=== PATIENT | female | born 1995 | race Caucasian/White ===

== ENCOUNTER → 2020-04-02 09:01 | Outpatient (BNVA) | payer MEDICAID, SELFPAY | PROVIDERS: Family Provider Internal Medicine; PCP Internal Medicine; Visit Provider Nurse Practitioner | DX: F43.12 Post-traumatic stress disorder, chronic (principal); F31.4 Bipolar disorder, current episode depressed, severe, without psychotic features; F10.21 Alcohol dependence, in remission; F12.20 Cannabis dependence, uncomplicated | CPT/HCPCS: 99214 ==

== ENCOUNTER → 2020-04-20 17:35 | Outpatient (BNVA) | payer MEDICAID, SELFPAY | PROVIDERS: Family Provider Internal Medicine; PCP Internal Medicine; Visit Provider Nurse Practitioner Family | DX: L08.9 Local infection of the skin and subcutaneous tissue, unspecified (principal); B95.8 Unspecified staphylococcus as the cause of diseases classified elsewhere; F12.10 Cannabis abuse, uncomplicated; F19.10 Other psychoactive substance abuse, uncomplicated; Z20.2 Contact with and (suspected) exposure to infections with a predominantly sexual mode of transmission; N92.6 Irregular menstruation, unspecified | CPT/HCPCS: 80074; 81025; 87086; 87491; 87591; 87661; 87806 ==

== ENCOUNTER 2020-05-23 01:53 | Emergency (ER) | payer MEDICAID, SELFPAY ==
[2020-05-23 01:53] VITALS: BP 103/63; PULSE 86; RESP 18; TEMP 36.7; O2SAT 98; BMI 29.2
--- NOTE | 2020-05-23 01:58 | CTR_ITS ---
PROCEDURE INFORMATION: Exam: CT Cervical Spine Without Contrast Exam date and time: 05/23/2020 2:23 AM Age: 24 years old Clinical indication: Injury or trauma; Fall; Initial encounter; Concussion /head injury TECHNIQUE: Imaging protocol: Computed tomography images of the cervical spine without contrast. Radiation optimization: All CT scans at this facility use at least one of these dose optimization techniques: automated exposure control; mA and/or kV adjustment per patient size (includes targeted exams where dose is matched to clinical indication); or iterative reconstruction. COMPARISON: No relevant prior studies available. RADIATION DOSE METRICS: Total DLP (mGy-cm): 634.16 FINDINGS: Vertebrae: No acute fracture. Normal alignment. Discs/Spinal canal/Neural foramina: No significant disc protrusion. No severe spinal canal stenosis. No significant neural foraminal narrowing. Soft tissues: Unremarkable. Lungs: Lung apices are normal. CT/CT cervical spin wo con* [id number] IMPRESSION: No acute findings. Radiation Dose CTDIVOL = (mGy): DLP = 634.16 (mGy-cm)
--- NOTE | 2020-05-23 01:58 | XRR_ITS ---
PROCEDURE INFORMATION: Exam: XR Right Forearm Exam date and time: 05/23/2020 2:59 AM Age: 24 years old Clinical indication: Injury or trauma; Fall; Initial encounter; Blunt trauma (contusions or hematomas; Arm, upper; Right TECHNIQUE: Imaging protocol: XR Right forearm. Views: 2 views. COMPARISON: No relevant prior studies available. FINDINGS: Bones/joints: No fracture or dislocation. Soft tissues: Soft tissue swelling/contusion along the distal ulna. XR/XR forearm RT 2V [id number] IMPRESSION: 1. No fracture or dislocation. 2. Soft tissue contusion along the distal ulna.
--- NOTE | 2020-05-23 01:58 | CTR_ITS ---
PROCEDURE INFORMATION: Exam: CT Head Without Contrast Exam date and time: 05/23/2020 2:23 AM Age: 24 years old Clinical indication: Injury or trauma; Fall; Initial encounter; Concussion / head injury; Consciousness not specified TECHNIQUE: Imaging protocol: Computed tomography of the head without contrast. Radiation optimization: All CT scans at this facility use at least one of these dose optimization techniques: automated exposure control; mA and/or kV adjustment per patient size (includes targeted exams where dose is matched to clinical indication); or iterative reconstruction. COMPARISON: CT head wo con* [id number] 11/29/2015 6:27 PM RADIATION DOSE METRICS: Total DLP (mGy-cm): 861.28 FINDINGS: Brain: Normal. No hemorrhage. Unremarkable white matter. No mass effect. Ventricles: Normal. No ventriculomegaly. Bones/joints: Unremarkable. No acute fracture. Sinuses: Visualized sinuses are unremarkable. No fluid levels. Mastoid air cells: Visualized mastoid air cells are well aerated. Soft tissues: Unremarkable. CT/CT head wo con* [id number] IMPRESSION: No acute intracranial abnormality. Radiation Dose CTDIVOL = (mGy): DLP = 861.28 (mGy-cm)
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
[2020-05-23 02:03] VITALS: BP 100/65; PULSE 85; RESP 16; O2SAT 98
--- NOTE | 2020-05-23 02:31 | PC.NURSE ---
patient to CT
[2020-05-23 02:50] LABS: Alanine Aminotransferase 15 U/L (0-33); Albumin Level 3.9 g/dL (3.5-5.2); Alkaline Phosphatase 75 IU/L (35-105); Anion Gap 16.3 (5-19); Aspartate Amino Transferase 25 U/L (0-32); Blood Urea Nitrogen 15 mg/dL (6-20); Calcium 8.8 mg/dL (8.5-10.5); Carbon Dioxide 24 mmol/L (22-29); Chloride 102 mmol/L (98-107); Creatinine Clr Calc Pharmacy 101.1506; Glomerular Filtration Rate 88.1 mL/min (90-130); Glucose 86 mg/dL (65-115); Osmolality Calculated 284 mOsm/kg (285-295); Potassium 3.3 mmol/L (3.5-5.1); Sodium 139 mmol/L (136-145); Total Bilirubin 0.3 mg/dL (0.15-1.2); Total Protein 6.9 g/dL (6.6-8.7)
--- NOTE | 2020-05-23 02:50 | PC.NURSE ---
back from CT
[2020-05-23 03:00] LABS: Alcohol Level < 10 mg/dL (0-10)
[2020-05-23 03:07] LABS: Basophils # 0.1 10^3/uL (0.0-0.1); Basophils % 0.9 %; Eosinophils # 0.3 10^3/uL (0.0-0.8); Eosinophils % 3.2 %; Hematocrit 34.7 % (37.0-47.0); Hemoglobin 10.3 g/dL (11.5-15.3); Mean Corpuscular HGB Conc 29.7 g/dL (30.0-36.0); Mean Corpuscular Hemoglobin 24.6 pg (28.0-34.0); Mean Corpuscular Volume 82.8 fL (81-99); Mean Platelet Volume 9.4 fL (7.4-10.4); Monocytes # 0.8 10^3/uL (0.2-0.9); Monocytes % 10.6 %; Neutrophils # 3.56 10^3/uL (1.8-7.7); Neutrophils % 46.3 %; Nucleated Red Blood Cells % 0 %; Platelet Count 384 10^3/cmm (130-400); Red Blood Count 4.19 10^6/uL (4.1-5.3); Red Cell Distribution Width 18.2 % (12.1-15.1); White Blood Count 7.7 10^3/uL (4.0-10.0)
[2020-05-23] MEDS: ketorolac 30 mg/mL INJ 15 MG IVP (03:08)
[2020-05-23 03:10] VITALS: BP 105/72; PULSE 64; RESP 16; O2SAT 95
[2020-05-23 03:18] VITALS: BP 105/72; PULSE 66; RESP 15; O2SAT 100
[2020-05-23 03:36] LABS: HCG, Serum Qual Negative (Negative)
== END 2020-05-23 03:20 | disposition home or self-care (01) ==
PROVIDERS: Emergency Provider Nurse Practitioner Family; PCP Internal Medicine
DX: S00.03XA Contusion of scalp, initial encounter (principal); W17.89XA Other fall from one level to another, initial encounter; Z87.891 Personal history of nicotine dependence; J45.909 Unspecified asthma, uncomplicated
CPT/HCPCS: 12345; 70450; 72125; 73090; 80053; 80307; 84703; 85025; 96374; 96375; 99283; J1885

== ENCOUNTER 2020-06-08 15:29 | Inpatient (IN) | payer MEDICAID, SELFPAY ==
[2020-06-08 15:35] VITALS: RESP 16
[2020-06-08] MEDS: ziprasidone 20 mg/mL SDV IM (15:42)
[2020-06-08] MEDS: LORazepam 2 mg/mL INJ 1 mL IM (15:42)
--- NOTE | 2020-06-08 15:50 | PC.NURSE ---
Personal belongings are in filing cabinet drawer number 2
[2020-06-08 16:09] VITALS: BP 106/74; PULSE 72; RESP 20; O2SAT 96
[2020-06-08 16:27] LABS: Basophils # 0.1 10^3/uL (0.0-0.1); Basophils % 0.9 %; Eosinophils # 0.2 10^3/uL (0.0-0.8); Eosinophils % 3.1 %; Hemoglobin 10.8 g/dL (11.5-15.3); Lymphocytes # 2.6 10^3/uL (0.8-4.8); Lymphocytes % 35.4 %; Mean Corpuscular Hemoglobin 24.6 pg (28.0-34.0); Mean Platelet Volume 9.1 fL (7.4-10.4); Monocytes # 0.6 10^3/uL (0.2-0.9); Monocytes % 7.4 %; Neutrophils # 3.93 10^3/uL (1.8-7.7); Neutrophils % 52.9 %; Nucleated Red Blood Cells % 0 %; Platelet Count 409 10^3/cmm (130-400); Red Blood Count 4.39 10^6/uL (4.1-5.3); Red Cell Distribution Width 17.2 % (12.1-15.1); White Blood Count 7.4 10^3/uL (4.0-10.0)
[2020-06-08 16:50] VITALS: BP 116/80; PULSE 80; RESP 18; O2SAT 96
[2020-06-08 17:01] LABS: Alanine Aminotransferase 18 U/L (0-33); Albumin Level 3.9 g/dL (3.5-5.2); Alkaline Phosphatase 73 IU/L (35-105); Anion Gap 13.9 (5-19); Aspartate Amino Transferase 28 U/L (0-32); Blood Urea Nitrogen 15 mg/dL (6-20); Calcium 8.6 mg/dL (8.5-10.5); Carbon Dioxide 24 mmol/L (22-29); Chloride 105 mmol/L (98-107); Globulin 3.1 g/dL (1.3-4.6); Glomerular Filtration Rate 88.1 mL/min (90-130); Glucose 92 mg/dL (65-115); Osmolality Calculated 284 mOsm/kg (285-295); Potassium 3.9 mmol/L (3.5-5.1); Sodium 139 mmol/L (136-145); Total Bilirubin 0.2 mg/dL (0.15-1.2)
[2020-06-08 17:05] LABS: Acetaminophen < 5.0 ug/mL (10-30); Alcohol Level < 10 mg/dL (0-10); Salicylate < 0.3 mg/dL (3-10)
[2020-06-08 17:13] LABS: Add Urine Microscopic? YES; Bilirubin Urine Neg (NEGATIVE); Blood Urine Neg (Negative); Glucose Urine UA Norm (Normal); HCG Qualitative Urine. Negative (Negative); Ketones Urine Negative (Negative); Leukocyte Esterase Urine Negative (Negative); Nitrate Urine Negative (Negative); Protein Urine Neg (Negative); Urine Appearance Hazy (CLEAR); Urine Color Yellow (Yellow); Urobilinogen Urine Norm (Negative); pH Urine 6 (5-7)
[2020-06-08 17:19] LABS: Amphetamines Screen Urine Positive (Negative); Barbiturates Screen Urine Negative (Negative); Benzodiazepines Screen Urine Negative (Negative); Cocaine Screen Urine Negative (Negative); Opiate Screen Urine Negative (Negative); PCP Screen Urine Negative (Negative); THC Screen Urine Negative (Negative)
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
[2020-06-08 17:23] LABS: Add Urine Culture? No; Bacteria Urine 1+; Mucus Urine 1+; RBC Urine 0-4 /hpf (0-2)
[2020-06-08 18:30] VITALS: BP 99/68; PULSE 61; RESP 18; TEMP 36.4; O2SAT 100
[2020-06-08 18:40] VITALS: BP 99/68; PULSE 61; RESP 18; TEMP 36.4; O2SAT 100
--- NOTE | 2020-06-08 20:43 | PC.NURSE ---
SEDATED UPON ASSESSMENT.
--- NOTE | 2020-06-08 21:25 | PC.NURSE ---
pt contiues to sleep at this med round. no medications given.
[2020-06-08 22:00] VITALS: RESP 18
[2020-06-09] MEDS: acetaminophen 325 mg Tablet 650 MG PO ×2 (00:33→20:53)
[2020-06-09] MEDS: hyDROXYzine 25 mg Capsule 50 MG PO ×2 (00:34→20:55)
--- NOTE | 2020-06-09 02:53 | PC.NURSE ---
patient continues to be sedated
[2020-06-09 06:00] VITALS: RESP 16
[2020-06-09 14:00] VITALS: BP 95/63; PULSE 88; RESP 18; TEMP 37.1; O2SAT 100
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
--- NOTE | 2020-06-09 20:33 | PC.NURSE ---
outpatient services through [facility] [place].
[2020-06-09] MEDS: trazodone 50 mg Tablet PO (20:55)
[2020-06-09 21:03] VITALS: BP 101/71; PULSE 77; RESP 18; TEMP 37.1; O2SAT 99
[2020-06-10 06:00] VITALS: BP 112/74; PULSE 68; RESP 20; TEMP 36.7; O2SAT 98
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
--- NOTE | 2020-06-10 13:51 | PM.NPN ---
Subjective NPU Subjective: Interval history: Keke presented today reporting that she is struggling with her situation at home. She reports she needs to get home, as soon as possible, because she is being evicted and she has to get her stuff out. We discussed the concerns that have been raised by her guardian, Mr. Hazel, who has grave concerns about the situation with her child being taken away and a recent other , and feeling like this element of her psycho-social circumstance is causing significant challenges in her life. She was agreeable to that reality. We talked about the possibility of looking at a long acting injectable, from the standpoint of treatment, which she is going to consider. As we talked about both Abilify and Invega, she reported that the Abilify was something that she could not take, but she would consider the Invega. Additionally, we talked about the impact that these pregnancies have had on her life, in a negative way, and that having an approach to managing her reproductive life might be something that would allow her to focus on other things, and she was agreeable with that and agreeable to considering a long acting reproductive option. So we agreed to see if we could get a PARKING LOT ATTENDANT/OB consult and see is they could initiate that in the next few days. Of note, she said she is on her period. Mental Status Exam MSE Comments: This is an overweight, young, white female, with adequate dress and limited grooming and eye contact. She has multicolored hair. Cooperative with exam in mild distress. Speech was decreased rate and volume. Mood described as ?okay but anxious and a little down?; affect congruent. Thought process, organized. Thought content: patient denied any suicidal or homicidal ideation, there were no delusions reported or noted, patient denied any auditory or visual hallucinations. Attention, concentration, and memory appeared intact but none were formally tested. Alert and oriented times three. Insight and judgment are limited. Impulse control is limited. Vitals/I&O/Wt Last Vital Signs Temp 98.8 F 06/10/20 21:50 Pulse 70 06/10/20 21:50 Resp 20 H 06/10/20 21:50 BP 99/59 06/10/20 21:50 Pulse Ox 98 06/10/20 21:50 Data NPU : 06/08/20 16:23 06/08/20 16:23 A&P Assessment and plan (1) Suicidal ideation: Status: Acute (2) Bipolar disorder, current episode depressed, severe, without psychotic features: Status: Acute (3) Post-traumatic stress disorder, chronic: Status: Acute (4) Cannabis dependence, uncomplicated: Status: Acute Additional A&P Information This is a 24 year old, white female, with a history of mood dysregulation, poor impulse control and active addiction, who presents with continued decompensation and great concerns, on the part of her guardian, for her safety without intervention. Continue current medication. We will explore the initiation of possibly Invega after an oral trial. Encourage individual, group, and milieu therapy. Continue q-15 minute checks for safety. Recommend sober living treatment at the highest level of care to which the patient is willing to commit. Will reach out to Obstetrics and explore reasonable start to her reproductive management which, if necessary, may include an OB consult. Involuntary Hold Information 96 Hour Hold: 96 Hour Involuntary Admission: No Attestations NPU Medical Necessity Statement*: Inpatient hospitalization is medically necessary and the clinically appropriate intervention at this time. We will monitor medications and titrate to effect and make changes as indicated. Likely length of stay is three to five days. Coding Level of Care Code Acute Molding Machine Setter for Thalia Pendleton Diagnoses Suicidal ideation R45.851 Bipolar disorder, current episode depressed, severe, without psychotic features F31.4 Post-traumatic stress disorder, chronic F43.12 Cannabis dependence, uncomplicated F12.20
[2020-06-10 14:00] VITALS: BP 103/65; PULSE 72; RESP 19; TEMP 37; O2SAT 99
[2020-06-10] MEDS: ondansetron 4 MG Tablet PO (18:42)
--- NOTE | 2020-06-10 18:43 | PC.NURSE ---
PRN ZOFRAN 4 MG GIVEN PO PER PT C/O UPSET STOMACH. WILL CONT TO MONITOR.
[2020-06-10] MEDS: trazodone 50 mg Tablet PO (20:51)
[2020-06-10] MEDS: hyDROXYzine 25 mg Capsule 50 MG PO (20:51)
[2020-06-10 21:50] VITALS: BP 99/59; PULSE 70; RESP 20; TEMP 37.1; O2SAT 98
[2020-06-11 06:00] VITALS: BP 94/68; PULSE 57; RESP 16; TEMP 37; O2SAT 98
[2020-06-11 14:00] VITALS: BP 94/62; PULSE 99; RESP 18; TEMP 37.1; O2SAT 94
[2020-06-11] MEDS: OLANZapine 5 mg ODT PO (14:22)
--- NOTE | 2020-06-11 14:23 | PC.NURSE ---
PRN Zyprexa Zydis 5MG PO given for anxiety
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
[2020-06-11] MEDS: paliperidone ER 6 mg Tablet PO (15:17)
[2020-06-11 20:15] VITALS: BP 84/58; PULSE 60; RESP 16; TEMP 36.5; O2SAT 97
[2020-06-11] MEDS: trazodone 50 mg Tablet PO (20:47)
[2020-06-12 06:00] VITALS: BP 82/55; PULSE 57; RESP 14; TEMP 36.4; O2SAT 93
--- NOTE | 2020-06-12 08:15 | P.PN_ITS ---
Subjective NPU Subjective: Interval history: Keke presents today continuing the lobby to be discharged as soon as possible. She denied any issues with the new medication but continues to report that she needs to go home and help her boyfriend/fianc? pack for discharge. We discussed the fact that we were able to reach Dr. Ponce and he reported that we can call on Sunday and get her squeezed into an appointment on the day of discharge so that we can assure her getting her contraception taking care of. We discussed the IUD which she reports that she's had before she said it didn't jive with her so she does not want to do that but reported having knowledge of a Depo can be placing her arm that could be a three-year treatment and endorse an openness to that. We will plan to recheck out to the outpatient OB people are saying Sunday as the eye a discharge earlier in the week, if all the other logistical pieces fall in place. Mental Status Exam MSE Comments: This is an overweight, young, white female, with adequate dress and limited grooming and eye contact. She has multicolored hair. Cooperative with exam in no acute distress. Speech was normal rate and volume. Mood described as all right; affect congruent. Thought process, organized. Thought content: patient denied any suicidal or homicidal ideation, there were no delusions reported or noted, patient denied any auditory or visual hallucinations. Attention, concentration, and memory appeared intact but none were formally tested. She appears alert and oriented times three. Insight and judgment are improving. Impulse control is limited. Vitals/I&O/Wt Last Vital Signs Temp 97.6 F 06/12/20 06:00 Pulse 57 L 06/12/20 06:00 Resp 14 06/12/20 06:00 BP 82/55 06/12/20 06:00 Pulse Ox 93 06/12/20 06:00 06/11/20 06/12/20 06/12/20 22:59 06:59 14:59 Intake Total 480 / 480 Balance 480 / 480 Weight last 48 hrs Weight 64.229 kg Data NPU : 06/08/20 16:23 06/08/20 16:23 A&P Additional A&P Information (1) Suicidal ideation: (2) Bipolar disorder, current episode depressed, severe, without psychotic features: (3) Post-traumatic stress disorder, chronic: (4) Cannabis dependence, uncomplicated: This is a 24 year old, white female, with a history of mood dysregulation, poor impulse control and active addiction, who presents with continued decompensation and great concerns, on the part of her guardian, for her safety without intervention. Continue current medication. Consider Invega injectable. Consider long-acting contraception with OB on Sunday. Encourage individual, group, and milieu therapy. Continue q-15 minute checks for safety. Recommend sober living treatment at the highest level of care to which the patient is willing to commit. Involuntary Hold Information 96 Hour Hold: 96 Hour Involuntary Admission: No Attestations NPU Medical Necessity Statement*: Inpatient hospitalization is medically necessary and the clinically appropriate intervention at this time. We will monitor medications and titrate to effect and make changes as indicated. Likely length of stay is three to five days. Coding Level of Care Code Acute Cigar Making Machine Supervisor for Thalia Pendleton
[2020-06-12] MEDS: paliperidone ER 6 mg Tablet PO (08:58)
[2020-06-12 13:56] VITALS: BP 138/87; PULSE 96; RESP 19; TEMP 36.3
[2020-06-12] MEDS: ondansetron 4 MG Tablet PO (18:17)
[2020-06-12 20:15] VITALS: BP 107/73; PULSE 90; RESP 16; TEMP 36.7; O2SAT 99
[2020-06-12] MEDS: trazodone 50 mg Tablet PO (20:48)
--- NOTE | 2020-06-12 20:49 | PC.NURSE ---
PRN TRAZODONE PT REQUESTING SLEEP AID. ADMINISTERED TRAZODONE 50 MG PO. WILL MONITOR FOR MEDICATION EFFECTIVENESS.
[2020-06-13 06:00] VITALS: BP 97/65; PULSE 74; RESP 18; TEMP 36.6; O2SAT 96
[2020-06-13] MEDS: paliperidone ER 6 mg Tablet PO (08:11)
--- NOTE | 2020-06-13 13:40 | P.PN_ITS ---
Subjective NPU Subjective: Interval history: Keke presents today continuing to report that her tolerance of the medication is good. She endorses a decreased irritability and continues to be hopeful that she can be discharged as soon as possible. Reviewed with her the plan to call OB first thing in see when they could fit her in plus we'll plan to work with her guardian to figure out this physician. We discussed the possibility of the long-acting injectable as well and that going some distance and reassurance of adherence to medication protocol. She reports is eating okay and sleeping fine. Mental Status Exam MSE Comments: This is an overweight, young, white female, with adequate dress and limited grooming and eye contact. She has multicolored hair. Cooperative with exam in no acute distress. Speech was normal rate and volume. Mood described as okay; affect congruent. Thought process, organized. Thought content: patient denied any suicidal or homicidal ideation, there were no delus ions reported or noted, patient denied any auditory or visual hallucinations. Attention, concentration, and memory appeared intact but none were formally tested. She appears alert and oriented times three. Insight and judgment are improving. Impulse control is limited. Vitals/I&O/Wt Last Vital Signs Temp 97.6 F 06/13/20 14:00 Pulse 98 06/13/20 14:00 Resp 17 06/13/20 14:00 BP 132/79 06/13/20 14:00 Pulse Ox 96 06/13/20 06:00 Weight last 48 hrs Weight 67.358 kg Weight 64.229 kg Data NPU : 06/08/20 16:23 06/08/20 16:23 A&P Additional A&P Information (1) Suicidal ideation: (2) Bipolar disorder, current episode depressed, severe, without psychotic features: (3) Post-traumatic stress disorder, chronic: (4) Cannabis dependence, uncomplicated: This is a 24 year old, white female, with a history of mood dysregulation, poor impulse control and active addiction, who presents with continued decompensation and great concerns, on the part of her guardian, for her safety without intervention. Continue current medication. Consider Invega injectable. Consider long-acting contraception with OB on Sunday. Encourage individual, group, and milieu therapy. Continue q-15 minute checks for safety. Recommend sober living treatment at the highest level of care to which the patient is willing to commit. Involuntary Hold Information 96 Hour Hold: 96 Hour Involuntary Admission: No Attestations NPU Medical Necessity Statement*: Inpatient hospitalization is medically necessary and the clinically appropriate intervention at this time. We will monitor medications and titrate to effect and make changes as indicated. Likely length of stay is 2-4 days. Coding Level of Care Code Acute Machine Repairer Maintenance for Thalia Pendleton
[2020-06-13 14:00] VITALS: BP 132/79; PULSE 98; RESP 17; TEMP 36.4
[2020-06-13 20:40] VITALS: BP 99/66; PULSE 95; RESP 21; TEMP 36.9; O2SAT 98
[2020-06-13] MEDS: hyDROXYzine 25 mg Capsule 50 MG PO (20:45)
[2020-06-13] MEDS: trazodone 50 mg Tablet PO (20:45)
[2020-06-14 06:00] VITALS: BP 100/68; PULSE 69; RESP 17; TEMP 36.6; O2SAT 97
[2020-06-14] MEDS: paliperidone ER 6 mg Tablet PO (08:36)
[2020-06-14 13:14] VITALS: BP 94/62; PULSE 95; RESP 18; TEMP 36.7; O2SAT 95
[2020-06-14] MEDS: paliperidone palmitate 234 mg Syringe IM (16:18)
--- NOTE | 2020-06-14 16:20 | PC.NURSE ---
INVEGA SUSTENNA 234 MG GIVEN IM IN RIGHT DELTOID PER PHYSICIAN ORDER. PT EDUCATED ON MED GIVEN & PT VERBALIZED UNDERSTANDING. WILL CONT TO MONITOR INJECTION SITE FOR ANY REDNESS, SWELLING, OR IRRITATION. LOT [id number] EXP 09/2021
[2020-06-14 18:03] VITALS: BP 94/62; PULSE 95; RESP 18; TEMP 36.7; O2SAT 95
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
== END 2020-06-14 18:22 | disposition home or self-care (01) | DRG 885 ==
LOC: ER 17:23 → NP 17:52
PROVIDERS: Family Medicine; PCP Internal Medicine; Visit Provider Psychiatry & Neurology Psychiatry
DX: F31.4 Bipolar disorder, current episode depressed, severe, without psychotic features (principal); R45.851 Suicidal ideations; F43.12 Post-traumatic stress disorder, chronic; F12.20 Cannabis dependence, uncomplicated; E03.9 Hypothyroidism, unspecified; F10.21 Alcohol dependence, in remission; K21.9 Gastro-esophageal reflux disease without esophagitis; G43.711 Chronic migraine without aura, intractable, with status migrainosus; Z87.891 Personal history of nicotine dependence
CPT/HCPCS: 12345; 36415; 80053; 80306; 80307; 81001; 81025; 85025; 96372; 99285; J2060; J3486; Q0162

== ENCOUNTER → 2020-06-18 11:27 | Outpatient (BNVA) | payer MEDICAID, SELFPAY | PROVIDERS: PCP Internal Medicine; Visit Provider Obstetrics & Gynecology | DX: Z30.017 Encounter for initial prescription of implantable subdermal contraceptive (principal) | CPT/HCPCS: 81025 ==

== ENCOUNTER → 2020-06-21 14:05 | Outpatient (BNVA) | payer MEDICAID, SELFPAY | PROVIDERS: PCP Internal Medicine; Visit Provider Psychiatry & Neurology Psychiatry | DX: F43.12 Post-traumatic stress disorder, chronic (principal) | CPT/HCPCS: 99214 ==

== ENCOUNTER → 2021-01-27 12:25 | Outpatient (BNVA) | payer MEDICAID, SELFPAY | PROVIDERS: PCP Internal Medicine; Visit Provider Nurse Practitioner | DX: F43.12 Post-traumatic stress disorder, chronic (principal); F12.20 Cannabis dependence, uncomplicated; F15.10 Other stimulant abuse, uncomplicated; Z79.899 Other long term (current) drug therapy | CPT/HCPCS: 99214 ==

== ENCOUNTER 2021-05-02 08:48 | Inpatient (IN) | payer MEDICAID, SELFPAY ==
[2021-05-02] VITALS (8 sets, daily range): BP systolic 111–134; BP diastolic 58–71; PULSE 91–166; RESP 16–21; TEMP 36.6–37; O2SAT 96–100; BMI 20.1
--- NOTE | 2021-05-02 08:50 | ECG_ITS ---
[facility] Test Date: 2021-05-02 Pat Name: Keke Mcnamara Department: Room: 126 Gender: Female Certified Registered Dental Assistant: : [id number] Requested By: Mark Regan Order Number: [id number] Martín MD: SU MONTALVO Measurements Intervals [place] Rate: 102 P: 80 DC: 116 QRS: 73 QRSD: 85 T: -8 QT: 331 QTc: 432 Interpretive Statements SINUS TACHYCARDIA WITH SHORT DC INTERVAL NONSPECIFIC T-WAVE ABNORMALITY Compared to ECG 08/19/2018 16:25:41 Short DC interval now present T-wave abnormality now present Sinus rhythm no longer present Electronically Signed On 05-02-2021 18:48:57 CDT by SU MONTALVO [id number]
--- NOTE | 2021-05-02 08:54 | W.ED.PSYCH ---
HPI - Psych General: Chief Complaint: Psychiatric Symptoms Stated Complaint: PSYCH EVAL Time Seen by Provider: 05/02/21 08:49 Source: patient and police Mode of arrival: ambulatory Limitations: other (acute psychosis) History of Present Illness: HPI Narrative: see nursing assessment. pt brought in by police with acute psychosis, visual hallucinations. pt very anxious and combative, even in police cuffs. complaint: altered mental status and other (anxiety) Onset (ago): unknown Duration: constant Relieving factors: none Exacerbating factors: drug use Context: recent drug abuse Associated psychiatric symptoms: visual hallucinations and delusions Associated symptoms: Reports visual hallucinations, delusions and racing thoughts; Deny suicidal ideation Treatments prior to arrival: none Review of Systems General: Reports: ROS unobtainable due to medical condition and ROS unobtainable due to mental status Card: Denies: chest pain Resp: Denies: dyspnea GI: Denies: abdominal pain, nausea or vomiting Neuro: Denies: headache(s) Psych: Reports: anxiety, paranoia and visual hallucinations; Denies: suicidal ideation [facility] PFSH: Medical History Acquired hypothyroidism Patient with longstanding history, since age 15, of hypothyroidism. She had not been taking medication since February 2019. 08/29/2019: TSH 11.2. Restarted levothyroxine at 50 mcg daily. 10/01/2019: TSH 15.3. Levothyroxine increased to 75 mcg daily. TSH still low. Increase Levothyroxine to 75 mcg -Rx Levothyroxine 75 mcg daily #30, 2 refil. Alcohol dependence, in remission Amphetamine or stimulant drug abuse Anemia affecting in third trimester Asthma Since childhood and states that it is aggravated by exercise. Has maybe one or 2 episodes of shortness of breath a week. Since childhood and states that it is aggravated by exercise. Has maybe one or 2 episodes of shortness of breath a week. Bipolar disorder, current episode depressed, severe, without psychotic features Bipolar disorder, mixed Patient has a history of bipolar disorder and PTSD. She has been on multiple medications in the past. She has also been treated with at [facility]. - Present prior to the --was taken off all her medications by Tamika Geiger at [facility] early on in the --she has not been back to [facility] and has not restarted any medication. Today she feels managed without medicine so we will continue to follow but I strongly recommended she return back to [facility] for further evaluation and management. Cannabis dependence, uncomplicated Drug use affecting in second trimester Gastroesophageal reflux during in third trimester, antepartum Insulin controlled gestational diabetes mellitus (GDM) in third trimester 09/01/2019: GCT 148 10/06/2019: Attempted to obtain three-hour GTT on multiple occasions. Patient unable to perform test. Check sugars at home and brought those to office at this visit. Pre-meals found to be elevated and consistent with GDM. A1c 10/06/2019: 5.6 Ultrasounds 1. 04/07/2019 ---> 7-4/7 WG ---> EDC 11/20/2019. 2. 07/30/2019 ---> 25-0/7 WG ---> EDC 11/12/2019. 3. 10/03/2019 ---> 34-6/7 WG ---> EDC 11/08/2019. EFW 5 lbs. 2 oz. (2318 g) 74%. SANTHOSH 18.8 cm Patient brought Sugar logs with her which were reviewed. Patient has continued to improve sugars with diet. However still higher than desired. Patient was supposed to have started 20 units of Levemir at her last visit, but wrong dose was sent in to the pharmacy and she only started 2 units daily. Based upon a sugar readings today, I am switching her to 10 units daily. -Levemir 10 units daily. -BPP with NST was 10 out of 10. -Continue weekly testing until 36 weeks at which time it is to switch to twice weekly. Intractable chronic migraine without aura and with status migrainosus Has been treated with multiple medications for headaches. Most recently treated with Imitrex by Dr. Amaro. Last visit with her was on 02/25/2019. This is a hapless mildly impaired 23-year-old with borderline personality disorder and ongoing difficulties. She has a nonfocal exam and I don't see any reason to scan her head. A letter headaches are doing better on current medication and I'm not changing anything. I took time to listen to her story and empathize. Maternal alcohol use complicating in second trimester, antepartum Mental disorder affecting in third trimester Patient has a history of bipolar disorder and PTSD. She has been on multiple medications in the past. She has also been treated with at [facility]. Patient denying depression problems at this time. She is definitely at risk for flareup of her bipolar disorder after delivery. Highly recommend that she get reestablished with [facility]. Nausea/vomiting in 09/29/2019: Started Reglan. Already taking Pepcid. Patient reporting nausea and vomiting. Was previously taking famotidine for acid reflux issues. Was started on Reglan today. Nexplanon insertion On combination antipsychotic drug therapy Post-traumatic stress disorder, chronic Seizure disorder during in third trimester 09/29/2019: Patient with history of tonic-clonic seizures. Has been followed by Dr. Amaro in the past. Last evaluation was in 02/25/2019. Currently off of medications. Thyroid disease during in third trimester Surgical History History of myringotomy History of tonsillectomy at age 10 [place] teeth extracted Family History Grandfather Hyperlipidemia Maternal Stroke maternal Diabetes maternal Grandmother Thyroid condition maternal Breast cancer great Mother Thyroid condition Unknown Patient denies medical problems Denies family history of: cervical, uterine, colon cancer, DVT/PE Family/Other Ovarian cancer paternal aunt Social History Smoking and tobacco status: current some day smoker Quit status (tobacco): considering quitting Second hand smoke exposure: Yes Smoking risk assessment/counseling performed?: No Alcohol intake: former Year of sobriety/quit date alcohol: 2019 Former alcohol use details: Drank wine during Additional social history: Poorly balanced diet Physical Exam Const: COMMON NORMALS: no limitations and well nourished EXAM LIMITATIONS: altered mental status, behavioral limitations and other limitations (pt acutely psychotic) GENERAL APPEARANCE: anxious, combative and disheveled HENMT: COMMON NORMALS: normocephalic and atraumatic HEAD & SCALP: normocephalic and atraumatic FACE & SINUS: normal facial exam Eye: COMMON NORMALS: EOMs intact bilaterally Neck/C-Spine: COMMON NORMALS: full ROM, no lymphadenopathy, supple and no meningeal signs GENERAL: Yes normal visual inspection Lymph: LYMPHATIC: no lymphadenopathy noted Chest: COMMONS NORMALS: normal inspection of the chest and normal palpation of entire chest wall CHEST: No Ecchymosis present and No rash Resp: COMMON NORMALS: normal respiratory effort, No retractions and clear to auscultation bilaterally EFFORT & INSPECTION: No respiratory distress AUSCULTATION: clear to auscultation bilaterally Cardio: COMMON NORMALS: regular rate, regular rhythm and Peripheral pulses 2+ throughout JUGULAR VENOUS DISTENTION: no JVD RATE: regular rate RHYTHM: regular rhythm PERIPHERAL PULSES: Peripheral pulses 2+ throughout GI: COMMON NORMALS: Normal to inspection, nondistended, normoactive bowel sounds present and non-tender : COMMON NORMALS: Yes no CVA tenderness BLADDER/KIDNEY EXAM: Yes no CVA tenderness Back/Pelvis: COMMON NORMALS: no CVA tenderness Extremity: COMMON NORMALS: normal to inspection, full ROM and capillary refill normal Neuro: COMMON NORMALS: CN's II-XII intact bilaterally, no focal motor deficits and no sensory deficits noted MENINGEAL SIGNS: Yes no meningeal signs Psych: ATTITUDE: Yes paranoid and Yes uncooperative SPEECH: Yes excessive MOOD & AFFECT: Yes anxious THOUGHT PROCESS: Flight of ideas present THOUGHT CONTENT: Yes delusions and Yes Hallucination(s) present visual ATTENTION/CONCENTRATION: Yes attention grossly impaired and Yes concentration grossly impaired INSIGHT: Poor insight present (Psych) JUDGEMENT: Poor judgement present (Psych) Skin: COMMON NORMALS: no rashes or lesions noted and no wounds GENERAL SKIN EXAM: no rashes or lesions noted Course ED course: 1108: telem sinus tach hr 105 pt out of restraints and calm since 929 Reevaluation(s): Reevaluation #1: Patient appears to be doing well. She is calm. No distress. Time: 09:45 Vital Signs: Vital signs: Vital Signs Pulse Rate 101 H 05/02/21 11:29 Respiratory Rate 18 05/02/21 11:29 Blood Pressure 114/58 05/02/21 09:15 Pulse Oximetry 100 05/02/21 11:29 MDM - Psych MDM Narrative: Medical decision making narrative: pt will require 96 hour hold due to acute psychosis 1140: d/w dr. pal. Will accept patient to behavioral health unit. Lab Data: Attestation: I reviewed the patient's lab results. Labs: Lab Results 05/02/21 05/02/21 05/02/21 Range/Units 10:08 10:08 10:28 WBC (4.0-10.0) 10^3/ uL RBC (4.1-5.3) 10^6/u L Hgb (11.5-15.3) g/dL Hct (37.0-47.0) % MCV (81-99) fL MCH (28.0-34.0) pg MCHC (30.0-36.0) g/dL RDW (12.1-15.1) % Plt Count (130-400) 10^3/c mm MPV (7.4-10.4) fL Neut % (Auto) % Lymph % (Auto) % Lawrence % (Auto) % Eos % (Auto) % Baso % (Auto) % Neut # (Auto) (1.8-7.7) 10^3/u L Lymph # (Auto) (0.8-4.8) 10^3/u L Lawrence # (Auto) (0.2-0.9) 10^3/u L Eos # (Auto) (0.0-0.8) 10^3/u L Baso # (Auto) (0.0-0.1) 10^3/u L Nucleated RBC % (a uto) % Nucleated RBCs # /100WBC Sodium 138 (136-145) mmol/L Potassium 2.8 L* (3.5-5.1) mmol/L Chloride 102 (98-107) mmol/L Carbon Dioxide 23 (22-29) mmol/L Anion Gap 15.8 (5-19) BUN 12 (6-20) mg/dL Creatinine 1.0 H (0.5-0.9) mg/dL GFR Calculation 67.6 L (90-130) mL/min Glucose 73 (65-115) mg/dL Calculated Osmolal ity 284 L (285-295) mOsm/k g Calcium 9.5 (8.5-10.5) mg/dL Total Bilirubin 0.3 (0.15-1.2) mg/dL AST 30 (0-32) U/L ALT 22 (0-33) U/L Alkaline Phosphata se 89 (35-105) IU/L Total Protein 6.3 L (6.6-8.7) g/dL Albumin 4.0 (3.5-5.2) g/dL Globulin 2.3 (1.3-4.6) g/dL TSH 12.08 H (0.27-4.20) uIU/ mL HCG, Qual (Negative) Urine Color Dark yellow (Yellow) Urine Appearance Sl hazy (CLEAR) Urine pH 5 (5-7) Ur Specific Gravit y 1.030 (1.005-1.030) Urine Protein 1+ H (Negative) Urine Glucose (UA) Norm (Normal) Urine Ketones 1+ H (Negative) Urine Blood 3+ H (Negative) Urine Nitrate Negative (Negative) Urine Bilirubin 1+ H (Negative) Urine Urobilinogen 1 H (Negative) mg/dL Ur Leukocyte Prachi ase Negative (Negative) Urine RBC 25-40 H (0-2) /hpf Urine WBC 10-15 H (0-5) /hpf Ur Squamous Epith Cells 0-4 H (0-5) /hpf Amorphous Sediment Not Reportable Urine Bacteria 1+ H (NONE) /hpf Salicylates < 0.3 L (3-10) mg/dL Urine Opiates Scre en Negative (Negative) ng/mL Acetaminophen < 5.0 L (10-30) ug/mL Ur Barbiturates Sc reen Negative (Negative) ng/mL Ur Phencyclidine S crn Negative (Negative) ng/mL Ur Amphetamines Sc reen Positive H (Negative) ng/mL U Benzodiazepines Scrn Negative (Negative) ng/mL Urine Cocaine Scre en Negative (Negative) ng/mL U Marijuana (THC) Screen Negative (Negative) ng/mL Ethyl Alcohol < 10 (0-10) mg/dL 05/02/21 05/02/21 Range/Units 10:28 10:28 WBC 12.2 H (4.0-10.0) 10^3/ uL RBC 4.10 (4.1-5.3) 10^6/u L Hgb 11.4 L (11.5-15.3) g/dL Hct 33.6 L (37.0-47.0) % MCV 82.0 (81-99) fL MCH 27.8 L (28.0-34.0) pg MCHC 33.9 (30.0-36.0) g/dL RDW 14.3 (12.1-15.1) % Plt Count 356 (130-400) 10^3/c mm MPV 9.3 (7.4-10.4) fL Neut % (Auto) 84.9 % Lymph % (Auto) 5.9 % Lawrence % (Auto) 7.6 % Eos % (Auto) 0.5 % Baso % (Auto) 0.9 % Neut # (Auto) 10.32 H (1.8-7.7) 10^3/u L Lymph # (Auto) 0.7 L (0.8-4.8) 10^3/u L Lawrence # (Auto) 0.9 (0.2-0.9) 10^3/u L Eos # (Auto) 0.1 (0.0-0.8) 10^3/u L Baso # (Auto) 0.1 (0.0-0.1) 10^3/u L Nucleated RBC % (a uto) 0 % Nucleated RBCs # 0.0 /100WBC Sodium (136-145) mmol/L Potassium (3.5-5.1) mmol/L Chloride (98-107) mmol/L Carbon Dioxide (22-29) mmol/L Anion Gap (5-19) BUN (6-20) mg/dL Creatinine (0.5-0.9) mg/dL GFR Calculation (90-130) mL/min Glucose (65-115) mg/dL Calculated Osmolal ity (285-295) mOsm/k g Calcium (8.5-10.5) mg/dL Total Bilirubin (0.15-1.2) mg/dL AST (0-32) U/L ALT (0-33) U/L Alkaline Phosphata se (35-105) IU/L Total Protein (6.6-8.7) g/dL Albumin (3.5-5.2) g/dL Globulin (1.3-4.6) g/dL TSH (0.27-4.20) uIU/ mL HCG, Qual Negative (Negative) Urine Color (Yellow) Urine Appearance (CLEAR) Urine pH (5-7) Ur Specific Gravit y (1.005-1.030) Urine Protein (Negative) Urine Glucose (UA) (Normal) Urine Ketones (Negative) Urine Blood (Negative) Urine Nitrate (Negative) Urine Bilirubin (Negative) Urine Urobilinogen (Negative) mg/dL Ur Leukocyte Prachi ase (Negative) Urine RBC (0-2) /hpf Urine WBC (0-5) /hpf Ur Squamous Epith Cells (0-5) /hpf Amorphous Sediment Urine Bacteria (NONE) /hpf Salicylates (3-10) mg/dL Urine Opiates Scre en (Negative) ng/mL Acetaminophen (10-30) ug/mL Ur Barbiturates Sc reen (Negative) ng/mL Ur Phencyclidine S crn (Negative) ng/mL Ur Amphetamines Sc reen (Negative) ng/mL U Benzodiazepines Scrn (Negative) ng/mL Urine Cocaine Scre en (Negative) ng/mL U Marijuana (THC) Screen (Negative) ng/mL Ethyl Alcohol (0-10) mg/dL EKG Data^: EKG 1: Attestation: I personally reviewed and interpreted this EKG as follows: EKG interpretation date: 05/02/21 EKG interpretation time: 11:38 Prior EKG tracings: not available for review Interpretation: sinus tachycardia; hr 102 normal axis. Normal P waves, normal [place] interval, normal QRS, normal ST segment. Normal axis. EKG: Sinus tachycardia with heart rate 102. Discharge Plan Discharge Patient Disposition: Admitted As Inpatient Clinical Impression: Acute psychosis, Amphetamine or stimulant drug abuse, Acute hypokalemia UTI (urinary tract infection) Qualifiers: Urinary tract infection type: site unspecified Hematuria presence: without hematuria Qualified Code(s): N39.0 - Urinary tract infection, site not specified Hypothyroidism Qualifiers: Hypothyroidism type: unspecified Qualified Code(s): E03.9 - Hypothyroidism, unspecified Condition: Stable Coding Level of Care Code ED Environmental Research Scientist for g Fwd Exam Comprehensive
[2021-05-02] MEDS: LORazepam 2 mg/mL INJ 1 mL IM (08:58)
[2021-05-02] MEDS: haloperidol inj 5 mg/mL INJ 1 mL IM (08:58)
[2021-05-02 10:37] LABS: Basophils # 0.1 10^3/uL (0.0-0.1); Basophils % 0.9 %; Eosinophils # 0.1 10^3/uL (0.0-0.8); Eosinophils % 0.5 %; Hematocrit 33.6 % (37.0-47.0); Hemoglobin 11.4 g/dL (11.5-15.3); Lymphocytes # 0.7 10^3/uL (0.8-4.8); Lymphocytes % 5.9 %; Mean Corpuscular HGB Conc 33.9 g/dL (30.0-36.0); Mean Corpuscular Hemoglobin 27.8 pg (28.0-34.0); Mean Platelet Volume 9.3 fL (7.4-10.4); Monocytes # 0.9 10^3/uL (0.2-0.9); Monocytes % 7.6 %; Neutrophils # 10.32 10^3/uL (1.8-7.7); Neutrophils % 84.9 %; Nucleated Red Blood Cells % 0 %; Platelet Count 356 10^3/cmm (130-400); Red Cell Distribution Width 14.3 % (12.1-15.1); White Blood Count 12.2 10^3/uL (4.0-10.0)
[2021-05-02 10:41] LABS: Amphetamines Screen Urine Positive (Negative); Barbiturates Screen Urine Negative (Negative); Benzodiazepines Screen Urine Negative (Negative); Cocaine Screen Urine Negative (Negative); Opiate Screen Urine Negative (Negative); PCP Screen Urine Negative (Negative); THC Screen Urine Negative (Negative)
[2021-05-02 11:01] LABS: Blood Urine 3+ (Negative); Glucose Urine UA Norm (Normal); Ketones Urine 1+ (Negative); Nitrate Urine Negative (Negative); Protein Urine 1+ (Negative); Urine Appearance SL Hazy (CLEAR); Urine Color Dark Yellow (Yellow); pH Urine 5 (5-7)
[2021-05-02 11:02] LABS: Add Urine Culture? Yes; Add Urine Microscopic? YES; Bacteria Urine 1+ /hpf; Bilirubin Urine 1+ (Negative); Leukocyte Esterase Urine Negative (Negative); RBC Urine 25-40 /hpf (0-2); Squamous Epithelial Cell Urine 0-4 /hpf (0-5); Urobilinogen Urine 1 mg/dL (Negative)
[2021-05-02 11:02] LABS: HCG, Serum Qual Negative (Negative)
--- NOTE | 2021-05-02 11:09 | PC.PHAR ---
pt unable to verify medications-rx written on 04/25/21 on medications entered-ext med history shows entered meds last filled on 01/27/21 30d/s
[2021-05-02 11:10] LABS: Alanine Aminotransferase 22 U/L (0-33); Alkaline Phosphatase 89 IU/L (35-105); Anion Gap 15.8 (5-19); Aspartate Amino Transferase 30 U/L (0-32); Blood Urea Nitrogen 12 mg/dL (6-20); Calcium 9.5 mg/dL (8.5-10.5); Carbon Dioxide 23 mmol/L (22-29); Chloride 102 mmol/L (98-107); Globulin 2.3 g/dL (1.3-4.6); Glomerular Filtration Rate 67.6 mL/min (90-130); Glucose 73 mg/dL (65-115); Osmolality Calculated 284 mOsm/kg (285-295); Sodium 138 mmol/L (136-145); Thyroid Stimulating Hormone 12.08 uIU/mL (0.27-4.20); Total Bilirubin 0.3 mg/dL (0.15-1.2); Total Protein 6.3 g/dL (6.6-8.7)
[2021-05-02 11:17] LABS: Acetaminophen < 5.0 ug/mL (10-30); Alcohol Level < 10 mg/dL (0-10); Creatinine Clr Calc Pharmacy 67.9064; Potassium 2.8 mmol/L (3.5-5.1); Salicylate < 0.3 mg/dL (3-10)
[2021-05-02] MEDS: cephALEXin 500 mg Capsule PO (12:40)
--- NOTE | 2021-05-02 14:22 | PC.NURSE ---
Patient refused vitals.
[2021-05-02] MEDS: prazosin 1 mg Capsule 2 MG PO (20:47)
[2021-05-02] MEDS: OLANZapine 5 mg ODT PO (20:47)
[2021-05-03 04:15] LABS: Anion Gap 14.3 (5-19); Blood Urea Nitrogen 10 mg/dL (6-20); Calcium 8.7 mg/dL (8.5-10.5); Carbon Dioxide 25 mmol/L (22-29); Chloride 104 mmol/L (98-107); Glomerular Filtration Rate 87.4 mL/min (90-130); Glucose 103 mg/dL (65-115); Osmolality Calculated 289 mOsm/kg (285-295); Potassium 3.3 mmol/L (3.5-5.1); Sodium 140 mmol/L (136-145)
[2021-05-03 05:05] VITALS: BP 80/44; PULSE 101; RESP 18; TEMP 37; O2SAT 95
--- NOTE | 2021-05-03 05:05 | PC.NURSE ---
0500 oswald notified nurse of b/p /05/03/2021
[2021-05-03] MEDS: sertraline 50 mg Tablet PO (08:45)
[2021-05-03] MEDS: levothyroxine 50 mcg Tablet PO (08:46)
--- NOTE | 2021-05-03 09:33 | P.HP_ITS ---
Providers/Chief Complaint Admitting Physician: Toney Palacios DO Primary Care Provider: Cale Toth DO Chief Complaint: PSYCH EVAL HPI NPU History of Present Illness Keke Mcnamara is a 25 year old female with an unclear past psychiatric history presented to the emergency department by police combative, agitated with meth amphetamine intoxication. Patient also reported that she was feeling suicidal yesterday when she came to the emergency department but denies any recent sustained depressive symptoms. Patient states that she mostly sleeps ev yogn day and has been using methamphetamine on a near daily basis for several months. Patient last had contact with mental health in January and outpatient [facility] and previously was seen in May 2020 at [facility] but reports noncompliance with medication and medication management follow-up. Patient currently denying any suicidal ideation. Patient does not recall any recent or past hypomanic or manic episodes outside of substance use. Patient reports some anxiety related to ongoing life stress but denies any sustained anxiety, denies any panic symptoms. Patient reports paranoid thoughts thinking that people are out to get her and states that she has experienced auditory and visual destinations typically under the influence of methamphetamine. Patient reports past substance rehabilitation but states that it's been a while, and reports that she is interested in post discharge substance treatmen t. Patient states that she had not been taking her levothyroxine or any other medications. Patient's potassium was replaced while in the emergency department and she was restarted on levothyroxine after admission. She reports that she currently lives with her boyfriend who is out of town and she is expecting him to come back at some time, denies any current employment or means to support herself. Review of Systems General: Reports: 10 or more systems reviewed and unremarkable except in HPI and below Meds NPU Home Medications Medication Instructions Recorded Confirmed Last Taken Type venlafaxine 37.5 mg 37.5 mg PO DAILY #30 cap 04/25/21 05/02/21 Unknown Rx capsule,extended release 24 hr prazosin 2 mg PO BEDTIME 05/02/21 05/02/21 Unknown History quetiapine [Seroquel] 50 mg PO BEDTIME 05/02/21 05/02/21 Unknown History Allergies Allergy/AdvReac Type Severity Reaction Status Date / Time insect venom Allergy Hives Verified 05/02/21 09:27 latex Allergy Rash Verified 05/02/21 09:[address] [facility]: Medical History Acquired hypothyroidism Patient with longstanding history, since age 15, of hypothyroidism. She had not been taking medication since February 2019. 08/29/2019: TSH 11.2. Restarted levothyroxine at 50 mcg daily. 10/01/2019: TSH 15.3. Levothyroxine increased to 75 mcg daily. TSH still low. Increase Levothyroxine to 75 mcg -Rx Levothyroxine 75 mcg daily #30, 2 refil. Alcohol dependence, in remission Amphetamine or stimulant drug abuse Anemia affecting in third trimester Asthma Since childhood and states that it is aggravated by exercise. Has maybe one or 2 episodes of shortness of breath a week. Since childhood and states that it is aggravated by exercise. Has maybe one or 2 episodes of shortness of breath a week. Bipolar disorder, current episode depressed, severe, without psychotic features Bipolar disorder, mixed Patient has a history of bipolar disorder and PTSD. She has been on multiple medications in the past. She has also been treated with at [facility]. - Present prior to the --was taken off all her medications by Tamika Geiger at [facility] early on in the --she has not been back to [facility] and has not restarted any medication. Today she feels managed without medicine so we will continue to follow but I strongly recommended she return back to [facility] for further evaluation and management. Cannabis dependence, uncomplicated Drug use affecting in second trimester Gastroesophageal reflux during in third trimester, antepartum Insulin controlled gestational diabetes mellitus (GDM) in third trimester 09/01/2019: GCT 148 10/06/2019: Attempted to obtain three-hour GTT on multiple occasions. Patient unable to perform test. Check sugars at home and brought those to office at this visit. Pre-meals found to be elevated and consistent with GDM. A1c 10/06/2019: 5.6 Ultrasounds 1. 04/07/2019 ---> 7-4/7 WG ---> EDC 11/20/2019. 2. 07/30/2019 ---> 25-0/7 WG ---> EDC 11/12/2019. 3. 10/03/2019 ---> 34-6/7 WG ---> EDC 11/08/2019. EFW 5 lbs. 2 oz. (2318 g) 74%. SANTHOSH 18.8 cm Patient brought Sugar logs with her which were reviewed. Patient has continued to improve sugars with diet. However still higher than desired. Patient was supposed to have started 20 units of Levemir at her last visit, but wrong dose was sent in to the pharmacy and she only started 2 units daily. Based upon a sugar readings today, I am switching her to 10 units daily. -Levemir 10 units daily. -BPP with NST was 10 out of 10. -Continue weekly testing until 36 weeks at which time it is to switch to twice weekly. Intractable chronic migraine without aura and with status migrainosus Has been treated with multiple medications for headaches. Most recently treated with Imitrex by Dr. Amaro. Last visit with her was on 02/25/2019. This is a hapless mildly impaired 23-year-old with borderline personality disorder and ongoing difficulties. She has a nonfocal exam and I don't see any reason to scan her head. A letter headaches are doing better on current medication and I'm not changing anything. I took time to listen to her story and empathize. Maternal alcohol use complicating in second trimester, antepartum Mental disorder affecting in third trimester Patient has a history of bipolar disorder and PTSD. She has been on multiple medications in the past. She has also been treated with at [facility]. Patient denying depression problems at this time. She is definitely at risk for flareup of her bipolar disorder after delivery. Highly recommend that she get reestablished with [facility]. Nausea/vomiting in 09/29/2019: Started Reglan. Already taking Pepcid. Patient reporting nausea and vomiting. Was previously taking famotidine for acid reflux issues. Was started on Reglan today. Nexplanon insertion On combination antipsychotic drug therapy Post-traumatic stress disorder, chronic Seizure disorder during in third trimester 09/29/2019: Patient with history of tonic-clonic seizures. Has been followed by Dr. Amaro in the past. Last evaluation was in 02/25/2019. Currently off of medications. Thyroid disease during in third trimester Surgical History History of myringotomy History of tonsillectomy at age 10 [place] teeth extracted Family History Grandfather Hyperlipidemia Maternal Stroke maternal Diabetes maternal Grandmother Thyroid condition maternal Breast cancer great Mother Thyroid condition Unknown Patient denies medical problems Denies family history of: cervical, uterine, colon cancer, DVT/PE Family/Other Ovarian cancer paternal aunt Social History Smoking and tobacco status: current some day smoker Quit status (tobacco): considering quitting Second hand smoke exposure: Yes Smoking risk assessment/counseling performed?: No Alcohol intake: former Year of sobriety/quit date alcohol: 2019 Former alcohol use details: Drank wine during Additional social history: Poorly balanced diet Other Psychiatric History: Other Psychiatric History: Patient seen and C a couple times over the past year with last visit in January 2021, noncompliant with medication medication management follow-up Reports last psychiatric hospitalization in the last 5 years Denies any history of suicide attempts Mental Status Exam MSE Comments: Initially lying in bed but gets up and goes to the day room for interview, disheveled, unkempt, tired appearing, calm, cooperative, fair eye contact Psychomotor activity is decreased, no agitation Speech is low volume, somewhat slow rate, fair articulation, spontaneous, not pressured I feel tired, congruent affect, not labile Alert and oriented to person, place, time, situation Memory and concentration are fair per interview Intellectual functioning appears to be average at best based on vocabulary, interview Thought process, some delays, linear but brief, no flight of ideas, no looseness of associations Thought content, no delusions, does not appear to be attending to any internal stimuli, no suicidal homicidal ideation Insight and judgment appear to be fair Vitals/I&O/Wt Last Vital Signs Temp 98.6 F 05/03/21 05:05 Pulse 101 H 05/03/21 05:05 Resp 18 05/03/21 05:05 BP 80/44 05/03/21 05:05 Pulse Ox 95 05/03/21 05:05 Weight last 48 hrs Weight 49.895 kg Data NPU : 05/02/21 10:28 05/03/21 03:18 Micro: Microbiology 05/02/21 10:08 Urine Culture - Preliminary Urine,Clean Catch Microbiology 05/02/21 10:08 Urine,Clean Catch Urine Culture - Preliminary A&P Assessment and plan (1) Acute psychosis: Status: Acute (2) Amphetamine or stimulant drug abuse: Status: Acute (3) Post-traumatic stress disorder, chronic: Status: Acute Additional A&P Information Patient with history of ongoing methamphetamine abuse presented to the emergency department combative, agitated with self report of suicidal ideation at that t jayme although currently denying any suicidal ideation, history of PTSD although reporting no current PTSD symptoms, off of medication for several months with concerns about self-care and safety to self. INVOLUNTARY ADMIT to inpatient psychiatry START sertraline 50 mg daily targeting trauma related mood and anxiety START prazosin 2 mg at bedtime targeting nightmares START levothyroxine 50 mcg daily for hypothyroid START olanzapine 5 mg twice daily targeting psychotic symptoms, mood Encourage patient participate in unit activities to include group sessions, unit milieu Coordinate with social worker delinquency prevention for post discharge medication and medication management follow-up as well as substance counseling/treatment Involuntary Hold Information 96 Hour Hold: 96 Hour Involuntary Admission: No Attestations NPU Medical Necessity Statement*: Psychiatric hospitalization is indicated for medication stabilization, coordination for safe discharge Anticipate hospital stay to exceed 2 midnights Time Spent in Patient Care: Greater than 35 minutes (>than 50% of time spent in counselling and/or direct pt care on unit) . Coding Level of Care Code Acute Driving Instructor for Thalia Pendleton Diagnoses Acute psychosis F23 Amphetamine or stimulant drug abuse F15.10 Post-traumatic stress disorder, chronic F43.12
[2021-05-03] MEDS: OLANZapine 5 mg TABLET PO ×2 (10:08→18:03)
[2021-05-03 12:59] VITALS: BP 82/50; PULSE 98; RESP 16; TEMP 37.3; O2SAT 95
[2021-05-03] MEDS: prazosin 1 mg Capsule 2 MG PO (21:32)
[2021-05-03 22:00] VITALS: BP 74/44; PULSE 90; RESP 18; TEMP 36.8; O2SAT 94
--- NOTE | 2021-05-03 22:12 | PC.NURSE ---
PM assessment denies pain, nauseated, temp of 99, bp runs low, pt slept most of the night. Cooperative with staff with assessment, heart has a slight mitral valve issue and lungs are wnl
--- NOTE | 2021-05-03 23:00 | PC.NURSE ---
Addendum entered by Kaur Jade RN 05/04/21 06:14: PM assessment this morning .. denies pain, nauseated, temp of 99, bp runs low, pt slept most of the night. Cooperative with staff with assessment, heart has a slight mitral valve issue and lungs are wnl Initialized on 05/04/21 06:12 - END OF NOTE Original Note: PM assessment V/S BP is low 69/46, manually 74/44 all other V/S are WNL, Pt denies pain, endorses nausea, Denies SI/HI, Denies AH/VH. Pt is resting.
--- NOTE | 2021-05-04 00:58 | PC.NURSE ---
Patient vomitting, nurse is notifiedof patient condition. Patient was given wet rag.
--- NOTE | 2021-05-04 05:15 | PC.NURSE ---
Vomiting Pt has been nauseated most of the evening, sleeping most of the night, refused Zofran 3 times.
[2021-05-04 06:00] VITALS: BP 89/59; PULSE 82; RESP 15; TEMP 37.4; O2SAT 95
[2021-05-04] MEDS: sertraline 50 mg Tablet PO (08:52)
[2021-05-04] MEDS: levothyroxine 50 mcg Tablet PO (08:52)
[2021-05-04] MEDS: OLANZapine 5 mg TABLET PO ×2 (08:52→18:00)
--- NOTE | 2021-05-04 13:05 | P.PN_ITS ---
Subjective NPU Subjective: Interval history: Denies any interval psychotic symptoms, denies any auditory hallucinations, denies any paranoia Reports some improvement in her anxiety symptoms, denies any interval panic symptoms Reports intermittent depressive symptoms, denies any interval suicidal ideation States that she is compliant with medication and denies any medication side effects Per staff report, no interval behavioral disturbances Mental Status Exam MSE Comments: Lying in bed, tired appearing, disheveled, unkempt, calm, cooperative, fair eye contact Psychomotor activity is decreased, no agitation Speech is low volume, somewhat slow rate, fair articulation, spontaneous, not pressured I feel tired, congruent affect, not labile Alert and oriented to person, place, time, situation Memory and concentration are fair per interview Thought process, some delays, linear but brief, no flight of ideas, no looseness of associations Thought content, no delusions, does not appear to be attending to any internal stimuli, no suicidal homicidal ideation Insight and judgment appear to be fair Vitals/I&O/Wt Last Vital Signs Temp 99.3 F 05/04/21 06:00 Pulse 82 05/04/21 06:00 Resp 15 05/04/21 06:00 BP 89/59 05/04/21 06:00 Pulse Ox 95 05/04/21 06:00 Data NPU : 05/02/21 10:28 05/03/21 03:18 Micro: Microbiology 05/02/21 10:08 Urine Culture - Final Urine,Clean Catch Microbiology 05/02/21 10:08 Urine,Clean Catch Urine Culture - Final A&P Assessment and plan (1) Acute psychosis: Status: Acute (2) Amphetamine or stimulant drug abuse: Status: Acute (3) Post-traumatic stress disorder, chronic: Status: Acute Additional A&P Information Reports some improvement, ongoing anxiety and depressive symptoms INCREASE to sertraline 100 mg daily Continue other medication, continue to monitor Involuntary Hold Information 96 Hour Hold: 96 Hour Involuntary Admission: No Attestations NPU Medical Necessity Statement*: Continues to require psychiatric hospitalization for medication stabilization Coding Level of Care Code Acute Director Of Industrial Relations for Thalia Pendleton Diagnoses Acute psychosis F23 Amphetamine or stimulant drug abuse F15.10 Post-traumatic stress disorder, chronic F43.12
[2021-05-04 13:57] VITALS: BP 92/60; PULSE 95; RESP 16; TEMP 37.1; O2SAT 95
[2021-05-04] MEDS: ondansetron 4 MG Tablet PO (18:25)
--- NOTE | 2021-05-04 20:25 | PC.NURSE ---
Vistaril/Tylenol Tylenol 650mg PO given for generalized pain rated 7 on 1-10 pain scale. Pt states she is nauseated and anxious. Pt received Vistaril 50mg PO for anxiety and nausea.
[2021-05-04] MEDS: hyDROXYzine 25 mg Capsule 50 MG PO (20:27)
[2021-05-04] MEDS: prazosin 1 mg Capsule 2 MG PO (20:27)
[2021-05-04] MEDS: acetaminophen 325 mg Tablet 650 MG PO (20:28)
[2021-05-04 20:53] VITALS: BP 93/63; PULSE 78; RESP 16; TEMP 37.3; O2SAT 94
--- NOTE | 2021-05-05 00:09 | PC.NURSE ---
PM Assessment Pt is in bed, she is nauseated,mildly anxious,and reports mild abdominal pain, rebound tenderness not noted at this time. Pt is sleepy, she says she is weak and hungry. Provided soup, juice, crackers, a sprite. pt ate all of this. Pt ate all of the snack provided. She kept it down. Pt was given Visteril for the anxiety and responded well to it. Anxiety ceased. Pt is resting at this time.
[2021-05-05] MEDS: acetaminophen 325 mg Tablet 650 MG PO ×2 (02:55→21:54)
--- NOTE | 2021-05-05 02:55 | PC.NURSE ---
Left Ear Pain Applied heat pack to pt ear to relieve ear pain. Provided tylenol 650 mg PO for pain rated 7, on a 1-10 pain scale. Pt complains of feeling weak, dizzy, and hurting really badly on the left ear, neck, and side of her head. She has been nauseated for 2 days off and on. low grade temp noted. Hx of ear infections per pt report
[2021-05-05 06:00] VITALS: BP 95/62; PULSE 77; RESP 16; TEMP 36.9; O2SAT 95
[2021-05-05] MEDS: levothyroxine 50 mcg Tablet PO (06:51)
[2021-05-05] MEDS: OLANZapine 5 mg TABLET PO ×2 (09:31→17:34)
[2021-05-05] MEDS: sertraline 50 mg Tablet 100 MG PO (09:32)
[2021-05-05 13:06] VITALS: BP 97/65; PULSE 87; RESP 16; TEMP 37.2; O2SAT 97
--- NOTE | 2021-05-05 14:21 | P.PN_ITS ---
Subjective NPU Subjective: Interval history: Continues to deny any interval psychotic symptoms Denies any interval paranoia Reports intermittent depressive symptoms, denies any interval suicidal ideation Compliant with medication and denies any medication side effects Per staff report, no interval behavioral disturbances Mental Status Exam MSE Comments: Sitting up in her bed, unkempt, calm, cooperative, good eye contact Psychomotor activity is decreased, no agitation Speech is low volume, somewhat slow rate, fair articulation, spontaneous, not pressured I feel little better, congruent affect, not labile Alert and oriented to person, place, time, situation Memory and concentration are fair per interview Thought process, some delays, linear but brief, no flight of ideas, no looseness of associations Thought content, no delusions, no hallucinations, no suicidal or homicidal ideation Insight and judgment appear to be fair Vitals/I&O/Wt Last Vital Signs Temp 99.0 F 05/05/21 13:06 Pulse 87 05/05/21 13:06 Resp 16 05/05/21 13:06 BP 97/65 05/05/21 13:06 Pulse Ox 97 05/05/21 13:06 Data NPU : 05/02/21 10:28 05/03/21 03:18 A&P Assessment and plan (1) Acute psychosis: Status: Acute (2) Amphetamine or stimulant drug abuse: Status: Acute (3) Post-traumatic stress disorder, chronic: Status: Acute Additional A&P Information Ongoing mood symptoms, improved psychotic symptoms CONTINUE current medication, continue to monitor Involuntary Hold Information 96 Hour Hold: 96 Hour Involuntary Admission: No Attestations NPU Medical Necessity Statement*: Continues to require psychiatric hospitalization for medication stabilization, coordination for safe discharge Coding Level of Care Code Acute Ecommerce Project Manager for Thalia Pendleton Diagnoses Acute psychosis F23 Amphetamine or stimulant drug abuse F15.10 Post-traumatic stress disorder, chronic F43.12
[2021-05-05] MEDS: prazosin 1 mg Capsule 2 MG PO (20:09)
[2021-05-05] MEDS: hyDROXYzine 25 mg Capsule 50 MG PO (20:10)
[2021-05-05 22:00] VITALS: BP 92/60; PULSE 84; RESP 16; TEMP 37.4; O2SAT 94
--- NOTE | 2021-05-05 22:05 | PC.NURSE ---
PM Assessment Pt was asleep at beginning of shift, denied pain at that time, denied SI/HI/AH/VH. Pt stated, I'm weak but I am not nauseated right now. Pt asked for Med for anxiety, Med nurse notified. She received Vistaril. About 2200 pt came to the nurses station with bloody nose. Nurse attended to her needs, cleaned her up, BP 100/68 RR 16. Nose bled for 10 min, slowed, and stopped with minor pressure. Pt was mildly anxious at the time. Stated she had a headache, Med nurse notified, received Tylenol. pt given ice pack to apply to her neck and head. Pt is resting in her bed at this time with head elevated. Head Of Partner Development's are checking on pt, reporting changes, Nurses are increasing visits to pt room to assess as needed. 2238 Pt is asleep.
--- NOTE | 2021-05-05 22:15 | PC.NURSE ---
Bloody nose/Headache Pt came to nurses station, holding her nose while it was bleeding. Nurse cleaned the area with wet rag, Blood Pressure is 100/69. Pt reports headache, med nurse notified of headache. Sat with pt to assist her with her bloody nose. Pt had 2 moderately sized thick blood clots come from the nose
[2021-05-06 06:00] VITALS: BP 91/59; PULSE 91; RESP 16; TEMP 36.6; O2SAT 96
[2021-05-06] MEDS: levothyroxine 50 mcg Tablet PO (06:01)
[2021-05-06] MEDS: sertraline 50 mg Tablet 100 MG PO (08:01)
[2021-05-06] MEDS: OLANZapine 5 mg TABLET PO ×2 (08:01→17:22)
--- NOTE | 2021-05-06 10:50 | PM.NDC ---
Diagnoses at Discharge Discharge Diagnosis (1) Acute psychosis: Status: Acute (2) Amphetamine or stimulant drug abuse: Status: Acute (3) Post-traumatic stress disorder, chronic: Status: Acute Reason for Visit Reason for Visit: [facility] Hospital Course Hospital Course 25 year old female with an unclear past psychiatric history presented to the emergency department by police combative, agitated with meth amphetamine intoxication. Patient also reported that she was feeling suicidal yesterday when she came to the emergency department but denies any recent sustained depressive symptoms. Patient states that she mostly sleeps every day and has been using methamphetamine on a near daily basis for several months. Patient last had contact with mental health in January and outpatient [facility] and previously was seen in May 2020 at [facility] but reports noncompliance with medication and medication management follow-up. Patient reported some improvement of her symptoms with titration up of sertraline to sertraline 100 mg daily targeting depressive symptoms as well as olanzapine 5 mg twice daily for psychotic symptoms and mood with no reports of any medication side effects. Patient was not reporting any trauma related symptoms during her hospital stay. Patient demonstrated some increased interaction on the unit with no behavioral disturbances reported. Patient was not suicidal at the time of discharge and did not appear to pose an imminent threat of harm to self or others. Low to moderate risk of harm to self given no current suicidal ideation and no current endorsement of any psychiatric symptoms although her risk will continue to be elevated if she continues to abuse substances leading to unexpected, impulsive behavior. Risk mitigation included psychiatric hospitalization for observation of any persisting suicidal ideation or behaviors, medication stabilization, recommendation to abstain from the use of substances and alcohol as well as the need for post discharge substance counseling/treatment in addition to follow on mental health care for medication management and therapy targeting the development of more adaptive coping strategies. Patient was able to communicate her understanding of the need to abstain from use of substances and alcohol as well as the need for compliance with her medication, medication management and substance counseling/treatment in order to further mitigate her risk of harm to self and others. Involuntary Hold Information 96 Hour Hold: 96 Hour Involuntary Admission: No Mental Status Exam MSE Comments: Lying down in her bed, polite, interactive, cooperative, good eye contact Psychomotor activity is decreased, no agitation Speech is low volume, somewhat slow rate, fair articulation, spontaneous, not pressured I feel better, congruent affect, not labile Alert and oriented to person, place, time, situation Memory and concentration are fair per interview Thought process, linear, no flight of ideas, no looseness of associations Thought content, no delusions, no hallucinations, no suicidal or homicidal ideation Insight and judgment appear to be fair Discharge Data Vitals: Last Vital Signs Temp 97.9 F 05/06/21 06:00 Pulse 91 05/06/21 06:00 Resp 16 05/06/21 06:00 BP 91/59 05/06/21 06:00 Pulse Ox 96 05/06/21 06:00 Discharge Plan Discharge Patient Disposition: Home Condition: Stable Prescriptions: New levothyroxine 50 mcg Tablet 50 mcg PO QAM Qty: 30 RF: 0 olanzapine 5 mg Tablet 5 mg PO BID Qty: 60 RF: 0 sertraline 50 mg Tablet 100 mg PO DAILY Qty: 30 RF: 0 Changed prazosin 2 mg capsule 2 mg PO BEDTIME Qty: 30 RF: 0 Discontinued venlafaxine [Effexor XR] 37.5 mg capsule,extended release 24hr 37.5 mg PO DAILY Qty: 30 RF: 1 quetiapine [Seroquel] 50 mg tablet 50 mg PO BEDTIME RF: 0 Discharge Orders: Discharge Order (Routine); Ordered 05/06/21 Ordered By: Toney Palacios Referrals: Cale Toth DO [Primary Care Provider] - Discharge Diet: Regular Discharge Activity: Resume usual activity Patient Instructions: Opioid Safety Discharge Attestations NPU Time Spent in Discharge Care*: greater than 30 min Status at Discharge: Cognitive status at discharge: cognitively intact, Behavioral status at discharge: cooperative, Functional status at discharge: independent ambulation Overall status at discharge: patient is back to baseline Coding Level of Care Code Acute Chg FW DC note Diagnoses Acute psychosis F23 Amphetamine or stimulant drug abuse F15.10 Post-traumatic stress disorder, chronic F43.12
[2021-05-06 11:23] VITALS: BP 91/59; PULSE 91; RESP 16; TEMP 36.6; O2SAT 96
[2021-05-06 12:43] LABS: SARS Covid-2 Antigen Positive (Negative)
[2021-05-06 14:00] VITALS: RESP 17
[2021-05-06] MEDS: prazosin 1 mg Capsule 2 MG PO (20:12)
[2021-05-06 20:40] VITALS: BP 90/62; PULSE 77; RESP 18; TEMP 36.7; O2SAT 92
[2021-05-07 06:00] VITALS: BP 99/56; PULSE 72; RESP 16; TEMP 36.7; O2SAT 96
[2021-05-07] MEDS: levothyroxine 50 mcg Tablet PO (06:05)
[2021-05-07] MEDS: sertraline 50 mg Tablet 100 MG PO (09:31)
[2021-05-07] MEDS: OLANZapine 5 mg TABLET PO ×2 (09:31→17:09)
--- NOTE | 2021-05-07 10:03 | PM.NPN ---
Subjective NPU Subjective: Interval history: Patient was scheduled for discharge but was administered a rapid COVID test prior to discharge for placement and tested positive Patient stated that she felt okay but had noted some coughing but otherwise denying any other constitutional symptoms Denies any interval depressed symptoms, denies any suicidal ideation Denies any psychotic symptoms Reports being compliant with medication, denies any medication side effects Per staff, no interval behavioral disturbances Mental Status Exam MSE Comments: Lying in bed, occasionally coughing, calm, cooperative, good eye contact Psychomotor activity is decreased, no agitation Speech is normal volume, normal rate, clear articulation, spontaneous, not pressured I feel okay, congruent affect, not labile Alert and oriented to person, place, time, situation Memory and concentration are fair per interview Thought process, linear, no flight of ideas, no looseness of associations Thought content, no delusions, no hallucinations, no suicidal or homicidal ideation Insight and judgment appear to be fair Vitals/I&O/Wt Last Vital Signs Temp 98.1 F 05/07/21 06:00 Pulse 72 05/07/21 06:00 Resp 16 05/07/21 06:00 BP 99/56 05/07/21 06:00 Pulse Ox 96 05/07/21 06:00 Data NPU : 05/02/21 10:28 05/03/21 03:18 A&P Assessment and plan (1) Acute psychosis: Status: Acute (2) Amphetamine or stimulant drug abuse: Status: Acute (3) Post-traumatic stress disorder, chronic: Status: Acute Additional A&P Information Patient scheduled for discharge but was held secondary to having a positive COVID test, reports intermittent cough but otherwise denies any other signs and symptoms, no psychiatric symptoms CONTINUE current medication, continue to monitor Involuntary Hold Information 96 Hour Hold: 96 Hour Involuntary Admission: No Attestations NPU Medical Necessity Statement*: Pending placement Coding Level of Care Code Acute Generator Assembler for Thalia Pendleton Diagnoses Acute psychosis F23 Amphetamine or stimulant drug abuse F15.10 Post-traumatic stress disorder, chronic F43.12
[2021-05-07 11:34] LABS: Quest SARS-CoV-2 RNA DETECTED (NOT DETECTED)
[2021-05-07] MEDS: loratadine 10 mg Tablet PO (13:46)
[2021-05-07 14:00] VITALS: BP 97/67; PULSE 100; RESP 18; TEMP 35.3; O2SAT 95
[2021-05-07] MEDS: prazosin 1 mg Capsule 2 MG PO (20:12)
[2021-05-07 20:52] VITALS: BP 99/56; PULSE 70; RESP 16; TEMP 36.9; O2SAT 95
[2021-05-08 06:00] VITALS: BP 94/57; PULSE 70; RESP 18; TEMP 36.7; O2SAT 95; BMI 20.1
[2021-05-08] MEDS: levothyroxine 50 mcg Tablet PO (06:50)
[2021-05-08] MEDS: sertraline 50 mg Tablet 100 MG PO (09:02)
[2021-05-08] MEDS: OLANZapine 5 mg TABLET PO ×2 (09:02→20:20)
[2021-05-08] MEDS: loratadine 10 mg Tablet PO (09:02)
--- NOTE | 2021-05-08 11:49 | P.PN_ITS ---
Subjective NPU Subjective: Interval history: Patient reporting occasional cough, some ear fullness but otherwise no upper respiratory symptoms She continues to be in isolation Patient is much more alert today, denying any psychiatric symptoms other than stress related anxiety of wanting to leave the hospital Denies any interval depressed symptoms, denies any suicidal ideation Denies any interval psychotic symptoms Patient does not appear to have any recollection or understanding of the events leading to her hospitalization Mental Status Exam MSE Comments: Lying in bed, much more alert and interactive mostly concerned about when she can leave the hospital, good eye contact Psychomotor activity is decreased, no agitation Speech is normal volume, normal rate, clear articulation, spontaneous, not pressured I feel fine, congruent affect, not labile Alert and oriented to person, place, time, situation Memory and concentration are fair per interview Thought process, linear, no flight of ideas, no looseness of associations Thought content, no delusions, no hallucinations, no suicidal or homicidal ideation Insight and judgment appear to be fair Vitals/I&O/Wt Last Vital Signs Temp 98.0 F 05/08/21 06:00 Pulse 70 05/08/21 06:00 Resp 18 05/08/21 06:00 BP 94/57 05/08/21 06:00 Pulse Ox 95 05/08/21 06:00 Weight last 48 hrs Weight 49.895 kg Data NPU : 05/02/21 10:28 05/03/21 03:18 A&P Assessment and plan (1) Acute psychosis: Status: Acute (2) Amphetamine or stimulant drug abuse: Status: Acute (3) Post-traumatic stress disorder, chronic: Status: Acute Additional A&P Information Patient is much more alert today, denies any interval psychiatric symptoms, reports minimal upper respiratory symptoms CONTINUE current medication, continue to monitor Coordinate with criminal justice social worker for post discharge mental health care as well as substance counseling/treatment Involuntary Hold Information 96 Hour Hold: 96 Hour Involuntary Admission: No Attestations NPU Medical Necessity Statement*: Continues require psychiatric hospitalization for medication stabilization, coordination for safe discharge Coding Level of Care Code Acute Spanish Moss Picker for Thalia Pendleton Diagnoses Acute psychosis F23 Amphetamine or stimulant drug abuse F15.10 Post-traumatic stress disorder, chronic F43.12
[2021-05-08 14:00] VITALS: BP 101/64; PULSE 81; RESP 18; TEMP 36.7; O2SAT 97
[2021-05-08] MEDS: acetaminophen 325 mg Tablet 650 MG PO (15:54)
[2021-05-08 20:07] VITALS: BP 77/53; PULSE 65; RESP 14; TEMP 36.9; O2SAT 96
[2021-05-08] MEDS: prazosin 1 mg Capsule 2 MG PO (20:20)
[2021-05-08] MEDS: cetylpyridinium Lozenge 1 EACH MUCOUS MEM (20:39)
[2021-05-09 06:00] VITALS: BP 92/57; PULSE 69; RESP 15; TEMP 36.9; O2SAT 96
[2021-05-09] MEDS: levothyroxine 50 mcg Tablet PO (06:14)
[2021-05-09] MEDS: sertraline 50 mg Tablet 100 MG PO (08:48)
[2021-05-09] MEDS: loratadine 10 mg Tablet PO (08:48)
--- NOTE | 2021-05-09 09:39 | PC.NUTR ---
Nutrition assessment completed for LOS. Po intakes averaging < 50%, with nausea noted per chart review. Will add Boost Breeze with meals for additional kcal/protein. Recommend to encourage po intakes of meals/supplements as tolerated and provide preferences as appropriate. See RD assessment for further details.
--- NOTE | 2021-05-09 10:02 | P.DS_ITS ---
Diagnoses at Discharge Discharge Diagnosis (1) Acute psychosis: Status: Acute (2) Amphetamine or stimulant drug abuse: Status: Acute (3) Post-traumatic stress disorder, chronic: Status: Acute Reason for Visit Reason for Visit: [facility] Hospital Course Hospital Course 25 year old female with an unclear past psychiatric history presented to the emergency department by police combative, agitated with meth amphetamine intoxication. Patient also reported that she was feeling suicidal yesterday when she came to the emergency department but denies any recent sustained depressive symptoms. Patient states that she mostly sleeps every day and has been using methamphetamine on a near daily basis for several months. Patient last had contact with mental health in January and outpatient [facility] and previously was seen in May 2020 at [facility] but reports noncompliance with medication and medication management follow-up. Patient reported some improvement of her symptoms with titration up of sertraline to sertraline 100 mg daily targeting depressive symptoms as well as olanzapine 5 mg twice daily for psychotic symptoms and mood with no reports of any medication side effects. Patient was not reporting any trauma related symptoms during her hospital stay. Patient demonstrated some incr eased interaction on the unit with no behavioral disturbances reported. Patient was not suicidal at the time of discharge and did not appear to pose an imminent threat of harm to self or others. Patient was found to be COVID positive by rapid test at the time of previously planned discharge as part of preplacement. Patient was having some symptoms of a cough but was not having any difficulty with breathing or any noted distress or worsening of upper respiratory symptoms. Patient was placed on isolation with a sitter although patient with no demonstrated concerns for behavior and no suicidal ideation or behaviors. Patient continued to have sustained euthymia with no complaints of any other psychiatric symptoms at the time of discharge and continued to not pose an imminent threat of harm to self or others with least restrictive level of care being outpatient medication management and therapy. Hospitalist was consulted and provided recommendation that patient did not require any interventions given that she was not on oxygen and not having any respiratory distress or any other symptoms concerning and no concerns for any medical comorbidity placing her at high risk and stated that patient is medically cleared for discharge once she no longer had any concerns from a psychiatric treatment perspective. Low to moderate risk of harm to self given no current suicidal ideation and no current endorsement of any psychiatric symptoms although her risk will continue to be elevated if she continues to abuse substances leading to unexpected, impulsive behavior. Risk mitigation included psychiatric hospitalization for observation of any persisting suicidal ideation or behaviors, medication stabilization, recommendation to abstain from the use of substances and alcohol as well as the need for post discharge substance counseling/treatment in addition to follow on mental health care for medication management and therapy targeting the development of more adaptive coping strategies. Patient was able to communicate her understanding of the need to abstain from use of substances and alcohol as well as the need for compliance with her medication, medication management and substance counseling/treatment in order to further mitigate her risk of harm to self and others. Involuntary Hold Information 96 Hour Hold: 96 Hour Involuntary Admission: No Mental Status Exam MSE Comments: Sitting up in her bed, calm, cooperative, wearing a mask, interactive, good eye contact Psychomotor activity is decreased, no agitation Speech is normal volume, normal rate, clear articulation, spontaneous, not pressured I feel good, unable to fully appreciate affect, not labile Alert and oriented to person, place, time, situation Memory and concentration are fair to intact per interview Thought process, linear, no flight of ideas, no looseness of associations Thought content, no delusions, no hallucinations, no suicidal or homicidal ideation Insight and judgment appear to be fair Discharge Data Vitals: Last Vital Signs Temp 98.4 F 05/09/21 06:00 Pulse 69 05/09/21 06:00 Resp 15 05/09/21 06:00 BP 92/57 05/09/21 06:00 Pulse Ox 96 05/09/21 06:00 Discharge Plan Discharge Patient Disposition: Home Condition: Stable Prescriptions: New levothyroxine 50 mcg Tablet 50 mcg PO QAM Qty: 30 RF: 0 sertraline 50 mg Tablet 100 mg PO DAILY Qty: 30 RF: 0 prazosin 1 mg Capsule 2 mg PO BEDTIME Qty: 30 RF: 0 olanzapine 5 mg Tablet 5 mg PO BEDTIME Qty: 30 RF: 0 Discontinued venlafaxine [Effexor XR] 37.5 mg capsule,extended release 24hr 37.5 mg PO DAILY Qty: 30 RF: 1 prazosin 2 mg capsule 2 mg PO BEDTIME RF: 0 quetiapine [Seroquel] 50 mg tablet 50 mg PO BEDTIME RF: 0 Discharge Orders: Discharge Order (Routine); Ordered 05/09/21 Ordered By: Toney Palacios Referrals: Cale Toth DO [Primary Care Provider] - Discharge Diet: Regular Discharge Activity: Resume usual activity Patient Instructions: Generalized Anxiety Disorder (DC), Opioid Safety Discharge Attestations NPU Time Spent in Discharge Care*: greater than 30 min Status at Discharge: Cognitive status at discharge: cognitively intact , Behavioral status at discharge: cooperative , Functional status at discharge: independent ambulation Overall status at discharge: patient is back to baseline Coding Level of Care Code Acute Chg FW DC note Diagnoses Acute psychosis F23 Amphetamine or stimulant drug abuse F15.10 Post-traumatic stress disorder, chronic F43.12
[2021-05-09 10:06] VITALS: BP 92/57; PULSE 69; RESP 15; TEMP 36.9; O2SAT 96
[2021-05-09 14:00] VITALS: RESP 18
[2021-05-09] MEDS: cetylpyridinium Lozenge 1 EACH MUCOUS MEM (16:53)
[2021-05-09] MEDS: acetaminophen 325 mg Tablet 650 MG PO (16:53)
[2021-05-09] MEDS: OLANZapine 5 mg TABLET PO (20:16)
[2021-05-09] MEDS: prazosin 1 mg Capsule 2 MG PO (20:16)
[2021-05-09 22:00] VITALS: BP 92/63; PULSE 61; RESP 16; TEMP 37.3; O2SAT 94
[2021-05-10 06:00] VITALS: BP 103/70; PULSE 64; RESP 18; TEMP 36.8; O2SAT 97
[2021-05-10] MEDS: levothyroxine 50 mcg Tablet PO (06:01)
[2021-05-10] MEDS: loratadine 10 mg Tablet PO (08:38)
[2021-05-10] MEDS: sertraline 50 mg Tablet 100 MG PO (08:38)
--- NOTE | 2021-05-10 09:14 | PM.NPN ---
Subjective NPU Subjective: Interval history: Patient was supposed to be discharged yesterday. Mental Status Exam MSE Comments: Changes from previous mental status evaluation. Vitals/I&O/Wt Last Vital Signs Temp 98.2 F 05/10/21 06:00 Pulse 64 05/10/21 06:00 Resp 18 05/10/21 06:00 BP 103/70 05/10/21 06:00 Pulse Ox 97 05/10/21 06:00 Data NPU : 05/02/21 10:28 05/03/21 03:18 A&P Assessment and plan (1) Acute psychosis: Status: Acute (2) Amphetamine or stimulant drug abuse: Status: Acute (3) Post-traumatic stress disorder, chronic: Status: Acute Additional A&P Information There are currently no medical indications for hospitalization Per hospitalist consult and there are currently no psychiatric indications for hospitalization at this time. Discharge orders have already been placed Involuntary Hold Information 96 Hour Hold: 96 Hour Involuntary Admission: No Attestations NPU Medical Necessity Statement*: Outpatient medication management and substance counseling/treatment is the least restrictive and appropriate level of care at this time Coding Level of Care Code Acute Video Editing Internship for [facility] Fwd Diagnoses Acute psychosis F23 Amphetamine or stimulant drug abuse F15.10 Post-traumatic stress disorder, chronic F43.12
== END 2021-05-10 10:58 | disposition home or self-care (01) | DRG 885 ==
LOC: ER 12:01 → NP 12:23
PROVIDERS: Admitting Provider Psychiatry & Neurology Psychiatry; Emergency Provider Family Medicine; PCP Internal Medicine; Visit Provider Psychiatry & Neurology Psychiatry
DX: F23 Brief psychotic disorder (principal); U07.1 COVID-19; R45.851 Suicidal ideations; F43.12 Post-traumatic stress disorder, chronic; F15.129 Other stimulant abuse with intoxication, unspecified; F17.210 Nicotine dependence, cigarettes, uncomplicated; E03.9 Hypothyroidism, unspecified; E87.6 Hypokalemia
CPT/HCPCS: 36415; 80048; 80053; 80306; 80307; 81001; 84443; 84703; 85025; 87086; 87426; 87635; 93005; 96372; 99285; J1630; J2060; Q0162

== ENCOUNTER 2021-05-12 08:49 | Inpatient (IN) | payer MEDICAID, SELFPAY ==
[2021-05-12] VITALS (8 sets, daily range): BP systolic 94–114; BP diastolic 53–90; PULSE 83–110; RESP 16–20; TEMP 36.9–37.3; O2SAT 93–98; BMI 21.9
--- NOTE | 2021-05-12 09:09 | ED_ITS ---
HPI - Psych General: Chief Complaint: Psychiatric Symptoms Stated Complaint: MHE Time Seen by Provider: 05/12/21 08:58 History of Present Illness: HPI Narrative: 25-year-old female comes in after having used some drugs she is having paranoid delusions. She thinks there is a sniper in the emergency room states she has a brain tumor. She states the mattress is burning her skin she tells me she either has a bomb in her pelvis or she is . She vehemently denies any suicidal or homicidal ideation she was recently hospitalized earlier this month. She is brought in by law enforcement in hand and leg shackles. Patient is continually exposing herself to myself and the staff when she first arrives in the room. The nurse data security analyst and a deputy were in the room as this occurred. A blanket was placed over the lap to limit exposure. MD complaint: other (drug psychosis) Onset (ago): hour(s) Duration: constant History of same: Yes Relieving factors: none Exacerbating factors: none Associated psychiatric symptoms: none Associated symptoms: Reports auditory hallucinations, visual hallucinations, delusions and racing thoughts; Deny depression, homicidal ideation or suicidal ideation Treatments prior to arrival: physical restraints Review of Systems General: Reports: ROS unobtainable due to mental status Psych: Reports: visual hallucinations and auditory hallucinations; Denies: depression, suicidal ideation or homicidal ideation [facility] ED PFSH: Medical History (Updated 05/16/21 @ 16:48 by Jef Milian DO) Acquired hypothyroidism Patient with longstanding history, since age 15, of hypothyroidism. She had not been taking medication since February 2019. 08/29/2019: TSH 11.2. Restarted levothyroxine at 50 mcg daily. 10/01/2019: TSH 15.3. Levothyroxine increased to 75 mcg daily. TSH still low. Increase Levothyroxine to 75 mcg -Rx Levothyroxine 75 mcg daily #30, 2 refil. Acute hypokalemia Alcohol dependence, in remission Amphetamine or stimulant drug abuse Anemia affecting in third trimester Asthma Since childhood and states that it is aggravated by exercise. Has maybe one or 2 episodes of shortness of breath a week. Since childhood and states that it is aggravated by exercise. Has maybe one or 2 episodes of shortness of breath a week. Bipolar disorder, current episode depressed, severe, without psychotic features Bipolar disorder, mixed Patient has a history of bipolar disorder and PTSD. She has been on multiple medications in the past. She has also been treated with at [facility]. - Present prior to the --was taken off all her medications by Tamika Geiger at [facility] early on in the --she has not been back to [facility] and has not restarted any medication. Today she feels managed without medicine so we will continue to follow but I strongly recommended she return back to [facility] for further evaluation and management. Cannabis dependence, uncomplicated Drug use affecting in second trimester Gastroesophageal reflux during in third trimester, antepartum Hypothyroidism Insulin controlled gestational diabetes mellitus (GDM) in third trimester 09/01/2019: GCT 148 10/06/2019: Attempted to obtain three-hour GTT on multiple occasions. Patient unable to perform test. Check sugars at home and brought those to office at this visit. Pre-meals found to be elevated and consistent with GDM. A1c 10/06/2019: 5.6 Ultrasounds 1. 04/07/2019 ---> 7-4/7 WG ---> EDC 11/20/2019. 2. 07/30/2019 ---> 25-0/7 WG ---> EDC 11/12/2019. 3. 10/03/2019 ---> 34-6/7 WG ---> EDC 11/08/2019. EFW 5 lbs. 2 oz. (2318 g) 74%. SANTHOSH 18.8 cm Patient brought Sugar logs with her which were reviewed. Patient has continued to improve sugars with diet. However still higher than desired. Patient was supposed to have started 20 units of Levemir at her last visit, but wrong dose was sent in to the pharmacy and she only started 2 units daily. Based upon a sugar readings today, I am switching her to 10 units daily. -Levemir 10 units daily. -BPP with NST was 10 out of 10. -Continue weekly testing until 36 weeks at which time it is to switch to twice weekly. Intractable chronic migraine without aura and with status migrainosus Has been treated with multiple medications for headaches. Most recently treated with Imitrex by Dr. Amaro. Last visit with her was on 02/25/2019. This is a hapless mildly impaired 23-year-old with borderline personality disorder and ongoing difficulties. She has a nonfocal exam and I don't see any reason to scan her head. A letter headaches are doing better on current medication and I'm not changing anything. I took time to listen to her story and empathize. Maternal alcohol use complicating in second trimester, antepartum Mental disorder affecting in third trimester Patient has a history of bipolar disorder and PTSD. She has been on multiple medications in the past. She has also been treated with at [facility]. Patient denying depression problems at this time. She is definitely at risk for flareup of her bipolar disorder after delivery. Highly recommend that she get reestablished with [facility]. Nausea/vomiting in 09/29/2019: Started Reglan. Already taking Pepcid. Patient reporting nausea and vomiting. Was previously taking famotidine for acid reflux issues. Was started on Reglan today. Nexplanon insertion On combination antipsychotic drug therapy Post-traumatic stress disorder, chronic Psychiatric care Seizure disorder during in third trimester 09/29/2019: Patient with history of tonic-clonic seizures. Has been followed by Dr. Amaro in the past. Last evaluation was in 02/25/2019. Currently off of medications. Thyroid disease during in third trimester UTI (urinary tract infection) Surgical History History of myringotomy History of tonsillectomy at age 10 [place] teeth extracted Family History Grandfather Hyperlipidemia Maternal Stroke maternal Diabetes maternal Grandmother Thyroid condition maternal Breast cancer great Mother Thyroid condition Unknown Patient denies medical problems Denies family history of: cervical, uterine, colon cancer, DVT/PE Family/Other Ovarian cancer paternal aunt Social History Smoking and tobacco status: current some day smoker Quit status (tobacco): considering quitting Second hand smoke exposure: Yes Smoking risk assessment/counseling performed?: No Alcohol intake: former Year of sobriety/quit date alcohol: 2018 Former alcohol use details: Drank wine during Additional social history: Poorly balanced diet Female Reproductive History: Date of last menstrual period: 05/02/21 Physical Exam Const: COMMON NORMALS: no acute distress ORIENTATION/CONSCIOUSNESS: Yes oriented to person, Yes oriented to place and Yes oriented to time HENMT: COMMON NORMALS: normocephalic, atraumatic and hearing grossly normal bilaterally HEAD & SCALP: normocephalic and atraumatic Neck/C-Spine: COMMON NORMALS: no JVD Lymph: LYMPHATIC: no lymphadenopathy noted and no lymphedema noted Resp: COMMON NORMALS: normal respiratory effort, No retractions, No use of accessory muscles and clear to auscultation bilaterally AUSCULTATION: clear to auscultation bilaterally Cardio: COMMON NORMALS: no JVD, regular rate, regular rhythm and No murmurs present (Cardio) RATE: regular rate RHYTHM: regular rhythm GI: COMMON NORMALS: Soft to palpation and No hepatosplenomegaly present AUSCULTATION: Yes normoactive bowel sounds PALPATION: Yes Soft to palpation, No Tenderness to palpation present (GI), No Guarding due to palpation present (GI) and Yes No hepatosplenomegaly present Extremity: COMMON NORMALS: normal to inspection, capillary refill normal, no clubbing, cyanosis or edema, no calf tenderness and no pedal edema Neuro: SENSORIUM/ORIENTATION: Yes oriented to person, Yes oriented to place and Yes oriented to time Psych: THOUGHT CONTENT: Yes delusions Skin: COMMON NORMALS: no rashes or lesions noted GENERAL SKIN EXAM: no rashes or lesions noted Course Vital Signs: Vital signs: Vital Signs Temperature 98.4 F 05/16/21 14:00 Pulse Rate 99 05/16/21 14:00 Respiratory Rate 18 05/16/21 14:00 Blood Pressure 99/68 05/16/21 14:00 Pulse Oximetry 97 05/16/21 14:00 MDM - Psych MDM Narrative: Medical decision making narrative: Patient acutely psychotic re quiring hospital admission. Unfortunately she is also COVID-19 positive recently. Patient was placed on a mass she is already in negative pressure room and discussed with psychiatry we made arrangements to keep the patient here at the hospital with appropriate precautions. Orders written Discharge Plan Discharge Patient Disposition: Admitted As Inpatient Admit Provider: Dave Taylor Clinical Impression: Bipolar disorder, current episode depressed, severe, without psychotic features, Amphetamine or stimulant drug abuse, COVID-19 Condition: Stable Coding Level of Care Code ED Raw Juice Weigher for Chg Fwd Exam Comprehensive
[2021-05-12] MEDS: water for injection-sterile 10 ML 1.2 ML (09:31)
[2021-05-12] MEDS: ziprasidone 20 mg/mL SDV 10 MG IM (09:31)
[2021-05-12] MEDS: LORazepam 2 mg/mL INJ 1 mL IM ×2 (09:34→09:40)
--- NOTE | 2021-05-12 09:36 | PC.NURSE ---
Up in room , performing sexual motions, using FOUL language,and threatening staff/sitter. Received verbal order from Dr Milian for Geodon 10mg and Ativan 2 mg
[2021-05-12 09:44] LABS: Basophils # 0.1 10^3/uL (0.0-0.1); Basophils % 0.4 %; Hematocrit 37.3 % (37.0-47.0); Hemoglobin 12.2 g/dL (11.5-15.3); Lymphocytes # 3.4 10^3/uL (0.8-4.8); Lymphocytes % 22.1 %; Mean Corpuscular HGB Conc 32.7 g/dL (30.0-36.0); Mean Corpuscular Hemoglobin 27.4 pg (28.0-34.0); Mean Corpuscular Volume 83.6 fL (81-99); Mean Platelet Volume 8.7 fL (7.4-10.4); Monocytes # 1.1 10^3/uL (0.2-0.9); Monocytes % 7.3 %; Neutrophils # 10.74 10^3/uL (1.8-7.7); Neutrophils % 69.4 %; Nucleated Red Blood Cells % 0 %; Platelet Count 523 10^3/cmm (130-400); Red Blood Count 4.46 10^6/uL (4.1-5.3); Red Cell Distribution Width 14.5 % (12.1-15.1); White Blood Count 15.5 10^3/uL (4.0-10.0)
[2021-05-12 09:52] LABS: HCG, Serum Qual Negative (Negative)
[2021-05-12 09:57] LABS: Amphetamines Screen Urine Positive (Negative); Barbiturates Screen Urine Negative (Negative); Benzodiazepines Screen Urine Negative (Negative); Cocaine Screen Urine Negative (Negative); Opiate Screen Urine Negative (Negative); PCP Screen Urine Negative (Negative); THC Screen Urine Negative (Negative)
[2021-05-12 09:59] LABS: Alanine Aminotransferase 19 U/L (0-33); Alkaline Phosphatase 91 IU/L (35-105); Anion Gap 11.9 (5-19); Aspartate Amino Transferase 30 U/L (0-32); Blood Urea Nitrogen 11 mg/dL (6-20); Calcium 8.8 mg/dL (8.5-10.5); Carbon Dioxide 28 mmol/L (22-29); Chloride 101 mmol/L (98-107); Globulin 2.7 g/dL (1.3-4.6); Glomerular Filtration Rate 121.8 mL/min (90-130); Glucose 104 mg/dL (65-115); Osmolality Calculated 284 mOsm/kg (285-295); Potassium 3.9 mmol/L (3.5-5.1); Salicylate 3.4 mg/dL (3-10); Sodium 137 mmol/L (136-145); Total Bilirubin 0.2 mg/dL (0.15-1.2); Total Protein 6.7 g/dL (6.6-8.7)
[2021-05-12 10:00] LABS: Add Urine Microscopic? YES; Bilirubin Urine Neg (Negative); Blood Urine Neg (Negative); Glucose Urine UA Norm (Normal); Ketones Urine 1+ (Negative); Leukocyte Esterase Urine Negative (Negative); Mucus Urine 1+ /hpf; Nitrate Urine Negative (Negative); Protein Urine Neg (Negative); RBC Urine 0-4 /hpf (0-2); Specific Gravity, Urine 1.015 (1.005-1.030); Urine Appearance SL Hazy (CLEAR); Urine Color Yellow (Yellow); Urobilinogen Urine 1 mg/dL (Negative); pH Urine 7 (5-7)
[2021-05-12 10:05] LABS: Acetaminophen < 5.0 ug/mL (10-30)
--- NOTE | 2021-05-12 10:09 | PC.NURSE ---
Waiting for medication to work, offered sandwich and drink. Sitter at doorway.
--- NOTE | 2021-05-12 10:23 | PC.NURSE ---
Laying down in the bed on Left lateral side. Lights off. Sitter at doorway.
--- NOTE | 2021-05-12 11:39 | PC.PHAR ---
pt unable to verify medications-medications entered are meds that show have been filled recently on ext med history
--- NOTE | 2021-05-12 12:02 | PC.NURSE ---
Sitter at doorway Resting with lights out No outburst of anger
--- NOTE | 2021-05-12 13:17 | PC.NURSE ---
Lights off, resting and cooperative Sitter at doorway
--- NOTE | 2021-05-12 14:34 | PC.NURSE ---
Resting with lights off, Laying on Left lateral side. Sitter at doorway
--- NOTE | 2021-05-12 15:29 | PC.NURSE ---
Sitter at doorway
--- NOTE | 2021-05-12 15:44 | PC.NURSE ---
Sitter at door way
[2021-05-13 06:00] VITALS: BP 146/98; PULSE 108; RESP 15; TEMP 36.6; O2SAT 95
--- NOTE | 2021-05-13 07:22 | PM.NHP ---
Providers/Chief Complaint Admitting Physician: Dave Taylor MD Primary Care Provider: Cale Toth DO Chief Complaint: MHE HPI NPU History of Present Illness Keke Mcnamara is a 25 year old female who presented to the emergency department with the following report: Chief Complaint: Psychiatric Symptoms Stated Complaint: MHE Time Seen by Provider: 05/12/21 08:58 History of Present Illness: HPI Narrative: 25-year-old female comes in after having used some drugs she is having paranoid delusions. She thinks there is a sniper in the emergency room states she has a brain tumor. She states the mattress is burning her skin she tells me she either has a bomb in her pelvis or she is . She vehemently denies any suicidal or homicidal ideation she was recently hospitalized earlier this month. She is brought in by law enforcement in hand and leg shackles. Patient is continually exposing herself to myself and the staff when she first arrives in the room. The nurse senior information security architect and a deputy were in the room as this occurred. A blanket was placed over the lap to limit exposure. MD complaint: other (drug psychosis) Onset (ago): hour(s) Duration: constant History of same: Yes Relieving factors: none Exacerbating factors: none Associated psychiatric symptoms: none Associated symptoms: Reports auditory hallucinations, visual hallucinations, delusions and racing thoughts; Deny depression, homicidal ideation or suicidal ideation Treatments prior to arrival: physical restraints. She was admitted to the neuropsychiatric unit for definitive treatment of those issues after having significant emotional distress in the emergency department requiring interventions. He was identified as Covid positive still and needing to be in isolation which was not working well with her emotional condition. I met her in her room with full PPE donned. And she was a poor historian spending most of the conversation demanding to be discharged and escalating, crying and continuing to suggest that there was no reason for her to be here and definitely no reason for her to be on a 96-hour hold. She reports that she had been trying to get connected with her fianc? and needed a ride and loaded with his mother. He told a very convoluted story about going to some location and thinking that he heard some girl in distress. She reports that when she attempted to help the girls of the stress they tried to suggest that she had done something wrong and the police were called. She reports that she did not do anything to involve the police but they still brought her to [facility]. She put the blame for her behavior in the emergency department on the staff down there. Additionally she kept reporting that when she has been here in the past she is been tortured. She ended up leaving her room at 1 point and being disruptive. She continues to report that she has been tortured and was inappropriately pulling up her shirt exposing herself pointing at pick trujillo on her abdomen suggesting that [facility] did that to her. She continued to deny that there were no issues and denied any active addiction that might explain her behavior. This represents her third hospitalization since October 2019. Unable to see further back in her records due to IT problem. She did identify that she has treatment at [facility] and recent records from those visits are available but again none of the 2019 notes can be seen. Excerpt from her May 03, 2021 hospitalization is included below for context given that she had only been out of the hospital for a day or 2 and was not very willing historian. Per her 05/03/2021 [facility] inpatient psychiatric evaluation: History of Present Illness Keke Mcnamara is a 25 year old female with an unclear past psychiatric history presented to the emergency department by police combative, agitated with meth amphetamine intoxication. Patient also reported that she was feeling suicidal yesterday when she came to the emergency department but denies any recent sustained depressive symptoms. Patient states that she mostly sleeps every day and has been using methamphetamine on a near daily basis for several months. Patient last had contact with mental health in January and outpatient [facility] and previously was seen in May 2020 at [facility] but reports noncompliance with medication and medication management follow-up. Patient currently denying any suicidal ideation. Patient does not recall any recent or past hypomanic or manic episodes outside of substance use. Patient reports some anxiety related to ongoing life stress but denies any sustained anxiety, denies any panic symptoms. Patient reports paranoid thoughts thinking that people are out to get her and states that she has experienced auditory and visual destinations typically under the influence of methamphetamine. Patient reports past substance rehabilitation but states that it's been a while, and reports that she is interested in post discharge substance treatment. Patient states that she had not been taking her levothyroxine or any other medications. Patient's potassium was replaced while in the emergency department and she was restarted on levothyroxine after admission. She reports that she currently lives with her boyfriend who is out of town and she is expecting him to come back at some time, denies any current employment or means to support herself. Meds NPU Home Medications Medication Instructions Recorded Confirmed Last Taken Type sertraline 100 mg PO DAILY #30 tab 05/06/21 05/12/21 Unknown Rx olanzapine 5 mg PO BEDTIME #30 tab 05/09/21 05/12/21 Unknown Rx prazosin 2 mg PO BEDTIME #30 cap 05/09/21 05/12/21 Unknown Rx levothyroxine 50 mcg PO QAM 05/12/21 05/12/21 Unknown History Allergies Allergy/AdvReac Type Severity Reaction Status Date / Time insect venom Allergy Hives Verified 05/02/21 09:27 latex Allergy Rash Verified 05/02/21 09:27 [facility] NPU PFS: Medical History (Updated 05/11/21 @ 00:01 by ) Acquired hypothyroidism Patient with longstanding history, since age 15, of hypothyroidism. She had not been taking medication since February 2019. 08/29/2019: TSH 11.2. Restarted levothyroxine at 50 mcg daily. 10/01/2019: TSH 15.3. Levothyroxine increased to 75 mcg daily. TSH still low. Increase Levothyroxine to 75 mcg -Rx Levothyroxine 75 mcg daily #30, 2 refil. Acute hypokalemia Alcohol dependence, in remission Amphetamine or stimulant drug abuse Anemia affecting in third trimester Asthma Since childhood and states that it is aggravated by exercise. Has maybe one or 2 episodes of shortness of breath a week. Since childhood and states that it is aggravated by exercise. Has maybe one or 2 episodes of shortness of breath a week. Bipolar disorder, current episode depressed, severe, without psychotic features Bipolar disorder, mixed Patient has a history of bipolar disorder and PTSD. She has been on multiple medications in the past. She has also been treated with at [facility]. - Present prior to the --was taken off all her medications by Tamika Geiger at [facility] early on in the --she has not been back to [facility] and has not restarted any medication. Today she feels managed without medicine so we will continue to follow but I strongly recommended she return back to [facility] for further evaluation and management. Cannabis dependence, uncomplicated Drug use affecting in second trimester Gastroesophageal reflux during in third trimester, antepartum Hypothyroidism Insulin controlled gestational diabetes mellitus (GDM) in third trimester 09/01/2019: GCT 148 10/06/2019: Attempted to obtain three-hour GTT on multiple occasions. Patient unable to perform test. Check sugars at home and brought those to office at this visit. Pre-meals found to be elevated and consistent with GDM. A1c 10/06/2019: 5.6 Ultrasounds 1. 04/07/2019 ---> 7-4/7 WG ---> EDC 11/20/2019. 2. 07/30/2019 ---> 25-0/7 WG ---> EDC 11/12/2019. 3. 10/03/2019 ---> 34-6/7 WG ---> EDC 11/08/2019. EFW 5 lbs. 2 oz. (2318 g) 74%. SANTHOSH 18.8 cm Patient brought Sugar logs with her which were reviewed. Patient has continued to improve sugars with diet. However still higher than desired. Patient was supposed to have started 20 units of Levemir at her last visit, but wrong dose was sent in to the pharmacy and she only started 2 units daily. Based upon a sugar readings today, I am switching her to 10 units daily. -Levemir 10 units daily. -BPP with NST was 10 out of 10. -Continue weekly testing until 36 weeks at which time it is to switch to twice weekly. Intractable chronic migraine without aura and with status migrainosus Has been treated with multiple medications for headaches. Most recently treated with Imitrex by Dr. Amaro. Last visit with her was on 02/25/2019. This is a hapless mildly impaired 23-year-old with borderline personality disorder and ongoing difficulties. She has a nonfocal exam and I don't see any reason to scan her head. A letter headaches are doing better on current medication and I'm not changing anything. I took time to listen to her story and empathize. Maternal alcohol use complicating in second trimester, antepartum Mental disorder affecting in third trimester Patient has a history of bipolar disorder and PTSD. She has been on multiple medications in the past. She has also been treated with at [facility]. Patient denying depression problems at this time. She is definitely at risk for flareup of her bipolar disorder after delivery. Highly recommend that she get reestablished with [facility]. Nausea/vomiting in 09/29/2019: Started Reglan. Already taking Pepcid. Patient reporting nausea and vomiting. Was previously taking famotidine for acid reflux issues. Was started on Reglan today. Nexplanon insertion On combination antipsychotic drug therapy Post-traumatic stress disorder, chronic Psychiatric care Seizure disorder during in third trimester 09/29/2019: Patient with history of tonic-clonic seizures. Has been followed by Dr. Amaro in the past. Last evaluation was in 02/25/2019. Currently off of medications. Thyroid disease during in third trimester UTI (urinary tract infection) Surgical History History of myringotomy History of tonsillectomy at age 10 [place] teeth extracted Family History Grandfather Hyperlipidemia Maternal Stroke maternal Diabetes maternal Grandmother Thyroid condition maternal Breast cancer great Mother Thyroid condition Unknown Patient denies medical problems Denies family history of: cervical, uterine, colon cancer, DVT/PE Family/Other Ovarian cancer paternal aunt Social History Smoking and tobacco status: current some day smoker Quit status (tobacco): considering quitting Second hand smoke exposure: Yes Smoking risk assessment/counseling performed?: No Alcohol intake: former Year of sobriety/quit date alcohol: 2018 Former alcohol use details: Drank wine during Additional social history: Poorly balanced diet Mental Status Exam MSE Comments: This is a short slightly overweight white female in [facility] scrubs with limited grooming and eye contact. No abnormal movements except for psychomotor agitation. Mostly uncooperative with exam in moderate to severe distress. Speech was increased rate and volume mostly. Mood described as fine, affect labile. Thought process mostly organized, thought content: Patient denied suicidal or homicidal ideation, there were no delusions reported but some paranoia and persecutory delusions seem present, she denied auditory or visual hallucinations but may have been experiencing auditory hallucinations leading to her hospitalization. Attention and concentration were limited and memory was unreliable but none were formally tested. She is alert and oriented times person and place. Insight and judgment are impaired, impulse control is impaired. Vitals/I&O/Wt Last Vital Signs Temp 97.8 F 05/13/21 06:00 Pulse 108 H 05/13/21 06:00 Resp 15 05/13/21 06:00 BP 146/98 05/13/21 06:00 Pulse Ox 95 05/13/21 06:00 05/12/21 05/13/21 22:59 06:59 Intake Total Balance Weight last 48 hrs Weight 54.431 kg Data NPU : 05/12/21 09:30 05/12/21 09:30 A&P Assessment and plan (1) Amphetamine or stimulant drug abuse: Status: Acute (2) Post-traumatic stress disorder, chronic: Status: Acute (3) On combination antipsychotic drug therapy: Status: Acute (4) Nexplanon insertion: Status: Acute (5) Bipolar disorder: Status: Acute (6) Bipolar disorder, current episode depressed, severe, without psychotic features: Status: Acute (7) Cannabis dependence, uncomplicated: Status: Acute (8) Alcohol dependence, in remission: Status: Acute Additional A&P Information This is a 25-year-old white female with a long history of addiction, trauma, mental health challenges and recent legal issues including reportedly trying to maintain or retain custody of at least 1 child, who presents having been erratic in the emergency department with likely active drug use though she denies use since she was last hospitalized. 1. Continue current medication. We will continue dictations from last admission and consider changes after she appears less impacted by drug use. 2. Continue every 15 minute checks for safety. 3. Encourage individual, group and milieu therapies. 4. Encourage sober living treatment after discharge at the highest level of care to which he is willing to commit. Involuntary Hold Information 96 Hour Hold: 96 Hour Involuntary Admission: Yes 96 Hour Hold Ending Date: 05/18/21 96 Hour Hold Ending Time: 09:30 Attestations NPU Medical Necessity Statement*: Inpatient hospitalization is medically necessary and the clinically appropriate intervention at this time. We will monitor medications and make changes as indicated. Patient will be in the hospital for over two midnights. Likely length of stay 3 to 5 days. Coding Level of Care Code Acute Medical Biller/Coder for Thalia Pendleton Diagnoses Amphetamine or stimulant drug abuse F15.10 Post-traumatic stress disorder, chronic F43.12 On combination antipsychotic drug therapy Z79.899 Nexplanon insertion Z30.017 Bipolar disorder F31.9 Bipolar disorder, current episode depressed, severe, without psychotic features F31.4 Cannabis dependence, uncomplicated F12.20 Alcohol dependence, in remission F10.21
[2021-05-13 14:00] VITALS: BP 101/69; PULSE 76; RESP 18; TEMP 36.6; O2SAT 97
[2021-05-13] MEDS: blistex lip oint 7 gm Tube 1 APPLIC TOPICAL (14:10)
[2021-05-13] MEDS: diphenhydrAMINE 50 mg/mL SDV 1mL IM (15:49)
[2021-05-13] MEDS: LORazepam 2 mg/mL INJ 1 mL IM (15:49)
[2021-05-13] MEDS: haloperidol inj 5 mg/mL INJ 1 mL IM (15:49)
--- NOTE | 2021-05-13 16:15 | W.PM.BREST ---
Face to Face: Restrn/Seclusion Events leading up to initiation: Verbalizing threat to self or others, Demonstrating self-destructive behavior (cutting, hitting reilly etc.) and Combative/Striking out at staff or others Evaluation of patient's immediate situation: Alert and oriented, No signs of physical distress and Signs of psychological distress Patient reaction since intervention applied: Continued attempts/displays harmful behavior Recent labs reviewed: Yes Review of medications: Yes Patient's current medical/behavioral condition: New concerns (describe) (She was refusing redirection given her Covid status and when she was not told she would be discharging she started knocking things down punching things trying to break things.) Need for restraint or seclusion is: Continued Attending notified: Attending completed assessment
--- NOTE | 2021-05-13 16:31 | PC.NURSE ---
RESTRAINT RELEASE L LEG AND R ARM RESTRAINTS REMOVED AT 1631. PT IS CALM AND COOPERATIVE AND FOLLOWING VERBAL COMMANDS. PT REMAINS WITH 1:1 SITTER AT THIS TIME.
--- NOTE | 2021-05-13 16:38 | PC.NURSE ---
RESTRAINT RELEASE R LEG RELEASED AT 1629. WILL CONTINUE TO ASSESS FOR FURTHER RELEASE OF RESTRAINTS.
--- NOTE | 2021-05-13 16:40 | PC.NURSE ---
RESTRAINT RELEASE L ARM RELEASED AT 1630. WILL CONTINUE TO MONITOR FOR FURTHER RELEASE OF RESTRAINTS.
--- NOTE | 2021-05-13 16:49 | PC.NURSE ---
Patient behavior 05/13/21 @1549 Patient is COVID positive and wanting to go home. She came out of her isolation room and would not return to her room. Patient refuses to cooperate and follow verbal commands from staff. Staff continue to reinforce importance of patient remaining in isolation and educate her on the safety risks. She began ramming her body into the locked exit door. Punched a hole in the wall and was screaming she wanted to leave. A code 10 was called at approximately 1530. Several staff members, security and the physician were present. Patient was asked to return to 170, her isolation room and she refused and patient began coughing purposefully on numerous staff members yelling, COVID, COVID,COVID . Staff spent an extended period of time attempting verbal de-escalation which ultimately was not effective. Patient was given many choices and multiple opportunities to proceed to her room on her own accord, but failed to comply. Patient continued to escalate and staff ultimately had to maintain patient utilizing SAFE techniques and patient was escorted to the restraint bed. Restraints were applied at 1545. Patient was able to maneuver out of the wrist restraints and velcro restraints were obtained and applied with success. At 1549 patient was given 2 mg of Ativan, IM, 50 mg of Benadryl IM and 5 mg of Haldol IM in Right hip. Patient continued with verbal aggression and attempting to bite at staff. Dr Taylor present in room during restraint and stayed to speak with patient after application. Patient began to calm and verbalize understanding of need for cooperation. Right leg restraint released at 1629, left arm released at 1630, left leg and right arm released at 1631. Patient is calm and cooperative and proceeded to her assigned bed and verbally expressed wanting to rest. Will continue to monitor.
--- NOTE | 2021-05-13 16:50 | PC.NURSE ---
GUARDIAN NOTIFICATION PT'S GUARDIAN, LUKAS DIA, NOTIFIED OF RESTRAINT EVENT.
[2021-05-13 21:15] VITALS: RESP 17
[2021-05-14 06:00] VITALS: BP 93/56; PULSE 59; RESP 16; TEMP 36.6; O2SAT 94
[2021-05-14] MEDS: levothyroxine 50 mcg Tablet PO (06:29)
[2021-05-14] MEDS: sertraline 100 mg Tablet PO (08:47)
[2021-05-14 14:00] VITALS: BP 78/46; PULSE 70; RESP 16; TEMP 36.3; O2SAT 97
--- NOTE | 2021-05-14 15:43 | PM.NPN ---
Subjective NPU Subjective: Interval history: Keke presents today reporting that she does feel little better. She endorsed being able to be calmer and more under control. She continued to endorse a desire to be discharged and saying that she feels she should be here. She continues to downplay any possibility that she had used since her discharge couple days prior to readmission. She got very upset when her guardian's name was brought up and immediately said also I will go to some [place] [facility]. We discussed attempts to assist her in being well and stable and off of drugs and able to function at a higher level. Mental Status Exam MSE Comments: This is a short slightly overweight white female in [facility] scrubs with limited grooming and adequate eye contact. No abnormal movements except for mild psychomotor retardation. Mostly cooperative with exam in no acute distress. Speech was normal rate and volume. Mood described as better, affect congruent. Thought process mostly organized, thought content: Patient denied suicidal or homicidal ideation, there were no delusions reported or noted, she denied auditory or visual hallucinations. Attention and concentration were intact and memory was unreliable but none were formally tested. She is alert and oriented times 3. Insight and judgment are impaired, impulse control is improving. Vitals/I&O/Wt Last Vital Signs Temp 97.8 F 05/14/21 06:00 Pulse 59 L 05/14/21 06:00 Resp 16 05/14/21 06:00 BP 93/56 05/14/21 06:00 Pulse Ox 94 05/14/21 06:00 Data NPU : 05/12/21 09:30 05/12/21 09:30 A&P Additional A&P Information (1) Amphetamine or stimulant drug abuse: (2) Post-traumatic stress disorder, chronic: (3) On combination antipsychotic drug therapy: (4) Nexplanon insertion: (5) Bipolar disorder: (6) Bipolar disorder, current episode depressed, severe, without psychotic features: (7) Cannabis dependence, uncomplicated: (8) Alcohol dependence, in remission: Additional A&P Information This is a 25-year-old white female with a long history of addiction, trauma, mental health challenges and recent legal issues including reportedly trying to maintain or retain custody of at least 1 child, who presents having been erratic in the emergency department with likely active drug use though she denies use since she was last hospitalized. 1. Continue current medication. 2. Continue every 15 minute checks for safety. 3. Encourage individual, group and milieu therapies. 4. Encourage sober living treatment after discharge at the highest level of care to which he is willing to commit. 5. We will work with her guardian for discharge planning. Involuntary Hold Information 96 Hour Hold: 96 Hour Involuntary Admission: Yes 96 Hour Hold Ending Date: 05/18/21 96 Hour Hold Ending Time: 09:30 Attestations NPU Medical Necessity Statement*: Inpatient hospitalization is medically necessary and the clinically appropriate intervention at this time. We will monitor medications and make changes as indicated. Likely length of stay 3 to 5 days. Coding Level of Care Code Acute [place] Therapist for Thalia Pendleton
[2021-05-14] MEDS: OLANZapine 5 mg TABLET PO (21:50)
[2021-05-14 22:00] VITALS: BP 99/67; PULSE 103; RESP 18; TEMP 36.8; O2SAT 98
[2021-05-15 06:00] VITALS: BP 88/58; PULSE 74; RESP 16; TEMP 36.8; O2SAT 99
[2021-05-15] MEDS: levothyroxine 50 mcg Tablet PO (06:55)
[2021-05-15] MEDS: sertraline 100 mg Tablet PO (09:07)
--- NOTE | 2021-05-15 11:28 | PM.NPN ---
Subjective NPU Subjective: Interval history: Keke presented today continuing to express frustration about being here endorsing that ultimately she wants to go be with her fianc?. Once again reviewed her having a guardian and she identified that she feels she already knows where he is try to get her to [facility] which [facility]. We discussed the possible benefits from the resources regarding is trying to bring to bear but she essentially got upset and said that she wants to just be with her fianc?. She reported frustration and that her family has, called. She does acknowledge feeling better and we discussed the importance of sobriety. Mental Status Exam MSE Comments: This is a short slightly overweight white female in day [facility] scrubs with limited grooming and adequate eye contact. No abnormal movements except for mild psychomotor retardation. Mostly cooperative with exam in no acute distress. Speech was normal rate and volume. Mood described as better, affect congruent. Thought process mostly organized, thought content: Patient denied suicidal or homicidal ideation, there were no delusions reported or noted, she denied auditory or visual hallucinations. Attention and concentration were intact and memory was unreliable but none were formally tested. She is alert and oriented times 3. Insight and judgment are impaired, impulse control is limited. Vitals/I&O/Wt Last Vital Signs Temp 98.2 F 05/15/21 06:00 Pulse 74 05/15/21 06:00 Resp 16 05/15/21 06:00 BP 88/58 05/15/21 06:00 Pulse Ox 99 05/15/21 06:00 Weight last 48 hrs Weight 54.431 kg Data NPU : 05/12/21 09:30 05/12/21 09:30 A&P Additional A&P Information (1) Amphetamine or stimulant drug abuse: (2) Post-traumatic stress disorder, chronic: (3) On combination antipsychotic drug therapy: (4) Nexplanon insertion: (5) Bipolar disorder: (6) Bipolar disorder, current episode depressed, severe, without psychotic features: (7) Cannabis dependence, uncomplicated: (8) Alcohol dependence, in remission: Additional A&P Information This is a 25-year-old white female with a long history of addiction, trauma, mental health challenges and recent legal issues including reportedly trying to maintain or retain custody of at least 1 child, who presents having been erratic in the emergency department with likely active drug use though she denies use since she was last hospitalized. 1. Continue current medication. 2. Continue every 15 minute checks for safety. 3. Encourage individual, group and milieu therapies. 4. Encourage sober living treatment after discharge at the highest level of care to which he is willing to commit. 5. We will work with her guardian for discharge planning. Involuntary Hold Information 96 Hour Hold: 96 Hour Involuntary Admission: Yes 96 Hour Hold Ending Date: 05/18/21 96 Hour Hold Ending Time: 09:30 Attestations NPU Medical Necessity Statement*: Inpatient hospitalization is medically necessary and the clinically appropriate intervention at this time. We will monitor medications and make changes as indicated. Likely length of stay 3 to 5 days. Coding Level of Care Code Acute Radio Communication Coordinator for Thalia Pendleton
[2021-05-15] MEDS: acetaminophen 325 mg Tablet 650 MG PO (12:51)
--- NOTE | 2021-05-15 13:25 | W.PM.BREST ---
Face to Face: Restrn/Seclusion Events leading up to initiation: Verbalizing threat to self or others, Demonstrating self-destructive behavior (cutting, hitting reilly etc.) and Combative/Striking out at staff or others Evaluation of patient's immediate situation: Alert and oriented, No signs of physical distress and Signs of psychological distress Patient reaction since intervention applied: Behaviors/threats have lessened, but still present Recent labs reviewed: Yes Review of medications: Yes Patient's current medical/behavioral condition: New concerns (describe) Need for restraint or seclusion is: Continued Attending notified: Attending completed assessment
[2021-05-15 14:00] VITALS: BP 88/58; PULSE 74; RESP 16; TEMP 36.8; O2SAT 99
[2021-05-15 14:39] VITALS: BP 89/51; PULSE 73; RESP 18; TEMP 36.8; O2SAT 98
[2021-05-15] MEDS: hydrocortisone 2.5% cream 28 gm 1 APPLIC TOPICAL ×2 (17:50→20:41)
[2021-05-15] MEDS: diphenhydrAMINE 25 mg Capsule PO (17:50)
[2021-05-15 20:34] VITALS: BP 89/59; PULSE 92; RESP 16; TEMP 36.8; O2SAT 97
[2021-05-15] MEDS: prazosin 1 mg Capsule 2 MG PO (20:41)
[2021-05-15] MEDS: OLANZapine 5 mg TABLET PO (20:41)
[2021-05-16 06:00] VITALS: BP 81/49; PULSE 81; RESP 15; TEMP 37; O2SAT 97
[2021-05-16] MEDS: levothyroxine 50 mcg Tablet PO (06:38)
[2021-05-16] MEDS: sertraline 100 mg Tablet PO (09:09)
[2021-05-16 14:00] VITALS: BP 99/68; PULSE 99; RESP 18; TEMP 36.9; O2SAT 97
--- NOTE | 2021-05-16 17:23 | PM.NPN ---
Subjective NPU Subjective: Interval history: 70 presents today showing significant improvement in her impulse control. He was able to deconstruct the events from the past 24 hours plus and reports understanding that is probably in her best interest to [facility] for whatever arrangement her guardian has identified. We discussed her addiction and the importance of her recovery. She denied any significant concerns we discussed the fact that at midnight she would be off quarantine. Mental Status Exam MSE Comments: This is a short slightly overweight white female in [facility] scrubs with improving grooming and eye contact. No abnormal movements except for mild psychomotor retardation. Cooperative with exam in no acute distress. Speech was normal rate and volume. Mood described as better, affect congruent. Thought process organized, thought content: Patient denied suicidal or homicidal ideation, there were no delusions reported or noted, she denied auditory or visual hallucinations. Attention and concentration were intact and memory was more reliable but none were formally tested. She is alert and oriented times 3. Insight and judgment are improving, impulse control is improving. Vitals/I&O/Wt Last Vital Signs Temp 98.6 F 05/16/21 20:55 Pulse 82 05/16/21 20:55 Resp 17 05/16/21 20:55 BP 97/65 05/16/21 20:55 Pulse Ox 95 05/16/21 20:55 Weight last 48 hrs Weight 54.431 kg Data NPU : 05/12/21 09:30 05/12/21 09:30 A&P Additional A&P Information (1) Amphetamine or stimulant drug abuse: (2) Post-traumatic stress disorder, chronic: (3) On combination antipsychotic drug therapy: (4) Nexplanon insertion: (5) Bipolar disorder: (6) Bipolar disorder, current episode depressed, severe, without psychotic features: (7) Cannabis dependence, uncomplicated: (8) Alcohol dependence, in remission: Additional A&P Information This is a 25-year-old white female with a long history of addiction, trauma, mental health challenges and recent legal issues including reportedly trying to maintain or retain custody of at least 1 child, who presents having been erratic in the emergency department with likely active drug use though she denies use since she was last hospitalized. 1. Continue current medication. 2. Continue every 15 minute checks for safety. 3. Encourage individual, group and milieu therapies. 4. Encourage sober living treatment after discharge at the highest level of care to which he is willing to commit. 5. We will work with her guardian for discharge planning. Involuntary Hold Information 96 Hour Hold: 96 Hour Involuntary Admission: Yes 96 Hour Hold Ending Date: 05/18/21 96 Hour Hold Ending Time: 09:30 Attestations NPU Medical Necessity Statement*: Inpatient hospitalization is medically necessary and the clinically appropriate intervention at this time. We will monitor medications and make changes as indicated. Likely length of stay 2-4 days. Coding Level of Care Code Acute Senior Accountant Analyst for Thalia Pendleton
[2021-05-16] MEDS: acetaminophen 325 mg Tablet 650 MG PO (18:05)
[2021-05-16 20:55] VITALS: BP 97/65; PULSE 82; RESP 17; TEMP 37; O2SAT 95
[2021-05-16] MEDS: prazosin 1 mg Capsule 2 MG PO (20:59)
[2021-05-16] MEDS: OLANZapine 5 mg TABLET PO (20:59)
[2021-05-16] MEDS: hydrocortisone 2.5% cream 28 gm 1 APPLIC TOPICAL (21:00)
[2021-05-17 06:00] VITALS: BP 97/57; PULSE 73; RESP 16; TEMP 36.9; O2SAT 98
[2021-05-17] MEDS: levothyroxine 50 mcg Tablet PO (06:19)
[2021-05-17] MEDS: sertraline 100 mg Tablet PO (09:22)
[2021-05-17] MEDS: OLANZapine 5 mg ODT PO ×2 (11:41→17:36)
--- NOTE | 2021-05-17 11:50 | PC.NURSE ---
PRN ANXIETY Patient requested medication for anxiety. Given 5 mg Zyprexa Zydis po.
[2021-05-17 14:00] VITALS: BP 99/64; PULSE 86; RESP 18; TEMP 36.2; O2SAT 96
--- NOTE | 2021-05-17 17:02 | PM.NPN ---
Subjective NPU Subjective: Interval history: Keke presents today reporting that she is feeling better in regards to her mental health issues. She is feeling clear to further she gets away from her drug use. We discussed how her guardian and the social work team are looking at options for placement. She does report having some odd feeling in her left ear almost sounding like possible water behind the eardrum. Otherwise reports feeling better overall. Mental Status Exam MSE Comments: This is a short slightly overweight white female in [facility] with improving grooming and eye contact. No abnormal movements. Cooperative with exam in no acute distress. Speech was normal rate and volume. Mood described as better, affect congruent. Thought process organized, thought content: Patient denied suicidal or homicidal ideation, there were no delusions reported or noted, she denied auditory or visual hallucinations. Attention and concentration were intact and memory was more reliable but none were formally tested. She is alert and oriented times 3. Insight and judgment are improving, impulse control is improving. Vitals/I&O/Wt Last Vital Signs Temp 98.5 F 05/17/21 19:48 Pulse 101 H 05/17/21 19:48 Resp 19 H 05/17/21 19:48 BP 106/76 05/17/21 19:48 Pulse Ox 98 05/17/21 19:48 Data NPU : 05/18/21 02:05 05/18/21 02:05 A&P Additional A&P Information (1) Amphetamine or stimulant drug abuse: (2) Post-traumatic stress disorder, chronic: (3) On combination antipsychotic drug therapy: (4) Nexplanon insertion: (5) Bipolar disorder: (6) Bipolar disorder, current episode depressed, severe, without psychotic features: (7) Cannabis dependence, uncomplicated: (8) Alcohol dependence, in remission: Additional A&P Information This is a 25-year-old white female with a long history of addiction, trauma, mental health challenges and recent legal issues including reportedly trying to maintain or retain custody of at least 1 child, who presents having been erratic in the emergency department with likely active drug use though she denies use since she was last hospitalized. 1. Continue current medication. 2. Continue every 15 minute checks for safety. 3. Encourage individual, group and milieu therapies. 4. Encourage sober living treatment after discharge at the highest level of care to which he is willing to commit. 5. We will work with her guardian for discharge planning. Involuntary Hold Information 96 Hour Hold: 96 Hour Involuntary Admission: Yes 96 Hour Hold Ending Date: 05/18/21 96 Hour Hold Ending Time: 09:30 Attestations NPU Medical Necessity Statement*: Inpatient hospitalization is medically necessary and the clinically appropriate intervention at this time. We will monitor medications and make changes as indicated. Likely length of stay 1-3 days. Coding Level of Care Code Acute Middle School Principal for Thalia Pendleton
[2021-05-17 19:48] VITALS: BP 106/76; PULSE 101; RESP 19; TEMP 36.9; O2SAT 98
[2021-05-17] MEDS: OLANZapine 5 mg TABLET PO (20:24)
--- NOTE | 2021-05-17 20:26 | PC.NURSE ---
Patient prazosin held this evening due to soft bp and patient feeling dizzy.
[2021-05-18 01:00] VITALS: BP 106/73; PULSE 90; O2SAT 99
[2021-05-18 01:05] VITALS: BP 109/70; PULSE 87; O2SAT 96
[2021-05-18 01:10] VITALS: BP 105/74; PULSE 107; O2SAT 96
[2021-05-18] MEDS: acetaminophen 325 mg Tablet 650 MG PO ×2 (02:11→17:10)
[2021-05-18] MEDS: diphenhydrAMINE 25 mg Capsule PO ×2 (02:11→21:31)
[2021-05-18 02:14] LABS: Basophils # 0.1 10^3/uL (0.0-0.1); Basophils % 0.8 %; Eosinophils # 0.5 10^3/uL (0.0-0.8); Eosinophils % 3.2 %; Hematocrit 40.9 % (37.0-47.0); Hemoglobin 12.8 g/dL (11.5-15.3); Lymphocytes # 4.7 10^3/uL (0.8-4.8); Lymphocytes % 30.3 %; Mean Corpuscular HGB Conc 31.3 g/dL (30.0-36.0); Mean Corpuscular Hemoglobin 27.4 pg (28.0-34.0); Mean Corpuscular Volume 87.4 fL (81-99); Mean Platelet Volume 8.8 fL (7.4-10.4); Monocytes # 1.1 10^3/uL (0.2-0.9); Monocytes % 7.1 %; Neutrophils # 9.09 10^3/uL (1.8-7.7); Neutrophils % 58.2 %; Nucleated Red Blood Cells % 0 %; Platelet Count 643 10^3/cmm (130-400); Red Blood Count 4.68 10^6/uL (4.1-5.3); Red Cell Distribution Width 14.6 % (12.1-15.1); White Blood Count 15.6 10^3/uL (4.0-10.0)
--- NOTE | 2021-05-18 02:15 | PC.NURSE ---
Patient C/O headache and itching. Tylenol 325mg x 2 given along with 25mg Benadryl PO.
[2021-05-18 02:36] LABS: Anion Gap 11.8 (5-19); Blood Urea Nitrogen 11 mg/dL (6-20); Carbon Dioxide 29 mmol/L (22-29); Chloride 102 mmol/L (98-107); Glomerular Filtration Rate 150.3 mL/min (90-130); Glucose 107 mg/dL (65-115); Osmolality Calculated 286 mOsm/kg (285-295); Potassium 4.8 mmol/L (3.5-5.1); Sodium 138 mmol/L (136-145)
[2021-05-18 04:08] LABS: Add Urine Culture? No; Bacteria Urine TRACE /hpf; Bilirubin Urine Neg (Negative); Blood Urine Neg (Negative); Glucose Urine UA Norm (Normal); Ketones Urine Negative (Negative); Leukocyte Esterase Urine Negative (Negative); Nitrate Urine Negative (Negative); Protein Urine Neg (Negative); RBC Urine 0-4 /hpf (0-2); Specific Gravity, Urine 1.005 (1.005-1.030); Squamous Epithelial Cell Urine 0-4 /hpf (0-5); Urine Appearance Clear (CLEAR); Urine Color Yellow (Yellow); Urobilinogen Urine Norm (Negative); WBC Urine 0-4 /hpf (0-5); pH Urine 7 (5-7)
[2021-05-18 06:00] VITALS: BP 99/57; PULSE 70; RESP 16; TEMP 36.8; O2SAT 95
[2021-05-18] MEDS: levothyroxine 50 mcg Tablet PO (06:02)
[2021-05-18] MEDS: sertraline 100 mg Tablet PO (08:40)
[2021-05-18 14:00] VITALS: BP 97/64; PULSE 86; RESP 20; TEMP 37.2; O2SAT 97
--- NOTE | 2021-05-18 14:23 | P.PN_ITS ---
Subjective NPU Subjective: Interval history: Keke continues a trend of being fairly somatically preoccupied. However staff member on her last day identified that she was supposed to get an STD screening for gonorrhea that is not clear happened she is reporting discharge. Lab redraw demonstrated the elevated white count remains. Consult medicine versus OB versus both in the morning. Mental Status Exam MSE Comments: This is a short slightly overweight white female in [facility] scrubs with improving grooming and eye contact. No abnormal movements. Cooperative with exam in no acute distress. Speech was normal rate and volume. Mood described as better, affect congruent. Thought process organized, thought content: Patient denied suicidal or homicidal ideation, there were no delusions reported or noted, she denied auditory or visual hallucinations. Attention and concentration were intact and memory was more reliable but none were formally tested. She is alert and oriented times 3. Insight and judgment are improving, impulse control is improving. Vitals/I&O/Wt Last Vital Signs Temp 98.2 F 05/18/21 06:00 Pulse 70 05/18/21 06:00 Resp 16 05/18/21 06:00 BP 99/57 05/18/21 06:00 Pulse Ox 95 05/18/21 06:00 Data NPU : 05/18/21 02:05 05/18/21 02:05 A&P Additional A&P Information (1) Amphetamine or stimulant drug abuse: (2) Post-traumatic stress disorder, chronic: (3) On combination antipsychotic drug therapy: (4) Nexplanon insertion: (5) Bipolar disorder: (6) Bipolar disorder, current episode depressed, severe, without psychotic features: (7) Cannabis dependence, uncomplicated: (8) Alcohol dependence, in remission: Additional A&P Information This is a 25-year-old white female with a long history of addiction, trauma, mental health challenges and recent legal issues including reportedly trying to maintain or retain custody of at least 1 child, who presents having been erratic in the emergency department with likely active drug use though she denies use since she was last hospitalized. 1. Continue current medication. 2. Continue every 15 minute checks for safety. 3. Encourage individual, group and milieu therapies. 4. Encourage sober living treatment after discharge at the highest level of care to which he is willing to commit. 5. We will work with her guardian for discharge planning. 6. Consult medicine versus OB versus both in the morning. No elevated white count could also represent resolving issues from previous Covid positive status. Involuntary Hold Information 96 Hour Hold: 96 Hour Involuntary Admission: Yes 96 Hour Hold Ending Date: 05/18/21 96 Hour Hold Ending Time: 09:30 Attestations NPU Medical Necessity Statement*: Inpatient hospitalization is medically necessary and the clinically appropriate intervention at this time. We will monitor medications and make changes as indicated. Likely length of stay 1-3 days. Coding Level of Care Code Acute Right Of Way Manager for Thalia Pendleton
[2021-05-18] MEDS: loratadine 10 mg Tablet PO (14:47)
[2021-05-18] MEDS: hyDROXYzine 25 mg Capsule 50 MG PO (14:47)
--- NOTE | 2021-05-18 14:47 | PC.NURSE ---
Patient at nurses station requesting something for her anxiety. Patient has been very anxious, and worried about her health. PRN Vistaril administered.
[2021-05-18] MEDS: hydrocortisone 2.5% cream 28 gm 1 APPLIC TOPICAL (14:50)
--- NOTE | 2021-05-18 14:50 | PC.NURSE ---
Patient also requested topical cream for her bites on her abdomen.
[2021-05-18] MEDS: ondansetron 4 MG Tablet PO ×2 (17:10→21:31)
[2021-05-18 21:11] VITALS: BP 103/70; PULSE 75; RESP 19; TEMP 36.6; O2SAT 98
[2021-05-18] MEDS: OLANZapine 5 mg TABLET PO (21:31)
--- NOTE | 2021-05-18 21:35 | PC.NURSE ---
Patient C/O nausea and itching. 4mg Zofran PO and 25mg Benadryl PO given.
[2021-05-19 06:00] VITALS: BP 127/80; PULSE 67; RESP 15; TEMP 36.7; O2SAT 96
[2021-05-19] MEDS: hyDROXYzine 25 mg Capsule 50 MG PO ×2 (06:16→16:13)
[2021-05-19] MEDS: levothyroxine 50 mcg Tablet PO (06:16)
[2021-05-19] MEDS: sertraline 100 mg Tablet PO (07:57)
[2021-05-19] MEDS: loratadine 10 mg Tablet PO (07:57)
[2021-05-19 14:00] VITALS: BP 97/67; PULSE 94; RESP 17; TEMP 37.4; O2SAT 96
--- NOTE | 2021-05-19 15:10 | P.PN_ITS ---
Subjective NPU Subjective: Interval history: Keke presents today reporting that she is still having some discharge from her vagina. Sent a urine culture away to determine if we can see what was going on. She reported that she would be fine if we had someone come to do a vaginal exam if necessary. She is awaiting placement as social work and her guardian are looking for options. Mental Status Exam MSE Comments: This is a short slightly overweight white female in [facility] scrubs with improving grooming and eye contact. No abnormal movements. Cooperative with exam in no acute distress. Speech was normal rate and volume. Mood described pretty good, affect congruent. Thought process organized, thought content: Patient denied suicidal or homicidal ideation, there were no delusions reported or noted, she denied auditory or visual hallucinations. Attention and concentration were intact and memory was more reliable but none were formally tested. She is alert and oriented times 3. Insight and judgment are improving, impulse control is improving. Vitals/I&O/Wt Last Vital Signs Temp 99.3 F 05/19/21 20:53 Pulse 97 05/19/21 20:53 Resp 18 05/19/21 20:53 BP 90/59 05/19/21 20:53 Pulse Ox 96 05/19/21 20:53 Data NPU : 05/18/21 02:05 05/18/21 02:05 Micro: Microbiology 05/18/21 23:50 Chlamydia trachomatis (LINDA) - Final Urine Random Neisseria gonorrhoeae (LINDA) - Final Trichomonas vaginalis (LINDA - Final Microbiology 05/18/21 23:50 Urine Random Chlamydia trachomatis (LINDA) - Final 05/18/21 23:50 Urine Random Neisseria gonorrhoeae (LINDA) - Final 05/18/21 23:50 Urine Random Trichomonas vaginalis (LINDA - Final A&P Additional A&P Information (1) Amphetamine or stimulant drug abuse: (2) Post-traumatic stress disorder, chronic: (3) On combination antipsychotic drug therapy: (4) Nexplanon insertion: (5) Bipolar disorder: (6) Bipolar disorder, current episode depressed, severe, without psychotic fe atures: (7) Cannabis dependence, uncomplicated: (8) Alcohol dependence, in remission: Additional A&P Information This is a 25-year-old white female with a long history of addiction, trauma, mental health challenges and recent legal issues including reportedly trying to maintain or retain custody of at least 1 child, who presents having been erratic in the emergency department with likely active drug use though she denies use since she was last hospitalized. 1. Continue current medication. 2. Continue every 15 minute checks for safety. 3. Encourage individual, group and milieu therapies. 4. Encourage sober living treatment after discharge at the highest level of care to which he is willing to commit. 5. We will work with her guardian for discharge planning. 6. Consult medicine versus OB versus both in the morning, patient with positive gonorrhea from a urine micro culture. Involuntary Hold Information 96 Hour Hold: 96 Hour Involuntary Admission: Yes 96 Hour Hold Ending Date: 05/18/21 96 Hour Hold Ending Time: 09:30 Attestations NPU Medical Necessity Statement*: Inpatient hospitalization is medically necessary and the clinically appropriate intervention at this time. We will monitor medications and make changes as indicated. Likely length of stay 1-3 days. Coding Level of Care Code Acute Automatic Vulcanizing Lead Operator for Thalia Pendleton
--- NOTE | 2021-05-19 16:14 | PC.NURSE ---
Addendum entered by Aleyda Marinelli LPN 05/19/21 17:10: prn med effective no further c/o anxiety Original Note: PRN VISTARIL 50 MG GIVEN PO PER PT C/O STATED ANXIETY
[2021-05-19 20:53] VITALS: BP 90/59; PULSE 97; RESP 18; TEMP 37.4; O2SAT 96
[2021-05-19] MEDS: OLANZapine 5 mg TABLET PO (20:59)
[2021-05-19] MEDS: prazosin 1 mg Capsule 2 MG PO (20:59)
[2021-05-20 06:00] VITALS: BP 84/52; PULSE 83; RESP 17; TEMP 36.9; O2SAT 96
[2021-05-20] MEDS: levothyroxine 50 mcg Tablet PO (06:39)
[2021-05-20] MEDS: sertraline 100 mg Tablet PO (08:20)
[2021-05-20] MEDS: loratadine 10 mg Tablet PO (08:20)
--- NOTE | 2021-05-20 10:36 | P.PN_ITS ---
Subjective NPU Subjective: Interval history: Keke presents today continuing to endorse issues with vaginal discharge. I explained her I was able to consult with status about her situation. We discussed the risks, benefits and alternatives of getting a 1 g one-time injection of Rocephin as well as a 1 g one-time oral azithromycin and she understood and agreed to proceed as is documented in this note. She continued to show slow but steady improvement in her mentation and continue to report a plan to follow through with the replacement her guardian was able to arrange. Mental Status Exam MSE Comments: This is a short slightly overweight white female in [facility] scrubs with improving grooming and eye contact. No abnormal movements. Cooperative with exam in no acute distress. Speech was normal rate and volume. Mood described pretty good, affect congruent. Thought process organized, thought content: Patient denied suicidal or homicidal ideation, there were no delusions reported or noted, she denied auditory or visual hallucinations. Attention and concentration were intact and memory was more reliable but none were formally tested. She is alert and oriented times 3. Insight and judgment are improving, impulse control is improving. Vitals/I&O/Wt Last Vital Signs Temp 98.4 F 05/20/21 06:00 Pulse 83 05/20/21 06:00 Resp 17 05/20/21 06:00 BP 84/52 05/20/21 06:00 Pulse Ox 96 05/20/21 06:00 Data NPU : 05/18/21 02:05 05/18/21 02:05 Involuntary Hold Information 96 Hour Hold: 96 Hour Involuntary Admission: Yes 96 Hour Hold Ending Date: 05/18/21 96 Hour Hold Ending Time: 09:30 Attestations NPU Medical Necessity Statement*: Inpatient hospitalization is medically necessary and the clinically appropriate intervention at this time. We will monitor medications and make changes as indicated. Likely length of stay 1-3 days. We will discharge with appropriate placement. Coding Level of Care Code Acute Embedded Engineer for Thalia Pendleton
[2021-05-20] MEDS: azithromycin 250 mg Tablet 1000 MG PO (11:06)
[2021-05-20 14:00] VITALS: BP 84/56; PULSE 86; RESP 16; TEMP 37; O2SAT 99
[2021-05-20] MEDS: hyDROXYzine 25 mg Capsule 50 MG PO (16:28)
--- NOTE | 2021-05-20 16:29 | PC.NURSE ---
Addendum entered by Aleyda Marinelli LPN 05/20/21 17:54: PRN MED EFFECTIVE NO FURTHER C/O ANXIETY Original Note: PRN VISTARIL 50 MG GIVEN PO PER PT C/O ANXIETY
[2021-05-20 20:15] VITALS: BP 87/54; PULSE 78; RESP 18; TEMP 36.5; O2SAT 98
[2021-05-20] MEDS: prazosin 1 mg Capsule 2 MG PO (20:34)
[2021-05-20] MEDS: OLANZapine 5 mg TABLET PO (20:34)
[2021-05-21 06:00] VITALS: BP 88/58; PULSE 64; RESP 16; TEMP 36.8; O2SAT 96
[2021-05-21] MEDS: levothyroxine 50 mcg Tablet PO (06:08)
[2021-05-21] MEDS: loratadine 10 mg Tablet PO (08:21)
[2021-05-21] MEDS: sertraline 100 mg Tablet PO (08:21)
--- NOTE | 2021-05-21 11:39 | P.PN_ITS ---
Subjective NPU Subjective: Interval history: Keke presents today reporting that things are going better as far as how she feels with her vaginal complaints. She spent a lot of time talking about dizziness and thoughts about possible seizures when she snaps up when she is laying down or drifting off. We discussed her blood pressure is and she asked identified that she has had test to look at a postural implications to her blood pressures. We discussed the possibility of looking at her blood pressure numbers positionally tomorrow. We discussed the importance of her maintaining her hydration especially with the nighttime prazosin. Mental Status Exam MSE Comments: This is a short slightly overweight white female in [facility] scrubs with improving grooming and eye contact. No abnormal movements. Cooperative with exam in no acute distress. Speech was normal rate and volume. Mood described pretty good, affect congruent. Thought process organized, thought content: Patient denied suicidal or homicidal ideation, there were no delusions reported or noted but she has become fairly somatically preoccupied, she denied auditory or visual hallucinations. Attention and concentration were intact and memory was more reliable but none were formally tested. She is alert and oriented times 3. Insight and judgment are improving, impulse control is improving. Vitals/I&O/Wt Last Vital Signs Temp 98.2 F 05/21/21 06:00 Pulse 64 05/21/21 06:00 Resp 16 05/21/21 06:00 BP 88/58 05/21/21 06:00 Pulse Ox 96 05/21/21 06:00 Weight last 48 hrs Weight 54.431 kg Data NPU : 05/18/21 02:05 05/18/21 02:05 A&P Additional A&P Information (1) Amphetamine or stimulant drug abuse: (2) Post-traumatic stress disorder, chronic: (3) On combination antipsychotic drug therapy: (4) Nexplanon insertion: (5) Bipolar disorder: (6) Bipolar disorder, current episode depressed, severe, without psychotic features: (7) Cannabis dependence, uncomplicated: (8) Alcohol dependence, in remission: Additional A&P Information This is a 25-year-old white female with a long history of addiction, trauma, mental health challenges and recent legal issues including reportedly trying to maintain or retain custody of at least 1 child, who presents having been erratic in the emergency department with likely active drug use though she denies use since she was last hospitalized. 1. Continue current medication. 2. Continue every 15 minute checks for safety. 3. Encourage individual, group and milieu therapies. 4. Encourage sober living treatment after discharge at the highest level of care to which he is willing to commit. 5. We will work with her guardian for discharge planning. Involuntary Hold Information 96 Hour Hold: 96 Hour Involuntary Admission: Yes 96 Hour Hold Ending Date: 05/18/21 96 Hour Hold Ending Time: 09:30 Attestations NPU Medical Necessity Statement*: Inpatient hospitalization is medically necessary and the clinically appropriate intervention at this time. We will monitor medications and make changes as indicated. Likely length of stay 1-3 days. We will discharge with appropriate placement. Coding Level of Care Code Acute Post Production Assistant for Thalia Pendleton
[2021-05-21 13:57] VITALS: BP 90/59; PULSE 80; RESP 17; TEMP 36.7; O2SAT 96
[2021-05-21] MEDS: acetaminophen 325 mg Tablet 650 MG PO ×2 (17:53→22:59)
[2021-05-21 22:00] VITALS: BP 114/72; PULSE 89; RESP 18; TEMP 36.8; O2SAT 98
[2021-05-21] MEDS: prazosin 1 mg Capsule 2 MG PO (22:10)
[2021-05-21] MEDS: OLANZapine 5 mg TABLET PO (22:11)
[2021-05-21] MEDS: trazodone 50 mg Tablet PO (22:59)
--- NOTE | 2021-05-21 23:00 | PC.NURSE ---
PT REQUESTED SLEEP MED, TRAZODONE 50MG PO GIVEN.
--- NOTE | 2021-05-22 | PC.NURSE ---
PT RESTING QUIETLY WITH BOTH EYES CLOSED.
[2021-05-22 06:00] VITALS: BP 97/60; PULSE 65; RESP 17; TEMP 37.1; O2SAT 96; BMI 21.9
[2021-05-22] MEDS: levothyroxine 50 mcg Tablet PO (06:36)
[2021-05-22] MEDS: loratadine 10 mg Tablet PO (08:56)
[2021-05-22] MEDS: sertraline 100 mg Tablet PO (08:56)
[2021-05-22] MEDS: polyethylene glycol 3350 Pkt 17 gm PO (10:13)
[2021-05-22 14:00] VITALS: BP 86/61; PULSE 76; RESP 18; TEMP 36.3; O2SAT 95
[2021-05-22] MEDS: OLANZapine 5 mg ODT PO (17:30)
--- NOTE | 2021-05-22 17:30 | PC.NURSE ---
Patient requesting something for anxiety. PRN Zyprexa administered.
--- NOTE | 2021-05-22 18:18 | PM.NPN ---
Subjective NPU Subjective: Interval history: Keke presents today continuing to show improvement in her presentation and continues to be somatically preoccupied but continues to be open and agreeable to placement by her guardian. We discussed making sure that she has the medications available that she is eating particularly reporting needing something for sleep but that the trazodone is helpful. Mental Status Exam MSE Comments: This is a short slightly overweight white female in [facility] scrubs with improving grooming and eye contact. No abnormal movements. Cooperative with exam in no acute distress. Speech was normal rate and volume. Mood described pretty good, affect congruent. Thought process organized, thought content: Patient denied suicidal or homicidal ideation, there were no delusions reported or noted but she has become fairly somatically preoccupied, she denied auditory or visual hallucinations. Attention and concentration were intact and memory was more reliable but none were formally tested. She is alert and oriented times 3. Insight and judgment are improving, impulse control is improving. Vitals/I&O/Wt Last Vital Signs Temp 98.2 F 05/22/21 21:46 Pulse 79 05/22/21 21:46 Resp 16 05/22/21 21:46 BP 92/61 05/22/21 21:46 Pulse Ox 98 05/22/21 21:46 Weight last 48 hrs Weight 54.431 kg Data NPU : 05/18/21 02:05 05/18/21 02:05 A&P Additional A&P Information (1) Amphetamine or stimulant drug abuse: (2) Post-traumatic stress disorder, chronic: (3) On combination antipsychotic drug therapy: (4) Nexplanon insertion: (5) Bipolar disorder: (6) Bipolar disorder, current episode depressed, severe, without psychotic features: (7) Cannabis dependence, uncomplicated: (8) Alcohol dependence, in remission: Additional A&P Information This is a 25-year-old white female with a long history of addiction, trauma, mental health challenges and recent legal issues including reportedly trying to maintain or retain custody of at least 1 child, who presents having been erratic in the emergency department with likely active drug use though she denies use since she was last hospitalized. 1. Continue current medication. 2. Continue every 15 minute checks for safety. 3. Encourage individual, group and milieu therapies. 4. Encourage sober living treatment after discharge at the highest level of care to which he is willing to commit. 5. We will work with her guardian for discharge planning. Involuntary Hold Information 96 Hour Hold: 96 Hour Involuntary Admission: Yes 96 Hour Hold Ending Date: 05/18/21 96 Hour Hold Ending Time: 09:30 Attestations NPU Medical Necessity Statement*: Inpatient hospitalization is medically necessary and the clinically appropriate intervention at this time. We will monitor medications and make changes as indicated. Likely length of stay 1-3 days. We will discharge with appropriate placement. Coding Level of Care Code Acute Supervisor Metal Furniture Assembly for Thalia Pendleton
[2021-05-22] MEDS: prazosin 1 mg Capsule 2 MG PO (21:37)
[2021-05-22] MEDS: OLANZapine 5 mg TABLET PO (21:37)
[2021-05-22 21:46] VITALS: BP 92/61; PULSE 79; RESP 16; TEMP 36.8; O2SAT 98
[2021-05-22] MEDS: trazodone 50 mg Tablet PO (22:04)
--- NOTE | 2021-05-22 22:10 | PC.NURSE ---
pt requested sleep med, trazodone 50mg po given.
[2021-05-23 06:00] VITALS: BP 92/54; PULSE 72; RESP 16; TEMP 36.7; O2SAT 97
[2021-05-23] MEDS: levothyroxine 50 mcg Tablet PO (07:06)
[2021-05-23] MEDS: polyethylene glycol 3350 Pkt 17 gm PO ×3 (07:06→21:33)
[2021-05-23] MEDS: loratadine 10 mg Tablet PO (09:27)
[2021-05-23] MEDS: sertraline 100 mg Tablet PO (09:27)
[2021-05-23 11:01] LABS: SARS Covid-2 Antigen Negative (Negative)
[2021-05-23] MEDS: OLANZapine 5 mg ODT PO (13:18)
[2021-05-23 14:00] VITALS: BP 100/67; PULSE 73; RESP 18; TEMP 36.9; O2SAT 98
--- NOTE | 2021-05-23 17:57 | P.PN_ITS ---
Subjective NPU Subjective: Interval history: Keke presents today with continued improvement and was initially quite excited about a location for placement being found. However that excitement was short-lived but there is some confusion and concern about the exact nature of her insurance. It appears it is possible that she is still being flagged on Medicaid for only and we are working with the appropriate parties to figure out what is actually the case. With that information however the facility will not receive her until everything is worked out which so far she has kept a positive attitude. Mental Status Exam MSE Comments: This is a short slightly overweight white female in [facility] scrubs with improving grooming and eye contact. No abnormal movements. Cooperative with exam in no acute distress. Speech was normal rate and volume. Mood described pretty good, affect congruent. Thought process organized, thought content: Patient denied suicidal or homicidal ideation, there were no delusions reported or noted, she denied auditory or visual hallucinations. Attention and concentration were intact and memory was more reliable but none were formally tested. She is alert and oriented times 3. Insight and judgment are improving, impulse control is improving. Vitals/I&O/Wt Last Vital Signs Temp 98.4 F 05/23/21 21:14 Pulse 74 05/23/21 21:14 Resp 16 05/23/21 21:14 BP 88/54 05/23/21 21:14 Pulse Ox 94 05/23/21 21:14 Weight last 48 hrs Weight 54.431 kg Data NPU : 05/18/21 02:05 05/18/21 02:05 A&P Additional A&P Information (1) Amphetamine or stimulant drug abuse: (2) Post-traumatic stress disorder, chronic: (3) On combination antipsychotic drug therapy: (4) Nexplanon insertion: (5) Bipolar disorder: (6) Bipolar disorder, current episode depressed, severe, without psychotic features: (7) Cannabis dependence, uncomplicated: (8) Alcohol dependence, in remission: Additional A&P Information This is a 25-year-old white female with a long history of addiction, trauma, mental health challenges and recent legal issues including reportedly trying to maintain or retain custody of at least 1 child, who presents having been erratic in the emergency department with likely active drug use though she denies use since she was last hospitalized. 1. Continue current medication. 2. Continue every 15 minute checks for safety. 3. Encourage individual, group and milieu therapies. 4. Encourage sober living treatment after discharge at the highest level of care to which he is willing to commit. 5. We will work with her guardian for discharge planning. Involuntary Hold Information 96 Hour Hold: 96 Hour Involuntary Admission: Yes 96 Hour Hold Ending Date: 05/18/21 96 Hour Hold Ending Time: 09:30 Attestations NPU Medical Necessity Statement*: Inpatient hospitalization is medically necessary and the clinically appropriate intervention at this time. We will monitor medications and make changes as indicated. Likely length of stay 1-3 days. We will discharge with appropriate placement. Coding Level of Care Code Acute Classifier Operator for Thalia Pendleton
[2021-05-23 21:14] VITALS: BP 88/54; PULSE 74; RESP 16; TEMP 36.9; O2SAT 94
[2021-05-23] MEDS: trazodone 50 mg Tablet PO (21:24)
[2021-05-23] MEDS: OLANZapine 5 mg TABLET PO (21:24)
[2021-05-23] MEDS: prazosin 1 mg Capsule 2 MG PO (21:24)
--- NOTE | 2021-05-23 21:30 | PC.NURSE ---
pt requested sleep med and her miralax. pt stated Dr was going to let her have the miralax twice a day, and she had not had a dose since decontamination worker. Trazodone for sleep and packet of miralax given.
--- NOTE | 2021-05-23 22:49 | PC.NURSE ---
pt resting quietly with both eyes closed.
[2021-05-24 06:00] VITALS: BP 80/53; PULSE 69; RESP 16; TEMP 37.1; O2SAT 96
[2021-05-24] MEDS: levothyroxine 50 mcg Tablet PO (06:34)
[2021-05-24] MEDS: polyethylene glycol 3350 Pkt 17 gm PO ×2 (08:35→20:24)
[2021-05-24] MEDS: loratadine 10 mg Tablet PO (08:36)
[2021-05-24] MEDS: sertraline 100 mg Tablet PO (08:36)
[2021-05-24 14:00] VITALS: BP 100/68; PULSE 87; RESP 17; TEMP 37; O2SAT 98
--- NOTE | 2021-05-24 16:47 | PM.NPN ---
Subjective NPU Subjective: Interval history: Severe presents today continuing to have a positive attitude even though things turned more unclear as far as her discharge planning. She is requesting the ability to go to the location where her belongings are in them connect with her guardian later. We discussed concerns about that from a getting her safely to the facility standpoint but she and her guardian are working through her concerns. She did get her Covid vaccine and is recovering well as far symptoms from gonorrhea. She reports that she is eating fine and sleeping a little better. Mental Status Exam MSE Comments: This is a short slightly overweight white female in [facility] scrubs with improving grooming and eye contact. No abnormal movements. Cooperative with exam in no acute distress. Speech was normal rate and volume. Mood described pretty good, affect congruent. Thought process organized, thought content: Patient denied suicidal or homicidal ideation, there were no delusions reported or noted, she denied auditory or visual hallucinations. Attention and concentration were intact and memory was more reliable but none were formally tested. She is alert and oriented times 3. Insight and judgment are improving, impulse control is improving. Vitals/I&O/Wt Last Vital Signs Temp 98.4 F 05/24/21 22:00 Pulse 85 05/24/21 22:00 Resp 18 05/24/21 22:00 BP 78/51 05/24/21 22:00 Pulse Ox 96 05/24/21 22:00 Data NPU : 05/18/21 02:05 05/18/21 02:05 A&P Additional A&P Information (1) Amphetamine or stimulant drug abuse: (2) Post-traumatic stress disorder, chronic: (3) On combination antipsychotic drug therapy: (4) Nexplanon insertion: (5) Bipolar disorder: (6) Bipolar disorder, current episode depressed, severe, without psychotic features: (7) Cannabis dependence, uncomplicated: (8) Alcohol dependence, in remission: Additional A&P Information This is a 25-year-old white female with a long history of addiction, trauma, mental health challenges and recent legal issues including reportedly trying to maintain or retain custody of at least 1 child, who presents having been erratic in the emergency department with likely active drug use though she denies use since she was last hospitalized. 1. Continue current medication. 2. Continue every 15 minute checks for safety. 3. Encourage individual, group and milieu therapies. 4. Encourage sober living treatment after discharge at the highest level of care to which he is willing to commit. 5. We will work with her guardian for discharge planning. Involuntary Hold Information 96 Hour Hold: 96 Hour Involuntary Admission: Yes 96 Hour Hold Ending Date: 05/18/21 96 Hour Hold Ending Time: 09:30 Attestations NPU Medical Necessity Statement*: Inpatient hospitalization is medically necessary and the clinically appropriate intervention at this time. We will monitor medications and make changes as indicated. Likely length of stay 1-3 days. We will discharge with appropriate placement. Coding Level of Care Code Acute Physical Security Manager for Thalia Pendleton
[2021-05-24] MEDS: acetaminophen 325 mg Tablet 650 MG PO (17:21)
[2021-05-24] MEDS: hyDROXYzine 25 mg Capsule 50 MG PO (17:21)
--- NOTE | 2021-05-24 17:21 | PC.NURSE ---
PRN VISTARIL 50 MG GIVEN PO PER PT C/O STATED ANXIETY. NO OUTWARD S/S OF ANXIETY NOTED CURRENTLY.
[2021-05-24] MEDS: OLANZapine 5 mg TABLET PO (20:24)
[2021-05-24] MEDS: prazosin 1 mg Capsule 2 MG PO (20:24)
[2021-05-24] MEDS: trazodone 50 mg Tablet PO (20:24)
--- NOTE | 2021-05-24 20:25 | PC.NURSE ---
pt requested my trazodone , trazodone 50mg po give along with scheduled HS meds of: prazosin 2mg po, zyprexa 5mg po, miralax 1 packet mixed in orange juice.
[2021-05-24 22:00] VITALS: BP 78/51; PULSE 85; RESP 18; TEMP 36.9; O2SAT 96
[2021-05-25 06:00] VITALS: BP 87/49; PULSE 83; RESP 16; TEMP 36.7; O2SAT 94
[2021-05-25] MEDS: levothyroxine 50 mcg Tablet PO (06:16)
[2021-05-25] MEDS: loratadine 10 mg Tablet PO (07:43)
[2021-05-25] MEDS: sertraline 100 mg Tablet PO (07:43)
--- NOTE | 2021-05-25 07:44 | PC.NURSE ---
refused scheduled Miralax
[2021-05-25] MEDS: hyDROXYzine 25 mg Capsule 50 MG PO ×2 (12:54→20:31)
--- NOTE | 2021-05-25 12:54 | PC.NURSE ---
PRN VISTARIL 50 MG GIVEN PO PER PT C/O STATED ANXIETY. PT YELLING AND CURSING ON THE PHONE, UPSET THAT SHE ISN'T BEING DISCHARGED. WILL CONT TO MONITOR
[2021-05-25 14:00] VITALS: BP 91/69; PULSE 76; RESP 18; TEMP 36.8; O2SAT 98
[2021-05-25] MEDS: OLANZapine 5 mg ODT PO (14:54)
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
[2021-05-25] MEDS: prazosin 1 mg Capsule 2 MG PO (20:19)
[2021-05-25] MEDS: OLANZapine 5 mg TABLET PO (20:19)
[2021-05-25] MEDS: polyethylene glycol 3350 Pkt 17 gm PO (20:22)
[2021-05-25] MEDS: trazodone 50 mg Tablet PO (20:31)
[2021-05-25 22:00] VITALS: BP 91/69; PULSE 76; RESP 16; TEMP 36.8; O2SAT 98
[2021-05-26 06:00] VITALS: BP 102/69; PULSE 67; RESP 16; TEMP 36.8; O2SAT 99
[2021-05-26] MEDS: levothyroxine 50 mcg Tablet PO (06:17)
[2021-05-26] MEDS: loratadine 10 mg Tablet PO (09:04)
[2021-05-26] MEDS: polyethylene glycol 3350 Pkt 17 gm PO ×2 (09:04→21:10)
[2021-05-26] MEDS: sertraline 100 mg Tablet PO (09:04)
[2021-05-26] MEDS: hyDROXYzine 25 mg Capsule 50 MG PO ×2 (13:24→21:10)
[2021-05-26 14:00] VITALS: BP 118/76; PULSE 82; RESP 20; TEMP 36.6; O2SAT 98
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
[2021-05-26 20:16] VITALS: BP 97/57; PULSE 84; RESP 20; TEMP 36.7; O2SAT 96
[2021-05-26] MEDS: trazodone 50 mg Tablet PO (21:09)
[2021-05-26] MEDS: OLANZapine 5 mg TABLET PO (21:09)
--- NOTE | 2021-05-26 21:20 | PC.NURSE ---
Patient requested Trazodone and Vistaril for sleep and anxiety. 50 mg Trazodone PO and 50mg Vistaril PO given.
[2021-05-27 06:00] VITALS: BP 95/59; PULSE 61; RESP 16; TEMP 36.8; O2SAT 97
[2021-05-27] MEDS: levothyroxine 50 mcg Tablet PO (06:49)
[2021-05-27] MEDS: sertraline 100 mg Tablet PO (08:49)
[2021-05-27] MEDS: loratadine 10 mg Tablet PO (08:49)
[2021-05-27] MEDS: polyethylene glycol 3350 Pkt 17 gm PO (08:49)
[2021-05-27 14:00] VITALS: BP 86/57; PULSE 70; RESP 16; TEMP 36.8; O2SAT 97
[2021-05-27 16:58] VITALS: BP 86/57; PULSE 70; RESP 16; TEMP 36.8; O2SAT 97
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
== END 2021-05-27 17:06 | disposition home or self-care (01) | DRG 897 ==
LOC: ER 09:12 → NP 15:56
PROVIDERS: Admitting Provider Psychiatry & Neurology Psychiatry; Emergency Provider Family Medicine; PCP Internal Medicine; Visit Provider Psychiatry & Neurology Child & Adolescent Psychiatry
DX: F15.229 Other stimulant dependence with intoxication, unspecified (principal); F23 Brief psychotic disorder; R45.851 Suicidal ideations; F31.4 Bipolar disorder, current episode depressed, severe, without psychotic features; A54.9 Gonococcal infection, unspecified; F41.9 Anxiety disorder, unspecified; T38.1X6A Underdosing of thyroid hormones and substitutes, initial encounter; Z91.128 Patient's intentional underdosing of medication regimen for other reason; E03.9 Hypothyroidism, unspecified; F10.21 Alcohol dependence, in remission; J45.909 Unspecified asthma, uncomplicated; F43.12 Post-traumatic stress disorder, chronic; F12.20 Cannabis dependence, uncomplicated; G43.711 Chronic migraine without aura, intractable, with status migrainosus; Z87.440 Personal history of urinary (tract) infections; F17.210 Nicotine dependence, cigarettes, uncomplicated
CPT/HCPCS: 36415; 80048; 80053; 80306; 80307; 81001; 84703; 85025; 87426; 87491; 87591; 87661; 96372; 99285; J0696; J1200; J1630; J2060; J3486; Q0144; Q0162

== ENCOUNTER 2021-05-30 07:34 | Inpatient (IN) | payer MEDICAID, SELFPAY ==
[2021-05-30 07:37] VITALS: BP 119/53; PULSE 87; RESP 16; TEMP 36.9; O2SAT 93; BMI 25.4
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
[2021-05-30 08:25] LABS: Amphetamines Screen Urine Positive (Negative); Barbiturates Screen Urine Negative (Negative); Benzodiazepines Screen Urine Negative (Negative); Cocaine Screen Urine Negative (Negative); Opiate Screen Urine Negative (Negative); PCP Screen Urine Negative (Negative); THC Screen Urine Positive (Negative)
[2021-05-30 08:30] LABS: Basophils # 0.1 10^3/uL (0.0-0.1); Basophils % 0.7 %; Eosinophils # 0.1 10^3/uL (0.0-0.8); Eosinophils % 0.3 %; Hematocrit 33.3 % (37.0-47.0); Lymphocytes # 3.3 10^3/uL (0.8-4.8); Lymphocytes % 17.9 %; Mean Corpuscular Hemoglobin 27.5 pg (28.0-34.0); Mean Corpuscular Volume 83.3 fL (81-99); Mean Platelet Volume 8.6 fL (7.4-10.4); Monocytes # 1.5 10^3/uL (0.2-0.9); Monocytes % 8.1 %; Neutrophils # 13.36 10^3/uL (1.8-7.7); Neutrophils % 72.6 %; Nucleated Red Blood Cells % 0 %; Platelet Count 443 10^3/cmm (130-400); White Blood Count 18.4 10^3/uL (4.0-10.0)
--- NOTE | 2021-05-30 08:35 | XR_ITS ---
WS: [id number] Portable AP upright chest, 05/30/2021 Clinical Data: AMS Comparison: PA and lateral chest, 11/01/2017. Findings: No nodules, masses or effusions are seen. The heart is normal. The pulmonary vascularity is not increased. No pneumonia or pneumothorax is seen. XR/XR chest 1V portable [id number] Impression: Negative chest.
[2021-05-30 08:40] LABS: HCG, Serum Qual Negative (Negative)
[2021-05-30] MEDS: OLANZapine 5 mg ODT PO (08:40)
[2021-05-30] MEDS: LORazepam 1 mg Tablet PO (08:40)
[2021-05-30 08:48] LABS: Add Urine Microscopic? NO; Charge for UA Resulting for Rev
[2021-05-30] MEDS: ziprasidone 20 mg/mL SDV 10 MG IM (08:52)
[2021-05-30] MEDS: LORazepam 2 mg/mL INJ 1 mL IM (08:52)
[2021-05-30] MEDS: water for injection-sterile 10 ML (08:52)
[2021-05-30 08:56] LABS: Bilirubin Urine Neg (Negative); Blood Urine Neg (Negative); Glucose Urine UA Norm (Normal); Ketones Urine 1+ (Negative); Leukocyte Esterase Urine Negative (Negative); Nitrate Urine Negative (Negative); Protein Urine Neg (Negative); Specific Gravity, Urine 1.025 (1.005-1.030); Urine Appearance Clear (CLEAR); Urine Color Yellow (Yellow); Urobilinogen Urine 1 mg/dL (Negative); pH Urine 6 (5-7)
[2021-05-30 08:59] LABS: Alanine Aminotransferase 27 U/L (0-33); Alkaline Phosphatase 97 IU/L (35-105); Anion Gap 16.8 (5-19); Aspartate Amino Transferase 32 U/L (0-32); Blood Urea Nitrogen 14 mg/dL (6-20); Calcium 8.6 mg/dL (8.5-10.5); Carbon Dioxide 24 mmol/L (22-29); Chloride 102 mmol/L (98-107); Globulin 2.7 g/dL (1.3-4.6); Glucose 89 mg/dL (65-115); Osmolality Calculated 288 mOsm/kg (285-295); Potassium 3.8 mmol/L (3.5-5.1); Salicylate 0.6 mg/dL (3-10); Sodium 139 mmol/L (136-145); Total Bilirubin 0.4 mg/dL (0.15-1.2); Total Protein 6.7 g/dL (6.6-8.7)
[2021-05-30 09:02] LABS: Acetaminophen < 5.0 ug/mL (10-30); Alcohol Level < 10 mg/dL (0-10)
[2021-05-30 10:26] VITALS: RESP 16; TEMP 37.1
[2021-05-30 10:37] VITALS: RESP 16; TEMP 36.9; O2SAT 93
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
[2021-05-30 14:00] VITALS: BP 105/73; PULSE 105; RESP 17; TEMP 37.4; O2SAT 98
[2021-05-30] MEDS: acetaminophen 325 mg Tablet 650 MG PO (14:06)
[2021-05-30] MEDS: OLANZapine 10 mg TABLET PO (20:03)
[2021-05-30] MEDS: trazodone 50 mg Tablet PO (20:03)
[2021-05-30] MEDS: prazosin 1 mg Capsule PO (20:03)
[2021-05-30] MEDS: polyethylene glycol 3350 Pkt 17 gm PO (20:03)
--- NOTE | 2021-05-30 20:05 | PC.NURSE ---
pt requested med for sleep, Trazodone 50mg po given for sleep.
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
[2021-05-30 20:52] VITALS: BP 89/56; PULSE 109; RESP 16; TEMP 37.2; O2SAT 98
[2021-05-31 06:00] VITALS: BP 96/58; PULSE 95; RESP 17; TEMP 37; O2SAT 95
[2021-05-31] MEDS: levothyroxine 50 mcg Tablet PO (06:17)
[2021-05-31] MEDS: sertraline 100 mg Tablet PO (08:55)
[2021-05-31] MEDS: loratadine 10 mg Tablet PO (08:55)
--- NOTE | 2021-05-31 08:55 | PC.NURSE ---
refused scheduled Miralax
[2021-05-31] MEDS: haloperidol inj 5 mg/mL INJ 1 mL IM (13:13)
[2021-05-31] MEDS: LORazepam 2 mg/mL INJ 1 mL IM (13:13)
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
[2021-05-31 14:00] VITALS: BP 80/46; PULSE 67; RESP 16; TEMP 36.8; O2SAT 95
[2021-05-31 14:33] LABS: Basophils # 0.1 10^3/uL (0.0-0.1); Basophils % 1.5 %; Eosinophils # 0.4 10^3/uL (0.0-0.8); Eosinophils % 4.8 %; Hematocrit 33.3 % (37.0-47.0); Hemoglobin 10.5 g/dL (11.5-15.3); Lymphocytes # 3.6 10^3/uL (0.8-4.8); Mean Corpuscular HGB Conc 31.5 g/dL (30.0-36.0); Mean Corpuscular Hemoglobin 27.6 pg (28.0-34.0); Mean Corpuscular Volume 87.4 fL (81-99); Mean Platelet Volume 8.5 fL (7.4-10.4); Monocytes # 0.7 10^3/uL (0.2-0.9); Monocytes % 7.9 %; Neutrophils # 3.84 10^3/uL (1.8-7.7); Neutrophils % 44.3 %; Nucleated Red Blood Cells % 0 %; Platelet Count 369 10^3/cmm (130-400); Red Blood Count 3.81 10^6/uL (4.1-5.3); Red Cell Distribution Width 15.6 % (12.1-15.1); White Blood Count 8.7 10^3/uL (4.0-10.0)
--- NOTE | 2021-05-31 14:49 | PM.NPN ---
Subjective NPU Subjective: Interval history: The patient was highly distraught today, insisting that she could live wherever she wanted. The reality is that she has a guardian who can decide where she lives. She also repeated over and over that I did nothing wrong. You should not have put me here. She is unable to recognize how her actions have led to her readmission. She denies using drugs while out of the hospital, but her urine drug screen is positive for amphetamines and marijuana. She also denies the psychotic delusions she was experiencing yesterday. Mental Status Exam MSE Comments: The patient became more and more distraught, as she protested being in the hospital and having to do what her guardian says. She repeated the same thing over and over, and was not able to be redirected toward other aspects of our interview. She was alert. Attention was distracted and internally focused. Speech was loud and rapid, and difficult to interrupt. Mood is irritable and agitated. Affect is mood congruent and labile. Thought process is perseverative. Thought content: She continues to have delusions. She will not say if she is hearing voices. She will not say if she is homicidal or suicidal. Judgment and insight are severely impaired at this point. Vitals/I&O/Wt Last Vital Signs Temp 98.4 F 05/31/21 20:13 Pulse 111 H 05/31/21 20:13 Resp 16 05/31/21 20:13 BP 85/52 05/31/21 20:13 Pulse Ox 98 05/31/21 20:13 Weight last 48 hrs Weight 58.967 kg Data NPU : 05/31/21 14:23 05/30/21 08:15 A&P Assessment and plan (1) Methamphetamine-induced psychotic disorder: Status: Acute (2) Post-traumatic stress disorder, chronic: Status: Acute (3) Amphetamine or stimulant drug abuse: Status: Acute (4) Cannabis dependence, uncomplicated: Status: Acute Additional A&P Information The patient is a 25-year-old woman well-known to the unit, as this is her third admission with at the last 30 days. Her pattern is that she uses methamphetamine, becomes acutely psychotic, gets admitted to the hospital, experiences remission of her psychosis when she is off drugs, then immediately return to the community, uses methamphetamine again, and the cycle repeats. She is extremely distraught and feels victimized by repeated hospitalization and having to do what her guardian says. 1. Continue current medication. 2. Continue every 15 minute checks for safety. 3. Encourage individual, group and milieu therapies. 4. Encourage sober living treatment after discharge at the highest level of care to which he is willing to commit. 5. We will continue to work on developing a discharge plan which has a chance of helping her to maintain sobriety and avoid psychosis. Involuntary Hold Information 96 Hour Hold: 96 Hour Involuntary Admission: No 96 Hour Hold Ending Date: 05/18/21 96 Hour Hold Ending Time: 09:30 Attestations NPU Medical Necessity Statement*: Psychiatric hospitalization is medically necessary to prevent harm to the patient while she is psychotic and unable to function on her own, to reevaluate medication, and to coordinate a safe discharge. Patient will be in the hospital for over 2 midnights. Likely length of stay is 2 to 4 days. Coding Level of Care Code Acute Driver Supervisor for Thalia Pendleton Diagnoses Methamphetamine-induced psychotic disorder F15.959 Post-traumatic stress disorder, chronic F43.12 Amphetamine or stimulant drug abuse F15.10 Cannabis dependence, uncomplicated F12.20
[2021-05-31] MEDS: OLANZapine 10 mg TABLET PO (20:12)
[2021-05-31] MEDS: prazosin 1 mg Capsule PO (20:12)
[2021-05-31] MEDS: trazodone 50 mg Tablet PO (20:12)
[2021-05-31 20:13] VITALS: BP 85/52; PULSE 111; RESP 16; TEMP 36.9; O2SAT 98
[2021-05-31] MEDS: polyethylene glycol 3350 Pkt 17 gm PO (20:13)
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
--- NOTE | 2021-05-31 20:57 | PC.NURSE ---
Pt requested sleep med, Trazodone 50mg po given.
[2021-06-01 06:00] VITALS: BP 81/50; PULSE 65; RESP 16; TEMP 37.1; O2SAT 96
[2021-06-01] MEDS: levothyroxine 50 mcg Tablet PO (06:24)
[2021-06-01] MEDS: loratadine 10 mg Tablet PO (08:23)
[2021-06-01] MEDS: sertraline 100 mg Tablet PO (08:23)
[2021-06-01] MEDS: polyethylene glycol 3350 Pkt 17 gm PO (08:23)
--- NOTE | 2021-06-01 13:36 | PM.NDC ---
Diagnoses at Discharge Discharge Diagnosis (1) Methamphetamine-induced psychotic disorder: Status: Resolved (2) Post-traumatic stress disorder, chronic: Status: Acute (3) Amphetamine or stimulant drug abuse: Status: Acute (4) Cannabis dependence, uncomplicated: Status: Acute Reason for Visit Reason for Visit: AMS/STIMULANTS Brief History: Keke Mcnamara is a 25 year old female who was discharged from the [facility] on , 05/27/2021, with a plan for her to be admitted to a rehab facility in [place], [place] called [facility]. Instead, she went to a friend's house and use drugs. She is readmitted because she is acutely psychotic and unable to care for herself. The ED note states: Patient is a 25-year-old female who presents to ED today via EMS acutely psychotic. Patient was discharged from N[facility] on 05/27 for almost identical symptoms. Patient told EMS she feels like people are wanting her down trying to kill her. She believes she has been injected with rat poisoning. She believes she has a bomb in her vagina. Patient is extremely paranoid and skittish on exam. Full history is not obtainable secondary to her altered mental status. She does tell me she feels empty inside but does not endorse any suicidal ideations to me. The patient says that she got hot shotted with alligator heroin. She feels she has been poisoned and she is scared to sleep because dreams happen. She is hearing voices and seeing shadows. She says that someone dropped her off in the middle of the road, so she went to the nearest house and called EMS, who brought her to the hospital. She is unable to provide much information, because she spends most of her time attending to the voices. The admission note from the previous admission 05/12?05/27/2021 states: 5-year-old female comes in after having used some drugs she is having paranoid delusions. She thinks there is a sniper in the emergency room states she has a brain tumor. She states the mattress is burning her skin she tells me she either has a bomb in her pelvis or she is . She vehemently denies any suicidal or homicidal ideation she was recently hospitalized earlier this month. She is brought in by law enforcement in hand and leg shackles. Patient is continually exposing herself to myself and the staff when she first arrives in the room. The nurse cyber security manager and a deputy were in the room as this occurred. A blanket was placed over the lap to limit exposure. She was admitted to the neuropsychiatric unit for definitive treatment of those issues after having significant emotional distress in the emergency department requiring interventions. He was identified as Covid positive still and needing to be in isolation which was not working well with her emotional condition. I met her in her room with full PPE donned. And she was a poor historian spending most of the conversation demanding to be discharged and escalating, crying and continuing to suggest that there was no reason for her to be here and definitely no reason for her to be on a 96-hour hold. She reports that she had been trying to get connected with her fianc? and needed a ride and loaded with his mother. He told a very convoluted story about going to some location and thinking that he heard some girl in distress. She reports that when she attempted to help the girls of the stress they tried to suggest that she had done something wrong and the police were called. She reports that she did not do anything to involve the police but they still brought her to [facility]. She put the blame for her behavior in the emergency department on the staff down there. Additionally she kept reporting that when she has been here in the past she is been tortured. She ended up leaving her room at 1 point and being disruptive. She continues to report that she has been tortured and was inappropriately pulling up her shirt exposing herself pointing at pick trujillo on her abdomen suggesting that [facility] did that to her. She continued to deny that there were no issues and denied any active addiction that might explain her behavior. This represents her third hospitalization since October 2019. Unable to see further back in her records due to IT problem. She did identify that she has treatment at [facility] and recent records from those visits are available but again none of the 2019 notes can be seen. Excerpt from her May 03, 2021 hospitalization is included below for context given that she had only been out of the hospital for a day or 2 and was not very willing historian. Per her 05/03/2021 [facility] inpatient psychiatric evaluation: History of Present Illness Keke Mcnamara is a 25 year old female with an unclear past psychiatric history presented to the emergency department by police combative, agitated with meth amphetamine intoxication. Patient also reported that she was feeling suicidal yesterday when she came to the emergency department but denies any recent sustained depressive symptoms. Patient states that she mostly sleeps every day and has been using methamphetamine on a near daily basis for several months. Patient last had contact with mental health in January and outpatient [facility] and previously was seen in May 2020 at [facility] but reports noncompliance with medication and medication management follow-up. Patient currently denying any suicidal ideation. Patient does not recall any recent or past hypomanic or manic episodes outside of substance use. Patient reports some anxiety related to ongoing life stress but denies any sustained anxiety, denies any panic symptoms. Patient reports paranoid thoughts thinking that people are out to get her and states that she has experienced auditory and visual destinations typically under the influence of methamphetamine. Patient reports past substance rehabilitation but states that it's been a while, and reports that she is interested in post discharge substance treatment. Patient states that she had not been taking her levothyroxine or any other medications. Patient's potassium was replaced while in the emergency department and she was restarted on levothyroxine after admission. She reports that she currently lives with her boyfriend who is out of town and she is expecting him to come back at some time, denies any current employment or means to support herself. Past medical, past psychiatric, family, social, and legal history have not changed from the previous 2 admissions. Hospital Course Hospital Course Keke Mcnamara is a 25 year old female who was discharged from the MPU on , 05/27/2021, with a plan for her to be admitted to a rehab facility in [place], [place] called [facility]. Instead, she went to a friend's house and use drugs. She is readmitted because she is acutely psychotic and unable to care for herself. She was much better the day after admission, so we pursued placement in another rehab, as [facility] would no longer take her. Once we found the rehab appropriate for her, we planned discharge. She was receptive to treatment team recommendations and showed modest improvement and was able to contract for safety prior to discharge. During the hospitalization, patient had routine laboratory studies which were within normal limits except for few outliers. Additionally there was a general medical evaluation which was also within normal limits and revealed no new acute processes. Discharge Summary: At the time of discharge, psychosis and lethality were denied. Mood and anxiety were well managed. Patient endorsed a plan to avoid all drugs of abuse and follow-up with the aftercare recommendations of the treatment team. Patient was evaluated and deemed to be absent credible lethality, and had achieved the maximum benefit from an inpatient hospitalization, so was discharged. Involuntary Hold Information 96 Hour Hold: 96 Hour Involuntary Admission: No 96 Hour Hold Ending Date: 05/18/21 96 Hour Hold Ending Time: 09:30 Mental Status Exam MSE Comments: The patient made good eye contact and was cooperative and open to the exam. Mild psychomotor agitation. Speech was had a regular rate and rhythm without pressure. She was alert and oriented to person, place, time, and situation. Attention and concentration were intact to exam Memory was fairly good to exam. Mood is improved without much depression and anxiety. Affect is much brighter. Thought process: Logical and goal directed. No racing thoughts or flight of ideas. Thought content: She denies auditory and visual hallucinations. There are no delusions noted. No suicidal or homicidal ideation. She is looking forward to going to rehab. Insight and judgment are improved. Discharge Data Data Completed and Pending: Completed Studies During Hospitalization Category Date Time Status XR chest 1V mart ble [id number] Urgent Exams 05/30/21 08:35 Completed Labs from last 24 hours 05/31/21 14:23 WBC 8.7 RBC 3.81 L Hgb 10.5 L Hct 33.3 L MCV 87.4 MCH 27.6 L MCHC 31.5 RDW 15.6 H Plt Count 369 MPV 8.5 Neut % (Auto) 44.3 Lymph % (Auto) 41.0 Barbour % (Auto) 7.9 Eos % (Auto) 4.8 Baso % (Auto) 1.5 Neut # (Auto) 3.84 Lymph # (Auto) 3.6 Barbour # (Auto) 0.7 Eos # (Auto) 0.4 Baso # (Auto) 0.1 Nucleated RBC % (a uto) 0 Nucleated RBCs # 0.0 Vitals: Last Vital Signs Temp 98.8 F 06/01/21 06:00 Pulse 65 06/01/21 06:00 Resp 16 06/01/21 06:00 BP 81/50 06/01/21 06:00 Pulse Ox 96 06/01/21 06:00 Discharge Plan Discharge Patient Disposition: Home Condition: Stable Prescriptions: Continued trazodone 50 mg Tablet 50 mg PO BEDTIME 30 Days RF: 0 polyethylene glycol 3350 17 gram Powder In Packet 17 g PO 0900,2100 30 Days Qty: 30 RF: 0 prazosin 1 mg Capsule 2 mg PO BEDTIME 30 Days Qty: 60 RF: 0 sertraline 100 mg Tablet 100 mg PO DAILY 30 Days Qty: 30 RF: 0 olanzapine 5 mg Tablet 5 mg PO BEDTIME 30 Days Qty: 30 RF: 0 levothyroxine 50 mcg tablet 50 mcg PO QAM 30 Days Qty: 30 RF: 0 loratadine 10 mg Tablet 10 mg PO DAILY 30 Days Qty: 30 RF: 0 hydroxyzine pamoate 25 mg Capsule 50 mg PO BEDTIME 30 Days Qty: 30 RF: 0 Discharge Orders: Discharge Order (Routine); Ordered 06/01/21 Ordered By: Abbe Parham Referrals: Cale Toth DO [Primary Care Provider] - Discharge Diet: Usual diet Discharge Activity: Resume usual activity Patient Instructions: Opioid Safety Discharge Attestations NPU Time Spent in Discharge Care*: greater than 30 min Specific Discharge Activities: Specific discharge activities: educating patient, discussing with case sealer/social workers/dc planners, documenting/other paperwork and evaluating patient/reviewing data Status at Discharge: Cognitive status at discharge: cognitively intact, Behavioral status at discharge: cooperative, Functional status at discharge: independent ambulation Overall status at discharge: patient is progressing back to baseline Coding Level of Care Code Acute Chg FW DC note Diagnoses Methamphetamine-induced psychotic disorder F15.959 Post-traumatic stress disorder, chronic F43.12 Amphetamine or stimulant drug abuse F15.10 Cannabis dependence, uncomplicated F12.20
[2021-06-01 13:55] VITALS: BP 81/50; PULSE 65; RESP 16; TEMP 37.1; O2SAT 96
== END 2021-06-01 14:51 | disposition home or self-care (01) | DRG 897 ==
LOC: ER 09:45 → NP 05-31 06:23
PROVIDERS: Physician Assistant; Admitting Provider Psychiatry & Neurology Child & Adolescent Psychiatry; Emergency Provider Family Medicine; PCP Internal Medicine; Visit Provider Psychiatry & Neurology Child & Adolescent Psychiatry
DX: F15.159 Other stimulant abuse with stimulant-induced psychotic disorder, unspecified (principal); F12.259 Cannabis dependence with psychotic disorder, unspecified; F17.210 Nicotine dependence, cigarettes, uncomplicated; E03.9 Hypothyroidism, unspecified; F43.12 Post-traumatic stress disorder, chronic
CPT/HCPCS: 71045; 80053; 80306; 80307; 81003; 84703; 85025; 96372; 99285; J1630; J2060; J3486

== ENCOUNTER 2021-06-16 11:25 | Inpatient (IN) | payer MEDICAID, SELFPAY ==
[2021-06-16 11:39] VITALS: BP 97/62; PULSE 115; RESP 23; TEMP 37.2
--- NOTE | 2021-06-16 11:59 | W.ED.NECK ---
HPI - Neck Pain/Injury General: Chief Complaint: Headache Stated Complaint: STATES MY HEAD IS CRACKING , FLOPPING IN CHAIR Time Seen by Provider: 06/16/21 11:37 [facility] ED [facility]: Medical History (Updated 06/02/21 @ 00:01 by ) Acquired hypothyroidism Patient with longstanding history, since age 15, of hypothyroidism. She had not been taking medication since February 2019. 08/29/2019: TSH 11.2. Restarted levothyroxine at 50 mcg daily. 10/01/2019: TSH 15.3. Levothyroxine increased to 75 mcg daily. TSH still low. Increase Levothyroxine to 75 mcg -Rx Levothyroxine 75 mcg daily #30, 2 refil. Acute hypokalemia Acute psychosis Alcohol dependence, in remission Amphetamine or stimulant drug abuse Anemia affecting in third trimester Asthma Since childhood and states that it is aggravated by exercise. Has maybe one or 2 episodes of shortness of breath a week. Since childhood and states that it is aggravated by exercise. Has maybe one or 2 episodes of shortness of breath a week. Bipolar disorder Bipolar disorder, current episode depressed, severe, without psychotic features Bipolar disorder, mixed Patient has a history of bipolar disorder and PTSD. She has been on multiple medications in the past. She has also been treated with at [facility]. - Present prior to the --was taken off all her medications by Tamika Geiger at [facility] early on in the --she has not been back to [facility] and has not restarted any medication. Today she feels managed without medicine so we will continue to follow but I strongly recommended she return back to [facility] for further evaluation and management. Cannabis dependence, uncomplicated Drug use affecting in second trimester Gastroesophageal reflux during in third trimester, antepartum Hypothyroidism Insulin controlled gestational diabetes mellitus (GDM) in third trimester 09/01/2019: GCT 148 10/06/2019: Attempted to obtain three-hour GTT on multiple occasions. Patient unable to perform test. Check sugars at home and brought those to office at this visit. Pre-meals found to be elevated and consistent with GDM. A1c 10/06/2019: 5.6 Ultrasounds 1. 04/07/2019 ---> 7-4/7 WG ---> EDC 11/20/2019. 2. 07/30/2019 ---> 25-0/7 WG ---> EDC 11/12/2019. 3. 10/03/2019 ---> 34-6/7 WG ---> EDC 11/08/2019. EFW 5 lbs. 2 oz. (2318 g) 74%. SANTHOSH 18.8 cm Patient brought Sugar logs with her which were reviewed. Patient has continued to improve sugars with diet. However still higher than desired. Patient was supposed to have started 20 units of Levemir at her last visit, but wrong dose was sent in to the pharmacy and she only started 2 units daily. Based upon a sugar readings today, I am switching her to 10 units daily. -Levemir 10 units daily. -BPP with NST was 10 out of 10. -Continue weekly testing until 36 weeks at which time it is to switch to twice weekly. Intractable chronic migraine without aura and with status migrainosus Has been treated with multiple medications for headaches. Most recently treated with Imitrex by Dr. Amaro. Last visit with her was on 02/25/2019. This is a hapless mildly impaired 23-year-old with borderline personality disorder and ongoing difficulties. She has a nonfocal exam and I don't see any reason to scan her head. A letter headaches are doing better on current medication and I'm not changing anything. I took time to listen to her story and empathize. Maternal alcohol use complicating in second trimester, antepartum Mental disorder affecting in third trimester Patient has a history of bipolar disorder and PTSD. She has been on multiple medications in the past. She has also been treated with at [facility]. Patient denying depression problems at this time. She is definitely at risk for flareup of her bipolar disorder after delivery. Highly recommend that she get reestablished with [facility]. Nausea/vomiting in 09/29/2019: Started Reglan. Already taking Pepcid. Patient reporting nausea and vomiting. Was previously taking famotidine for acid reflux issues. Was started on Reglan today. Nexplanon insertion On combination antipsychotic drug therapy Post-traumatic stress disorder, chronic Psychiatric care Seizure disorder during in third trimester 09/29/2019: Patient with history of tonic-clonic seizures. Has been followed by Dr. Amaro in the past. Last evaluation was in 02/25/2019. Currently off of medications. Thyroid disease during in third trimester UTI (urinary tract infection) Surgical History History of myringotomy History of tonsillectomy at age 10 [place] teeth extracted Family History Grandfather Hyperlipidemia Maternal Stroke maternal Diabetes maternal Grandmother Thyroid condition maternal Breast cancer great Mother Thyroid condition Unknown Patient denies medical problems Denies family history of: cervical, uterine, colon cancer, DVT/PE Family/Other Ovarian cancer paternal aunt Social History Smoking and tobacco status: current every day smoker Quit status (tobacco): considering quitting Second hand smoke exposure: Yes Smoking risk assessment/counseling performed?: No Alcohol intake: former Year of sobriety/quit date alcohol: 2019 Former alcohol use details: Drank wine during Additional social history: Poorly balanced diet Course Vital Signs: Vital signs: Vital Signs Temperature 98.9 F 06/16/21 11:39 Pulse Rate 115 H 06/16/21 11:39 Respiratory Rate 23 H 06/16/21 11:39 Blood Pressure 97/62 06/16/21 11:39 Discharge Plan Discharge Prescriptions: No Action trazodone 50 mg Tablet 50 mg PO BEDTIME 30 Days RF: 0 polyethylene glycol 3350 17 gram Powder In Packet 17 g PO 0900,2100 30 Days Qty: 30 RF: 0 prazosin 1 mg Capsule 2 mg PO BEDTIME 30 Days Qty: 60 RF: 0 sertraline 100 mg Tablet 100 mg PO DAILY 30 Days Qty: 30 RF: 0 olanzapine 5 mg Tablet 5 mg PO BEDTIME 30 Days Qty: 30 RF: 0 levothyroxine 50 mcg tablet 50 mcg PO QAM 30 Days Qty: 30 RF: 0 loratadine 10 mg Tablet 10 mg PO DAILY 30 Days Qty: 30 RF: 0 hydroxyzine pamoate 25 mg Capsule 50 mg PO BEDTIME 30 Days Qty: 30 RF: 0 Coding Level of Care Code ED Can Handler for Thalia Pendleton
[2021-06-16] MEDS: ketorolac 60 mg/2 mL INJ IM (12:11)
[2021-06-16] MEDS: orphenadrine 30 mg/mL Inj 2 mL 60 MG IM (12:12)
--- NOTE | 2021-06-16 13:02 | PC.PHAR ---
PT STATES SHE WAS TAKING THE MEDICATIONS ENTERED-PT STATES SHE GOT KICKED OUT OF REHAB ON 06/14/21 AND HASNT HAD ANY OF HER MEDS SINCE THEN-NOTES ARE MADE IN THE PHARMACY COMMENTS
[2021-06-16] MEDS: OLANZapine 10 mg ODT PO (13:11)
--- NOTE | 2021-06-16 13:13 | PC.NURSE ---
pt having very erratic behavior and thrashing about it the bed. pt has had similar actions in past. pt states, oh god my body feels hot everywhere. pt thinks her throat is closing. Pt's vital signs are stable. ED provider in room. orders received.
[2021-06-16] MEDS: LORazepam 2 mg/mL INJ 1 mL IM (13:15)
[2021-06-16 13:17] VITALS: O2SAT 95
--- NOTE | 2021-06-16 13:22 | W.ED.PSYCH ---
HPI - Psych General: Chief Complaint: Headache Stated Complaint: STATES MY HEAD IS CRACKING , FLOPPING IN CHAIR Time Seen by Provider: 06/16/21 11:37 Source: patient Mode of arrival: ambulatory Limitations: no limitations and altered mental status History of Present Illness: HPI Narrative: Patient is a 25-year-old female who presents to ED today with multiple medical complaints. First of all she tells me she has a headache and feels like she is bleeding out in my brain . She is requesting a stat MRI. Patient tells me she is having neck and back pain and feels like there cracking and states it feels like her spine is coming out of her body. She complains that she feels like she is bleeding out internally. She states she feels like there is a bomb inside of her vagina. Later in her visit she began flashing staff her genitalia. Patient has a history of very similar psychotic symptoms. Patient was seen at [facility] recently. She had a CT head performed on that visit which was normal. MD complaint: other (psychosis) History of same: Yes Context: recent drug abuse Associated symptoms: Reports delusions Review of Systems General: Reports: ROS unobtainable due to mental status (this is felt to be unrealiable given her psychosis ) [facility] ED PFSH: Medical History (Updated 06/16/21 @ 16:04 by CHARLA Hu) Acquired hypothyroidism Patient with longstanding history, since age 15, of hypothyroidism. She had not been taking medication since February 2019. 08/29/2019: TSH 11.2. Restarted levothyroxine at 50 mcg daily. 10/01/2019: TSH 15.3. Levothyroxine increased to 75 mcg daily. TSH still low. Increase Levothyroxine to 75 mcg -Rx Levothyroxine 75 mcg daily #30, 2 refil. Acute hypokalemia Acute psychosis Alcohol dependence, in remission Amphetamine or stimulant drug abuse Anemia affecting in third trimester Asthma Since childhood and states that it is aggravated by exercise. Has maybe one or 2 episodes of shortness of breath a week. Since childhood and states that it is aggravated by exercise. Has maybe one or 2 episodes of shortness of breath a week. Bipolar disorder Bipolar disorder, current episode depressed, severe, without psychotic features Bipolar disorder, mixed Patient has a history of bipolar disorder and PTSD. She has been on multiple medications in the past. She has also been treated with at [facility]. - Present prior to the --was taken off all her medications by Tamika Geiger at [facility] early on in the --she has not been back to [facility] and has not restarted any medication. Today she feels managed without medicine so we will continue to follow but I strongly recommended she return back to [facility] for further evaluation and management. Cannabis dependence, uncomplicated Drug use affecting in second trimester Gastroesophageal reflux during in third trimester, antepartum Hypothyroidism Insulin controlled gestational diabetes mellitus (GDM) in third trimester 09/01/2019: GCT 148 10/06/2019: Attempted to obtain three-hour GTT on multiple occasions. Patient unable to perform test. Check sugars at home and brought those to office at this visit. Pre-meals found to be elevated and consistent with GDM. A1c 10/06/2019: 5.6 Ultrasounds 1. 04/07/2019 ---> 7-4/7 WG ---> EDC 11/20/2019. 2. 07/30/2019 ---> 25-0/7 WG ---> EDC 11/12/2019. 3. 10/03/2019 ---> 34-6/7 WG ---> EDC 11/08/2019. EFW 5 lbs. 2 oz. (2318 g) 74%. SANTHOSH 18.8 cm Patient brought Sugar logs with her which were reviewed. Patient has continued to improve sugars with diet. However still higher than desired. Patient was supposed to have started 20 units of Levemir at her last visit, but wrong dose was sent in to the pharmacy and she only started 2 units daily. Based upon a sugar readings today, I am switching her to 10 units daily. -Levemir 10 units daily. -BPP with NST was 10 out of 10. -Continue weekly testing until 36 weeks at which time it is to switch to twice weekly. Intractable chronic migraine without aura and with status migrainosus Has been treated with multiple medications for headaches. Most recently treated with Imitrex by Dr. Amaro. Last visit with her was on 02/25/2019. This is a hapless mildly impaired 23-year-old with borderline personality disorder and ongoing difficulties. She has a nonfocal exam and I don't see any reason to scan her head. A letter headaches are doing better on current medication and I'm not changing anything. I took time to listen to her story and empathize. Maternal alcohol use complicating in second trimester, antepartum Mental disorder affecting in third trimester Patient has a history of bipolar disorder and PTSD. She has been on multiple medications in the past. She has also been treated with at [facility]. Patient denying depression problems at this time. She is definitely at risk for flareup of her bipolar disorder after delivery. Highly recommend that she get reestablished with [facility]. Nausea/vomiting in 09/29/2019: Started Reglan. Already taking Pepcid. Patient reporting nausea and vomiting. Was previously taking famotidine for acid reflux issues. Was started on Reglan today. Nexplanon insertion On combination antipsychotic drug therapy Post-traumatic stress disorder, chronic Psychiatric care Seizure disorder during in third trimester 09/29/2019: Patient with history of tonic-clonic seizures. Has been followed by Dr. Amaro in the past. Last evaluation was in 02/25/2019. Currently off of medications. Thyroid disease during in third trimester UTI (urinary tract infection) Surgical History History of myringotomy History of tonsillectomy at age 10 [place] teeth extracted Family History Grandfather Hyperlipidemia Maternal Stroke maternal Diabetes maternal Grandmother Thyroid condition maternal Breast cancer great Mother Thyroid condition Unknown Patient denies medical problems Denies family history of: cervical, uterine, colon cancer, DVT/PE Family/Other Ovarian cancer paternal aunt Social History Smoking and tobacco status: current every day smoker Quit status (tobacco): considering quitting Second hand smoke exposure: Yes Smoking risk assessment/counseling performed?: No Alcohol intake: former Year of sobriety/quit date alcohol: 2019 Former alcohol use details: Drank wine during Additional social history: Poorly balanced diet Physical Exam Const: COMMON NORMALS: average body habitus, patient oriented x3, alert and well nourished GENERAL APPEARANCE: cooperative ORIENTATION/CONSCIOUSNESS: Yes awake and Yes oriented to person OTHER: patient initially fairly cooperative however became increasingly psychotic throughout her visit and is now trying to choke herself and crack her neck and exposing her vaginal to staff stating she has a bomb in her vagina and that she is bleeding out internally Resp: COMMON NORMALS: normal respiratory effort and clear to auscultation bilaterally AUSCULTATION: clear to auscultation bilaterally Cardio: COMMON NORMALS: regular rhythm RATE: tachycardic RHYTHM: regular rhythm GI: OTHER: reports tenderness everywhere stating she is bleeding out internally Neuro: COMMON NORMALS: patient oriented x3 SENSORIUM/ORIENTATION: Yes alert and Yes oriented to person Psych: ATTITUDE: Yes bizarre and Yes uncooperative THOUGHT CONTENT: Yes delusions ATTENTION/CONCENTRATION: Yes attention grossly impaired and Yes concentration grossly impaired MEMORY/COGNITION: Yes cognition grossly impaired INSIGHT: Limited insight present (Psych) JUDGEMENT: Limited judgement present (Psych) Face to Face: Restrn/Seclusion Events leading up to initiation: Demonstrating self-destructive behavior (cutting, hitting reilly etc.) (choking herself, exposing her genitalia to staff) Evaluation of patient's immediate situation: Alert and oriented, No signs of physical distress and Signs of psychological distress Patient reaction since intervention applied: Behaviors/threats have lessened, but still present Recent labs reviewed: No (currently pending) Review of medications: Yes Patient's current medical/behavioral condition: No new concerns since last ROS Need for restraint or seclusion is: No longer present (no need for further chemical restraint at this time) Attending notified: Yes Course Consultations: Consultation #1: Dr. Taylor-accepts to NPU Vital Signs: Vital signs: Vital Signs Temperature 98.9 F 06/16/21 11:39 Pulse Rate 81 06/16/21 16:15 Respiratory Rate 16 06/16/21 16:15 Blood Pressure 105/57 06/16/21 16:15 Pulse Oximetry 100 06/16/21 16:15 MDM - Psych MDM Narrative: Medical decision making narrative: Patient arrived initially with some bizarre complaints that progressively escalated throughout her stay. She became more and more aggressive and uncontrollable. She is yelling that she is bleeding internally and that her neck and back are popping and coming out of her body, she is choking herself, she was flashing her genitalia to staff stating she had a bomb inside of her. Decision was made to administer sedating medications. Dr. Mckenzie also saw patient before and after medications given. [id number] has been documented. I have spoken to Dr. Taylor who is very aware of patient and accepts to NPU. Patient is on a 96-hour hold. Lab Data: Labs: Lab Results 06/16/21 06/16/21 06/16/21 Range/Units 14:45 14:45 14:45 WBC 9.8 (4.0-10.0) 10^3/ uL RBC 4.41 (4.1-5.3) 10^6/u L Hgb 12.3 (11.5-15.3) g/dL Hct 37.4 (37.0-47.0) % MCV 84.8 (81-99) fl MCH 27.9 L (28.0-34.0) pg MCHC 32.9 (30.0-36.0) g/dL RDW 14.8 (12.1-15.1) % Plt Count 367 (130-400) 10^3/c mm MPV 9.0 (7.4-10.4) fL Neut % (Auto) 60.7 % Lymph % (Auto) 28.0 % Mills % (Auto) 9.5 % Eos % (Auto) 0.3 % Baso % (Auto) 1.3 % Neut # (Auto) 5.92 (1.8-7.7) 10^3/u L Lymph # (Auto) 2.7 (0.8-4.8) 10^3/u L Mills # (Auto) 0.9 (0.2-0.9) 10^3/u L Eos # (Auto) 0.0 (0.0-0.8) 10^3/u L Baso # (Auto) 0.1 (0.0-0.1) 10^3/u L Nucleated RBC % (a uto) 0 % Nucleated RBCs # 0.0 /100WBC Sodium 139 (136-145) mmol/L Potassium 4.3 (3.5-5.1) mmol/L Chloride 104 (98-107) mmol/L Carbon Dioxide 24 (22-29) mmol/L Anion Gap 15.3 (5-19) BUN 11 (6-20) mg/dL Creatinine 0.6 (0.5-0.9) mg/dL GFR Calculation 121.8 (90-130) mL/min Glucose 80 (65-115) mg/dL Calculated Osmolal ity 286 (285-295) mOsm/k g Calcium 9.2 (8.5-10.5) mg/dL Total Bilirubin 0.5 (0.15-1.2) mg/dL AST 131 H (0-32) U/L ALT 32 (0-33) U/L Alkaline Phosphata se 92 (35-105) IU/L Total Protein 7.0 (6.6-8.7) g/dL Albumin 4.2 (3.5-5.2) g/dL Globulin 2.8 (1.3-4.6) g/dL HCG, Qual Negative (Negative) Salicylates < 0.3 L (3-10) mg/dL Acetaminophen < 5.0 L (10-30) ug/mL Ethyl Alcohol < 10 (0-10) mg/dL Discharge Plan Discharge Patient Disposition: Admitted As Inpatient Clinical Impression: Psychosis Qualifiers: Psychosis type: other Qualified Code(s): F28 - Other psychotic disorder not due to a substance or known physiological condition Condition: Stable Coding Level of Care Code ED Auto Service Representative for Chg Fwd Exam Expanded Problem Focused
[2021-06-16] MEDS: diphenhydrAMINE 50 mg/mL SDV 1mL IM (13:35)
--- NOTE | 2021-06-16 13:38 | PC.NURSE ---
pt continues to yell and have irrational behaviour pt placed on 96 hr hold will continue to monitor
[2021-06-16 14:51] LABS: Basophils # 0.1 10^3/uL (0.0-0.1); Basophils % 1.3 %; Eosinophils % 0.3 %; Hematocrit 37.4 % (37.0-47.0); Hemoglobin 12.3 g/dL (11.5-15.3); Lymphocytes # 2.7 10^3/uL (0.8-4.8); Mean Corpuscular HGB Conc 32.9 g/dL (30.0-36.0); Mean Corpuscular Hemoglobin 27.9 pg (28.0-34.0); Mean Corpuscular Volume 84.8 fl (81-99); Monocytes # 0.9 10^3/uL (0.2-0.9); Monocytes % 9.5 %; Neutrophils # 5.92 10^3/uL (1.8-7.7); Neutrophils % 60.7 %; Nucleated Red Blood Cells % 0 %; Platelet Count 367 10^3/cmm (130-400); Red Blood Count 4.41 10^6/uL (4.1-5.3); Red Cell Distribution Width 14.8 % (12.1-15.1); White Blood Count 9.8 10^3/uL (4.0-10.0)
[2021-06-16 15:18] LABS: Alanine Aminotransferase 32 U/L (0-33); Albumin Level 4.2 g/dL (3.5-5.2); Alkaline Phosphatase 92 IU/L (35-105); Anion Gap 15.3 (5-19); Aspartate Amino Transferase 131 U/L (0-32); Blood Urea Nitrogen 11 mg/dL (6-20); Calcium 9.2 mg/dL (8.5-10.5); Carbon Dioxide 24 mmol/L (22-29); Chloride 104 mmol/L (98-107); Globulin 2.8 g/dL (1.3-4.6); Glomerular Filtration Rate 121.8 mL/min (90-130); Glucose 80 mg/dL (65-115); Osmolality Calculated 286 mOsm/kg (285-295); Potassium 4.3 mmol/L (3.5-5.1); Sodium 139 mmol/L (136-145); Total Bilirubin 0.5 mg/dL (0.15-1.2)
[2021-06-16 15:23] LABS: Acetaminophen < 5.0 ug/mL (10-30); Alcohol Level < 10 mg/dL (0-10); Salicylate < 0.3 mg/dL (3-10)
[2021-06-16 15:29] LABS: HCG, Serum Qual Negative (Negative)
[2021-06-16 16:15] VITALS: BP 105/57; PULSE 81; RESP 16; O2SAT 100
--- NOTE | 2021-06-16 17:10 | PC.NURSE ---
report called to Leonor LUONG.
[2021-06-16 18:51] VITALS: BP 93/77; PULSE 77; RESP 15; TEMP 36.7; O2SAT 99
[2021-06-16 20:30] VITALS: RESP 16
[2021-06-17 06:00] VITALS: BP 94/52; PULSE 72; RESP 18; TEMP 36.6; O2SAT 97
[2021-06-17] MEDS: levothyroxine 50 mcg Tablet PO (06:31)
[2021-06-17] MEDS: blistex lip oint 7 gm Tube 1 APPLIC TOPICAL (06:52)
[2021-06-17] MEDS: polyethylene glycol 3350 Pkt 17 gm PO ×2 (09:12→21:41)
[2021-06-17] MEDS: loratadine 10 mg Tablet PO (09:12)
[2021-06-17] MEDS: sertraline 100 mg Tablet PO (09:12)
--- NOTE | 2021-06-17 12:58 | PM.NHP ---
Providers/Chief Complaint Admitting Physician: Dave Taylor MD Primary Care Provider: Cale Toth DO Chief Complaint: STATES MY HEAD IS CRACKING , FLOPPING IN CHAIR HPI NPU History of Present Illness Keke Mcnamara is a 25 year old female who presented to the emergency department with the following report: Chief Complaint: Headache Stated Complaint: STATES MY HEAD IS CRACKING , FLOPPING IN CHAIR Time Seen by Provider: 06/16/21 11:37 Source: patient Mode of arrival: ambulatory Limitations: no limitations and altered mental status History of Present Illness: HPI Narrative: Patient is a 25-year-old female who presents to ED today with multiple medical complaints. First of all she tells me she has a headache and feels like she is bleeding out in my brain . She is requesting a stat MRI. Patient tells me she is having neck and back pain and feels like there cracking and states it feels like her spine is coming out of her body. She complains that she feels like she is bleeding out internally. She states she feels like there is a bomb inside of her vagina. Later in her visit she began flashing staff her genitalia. Patient has a history of very similar psychotic symptoms. Patient was seen at [facility] recently. She had a CT head performed on that visit which was normal. MD complaint: other (psychosis) History of same: Yes Context: recent drug abuse Associated symptoms: Reports delusions. She was admitted to the neuropsychiatric unit for definitive treatment of those issues. Patient presented today asking if she needed to be on a 96-hour hold or if she can just leave. As we have done many times in the past we explained to her that she has a guardian and so there actually is no need for a 96-hour hold, but she is here because her guardian agrees she needs to be here. She reports that she has been in the rehab as was supported in her last hospitalization and she needed to go to an appointment and she left without appointment but when she got there she could not get in or there was a problem at the appointment. She reports he called the rehab back in attempt to get back in but they were saying that she did this to the move just to get high. She denied acutely and was trying to get back to the rehab but things did not materialize. She reports that ultimately she was upset and angry because they did not believe her and that essentially derailed her return to the rehab. She presents today reporting that she is fine and that she has a friend that elected discharge and stay with. She asked if she could be taken off of the 96-hour hold and just discharged today. However we discussed that she has a guardian and so she is now on a 96-hour hold he is here under the desires of her guardian. She was frustrated by that fact and was resistant to interview, but we reviewed her last hospitalization and she denied any subjective changes, so an excerpt is included below. 05/30/2021 [facility] inpatient psychiatric evaluation: History of Present Illness Keke Mcnamara is a 25 year old female who was discharged from the [facility] on , 05/27/2021, with a plan for her to be admitted to a rehab facility in [place], [place] called [facility]. Instead, she went to a friend's house and use drugs. She is readmitted because she is acutely psychotic and unable to care for herself. The ED note states: Patient is a 25-year-old female who presents to ED today via EMS acutely psychotic. Patient was discharged from NPU on 05/27 for almost identical symptoms. Patient told EMS she feels like people are wanting her down trying to kill her. She believes she has been injected with rat poisoning. She believes she has a bomb in her vagina. Patient is extremely paranoid and skittish on exam. Full history is not obtainable secondary to her altered mental status. She does tell me she feels empty inside but does not endorse any suicidal ideations to me. The patient says that she got hot shotted with alligator heroin. She feels she has been poisoned and she is scared to sleep because dreams happen. She is hearing voices and seeing shadows. She says that someone dropped her off in the middle of the road, so she went to the nearest house and called EMS, who brought her to the hospital. She is unable to provide much information, because she spends most of her time attending to the voices. The admission note from the previous admission 05/12?05/27/2021 states: 5-year-old female comes in after having used some drugs she is having paranoid delusions. She thinks there is a sniper in the emergency room states she has a brain tumor. She states the mattress is burning her skin she tells me she either has a bomb in her pelvis or she is . She vehemently denies any suicidal or homicidal ideation she was recently hospitalized earlier this month. She is brought in by law enforcement in hand and leg shackles. Patient is continually exposing herself to myself and the staff when she first arrives in the room. The nurse security threat analyst and a deputy were in the room as this occurred. A blanket was placed over the lap to limit exposure. She was admitted to the neuropsychiatric unit for definitive treatment of those issues after having significant emotional distress in the emergency department requiring interventions. He was identified as Covid positive still and needing to be in isolation which was not working well with her emotional condition. I met her in her room with full PPE donned. And she was a poor historian spending most of the conversation demanding to be discharged and escalating, crying and continuing to suggest that there was no reason for her to be here and definitely no reason for her to be on a 96-hour hold. She reports that she had been trying to get connected with her fianc? and needed a ride and loaded with his mother. He told a very convoluted story about going to some location and thinking that he heard some girl in distress. She reports that when she attempted to help the girls of the stress they tried to suggest that she had done something wrong and the police were called. She reports that she did not do anything to involve the police but they still brought her to [facility]. She put the blame for her behavior in the emergency department on the staff down there. Additionally she kept reporting that when she has been here in the past she is been tortured. She ended up leaving her room at 1 point and being disruptive. She continues to report that she has been tortured and was inappropriately pulling up her shirt exposing herself pointing at pick trujillo on her abdomen suggesting that [facility] did that to her. She continued to deny that there were no issues and denied any active addiction that might explain her behavior. This represents her third hospitalization since October 2019. Unable to see further back in her records due to IT problem. She did identify that she has treatment at [facility] and recent records from those visits are available but again none of the 2019 notes can be seen. Excerpt from her May 03, 2021 hospitalization is included below for context given that she had only been out of the hospital for a day or 2 and was not very willing historian. Per her 05/03/2021 [facility] inpatient psychiatric evaluation: History of Present Illness Keke Mcnamara is a 25 year old female with an unclear past psychiatric history presented to the emergency department by police combative, agitated with meth amphetamine intoxication. Patient also reported that she was feeling suicidal yesterday when she came to the emergency department but denies any recent sustained depressive symptoms. Patient states that she mostly sleeps every day and has been using methamphetamine on a near daily basis for several months. Patient last had contact with mental health in January and outpatient [facility] and previously was seen in May 2020 at [facility] but reports noncompliance with medication and medication management follow-up. Patient currently denying any suicidal ideation. Patient does not recall any recent or past hypomanic or manic episodes outside of substance use. Patient reports some anxiety related to ongoing life stress but denies any sustained anxiety, denies any panic symptoms. Patient reports paranoid thoughts thinking that people are out to get her and states that she has experienced auditory and visual destinations typically under the influence of methamphetamine. Patient reports past substance rehabilitation but states that it's been a while, and reports that she is interested in post discharge substance treatment. Patient states that she had not been taking her levothyroxine or any other medications. Patient's potassium was replaced while in the emergency department and she was restarted on levothyroxine after admission. She reports that she currently lives with her boyfriend who is out of town and she is expecting him to come back at some time, denies any current employment or means to support herself. Past medical, past psychiatric, family, social, and legal history have not changed from the previous 2 admissions. Meds NPU Home Medications Medication Instructions Recorded Confirmed Last Taken Type levothyroxine 50 mcg PO QAM 30 Days #30 tab 06/01/21 06/16/21 06/14/21 Rx loratadine 10 mg PO DAILY 30 Days #30 tab 06/01/21 06/16/21 06/14/21 Rx olanzapine 5 mg PO BEDTIME 30 Days #30 tab 06/01/21 06/16/21 Unknown Rx prazosin 2 mg PO BEDTIME 30 Days #60 cap 06/01/21 06/16/21 Unknown Rx sertraline 100 mg PO DAILY 30 Days #30 tab 06/01/21 06/16/21 Unknown Rx trazodone 50 mg PO BEDTIME 30 Days tab 06/01/21 06/16/21 Unknown Rx aspirin 325 mg PO PRN 06/16/21 06/16/21 Unknown History cefuroxime axetil 500 mg PO Q12H 06/16/21 06/16/21 Unknown History hydroxyzine pamoate 50 mg PO BEDTIME 06/16/21 06/16/21 06/14/21 History polyethylene glycol 3350 17 g PO BID@06/16/21 06/16/21 Unknown History Allergies Allergy/AdvReac Type Severity Reaction Status Date / Time insect venom Allergy Hives Verified 06/16/21 13:01 latex Allergy Rash Verified 06/16/21 13:01 [facility] NPU PFS: Medical History (Updated 06/16/21 @ 16:04 by CHARLA Hu) Acquired hypothyroidism Patient with longstanding history, since age 15, of hypothyroidism. She had not been taking medication since February 2019. 08/29/2019: TSH 11.2. Restarted levothyroxine at 50 mcg daily. 10/01/2019: TSH 15.3. Levothyroxine increased to 75 mcg daily. TSH still low. Increase Levothyroxine to 75 mcg -Rx Levothyroxine 75 mcg daily #30, 2 refil. Acute hypokalemia Acute psychosis Alcohol dependence, in remission Amphetamine or stimulant drug abuse Anemia affecting in third trimester Asthma Since childhood and states that it is aggravated by exercise. Has maybe one or 2 episodes of shortness of breath a week. Since childhood and states that it is aggravated by exercise. Has maybe one or 2 episodes of shortness of breath a week. Bipolar disorder Bipolar disorder, current episode depressed, severe, without psychotic features Bipolar disorder, mixed Patient has a history of bipolar disorder and PTSD. She has been on multiple medications in the past. She has also been treated with at [facility]. - Present prior to the --was taken off all her medications by Tamika Geiger at [facility] early on in the --she has not been back to [facility] and has not restarted any medication. Today she feels managed without medicine so we will continue to follow but I strongly recommended she return back to [facility] for further evaluation and management. Cannabis dependence, uncomplicated Drug use affecting in second trimester Gastroesophageal reflux during in third trimester, antepartum Hypothyroidism Insulin controlled gestational diabetes mellitus (GDM) in third trimester 09/01/2019: GCT 148 10/06/2019: Attempted to obtain three-hour GTT on multiple occasions. Patient unable to perform test. Check sugars at home and brought those to office at this visit. Pre-meals found to be elevated and consistent with GDM. A1c 10/06/2019: 5.6 Ultrasounds 1. 04/07/2019 ---> 7-4/7 WG ---> EDC 11/20/2019. 2. 07/30/2019 ---> 25-0/7 WG ---> EDC 11/12/2019. 3. 10/03/2019 ---> 34-6/7 WG ---> EDC 11/08/2019. EFW 5 lbs. 2 oz. (2318 g) 74%. SANTHOSH 18.8 cm Patient brought Sugar logs with her which were reviewed. Patient has continued to improve sugars with diet. However still higher than desired. Patient was supposed to have started 20 units of Levemir at her last visit, but wrong dose was sent in to the pharmacy and she only started 2 units daily. Based upon a sugar readings today, I am switching her to 10 units daily. -Levemir 10 units daily. -BPP with NST was 10 out of 10. -Continue weekly testing until 36 weeks at which time it is to switch to twice weekly. Intractable chronic migraine without aura and with status migrainosus Has been treated with multiple medications for headaches. Most recently treated with Imitrex by Dr. Amaro. Last visit with her was on 02/25/2019. This is a hapless mildly impaired 23-year-old with borderline personality disorder and ongoing difficulties. She has a nonfocal exam and I don't see any reason to scan her head. A letter headaches are doing better on current medication and I'm not changing anything. I took time to listen to her story and empathize. Maternal alcohol use complicating in second trimester, antepartum Mental disorder affecting in third trimester Patient has a history of bipolar disorder and PTSD. She has been on multiple medications in the past. She has also been treated with at [facility]. Patient denying depression problems at this time. She is definitely at risk for flareup of her bipolar disorder after delivery. Highly recommend that she get reestablished with [facility]. Nausea/vomiting in 09/29/2019: Started Reglan. Already taking Pepcid. Patient reporting nausea and vomiting. Was previously taking famotidine for acid reflux issues. Was started on Reglan today. Nexplanon insertion On combination antipsychotic drug therapy Post-traumatic stress disorder, chronic Psychiatric care Seizure disorder during in third trimester 09/29/2019: Patient with history of tonic-clonic seizures. Has been followed by Dr. Amaro in the past. Last evaluation was in 02/25/2019. Currently off of medications. Thyroid disease during in third trimester UTI (urinary tract infection) Surgical History History of myringotomy History of tonsillectomy at age 10 [place] teeth extracted Family History Grandfather Hyperlipidemia Maternal Stroke maternal Diabetes maternal Grandmother Thyroid condition maternal Breast cancer great Mother Thyroid condition Unknown Patient denies medical problems Denies family history of: cervical, uterine, colon cancer, DVT/PE Family/Other Ovarian cancer paternal aunt Social History Smoking and tobacco status: current every day smoker Quit status (tobacco): considering quitting Second hand smoke exposure: Yes Smoking risk assessment/counseling performed?: No Alcohol intake: former Year of sobriety/quit date alcohol: 2019 Former alcohol use details: Drank wine during Additional social history: Poorly balanced diet Mental Status Exam MSE Comments: This is a short slightly overweight white female in [facility] scrubs with limited grooming and eye contact. No abnormal movements except for mild psychomotor agitation. Intermittently cooperative with exam in mild distress. Speech was increased rate and volume mostly. Mood described as fine, affect labile. Thought process mostly organized, thought content: Patient denied suicidal or homicidal ideation, there were no delusions reported but some paranoia and persecutory delusions seem present, she denied auditory or visual hallucinations but may have been experiencing auditory hallucinations leading to her hospitalization. Attention and concentration were limited and memory was unreliable but none were formally tested. She is alert and oriented times person and place. Insight and judgment are impaired, impulse control is impaired. Vitals/I&O/Wt Last Vital Signs Temp 97.8 F 06/17/21 06:00 Pulse 72 06/17/21 06:00 Resp 18 06/17/21 06:00 BP 94/52 06/17/21 06:00 Pulse Ox 97 06/17/21 06:00 Weight last 48 hrs Weight 74.843 kg Data NPU : 06/16/21 14:45 06/16/21 14:45 A&P Assessment and plan (1) Psychosis: Status: Acute Qualifiers: Psychosis type: other Qualified Code(s): F28 - Other psychotic disorder not due to a substance or known physiological condition (2) Amphetamine or stimulant drug abuse: Status: Acute (3) Post-traumatic stress disorder, chronic: Status: Acute (4) On combination antipsychotic drug therapy: Status: Acute (5) Nexplanon insertion: Status: Acute (6) Cannabis dependence, uncomplicated: Status: Acute (7) Alcohol dependence, in remission: Status: Acute Additional A&P Information This is a 25-year-old white female with a long history of addiction, trauma, mental health challenges and recent legal issues, who presents having been discharged from a rehab facility and presenting once again with bizarre behavior in the emergency department with likely active drug use though she has not submitted a UDS. 1. Continue current medication. 2. Continue every 15 minute checks for safety. 3. Encourage individual, group and milieu therapies. 4. Encourage sober living treatment after discharge at the highest level of care to which he is willing to commit. 5. We will work with her guardian for treatment planning. Involuntary Hold Information 96 Hour Hold: 96 Hour Involuntary Admission: Yes 96 Hour Hold Ending Date: 05/18/21 96 Hour Hold Ending Time: 09:30 Attestations NPU Medical Necessity Statement*: Inpatient hospitalization is medically necessary and the clinically appropriate intervention at this time. We will monitor medications and make changes as indicated. Patient will be in the hospital for over two midnights. Likely length of stay 3 to 5 days. Coding Level of Care Code Acute Ladies Attendant for Thalia Pendleton Diagnoses Psychosis F28 Psychosis type: other Amphetamine or stimulant drug abuse F15.10 Post-traumatic stress disorder, chronic F43.12 On combination antipsychotic drug therapy Z79.899 Nexplanon insertion Z30.017 Cannabis dependence, uncomplicated F12.20 Alcohol dependence, in remission F10.21
[2021-06-17 14:00] VITALS: BP 94/52; PULSE 72; RESP 18; TEMP 36.6; O2SAT 97
--- NOTE | 2021-06-17 21:15 | PC.NURSE ---
holding Prazosin 2mg due to B/P 82/51.
[2021-06-17] MEDS: hyDROXYzine 25 mg Capsule 50 MG PO (21:40)
[2021-06-17] MEDS: OLANZapine 5 mg TABLET PO (21:40)
[2021-06-17] MEDS: trazodone 50 mg Tablet PO (21:40)
[2021-06-17 21:56] VITALS: BP 82/51; PULSE 72; RESP 16; TEMP 36.9; O2SAT 92
[2021-06-18 06:00] VITALS: BP 83/54; PULSE 64; RESP 16; TEMP 36.7; O2SAT 96
[2021-06-18] MEDS: levothyroxine 50 mcg Tablet PO (07:11)
[2021-06-18] MEDS: polyethylene glycol 3350 Pkt 17 gm PO (10:22)
[2021-06-18] MEDS: loratadine 10 mg Tablet PO (10:22)
[2021-06-18] MEDS: sertraline 100 mg Tablet PO (10:22)
[2021-06-18 14:00] VITALS: BP 91/58; PULSE 90; RESP 18; TEMP 36.1; O2SAT 98
[2021-06-18 14:24] LABS: Cocaine Screen Urine Negative (Negative); PCP Screen Urine Negative (Negative); THC Screen Urine Negative (Negative)
[2021-06-18 14:25] LABS: Amphetamines Screen Urine Positive (Negative); Barbiturates Screen Urine Negative (Negative); Benzodiazepines Screen Urine Positive (Negative); Opiate Screen Urine Negative (Negative)
--- NOTE | 2021-06-18 17:16 | P.PN_ITS ---
Subjective NPU Subjective: Interval history: Keke presents today being more forthright on the situation that led to the admission. She reports that the reason why she has been refusing the UDS is that she knows it would likely be positive. She continues to contend that she had not used and had done everything appropriately when she left the rehab but reportedly when they started accusing her of using, she more or less told him that if you are going to say I did something I did not do, I might as well do it. She reports that she did then relapse. Mental Status Exam MSE Comments: This is a short slightly overweight white female in [facility] scrubs with limited grooming and eye contact. No abnormal movements except for mild psychomotor agitation. Intermittently cooperative with exam in mild distress. Speech was more normal rate and volume. Mood described as better, affect congruent. Thought process mostly organized, thought content: Patient denied suicidal or homicidal ideation, there were no delusions reported but some paranoia and persecutory delusions seem present, she denied auditory or visual hallucinations but may have been experiencing auditory hallucinations leading to her hospitalization. Attention and concentration were limited and memory was more reliable but none were formally tested. She is alert and oriented times person and place. Insight and judgment are limited, impulse control is limited. Vitals/I&O/Wt Last Vital Signs Temp 97.0 F L 06/18/21 14:00 Pulse 90 06/18/21 14:00 Resp 18 06/18/21 14:00 BP 91/58 06/18/21 14:00 Pulse Ox 98 06/19/21 05:55 Weight last 48 hrs Weight 52.617 kg Data NPU : 06/16/21 14:45 06/16/21 14:45 A&P Additional A&P Information (1) Psychosis: (2) Amphetamine or stimulant drug abuse: (3) Post-traumatic stress disorder, chronic: (4) On combination antipsychotic drug therapy: (5) Nexplanon insertion: (6) Cannabis dependence, uncomplicated: (7) Alcohol dependence, in remission: Additional A&P Information This is a 25-year-old white female with a long history of addiction, trauma, mental health challenges and recent legal issues, who presents having been discharged from a rehab facility and presenting once again with bizarre behavior in the emergency department with likely active drug use though she has not submitted a UDS. 1. Continue current medication. 2. Continue every 15 minute checks for safety. 3. Encourage individual, group and milieu therapies. 4. Encourage sober living treatment after discharge at the highest level of care to which he is willing to commit. 5. We will work with her guardian for treatment planning. Involuntary Hold Information 96 Hour Hold: 96 Hour Involuntary Admission: Yes 96 Hour Hold Ending Date: 05/18/21 96 Hour Hold Ending Time: 09:30 Attestations NPU Medical Necessity Statement*: Inpatient hospitalization is medically necessary and the clinically appropriate intervention at this time. We will monitor medications and make changes as indicated. Likely length of stay 2-4 days. Coding Level of Care Code Acute Printing Press Machine Operator for Thalia Pendleton
[2021-06-18] MEDS: OLANZapine 5 mg TABLET PO (21:20)
[2021-06-18] MEDS: trazodone 50 mg Tablet PO (21:20)
[2021-06-18] MEDS: hyDROXYzine 25 mg Capsule 50 MG PO (21:20)
[2021-06-18] MEDS: prazosin 1 mg Capsule 2 MG PO (21:20)
[2021-06-18 22:00] VITALS: BP 91/57; PULSE 69; RESP 18; TEMP 36.9; O2SAT 97
[2021-06-19 05:55] VITALS: BP 86/52; PULSE 70; RESP 15; TEMP 36.9; O2SAT 97
[2021-06-19] MEDS: levothyroxine 50 mcg Tablet PO (07:09)
[2021-06-19] MEDS: sertraline 100 mg Tablet PO (09:46)
[2021-06-19] MEDS: loratadine 10 mg Tablet PO (09:46)
[2021-06-19] MEDS: polyethylene glycol 3350 Pkt 17 gm PO ×2 (09:47→22:11)
--- NOTE | 2021-06-19 10:16 | P.PN_ITS ---
Subjective NPU Subjective: Interval history: Keke presents today reporting that she is feeling better. Her mood and affect seem consistent with that. She reports she let this go home with her friend but we endorsed the need to make sure there was a treatment plan consistent with where she is with her recovery and mental health challenges. We agree with a plan to work with the treatment team in the morning to figure out what will be next. Mental Status Exam MSE Comments: This is a short slightly overweight white female in [facility] scrubs with limited grooming and eye contact. No abnormal movements. Mostly cooperative with exam in no acute distress. Speech was more normal rate and volume. Mood described as better, affect congruent. Thought process mostly organized, thought content: Patient denied suicidal or homicidal ideation, there were no delusions reported or noted, she denied auditory or visual hallucinations. Attention and concentration were limited and memory was more reliable but none were formally tested. She is alert and oriented times person and place. Insight and judgment are limited, impulse control is limited. Vitals/I&O/Wt Last Vital Signs Temp 98.4 F 06/19/21 05:55 Pulse 70 06/19/21 05:55 Resp 15 06/19/21 05:55 BP 86/52 06/19/21 05:55 Pulse Ox 97 06/19/21 05:55 Weight last 48 hrs Weight 52.617 kg Data NPU : 06/16/21 14:45 06/16/21 14:45 A&P Additional A&P Information (1) Psychosis: (2) Amphetamine or stimulant drug abuse: (3) Post-traumatic stress disorder, chronic: (4) On combination antipsychotic drug therapy: (5) Nexplanon insertion: (6) Cannabis dependence, uncomplicated: (7) Alcohol dependence, in remission: This is a 25-year-old white female with a long history of addiction, trauma, mental health challenges and recent legal issues, who presents having been discharged from a rehab facility and presenting once again with bizarre behavior in the emergency department with likely active drug use though she has not submitted a UDS. 1. Continue current medication. 2. Continue every 15 minute checks for safety. 3. Encourage individual, group and milieu therapies. 4. Encourage sober living treatment after discharge at the highest level of care to which he is willing to commit. 5. We will work with her guardian for treatment planning. Involuntary Hold Information 96 Hour Hold: 96 Hour Involuntary Admission: Yes 96 Hour Hold Ending Date: 05/18/21 96 Hour Hold Ending Time: 09:30 Attestations NPU Medical Necessity Statement*: Inpatient hospitalization is medically necessary and the clinically appropriate intervention at this time. We will monitor medications and make changes as indicated. Likely length of stay 1-3 days. Coding Level of Care Code Acute [employer] Service Technician for Thalia Pendleton
[2021-06-19 14:00] VITALS: BP 87/51; PULSE 87; RESP 18; TEMP 37.1; O2SAT 97
[2021-06-19] MEDS: OLANZapine 5 mg ODT PO (17:13)
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
--- NOTE | 2021-06-19 18:10 | PC.NURSE ---
Patient resting quietly in bed without complaints or needs at this time.
[2021-06-19 21:03] VITALS: BP 94/60; PULSE 85; RESP 15; TEMP 37.2; O2SAT 98
[2021-06-19] MEDS: trazodone 50 mg Tablet PO (22:10)
[2021-06-19] MEDS: OLANZapine 5 mg TABLET PO (22:10)
[2021-06-19] MEDS: hyDROXYzine 25 mg Capsule 50 MG PO (22:11)
[2021-06-20 06:00] VITALS: BP 89/57; PULSE 62; RESP 15; TEMP 37.1; O2SAT 98
[2021-06-20] MEDS: levothyroxine 50 mcg Tablet PO (06:09)
[2021-06-20] MEDS: loratadine 10 mg Tablet PO (09:28)
[2021-06-20] MEDS: polyethylene glycol 3350 Pkt 17 gm PO (09:28)
[2021-06-20] MEDS: sertraline 100 mg Tablet PO (09:28)
[2021-06-20] MEDS: acetaminophen 325 mg Tablet 650 MG PO (13:07)
[2021-06-20 14:00] VITALS: BP 97/50; PULSE 70; RESP 15; TEMP 36.5; O2SAT 97
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
[2021-06-20 16:08] VITALS: BP 97/50; PULSE 70; RESP 15; TEMP 36.5; O2SAT 97
== END 2021-06-20 16:12 | disposition home or self-care (01) | DRG 885 ==
LOC: ER 16:04 → NP 17:07
PROVIDERS: Admitting Provider Psychiatry & Neurology Psychiatry; Emergency Provider Physician Assistant; PCP Internal Medicine; Visit Provider Psychiatry & Neurology Psychiatry
DX: F28 Other psychotic disorder not due to a substance or known physiological condition (principal); G43.719 Chronic migraine without aura, intractable, without status migrainosus; E03.9 Hypothyroidism, unspecified; F10.21 Alcohol dependence, in remission; F15.10 Other stimulant abuse, uncomplicated; J45.909 Unspecified asthma, uncomplicated; F31.9 Bipolar disorder, unspecified; F43.12 Post-traumatic stress disorder, chronic; F12.20 Cannabis dependence, uncomplicated; K21.9 Gastro-esophageal reflux disease without esophagitis; F17.210 Nicotine dependence, cigarettes, uncomplicated
CPT/HCPCS: 80053; 80306; 80307; 84703; 85025; 96372; 99285; J1200; J1885; J2060; J2360

== ENCOUNTER → 2021-06-27 11:15 | Outpatient (BNVA) | payer MEDICAID, SELFPAY | PROVIDERS: PCP Internal Medicine; Visit Provider Specialist | DX: G40.909 Epilepsy, unspecified, not intractable, without status epilepticus (principal); F60.3 Borderline personality disorder; F15.10 Other stimulant abuse, uncomplicated; F17.200 Nicotine dependence, unspecified, uncomplicated | CPT/HCPCS: 99215 ==

== ENCOUNTER 2021-06-27 17:49 | Inpatient (IN) | payer MEDICAID, SELFPAY ==
[2021-06-27 17:55] VITALS: BP 118/72; PULSE 119; RESP 18; TEMP 37; O2SAT 96; BMI 26.5
--- NOTE | 2021-06-27 18:12 | PC.NURSE ---
Patient is noted to have exhibit hallucinatory behaviors and believes that her stomach is feeling up with blood, her chest is filling up with blood and her heart is exploding.
[2021-06-27 18:34] LABS: Basophils # 0.1 10^3/uL (0.0-0.1); Basophils % 1.4 %; Eosinophils # 0.1 10^3/uL (0.0-0.8); Eosinophils % 0.8 %; Hematocrit 37.2 % (37.0-47.0); Hemoglobin 12.1 g/dL (11.5-15.3); Lymphocytes # 2.5 10^3/uL (0.8-4.8); Lymphocytes % 28.8 %; Mean Corpuscular HGB Conc 32.5 g/dL (30.0-36.0); Mean Corpuscular Hemoglobin 27.9 pg (28.0-34.0); Mean Corpuscular Volume 85.7 fl (81-99); Mean Platelet Volume 8.3 fL (7.4-10.4); Monocytes # 0.6 10^3/uL (0.2-0.9); Monocytes % 6.8 %; Neutrophils # 5.27 10^3/uL (1.8-7.7); Nucleated Red Blood Cells % 0 %; Platelet Count 421 10^3/cmm (130-400); Red Blood Count 4.34 10^6/uL (4.1-5.3); Red Cell Distribution Width 14.3 % (12.1-15.1); White Blood Count 8.5 10^3/uL (4.0-10.0)
[2021-06-27] MEDS: haloperidol inj 5 mg/mL INJ 1 mL IM (18:45)
[2021-06-27 18:47] VITALS: BP 119/79; PULSE 94; RESP 20; O2SAT 98
[2021-06-27] MEDS: LORazepam 2 mg/mL INJ 1 mL IM (18:51)
[2021-06-27 18:59] LABS: HCG Qualitative Urine. Negative (Negative)
--- NOTE | 2021-06-27 19:04 | W.ED.PSYCH ---
HPI - Psych General: Chief Complaint: Psychiatric Symptoms Stated Complaint: AMS Time Seen by Provider: 06/27/21 18:12 Source: patient Mode of arrival: ambulatory Limitations: no limitations History of Present Illness: HPI Narrative: 25-year-old female who is well-known to the ER history of psychotic breaks. Patient brought in by friend that she is having acute psychosis and making no sense. Was in the room she had stated that she has a different posture of her body that are growing exponentially and she states she cannot control the going. She states she feels like her heart is growing also feels like her breasts are growing and will not stop. Patient has flight of ideas and is obviously acutely psychotic. Review of Systems Const: Denies: fever(s), chills, body aches or change in appetite Eyes: Denies: blurry vision or eye discomfort ENMT: Denies: throat pain or dental pain Card: Denies: chest pain Resp: Denies: dyspnea GI: Denies: abdominal pain, nausea, vomiting or diarrhea : Denies: dysuria Musc: Denies: neck pain or back pain Skin/Breast: Denies: rash Neuro: Denies: headache(s) Psych: Reports: anxiety and panic attacks Lavelle/Lymph: Denies: easy bruising All/Imm: Denies: urticaria PFSH ED PFSH: Medical History Acquired hypothyroidism Patient with longstanding history, since age 15, of hypothyroidism. She had not been taking medication since February 2019. 08/29/2019: TSH 11.2. Restarted levothyroxine at 50 mcg daily. 10/01/2019: TSH 15.3. Levothyroxine increased to 75 mcg daily. TSH still low. Increase Levothyroxine to 75 mcg -Rx Levothyroxine 75 mcg daily #30, 2 refil. Acute hypokalemia Acute psychosis Alcohol dependence, in remission Amphetamine or stimulant drug abuse Anemia affecting in third trimester Asthma Since childhood and states that it is aggravated by exercise. Has maybe one or 2 episodes of shortness of breath a week. Since childhood and states that it is aggravated by exercise. Has maybe one or 2 episodes of shortness of breath a week. Bipolar disorder Bipolar disorder, current episode depressed, severe, without psychotic features Bipolar disorder, mixed Patient has a history of bipolar disorder and PTSD. She has been on multiple medications in the past. She has also been treated with at [facility]. - Present prior to the --was taken off all her medications by Tamika Geiger at [facility] early on in the --she has not been back to [facility] and has not restarted any medication. Today she feels managed without medicine so we will continue to follow but I strongly recommended she return back to [facility] for further evaluation and management. Cannabis dependence, uncomplicated Drug use affecting in second trimester Gastroesophageal reflux during in third trimester, antepartum Hypothyroidism Insulin controlled gestational diabetes mellitus (GDM) in third trimester 09/01/2019: GCT 148 10/06/2019: Attempted to obtain three-hour GTT on multiple occasions. Patient unable to perform test. Check sugars at home and brought those to office at this visit. Pre-meals found to be elevated and consistent with GDM. A1c 10/06/2019: 5.6 Ultrasounds 1. 04/07/2019 ---> 7-4/7 WG ---> EDC 11/20/2019. 2. 07/30/2019 ---> 25-0/7 WG ---> EDC 11/12/2019. 3. 10/03/2019 ---> 34-6/7 WG ---> EDC 11/08/2019. EFW 5 lbs. 2 oz. (2318 g) 74%. SANTHOSH 18.8 cm Patient brought Sugar logs with her which were reviewed. Patient has continued to improve sugars with diet. However still higher than desired. Patient was supposed to have started 20 units of Levemir at her last visit, but wrong dose was sent in to the pharmacy and she only started 2 units daily. Based upon a sugar readings today, I am switching her to 10 units daily. -Levemir 10 units daily. -BPP with NST was 10 out of 10. -Continue weekly testing until 36 weeks at which time it is to switch to twice weekly. Intractable chronic migraine without aura and with status migrainosus Has been treated with multiple medications for headaches. Most recently treated with Imitrex by Dr. Amaro. Last visit with her was on 02/25/2019. This is a hapless mildly impaired 23-year-old with borderline personality disorder and ongoing difficulties. She has a nonfocal exam and I don't see any reason to scan her head. A letter headaches are doing better on current medication and I'm not changing anything. I took time to listen to her story and empathize. Maternal alcohol use complicating in second trimester, antepartum Mental disorder affecting in third trimester Patient has a history of bipolar disorder and PTSD. She has been on multiple medications in the past. She has also been treated with at [facility]. Patient denying depression problems at this time. She is definitely at risk for flareup of her bipolar disorder after delivery. Highly recommend that she get reestablished with [facility]. Nausea/vomiting in 09/29/2019: Started Reglan. Already taking Pepcid. Patient reporting nausea and vomiting. Was previously taking famotidine for acid reflux issues. Was started on Reglan today. Nexplanon insertion On combination antipsychotic drug therapy Post-traumatic stress disorder, chronic Psychiatric care Seizure disorder during in third trimester 09/29/2019: Patient with history of tonic-clonic seizures. Has been followed by Dr. Amaro in the past. Last evaluation was in 02/25/2019. Currently off of medications. Thyroid disease during in third trimester UTI (urinary tract infection) Surgical History History of myringotomy History of tonsillectomy at age 10 [place] teeth extracted Family History Grandfather Hyperlipidemia Maternal Stroke maternal Diabetes maternal Grandmother Thyroid condition maternal Breast cancer great Mother Thyroid condition Unknown Patient denies medical problems Denies family history of: cervical, uterine, colon cancer, DVT/PE Family/Other Ovarian cancer paternal aunt Social History Smoking and tobacco status: current every day smoker Quit status (tobacco): considering quitting Second hand smoke exposure: Yes Smoking risk assessment/counseling performed?: No Alcohol intake: former Year of sobriety/quit date alcohol: 2019 Former alcohol use details: Drank wine during History of recent travel: No Additional social history: Poorly balanced diet Physical Exam Const: COMMON NORMALS: patient oriented x3 GENERAL APPEARANCE: anxious and disheveled HENMT: COMMON NORMALS: normocephalic and atraumatic HEAD & SCALP: normocephalic and atraumatic Eye: COMMON NORMALS: Equal, round and reactive pupils present and EOMs intact bilaterally PUPIL: Yes Equal, round and reactive pupils present Neck/C-Spine: COMMON NORMALS: full ROM and supple Chest: COMMONS NORMALS: normal inspection of the chest and normal palpation of entire chest wall Resp: COMMON NORMALS: normal respiratory effort, No retractions, No use of accessory muscles and clear to auscultation bilaterally AUSCULTATION: clear to auscultation bilaterally Cardio: COMMON NORMALS: regular rate, regular rhythm and No murmurs present (Cardio) RATE: regular rate RHYTHM: regular rhythm GI: COMMON NORMALS: Normal to inspection, nondistended, normoactive bowel sounds present, Soft to palpation, non-tender and no masses PALPATION: Yes Soft to palpation Extremity: COMMON NORMALS: normal to inspection and full ROM Neuro: COMMON NORMALS: patient oriented x3, moves all extremities and no focal motor deficits Psych: COMMON NORMALS: mental status grossly normal and cooperative ACTIVITY/MOTOR BEHAVIOR: Yes hyperactivity and Yes disorganized behavior MOOD & AFFECT: Yes anxious and Yes euphoric THOUGHT PROCESS: disorganized Skin: COMMON NORMALS: no rashes or lesions noted and no wounds GENERAL SKIN EXAM: no rashes or lesions noted Course Vital Signs: Vital signs: Vital Signs Temperature 98.6 F 06/27/21 17:55 Pulse Rate 78 06/27/21 19:54 Respiratory Rate 18 06/27/21 19:54 Blood Pressure 106/67 06/27/21 19:54 Pulse Oximetry 96 06/27/21 19:54 MDM - Psych MDM Narrative: Medical decision making narrative: Patient presents here with acute psychosis. Patient is medically cleared did test positive for methamphetamine. I spoke to psychiatrist and will admit. Patient has no signs of meningitis or any other medical issue. Lab Data: Labs: Lab Results 06/27/21 06/27/21 06/27/21 Range/Units 18:25 18:25 18:25 WBC 8.5 (4.0-10.0) 10^3/ uL RBC 4.34 (4.1-5.3) 10^6/u L Hgb 12.1 (11.5-15.3) g/dL Hct 37.2 (37.0-47.0) % MCV 85.7 (81-99) fl MCH 27.9 L (28.0-34.0) pg MCHC 32.5 (30.0-36.0) g/dL RDW 14.3 (12.1-15.1) % Plt Count 421 H (130-400) 10^3/c mm MPV 8.3 (7.4-10.4) fL Neut % (Auto) 62.0 % Lymph % (Auto) 28.8 % [place] % (Auto) 6.8 % Eos % (Auto) 0.8 % Baso % (Auto) 1.4 % Neut # (Auto) 5.27 (1.8-7.7) 10^3/u L Lymph # (Auto) 2.5 (0.8-4.8) 10^3/u L [place] # (Auto) 0.6 (0.2-0.9) 10^3/u L Eos # (Auto) 0.1 (0.0-0.8) 10^3/u L Baso # (Auto) 0.1 (0.0-0.1) 10^3/u L Nucleated RBC % (a uto) 0 % Nucleated RBCs # 0.0 /100WBC Sodium 137 (136-145) mmol/L Potassium 3.4 L (3.5-5.1) mmol/L Chloride 99 (98-107) mmol/L Carbon Dioxide 26 (22-29) mmol/L Anion Gap 15.4 (5-19) BUN 8 (6-20) mg/dL Creatinine 0.6 (0.5-0.9) mg/dL GFR Calculation 121.8 (90-130) mL/min Glucose 105 (65-115) mg/dL Calculated Osmolal ity 283 L (285-295) mOsm/k g Calcium 8.8 (8.5-10.5) mg/dL Total Bilirubin 0.2 (0.15-1.2) mg/dL AST 18 (0-32) U/L ALT 13 (0-33) U/L Alkaline Phosphata se 83 (35-105) IU/L Total Protein 6.8 (6.6-8.7) g/dL Albumin 4.2 (3.5-5.2) g/dL Globulin 2.6 (1.3-4.6) g/dL TSH 6.80 H (0.27-4.20) uIU/ mL HCG, Qual Negative (Negative) Salicylates 0.6 L (3-10) mg/dL Urine Opiates Scre en (Negative) ng/mL Acetaminophen < 5.0 L (10-30) ug/mL Ur Barbiturates Sc reen (Negative) ng/mL Ur Phencyclidine S crn (Negative) ng/mL Ur Amphetamines Sc reen (Negative) ng/mL U Benzodiazepines Scrn (Negative) ng/mL Urine Cocaine Scre en (Negative) ng/mL U Marijuana (THC) Screen (Negative) ng/mL Ethyl Alcohol < 10 (0-10) mg/dL 06/27/21 Range/Units 18:30 WBC (4.0-10.0) 10^3/ uL RBC (4.1-5.3) 10^6/u L Hgb (11.5-15.3) g/dL Hct (37.0-47.0) % MCV (81-99) fl MCH (28.0-34.0) pg MCHC (30.0-36.0) g/dL RDW (12.1-15.1) % Plt Count (130-400) 10^3/c mm MPV (7.4-10.4) fL Neut % (Auto) % Lymph % (Auto) % [place] % (Auto) % Eos % (Auto) % Baso % (Auto) % Neut # (Auto) (1.8-7.7) 10^3/u L Lymph # (Auto) (0.8-4.8) 10^3/u L [place] # (Auto) (0.2-0.9) 10^3/u L Eos # (Auto) (0.0-0.8) 10^3/u L Baso # (Auto) (0.0-0.1) 10^3/u L Nucleated RBC % (a uto) % Nucleated RBCs # /100WBC Sodium (136-145) mmol/L Potassium (3.5-5.1) mmol/L Chloride (98-107) mmol/L Carbon Dioxide (22-29) mmol/L Anion Gap (5-19) BUN (6-20) mg/dL Creatinine (0.5-0.9) mg/dL GFR Calculation (90-130) mL/min Glucose (65-115) mg/dL Calculated Osmolal ity (285-295) mOsm/k g Calcium (8.5-10.5) mg/dL Total Bilirubin (0.15-1.2) mg/dL AST (0-32) U/L ALT (0-33) U/L Alkaline Phosphata se (35-105) IU/L Total Protein (6.6-8.7) g/dL Albumin (3.5-5.2) g/dL Globulin (1.3-4.6) g/dL TSH (0.27-4.20) uIU/ mL HCG, Qual (Negative) Salicylates (3-10) mg/dL Urine Opiates Scre en Negative (Negative) ng/mL Acetaminophen (10-30) ug/mL Ur Barbiturates Sc reen Negative (Negative) ng/mL Ur Phencyclidine S crn Negative (Negative) ng/mL Ur Amphetamines Sc reen Positive H (Negative) ng/mL U Benzodiazepines Scrn Negative (Negative) ng/mL Urine Cocaine Scre en Negative (Negative) ng/mL U Marijuana (THC) Screen Negative (Negative) ng/mL Ethyl Alcohol (0-10) mg/dL Discharge Plan Discharge Patient Disposition: Admitted As Inpatient Admit Provider: Abbe Parham Clinical Impression: Acute psychosis Condition: Stable Coding Level of Care Code ED 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
[2021-06-27 19:05] LABS: Amphetamines Screen Urine Positive (Negative); Barbiturates Screen Urine Negative (Negative); Benzodiazepines Screen Urine Negative (Negative); Cocaine Screen Urine Negative (Negative); Opiate Screen Urine Negative (Negative); PCP Screen Urine Negative (Negative); THC Screen Urine Negative (Negative)
[2021-06-27 19:09] LABS: Alanine Aminotransferase 13 U/L (0-33); Albumin Level 4.2 g/dL (3.5-5.2); Alkaline Phosphatase 83 IU/L (35-105); Anion Gap 15.4 (5-19); Aspartate Amino Transferase 18 U/L (0-32); Blood Urea Nitrogen 8 mg/dL (6-20); Calcium 8.8 mg/dL (8.5-10.5); Carbon Dioxide 26 mmol/L (22-29); Chloride 99 mmol/L (98-107); Creatinine Clr Calc Pharmacy 127.5466; Globulin 2.6 g/dL (1.3-4.6); Glomerular Filtration Rate 121.8 mL/min (90-130); Glucose 105 mg/dL (65-115); Osmolality Calculated 283 mOsm/kg (285-295); Potassium 3.4 mmol/L (3.5-5.1); Salicylate 0.6 mg/dL (3-10); Sodium 137 mmol/L (136-145); Total Bilirubin 0.2 mg/dL (0.15-1.2); Total Protein 6.8 g/dL (6.6-8.7)
[2021-06-27 19:10] LABS: Acetaminophen < 5.0 ug/mL (10-30); Alcohol Level < 10 mg/dL (0-10)
[2021-06-27 19:54] VITALS: BP 106/67; PULSE 78; RESP 18; O2SAT 96
--- NOTE | 2021-06-27 19:55 | PC.NURSE ---
patient is resting quietly with friend and 1:1 sitter at bedside.
--- NOTE | 2021-06-27 20:30 | PC.NURSE ---
attempted report at this time they are in with a behavioral patient. will call me back shortly
--- NOTE | 2021-06-27 22:05 | PC.NURSE ---
report to Afsaneh LUONG on NPU
[2021-06-27 22:20] VITALS: BP 114/72; PULSE 62; RESP 18; O2SAT 96
[2021-06-27 22:36] VITALS: BP 114/72; PULSE 62; RESP 18; TEMP 37
[2021-06-28 06:00] VITALS: BP 99/61; PULSE 83; RESP 14; TEMP 36.4; O2SAT 98
--- NOTE | 2021-06-28 12:24 | NPU.GN ---
[facility] Topic: Thought Processing General Mood of Group: Patient did not come to group today.
--- NOTE | 2021-06-28 13:59 | P.HP_ITS ---
Providers/Chief Complaint Admitting Physician: Abbe Parham MD Primary Care Provider: Cale Toth DO Chief Complaint: AMS HPI NPU History of Present Illness Keke Mcnamara is a 25 year old female with a history of methamphetamine induced psychosis who is being admitted for the sixth time to this unit in the past 2 months. UDS is positive for amphetamines. The ED notes states: 25-year-old female who is well-known to the ER history of psychotic breaks. Patient brought in by friend that she is having acute psychosis and making no sense. Was in the room she had stated that she has a different posture of her body that are growing exponentially and she states she cannot control the growing. She states she feels like her heart is growing also feels like her breasts are growing and will not stop. Patient has flight of ideas and is ob viously acutely psychotic. The patient denies having used methamphetamine and denies any paranoia or other psychosis, except that she is hearing voices, which she says she always hears. She does make comments about her breasts being larger than usual and that they need to get checked out. She does not feel she needs to be here in the hospital. She says that her mood is okay and she has no suicidal or homicidal ideation. Information from recent visits is included below. Per her 06/16/2021 [facility] inpatient psychiatric evaluation: Keke Mcnamara is a 25 year old female who presented to the emergency department with the following report: Patient is a 25-year-old female who presents to ED today with multiple medical complaints. First of all she tells me she has a headache and feels like she is bleeding out in my brain . She is requesting a stat MRI. Patient tells me she is having neck and back pain and feels like there cracking and states it feels like her spine is coming out of her body. She complains that she feels like she is bleeding out internally. She states she feels like there is a bomb inside of her vagina. Later in her visit she began flashing staff her genitalia. Patient has a history of very similar psychotic symptoms. Patient was seen at [facility] recently. She had a CT head performed on that visit which was normal. complaint: other (psychosis) History of same: Yes Context: recent drug abuse Associated symptoms: Reports delusions. She was admitted to the neuropsychiatric unit for definitive treatment of those issues. Patient presented today asking if she needed to be on a 96-hour hold or if she can just leave. As we have done many times in the past we explained to her that she has a guardian and so there actually is no need for a 96-hour hold, but she is here because her guardian agrees she needs to be here. She reports that she has been in the rehab as was supported in her last hospitalization and she needed to go to an appointment and she left without appointment but when she got there she could not get in or there was a problem at the appointment. She reports he called the rehab back in attempt to get back in but they were saying that she did this to the move just to get high. She denied acutely and was trying to get back to the rehab but things did not materialize. She reports that ultimately she was upset and angry because they did not believe her and that essentially derailed her return to the rehab. She presents today reporting that she is fine and that she has a friend that elected discharge and stay with. She asked if she could be taken off of the 96-hour hold and just discharged today. However we discussed that she has a guardian and so she is now on a 96- hour hold he is here under the desires of her guardian. She was frustrated by that fact and was resistant to interview, but we reviewed her last hospitalization and she denied any subjective changes, so an excerpt is included below. 05/30/2021 [facility] inpatient psychiatric evaluation: History of Present Illness Keke Mcnamara is a 25 year old female who was discharged from the [facility]PU on , 05/27/2021, with a plan for her to be admitted to a rehab facility in [place], [place] called [facility]. Instead, she went to a friend's house and use drugs. She is readmitted because she is acutely psychotic and unable to care for herself. The ED note states: Patient is a 25-year-old female who presents to ED today via EMS acutely psychotic. Patient was discharged from NPU on 05/27 for almost identical symptoms. Patient told EMS she feels like people are wanting her down trying to kill her. She believes she has been injected with rat poisoning. She believes she has a bomb in her vagina. Patient is extremely paranoid and skittish on exam. Full history is not obtainable secondary to her altered mental status. She does tell me she feels empty inside but does not endorse any suicidal ideations to me. The patient says that she got hot shotted with alligator heroin. She feels she has been poisoned and she is scared to sleep because dreams happen. She is hearing voices and seeing shadows. She says that someone dropped her off in the middle of the road, so she went to the nearest house and called EMS, who brought her to the hospital. She is unable to provide much information, because she spends most of her time attending to the voices. The admission note from the previous admission 05/12?05/27/2021 states: 5-year-old female comes in after having used some drugs she is having paranoid delusions. She thinks there is a sniper in the emergency room states she has a brain tumor. She states the mattress is burning her skin she tells me she either has a bomb in her pelvis or she is . She vehemently denies any suicidal or homicidal ideation she was recently hospitalized earlier this month. She is brought in by law enforcement in hand and leg shackles. Patient is continually exposing herself to myself and the staff when she first arrives in the room. The nurse security incident response engineer and a deputy were in the room as this occurred. A blanket was placed over the lap to limit exposure. She was admitted to the neuropsychiatric unit for definitive treatment of those issues after having significant emotional distress in the emergency department requiring interventions. He was identified as Covid positive still and needing to be in isolation which was not working well with her emotional condition. I met her in her room with full PPE donned. And she was a poor historian spending most of the conversation demanding to be discharged and escalating, crying and continuing to suggest that there was no reason for her to be here and definitely no reason for her to be on a 96-hour hold. She reports that she had been trying to get connected with her fianc? and needed a ride and loaded with his mother. He told a very convoluted story about going to some location and thinking that he heard some girl in distress. She reports that when she attempted to help the girls of the stress they tried to suggest that she had done something wrong and the police were called. She reports that she did not do anything to involve the police but they still brought her to [facility]. She put the blame for her behavior in the emergency department on the staff down there. Additionally she kept reporting that when she has been here in the past she is been tortured. She ended up leaving her room at 1 point and being disruptive. She continues to report that she has been tortured and was inappropriately pulling up her shirt exposing herself pointing at pick trujillo on her abdomen suggesting that [facility] did that to her. She continued to deny that there were no issues and denied any active addiction that might explain her behavior. This represents her third hospitalization since October 2019. Unable to see further back in her records due to IT problem. She did identify that she has treatment at [facility] and recent records from those visits are available but again none of the 2019 notes can be seen. Excerpt from her May 03, 2021 hospitalization is included below for context given that she had only been out of the hospital for a day or 2 and was not very willing historian. Per her 05/03/2021 [facility] inpatient psychiatric evaluation: History of Present Illness Keke Mcnamara is a 25 year old female with an unclear past psychiatric history presented to the emergency department by police combative, agitated with meth amphetamine intoxication. Patient also reported that she was feeling suicidal yesterday when she came to the emergency department but denies any recent sustained depressive symptoms. Patient states that she mostly sleeps every day and has been using methamphetamine on a near daily basis for several months. Patient last had contact with mental health in January and outpatient [facility] and previously was seen in May 2020 at [facility] but reports noncompliance with medication and medication management follow-up. Patient currently denying any suicidal ideation. Patient does not recall any recent or past hypomanic or manic episodes outside of substance use. Patient reports some anxiety related to ongoing life stress but denies any sustained anxiety, denies any panic symptoms. Patient reports paranoid thoughts thinking that people are out to get her and states that she has experienced auditory and visual destinations typically under the influence of methamphetamine. Patient reports past substance rehabilitation but states that it's been a while, and reports that she is interested in post discharge substance treatment. Patient states that she had not been taking her levothyroxine or any other medications. Patient's potassium was replaced while in the emergency department and she was restarted on levothyroxine after admission. She reports that she currently lives with her boyfriend who is out of town and she is expecting him to come back at some time, denies any current employment or means to support herself. Past medical, past psychiatric, family, social, and legal history have not changed from the previous 2 admissions. Meds NPU Home Medications Medication Instructions Recorded Confirmed Last Taken Type aspirin 325 mg PO PRN 06/16/21 06/27/21 Unknown History hydroxyzine pamoate 50 mg PO BEDTIME 06/16/21 06/27/21 06/26/21 History polyethylene glycol 3350 17 g PO BID@06/16/21 06/27/21 06/26/21 History hydrocortisone See Rx Instructions .ROUTE .COMPLEX 06/27/21 06/27/21 06/27/21 History levothyroxine 50 mcg PO DAILY 06/27/21 06/27/21 06/27/21 History loratadine 10 mg PO DAILY 06/27/21 06/27/21 06/27/21 History multivitamin 1 tab PO DAILY 06/27/21 06/27/21 06/27/21 History prazosin 2 mg PO DAILY 06/27/21 06/27/21 06/26/21 History sertraline 100 mg PO DAILY 06/27/21 06/27/21 06/27/21 History trazodone 50 mg PO BEDTIME 06/27/21 06/27/21 06/26/21 History olanzapine [Zyprexa] 5 mg PO QPM 30 Days #30 tab 06/29/21 Unknown Rx Allergies Allergy/AdvReac Type Severity Reaction Status Date / Time insect venom Allergy Hives Verified 06/27/21 11:47 latex Allergy Rash Verified 06/27/21 11:47 PFS NPU PFSH: Medical History Acquired hypothyroidism Patient with longstanding history, since age 15, of hypothyroidism. She had not been taking medication since February 2019. 08/29/2019: TSH 11.2. Restarted levothyroxine at 50 mcg daily. 10/01/2019: TSH 15.3. Levothyroxine increased to 75 mcg daily. TSH still low. Increase Levothyroxine to 75 mcg -Rx Levothyroxine 75 mcg daily #30, 2 refil. Acute hypokalemia Acute psychosis Alcohol dependence, in remission Amphetamine or stimulant drug abuse Anemia affecting in third trimester Asthma Since childhood and states that it is aggravated by exercise. Has maybe one or 2 episodes of shortness of breath a week. Since childhood and states that it is aggravated by exercise. Has maybe one or 2 episodes of shortness of breath a week. Bipolar disorder Bipolar disorder, current episode depressed, severe, without psychotic features Bipolar disorder, mixed Patient has a history of bipolar disorder and PTSD. She has been on multiple medications in the past. She has also been treated with at [facility]. - Present prior to the --was taken off all her medications by Tamika Geiger at [facility] early on in the --she has not been back to [facility] and has not restarted any medication. Today she feels managed without medicine so we will continue to follow but I strongly recommended she return back to [facility] for further evaluation and management. Cannabis dependence, uncomplicated Drug use affecting in second trimester Gastroesophageal reflux during in third trimester, antepartum Hypothyroidism Insulin controlled gestational diabetes mellitus (GDM) in third trimester 09/01/2019: GCT 148 10/06/2019: Attempted to obtain three-hour GTT on multiple occasions. Deepak kenney unable to perform test. Check sugars at home and brought those to office at this visit. Pre-meals found to be elevated and consistent with GDM. A1c 10/06/2019: 5.6 Ultrasounds 1. 04/07/2019 ---> 7-4/7 WG ---> EDC 11/20/2019. 2. 07/30/2019 ---> 25-0/7 WG ---> EDC 11/12/2019. 3. 10/03/2019 ---> 34-6/7 WG ---> EDC 11/08/2019. EFW 5 lbs. 2 oz. (2318 g) 74%. SANTHOSH 18.8 cm Patient brought Sugar logs with her which were reviewed. Patient has continued to improve sugars with diet. However still higher than desired. Patient was supposed to have started 20 units of Levemir at her last visit, but wrong dose was sent in to the pharmacy and she only started 2 units daily. Based upon a sugar readings today, I am switching her to 10 units daily. -Levemir 10 units daily. -BPP with NST was 10 out of 10. -Continue weekly testing until 36 weeks at which time it is to switch to twice weekly. Intractable chronic migraine without aura and with status migrainosus Has been treated with multiple medications for headaches. Most recently treated with Imitrex by Dr. Amaro. Last visit with her was on 02/25/2019. This is a hapless mildly impaired 23-year-old with borderline personality disorder and ongoing difficulties. She has a nonfocal exam and I don't see a ny reason to scan her head. A letter headaches are doing better on current medication and I'm not changing anything. I took time to listen to her story and empathize. Maternal alcohol use complicating in second trimester, antepartum Mental disorder affecting in third trimester Patient has a history of bipolar disorder and PTSD. She has been on multiple medications in the past. She has also been treated with at [facility]. Patient denying depression problems at this time. She is definitely at risk for flareup of her bipolar disorder after delivery. Highly recommend that s he get reestablished with [facility]. Nausea/vomiting in 09/29/2019: Started Reglan. Already taking Pepcid. Patient reporting nausea and vomiting. Was previously taking famotidine for acid reflux issues. Was started on Reglan today. Nexplanon insertion On combination antipsychotic drug therapy Post-traumatic stress disorder, chronic Psychiatric care Seizure disorder during in third trimester Thyroid disease during in third trimester UTI (urinary tract infection) Surgical History History of myringotomy History of tonsillectomy at age 10 [place] teeth extracted Family History Grandfather Hyperlipidemia Maternal Stroke maternal Diabetes maternal Grandmother Thyroid condition maternal Breast cancer great Mother Thyroid condition Unknown Patient denies medical problems Denies family history of: cervical, uterine, colon cancer, DVT/PE Family/Other Ovarian cancer paternal aunt Social History Smoking and tobacco status: current every day smoker Quit status (tobacco): considering quitting Second hand smoke exposure: Yes Smoking risk assessment/counseling performed?: No Alcohol intake: former Year of sobriety/quit date alcohol: 2019 Former alcohol use details: Drank wine during History of recent travel: No Additional social history: Poorly balanced diet Mental Status Exam MSE Comments: This is a short, slightly overweight white female in [place] [facility] scrubs with limited grooming and better than usual eye contact. No abnormal movements. Mostly cooperative with exam, in no acute distress. Speech was at a normal rate and volume. Mood described as good, affect flat. Thought process mostly organized, thought content: Patient denied suicidal or homicidal ideation, she denies having delusions, but delusional ideas are present. She has auditory hallucinations but no visual hallucinations. Attention and concen tration were limited and memory was more reliable but none were formally tested. She is alert and oriented times person and place. Insight and judgment are limited, impulse control is limited. She is not making a link between her methamphetamine use and her psychosis. Vitals/I&O/Wt Last Vital Signs Temp 97.6 F 06/28/21 06:00 Pulse 83 06/28/21 06:00 Resp 14 06/28/21 06:00 BP 99/61 06/28/21 06:00 Pulse Ox 98 06/28/21 06:00 Weight last 48 hrs Weight 65.771 kg Data NPU : 06/27/21 18:25 06/27/21 18:25 A&P Assessment and plan (1) Methamphetamine-induced psychotic disorder: Status: Resolved (2) Amphetamine or stimulant drug abuse: Status: Chronic (3) Post-traumatic stress disorder, chronic: Status: Chronic (4) Cannabis dependence, uncomplicated: Status: Chronic (5) Alcohol dependence, in remission: Status: Chronic Additional A&P Information This is a 25-year-old white female with a long history of addiction, trauma, mental health challenges and recent legal issues, who presents having been discharged from this unit and presenting once again with bizarre behavior in the emergency department with likely active drug use and UDS positive for amphetamines. 1. Continue current medication. 2. Continue every 15 minute checks for safety. 3. Encourage individual, group and milieu therapies. 4. Encourage sober living treatment after discharge at the highest level of care to which he is willing to commit. 5. We will work with her guardian for treatment planning. Involuntary Hold Information 96 Hour Hold: 96 Hour Involuntary Admission: No Attestations NPU Medical Necessity Statement*: Psychiatric hospitalization is medically necessary to prevent access to lethal means, to reevaluate medication, and to coordinate a safe discharge. Patient will be in the hospital for over 2 midnights. Likely length of stay is 2 to 3 days. Coding Level of Care Code Acute Inserting Press Operator for Thalia Bookerd Diagnoses Methamphetamine-induced psychotic disorder F15.959 Amphetamine or stimulant drug abuse F15.10 Post-traumatic stress disorder, chronic F43.12 Cannabis dependence, uncomplicated F12.20 Alcohol dependence, in remission F10.21
[2021-06-28 14:00] VITALS: BP 99/66; PULSE 73; RESP 15; TEMP 37.2; O2SAT 99
[2021-06-28 20:51] VITALS: BP 93/61; PULSE 82; RESP 16; TEMP 36.7; O2SAT 97
[2021-06-28] MEDS: hyDROXYzine 25 mg Capsule 50 MG PO (21:16)
[2021-06-28] MEDS: trazodone 50 mg Tablet PO (21:16)
[2021-06-29 06:00] VITALS: BP 100/66; PULSE 74; RESP 16; TEMP 36.8; O2SAT 95
[2021-06-29 14:00] VITALS: BP 95/64; PULSE 85; RESP 18; TEMP 36.9; O2SAT 98
--- NOTE | 2021-06-29 17:23 | PM.NDC ---
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 UDS is positive for amphetamines. The ED notes states: 25-year-old female who is well-known to the ER history of psychotic breaks. Patient brought in by friend that she is having acute psychosis and making no sense. Was in the room she had stated that she has a different posture of her body that are growing exponentially and she states she cannot control the growing. She states she feels like her heart is growing also feels like her breasts are growing and will not stop. Patient has flight of ideas and is obviously acutely psychotic. The patient denies having used methamphetamine and denies any paranoia or other psychosis, except that she is hearing voices, which she says she always hears. She does make comments about her breasts being larger than usual and that they need to get checked out. She does not feel she needs to be here in the hospital. She says that her mood is okay and she has no suicidal or homicidal ideation. Information from recent visits is included below. Hospital Course Hospital Course She was admitted to the neuropsychiatric unit for definitive treatment of these issues. On the unit she slowly acclimated to the individual, group and milieu therapies. There were some mild psychotic symptoms present initially which resolved with the medication being restarted and abstinence from intoxicating substances. She showed modest improvement and was able to contract for safety prior to discharge. During the hospitalization, patient had routine laboratory studies which were within normal limits except for few outliers. Additionally there was a general medical evaluation which was also within normal limits and revealed no new acute processes. I discussed her methamphetamine use with her in the context of wanting to get her son back into her own custody. I talked to her about needing to choose between giving up meth or giving up her son, because she cannot keep both. She indicates that she wants to give out methamphetamine so that she can get custody of her son again. However she believes she can give up methamphetamine without any additional support. She is not willing or interested in getting substance use treatment at this time. Discharge Summary: At the time of discharge, psychosis and lethality were denied. Mood and anxiety were well managed. Patient endorsed a plan to avoid all drugs of abuse and follow-up with the aftercare recommendations of the treatment team. Patient was evaluated and deemed to be absent credible lethality, and had achieved the maximum benefit from an inpatient hospitalization, so was discharged. Involuntary Hold Information 96 Hour Hold: 96 Hour Involuntary Admission: No Mental Status Exam MSE Comments: This is a short, slightly overweight white female in [facility] scrubs with limited grooming and pretty good eye contact. No abnormal movements. She is cooperative with exam, in no acute distress. Speech was at a normal rate and volume. Mood described as good, affect is still flat. Thought process mostly organized, thought content: Patient denied suicidal or homicidal ideation, she denies having delusions, and none are noted. She has chronic auditory hallucinations at the usual frequency and quality, but no visual hallucinations. Attention and concentration were limited and memory was more reliable but none were formally tested. She is alert and oriented times person and place. Insight and judgment are improved, impulse control is improved. She is making more of a link between her methamphetamine use and her psychosis now. Discharge Data Vitals: Last Vital Signs Temp 98.4 F 06/29/21 14:00 Pulse 85 06/29/21 14:00 Resp 18 06/29/21 14:00 BP 95/64 06/29/21 14:00 Pulse Ox 98 06/29/21 14:00 Discharge Plan Discharge Patient Disposition: Home Condition: Stable Prescriptions: New Zyprexa 5 mg tablet 5 mg PO QPM 30 Days Qty: 30 RF: 0 Continued aspirin 325 mg Tablet 325 mg PO PRN RF: 0 polyethylene glycol 3350 17 gram powder in packet 17 g PO BID@ RF: 0 hydroxyzine pamoate 25 mg capsule 50 mg PO BEDTIME RF: 0 multivitamin Tablet 1 tab PO DAILY RF: 0 trazodone 50 mg tablet 50 mg PO BEDTIME RF: 0 sertraline 100 mg tablet 100 mg PO DAILY RF: 0 hydrocortisone 0.25 % Cream See Rx Instructions .ROUTE .COMPLEX RF: 0 loratadine 10 mg tablet 10 mg PO DAILY RF: 0 prazosin 2 mg capsule 2 mg PO DAILY RF: 0 levothyroxine 50 mcg tablet 50 mcg PO DAILY RF: 0 Discharge Orders: Discharge Order (Routine); Ordered 06/29/21 Ordered By: Abbe Parham Referrals: Cale Toth DO [Primary Care Provider] - Discharge Diet: Usual diet Discharge Activity: Resume usual activity Patient Instructions: Generalized Anxiety Disorder (DC), Opioid Safety Discharge Attestations NPU Time Spent in Discharge Care*: greater than 30 min Specific Discharge Activities: Specific discharge activities: educating patient, discussing with family preservation caseworker/social workers/dc planners, documenting/other paperwork and evaluating patient/reviewing data Status at Discharge: Cognitive status at discharge: cognitively intact, Behavioral status at discharge: cooperative, Functional status at discharge: independent ambulation Overall status at discharge: patient is back to baseline Coding Level of Care Code Acute Chg FW DC note Diagnoses Acute psychosis F23 Amphetamine or stimulant drug abuse F15.10 Post-traumatic stress disorder, chronic F43.12 Cannabis dependence, uncomplicated F12.20 Alcohol dependence, in remission F10.21
[2021-06-29 17:37] VITALS: BP 95/64; PULSE 85; RESP 18; TEMP 36.9; O2SAT 98
== END 2021-06-29 18:18 | disposition home or self-care (01) | DRG 885 ==
LOC: ER 19:34 → NP 21:52
PROVIDERS: Admitting Provider Psychiatry & Neurology Child & Adolescent Psychiatry; Emergency Provider Emergency Medicine; PCP Internal Medicine; Visit Provider Psychiatry & Neurology Child & Adolescent Psychiatry
DX: F23 Brief psychotic disorder (principal); F15.159 Other stimulant abuse with stimulant-induced psychotic disorder, unspecified; F43.12 Post-traumatic stress disorder, chronic; F12.259 Cannabis dependence with psychotic disorder, unspecified; F10.21 Alcohol dependence, in remission; E03.9 Hypothyroidism, unspecified; F17.200 Nicotine dependence, unspecified, uncomplicated; Z86.69 Personal history of other diseases of the nervous system and sense organs
CPT/HCPCS: 80053; 80306; 80307; 81025; 84443; 85025; 96372; 99285; J1630; J2060

== ENCOUNTER 2021-07-05 04:32 | Emergency (ER) | payer MEDICAID, SELFPAY ==
[2021-07-05 04:54] VITALS: BP 103/79; PULSE 106; RESP 16; TEMP 36.4; O2SAT 96; BMI 31.6
--- NOTE | 2021-07-05 05:03 | XRR_ITS ---
PROCEDURE INFORMATION: Exam: XR Abdomen Exam date and time: 07/05/2021 5:03 AM Age: 25 years old Clinical indication: Constipation TECHNIQUE: Imaging protocol: XR of the abdomen. Views: Frontal supine view of the abdomen. 1 View. COMPARISON: CT abdomen pelvis w con* [id number] 11/07/2017 1:37 PM FINDINGS: Gastrointestinal tract: No bowel dilatation. No unusual amount of rectal feces. Bones/joints: Unremarkable. Other findings: No hepatosplenomegaly. XR/XR KUB [id number] IMPRESSION: No acute findings.
--- NOTE | 2021-07-05 05:16 | W.ED.ABDPA2 ---
HPI - Abdominal Pain General: Chief Complaint: Abdominal Pain Stated Complaint: abd pain Time Seen by Provider: 07/05/21 05:03 Source: patient Mode of arrival: ambulatory Limitations: no limitations History of Present Illness: HPI narrative: 25-year-old female is very well-known to the ER. She has been admitted psychiatric case here multiple times over the last 6 weeks has a history of methamphetamine abuse. She states she has been using meth and has been having constipation. She states she has not had a bowel movement in a week. States she feels like her abdomen is swelling. She denies any abdominal pain denies any fever denies any vomiting. She has no history abdominal surgery. Patient's well-appearing here. Associated Symptoms: Reports constipation; Denies chills, dysuria and fever(s) Review of Systems Const: Denies: fever(s), chills, body aches or change in appetite Eyes: Denies: blurry vision or eye discomfort ENMT: Denies: throat pain or dental pain Card: Denies: chest pain Resp: Denies: dyspnea GI: Reports: constipation : Denies: dysuria Musc: Denies: neck pain or back pain Skin/Breast: Denies: rash Neuro: Denies: headache(s) Psych: Denies: depression Lavelle/Lymph: Denies: easy bruising All/Imm: Denies: urticaria PFS ED PFSH: Medical History Acquired hypothyroidism Patient with longstanding history, since age 15, of hypothyroidism. She had not been taking medication since February 2019. 08/29/2019: TSH 11.2. Restarted levothyroxine at 50 mcg daily. 10/01/2019: TSH 15.3. Levothyroxine increased to 75 mcg daily. TSH still low. Increase Levothyroxine to 75 mcg -Rx Levothyroxine 75 mcg daily #30, 2 refil. Acute hypokalemia Acute psychosis Alcohol dependence, in remission Amphetamine or stimulant drug abuse Anemia affecting in third trimester Asthma Since childhood and states that it is aggravated by exercise. Has maybe one or 2 episodes of shortness of breath a week. Since childhood and states that it is aggravated by exercise. Has maybe one or 2 episodes of shortness of breath a week. Bipolar disorder Bipolar disorder, current episode depressed, severe, without psychotic features Bipolar disorder, mixed Patient has a history of bipolar disorder and PTSD. She has been on multiple medications in the past. She has also been treated with at [facility]. - Present prior to the --was taken off all her medications by Tamika Geiger at [facility] early on in the --she has not been back to [facility] and has not restarted any medication. Today she feels managed without medicine so we will continue to follow but I strongly recommended she return back to [facility] for further evaluation and management. Cannabis dependence, uncomplicated Drug use affecting in second trimester Gastroesophageal reflux during in third trimester, antepartum Hypothyroidism Insulin controlled gestational diabetes mellitus (GDM) in third trimester 09/01/2019: GCT 148 10/06/2019: Attempted to obtain three-hour GTT on multiple occasions. Patient unable to perform test. Check sugars at home and brought those to office at this visit. Pre-meals found to be elevated and consistent with GDM. A1c 10/06/2019: 5.6 Ultrasounds 1. 04/07/2019 ---> 7-4/7 WG ---> EDC 11/20/2019. 2. 07/30/2019 ---> 25-0/7 WG ---> EDC 11/12/2019. 3. 10/03/2019 ---> 34-6/7 WG ---> EDC 11/08/2019. EFW 5 lbs. 2 oz. (2318 g) 74%. SANTHOSH 18.8 cm Patient brought Sugar logs with her which were reviewed. Patient has continued to improve sugars with diet. However still higher than desired. Patient was supposed to have started 20 units of Levemir at her last visit, but wrong dose was sent in to the pharmacy and she only started 2 units daily. Based upon a sugar readings today, I am switching her to 10 units daily. -Levemir 10 units daily. -BPP with NST was 10 out of 10. -Continue weekly testing until 36 weeks at which time it is to switch to twice weekly. Intractable chronic migraine without aura and with status migrainosus Has been treated with multiple medications for headaches. Most recently treated with Imitrex by Dr. Amaro. Last visit with her was on 02/25/2019. This is a hapless mildly impaired 23-year-old with borderline personality disorder and ongoing difficulties. She has a nonfocal exam and I don't see any reason to scan her head. A letter headaches are doing better on current medication and I'm not changing anything. I took time to listen to her story and empathize. Maternal alcohol use complicating in second trimester, antepartum Mental disorder affecting in third trimester Patient has a history of bipolar disorder and PTSD. She has been on multiple medications in the past. She has also been treated with at [facility]. Patient denying depression problems at this time. She is definitely at risk for flareup of her bipolar disorder after delivery. Highly recommend that she get reestablished with [facility]. Nausea/vomiting in 09/29/2019: Started Reglan. Already taking Pepcid. Patient reporting nausea and vomiting. Was previously taking famotidine for acid reflux issues. Was started on Reglan today. Nexplanon insertion On combination antipsychotic drug therapy Post-traumatic stress disorder, chronic Psychiatric care Seizure disorder during in third trimester Thyroid disease during in third trimester UTI (urinary tract infection) Surgical History History of myringotomy History of tonsillectomy at age 10 Bailey teeth extracted Family History Grandfather Hyperlipidemia Maternal Stroke maternal Diabetes maternal Grandmother Thyroid condition maternal Breast cancer great Mother Thyroid condition Unknown Patient denies medical problems Denies family history of: cervical, uterine, colon cancer, DVT/PE Family/Other Ovarian cancer paternal aunt Social History Smoking and tobacco status: current every day smoker Quit status (tobacco): considering quitting Second hand smoke exposure: Yes Smoking risk assessment/counseling performed?: No Alcohol intake: former Year of sobriety/quit date alcohol: 2019 Former alcohol use details: Drank wine during History of recent travel: No Additional social history: Poorly balanced diet Physical Exam Const: COMMON NORMALS: patient oriented x3 GENERAL APPEARANCE: anxious and disheveled HENMT: COMMON NORMALS: normocephalic and atraumatic HEAD & SCALP: normocephalic and atraumatic Eye: COMMON NORMALS: Equal, round and reactive pupils present and EOMs intact bilaterally PUPIL: Yes Equal, round and reactive pupils present Neck/C-Spine: COMMON NORMALS: full ROM and supple Chest: COMMONS NORMALS: normal inspection of the chest and normal palpation of entire chest wall Resp: COMMON NORMALS: normal respiratory effort, No retractions, No use of accessory muscles and clear to auscultation bilaterally AUSCULTATION: clear to auscultation bilaterally Cardio: COMMON NORMALS: regular rate, regular rhythm and No murmurs present (Cardio) RATE: regular rate RHYTHM: regular rhythm GI: COMMON NORMALS: Normal to inspection, nondistended, normoactive bowel sounds present, Soft to palpation, non-tender and no masses PALPATION: Yes Soft to palpation Extremity: COMMON NORMALS: normal to inspection and full ROM Neuro: COMMON NORMALS: patient oriented x3, moves all extremities and no focal motor deficits Psych: COMMON NORMALS: mental status grossly normal, Normal thought process present and cooperative THOUGHT PROCESS: Normal thought process present Skin: COMMON NORMALS: no rashes or lesions noted and no wounds GENERAL SKIN EXAM: no rashes or lesions noted Course Vital Signs: Vital signs: Vital Signs Temperature 97.6 F 07/05/21 05:57 Pulse Rate 106 H 07/05/21 04:54 Respiratory Rate 16 07/05/21 05:57 Blood Pressure 103/79 07/05/21 04:54 Pulse Oximetry 96 07/05/21 05:57 MDM - Abdominal Pain MDM Narrative: Medical decision making narrative: Presents with constipation. Abdominal exam is benign with no tenderness no sign of surgical abdomen. We will place her on MiraLAX and she is stable for discharge she is to follow-up PCP and return if worsening. Lab Data: Labs: Lab Results 07/05/21 Range/Units 05:11 HCG, Qual Negative (Negative) Imaging Data ^: KUB: Attestation: I personally reviewed and interpreted this imaging study as follows: My impression: gas and constipation no free air or obstruction Discharge Plan Discharge Patient Disposition: Home Clinical Impression: Constipation Qualifiers: Constipation type: unspecified constipation type Qualified Code(s): K59.00 - Constipation, unspecified Condition: Stable Prescriptions: New Miralax 17 gram powder in packet 17 g PO DAILY 4 Days RF: 0 No Action aspirin 325 mg Tablet 325 mg PO PRN RF: 0 polyethylene glycol 3350 17 gram powder in packet 17 g PO BID@ RF: 0 hydroxyzine pamoate 25 mg capsule 50 mg PO BEDTIME RF: 0 multivitamin Tablet 1 tab PO DAILY RF: 0 trazodone 50 mg tablet 50 mg PO BEDTIME RF: 0 sertraline 100 mg tablet 100 mg PO DAILY RF: 0 hydrocortisone 0.25 % Cream See Rx Instructions .ROUTE .COMPLEX RF: 0 loratadine 10 mg tablet 10 mg PO DAILY RF: 0 prazosin 2 mg capsule 2 mg PO DAILY RF: 0 levothyroxine 50 mcg tablet 50 mcg PO DAILY RF: 0 Zyprexa 5 mg tablet 5 mg PO QPM 30 Days Qty: 30 RF: 0 Discharge Orders: Discharge ED (Routine); Ordered 07/05/21 Ordered By: Rebecca Romero Referrals: Cale Toth DO [Primary Care Provider] - 1-3 days Discharge Diet: Advance as tolerated Patient Instructions: Constipation (ED) Coding Level of Care Code ED Contract Associate Manager for Chg Fwd Exam Comprehensive
[2021-07-05] MEDS: diphenhydrAMINE 50 mg/mL SDV 1mL IM (05:18)
[2021-07-05] MEDS: LORazepam 2 mg Tablet PO (05:18)
[2021-07-05] MEDS: metoclopramide 5 mg/mL SDV 2 mL 10 MG IM (05:19)
[2021-07-05 05:28] LABS: HCG Qualitative Urine. Negative (Negative)
[2021-07-05 05:57] VITALS: RESP 16; TEMP 36.4; O2SAT 96
== END 2021-07-05 05:59 | disposition home or self-care (01) ==
PROVIDERS: Emergency Provider Emergency Medicine; PCP Internal Medicine
DX: K59.00 Constipation, unspecified (principal); Z79.82 Long term (current) use of aspirin; F17.210 Nicotine dependence, cigarettes, uncomplicated
CPT/HCPCS: 74018; 81025; 96372; 99283; J1200; J2765

== ENCOUNTER 2021-07-26 05:36 | Emergency (ER) | payer MEDICAID, SELFPAY ==
[2021-07-26 05:41] VITALS: BP 88/65; PULSE 91; RESP 18; TEMP 36.2; O2SAT 97; BMI 24.1
--- NOTE | 2021-07-26 06:03 | PC.NURSE ---
pt states 'her back is really hot, but she is really cold, her veins are popping, her face is shrinking, its hard to open her mouth' pt states she had no trigger this morning 'it's been going on awhile' has not been taking any of her medications
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
== END 2021-07-26 06:38 | disposition left against medical advice (07) ==
PROVIDERS: Emergency Provider Family Medicine
DX: F41.9 Anxiety disorder, unspecified (principal); Z53.21 Procedure and treatment not carried out due to patient leaving prior to being seen by health care provider; Z79.82 Long term (current) use of aspirin; F17.210 Nicotine dependence, cigarettes, uncomplicated
CPT/HCPCS: 99282

== ENCOUNTER 2021-07-26 09:42 | Emergency (ER) | payer MEDICAID, SELFPAY ==
[2021-07-26 09:48] VITALS: BP 100/69; PULSE 93; RESP 18; TEMP 37.3; O2SAT 99; BMI 24.6
--- NOTE | 2021-07-26 10:03 | CT_ITS ---
WS: [id number] CT HEAD NONCONTRAST HISTORY: confused/AMS TECHNIQUE: Contiguous axial imaging performed through the brain in 2.5 mm imaging. Bone and soft tiss ue windows. Sagittal and coronal reformats reviewed. All CT scans at [facility] use at least one of these dose optimization techniques: automated exposure control; mA and/or kV adjustment per pa tient size (includes targeted exams where dose is matched to clinical indication); or iterative recon struction. DLP: 827.77 mGy.cm COMPARISON: 05/23/2020 No acute intracranial hemorrhage, midline shift or mass effect. No atrophy or prior infarcts or herniation. Ventricles: Normal size with no hydrocephalus. Paranasal sinuses: As visualized are clear. Mastoid air cells: Well pneumatized. Calvarium and scalp: Skull is intact with no soft tissue edema or swelling. CT/CT head wo con* [id number] IMPRESSION: Negative head CT.
--- NOTE | 2021-07-26 10:07 | ED_ITS ---
HPI - Altered Mental Status General: Chief Complaint: Headache Stated Complaint: HEAD AND NECK PAIN/ ANXIETY Time Seen by Provider: 07/26/21 09:47 History of Present Illness: HPI narrative: Patient is a 25-year-old female comes to the ED with headache, neck pain and anxiety. Patient has a past medical history of PTSD, bipolar, methamphetamine and alcohol abuse. She comes here to the ED complaining of a headache and that her whole body and face feels like Jell-O. She says she just wants to be checked out to make sure she does not have anything going wrong. I asked patient if she is having any head trauma recently and she said that 2 months ago she had a seizure and felt a cracking in her head. Denies any recent head trauma or injury. Pt also reported that if she pulls her breast apart they smell like burnt marshmallows. Patient does admit to recent drug use about 3 days ago. She was nonspecific on what drugs she used. She is able to answer all my questions accordingly x3. Patient denies any auditory, visual hallucinations, SI, HI or depression. Associated symptoms: Deny auditory hallucinations, visual hallucinations, depression, homicidal ideation or suicidal ideation Review of Systems Const: Denies: fever(s), chills or fatigue Eyes: Denies: change in vision or eye discomfort ENMT: Denies: throat pain, odynophagia, nasal discharge or nasal congestion Card: Denies: chest pain, palpitations, edema, swelling of feet/ankles, dyspnea on exertion or orthopnea Resp: Denies: dyspnea, productive cough or non-productive cough GI: Denies: abdominal pain, nausea, vomiting, diarrhea, constipation or hematochezia : Denies: flank pain, dysuria or hematuria Musc: Denies: neck pain, back pain or extremity swelling Skin/Breast: Denies: rash or new lesions Neuro: Reports: headache(s); Denies: numbness in extremities or weakness in extremities Psych: Reports: anxiety; Denies: depression, visual hallucinations, auditory hallucinations, suicidal ideation or homicidal ideation [facility] ED PFSH: Medical History Acquired hypothyroidism Patient with longstanding history, since age 15, of hypothyroidism. She had not been taking medication since February 2019. 08/29/2019: TSH 11.2. Restarted levothyroxine at 50 mcg daily. 10/01/2019: TSH 15.3. Levothyroxine increased to 75 mcg daily. TSH still low. Increase Levothyroxine to 75 mcg -Rx Levothyroxine 75 mcg daily #30, 2 refil. Acute hypokalemia Acute psychosis Alcohol dependence, in remission Amphetamine or stimulant drug abuse Anemia affecting in third trimester Asthma Since childhood and states that it is aggravated by exercise. Has maybe one or 2 episodes of shortness of breath a week. Since childhood and states that it is aggravated by exercise. Has maybe one or 2 episodes of shortness of breath a week. Bipolar disorder Bipolar disorder, current episode depressed, severe, without psychotic features Bipolar disorder, mixed Patient has a history of bipolar disorder and PTSD. She has been on multiple medications in the past. She has also been treated with at [facility]. - Present prior to the --was taken off all her medications by Tamika Geiger at [facility] early on in the --she has not been back to [facility] and has not restarted any medication. Today she feels managed without medicine so we will continue to follow but I strongly recommended she return back to [facility] for further evaluation and management. Cannabis dependence, uncomplicated Drug use affecting in second trimester Gastroesophageal reflux during in third trimester, antepartum Hypothyroidism Insulin controlled gestational diabetes mellitus (GDM) in third trimester 09/01/2019: GCT 148 10/06/2019: Attempted to obtain three-hour GTT on multiple occasions. Patient unable to perform test. Check sugars at home and brought those to office at this visit. Pre-meals found to be elevated and consistent with GDM. A1c 10/06/2019: 5.6 Ultrasounds 1. 04/07/2019 ---> 7-4/7 WG ---> EDC 11/20/2019. 2. 07/30/2019 ---> 25-0/7 WG ---> EDC 11/12/2019. 3. 10/03/2019 ---> 34-6/7 WG ---> EDC 11/08/2019. EFW 5 lbs. 2 oz. (2318 g) 74%. SANTHOSH 18.8 cm Patient brought Sugar logs with her which were reviewed. Patient has continued to improve sugars with diet. However still higher than desired. Patient was supposed to have started 20 units of Levemir at her last visit, but wrong dose was sent in to the pharmacy and she only started 2 units daily. Based upon a sugar readings today, I am switching her to 10 units daily. -Levemir 10 units daily. -BPP with NST was 10 out of 10. -Continue weekly testing until 36 weeks at which time it is to switch to twice weekly. Intractable chronic migraine without aura and with status migrainosus Has been treated with multiple medications for headaches. Most recently treated with Imitrex by Dr. Amaro. Last visit with her was on 02/25/2019. This is a hapless mildly impaired 23-year-old with borderline personality disorder and ongoing difficulties. She has a nonfocal exam and I don't see any reason to scan her head. A letter headaches are doing better on current medication and I'm not changing anything. I took time to listen to her story and empathize. Maternal alcohol use complicating in second trimester, antepartum Mental disorder affecting in third trimester Patient has a history of bipolar disorder and PTSD. She has been on multiple medications in the past. She has also been treated with at [facility]. Patient denying depression problems at this time. She is definitely at risk for flareup of her bipolar disorder after delivery. Highly recommend that she get reestablished with [facility]. Nausea/vomiting in 09/29/2019: Started Reglan. Already taking Pepcid. Patient reporting nausea and vomiting. Was previously taking famotidine for acid reflux issues. Was started on Reglan today. Nexplanon insertion On combination antipsychotic drug therapy Post-traumatic stress disorder, chronic Psychiatric care Seizure disorder during in third trimester Thyroid disease during in third trimester UTI (urinary tract infection) Surgical History History of myringotomy History of tonsillectomy at age 10 Spring teeth extracted Family History Grandfather Hyperlipidemia Maternal Stroke maternal Diabetes maternal Grandmother Thyroid condition maternal Breast cancer great Mother Thyroid condition Unknown Patient denies medical problems Denies family history of: cervical, uterine, colon cancer, DVT/PE Family/Other Ovarian cancer paternal aunt Social History Smoking and tobacco status: current every day smoker Quit status (tobacco): considering quitting Second hand smoke exposure: Yes Smoking risk assessment/counseling performed?: No Alcohol intake: former Year of sobriety/quit date alcohol: 2019 Former alcohol use details: Drank wine during History of recent travel: No Additional social history: Poorly balanced diet Physical Exam Narrative: EXAM NARRATIVE: Patient is fidgety and constantly picking at her skin. Patient appears to still be under the influence likely of methamphetamines given her history. Const: COMMON NORMALS: no acute distress, patient oriented x3 and alert GE NERAL APPEARANCE: cooperative, comfortable and anxious HENMT: COMMON NORMALS: normocephalic HEAD & SCALP: normocephalic MOUTH: Normal oral and palatal mucosa present THROAT: posterior oropharynx normal and uvula midline Neck/C-Spine: COMMON NORMALS: supple GENERAL: Yes normal visual inspection Resp: COMMON NORMALS: normal respiratory effort, No retractions, No use of accessory muscles and clear to auscultation bilaterally AUSCULTATION: clear to auscultation bilaterally Cardio: COMMON NORMALS: regular rate, regular rhythm, S1 normal heart sound present, S2 normal heart sound present, No gallops present (Cardio), No clicks present (Cardio), No murmurs present (Cardio) and Peripheral pulses 2+ throughout RATE: regular rate RHYTHM: regular rhythm HEART SOUNDS: S1 normal heart sound present and S2 normal heart sound present PERIPHERAL PULSES: Peripheral pulses 2+ throughout GI: COMMON NORMALS: Normal to inspection, nondistended, normoactive bowel sounds present, Soft to palpation, non-tender and no masses PALPATION: Yes Soft to palpation : COMMON NORMALS: Yes no CVA tenderness BLADDER/KIDNEY EXAM: Yes no CVA tenderness Back/Pelvis: COMMON NORMALS: no CVA tenderness Extremity: COMMON NORMALS: normal to inspection Neuro: COMMON NORMALS: patient oriented x3 SENSORIUM/ORIENTATION: Yes alert GAIT: Yes Normal gait present Psych: COMMON NORMALS: mental status grossly normal, cooperative and speech normal SPEECH: Yes normal speech Skin: GENERAL SKIN EXAM: dry skin Course Vital Signs: Vital signs: Vital Signs Temperature 99.1 F 07/26/21 09:48 Pulse Rate 93 07/26/21 09:48 Respiratory Rate 18 07/26/21 09:48 Blood Pressure 100/69 07/26/21 09:48 Pulse Oximetry 99 07/26/21 09:48 MDM - Altered Mental Status MDM Narrative: Medical decision making narrative: Patient is a 25-year-old female comes to the ED with a headache, anxiety. patient is able to answer all my questions accordingly and besides being a little fidgety she is otherwise doing well. Admits to using methamphetamines approximately 4 days ago. Her vitals are stable. She is not acting obnoxious or causing any disturbance to the ED unit or staff. She stated she felt a little anxious and she was given a dose of Ativan and her symptoms improved. Denies any HI, SI, auditory or visual hallucinations. She was told to follow-up with her PCP and behavioral health at her next scheduled appointment. Return to ED precautions given. Patient understood agree with plan. Lab Data: Attestation: I reviewed the patient's lab results. Labs: Lab Results 07/26/21 07/26/21 07/26/21 09:45 09:45 09:45 WBC 9.8 10^3/uL 10^3/ uL (4.0-10.0) RBC 4.82 10^6/uL 10^6 /uL (4.1-5.3) Hgb 13.1 g/dL g/dL (11.5-15.3) Hct 40.2 % % (37.0-47.0) MCV 83.4 fl fl (81-99) MCH 27.2 pg L pg (28.0-34.0) MCHC 32.6 g/dL g/dL (30.0-36.0) RDW 14.3 % % (12.1-15.1) Plt Count 561 10^3/cmm H 10 ^3/cmm (130-400) MPV 8.7 fL fL (7.4-10.4) Neut % (Auto) 67.6 % % Lymph % (Auto) 23.1 % % [place] % (Auto) 6.0 % % Eos % (Auto) 1.7 % % Baso % (Auto) 1.4 % % Neut # (Auto) 6.59 10^3/uL 10^3 /uL (1.8-7.7) Lymph # (Auto) 2.3 10^3/uL 10^3/ uL (0.8-4.8) [place] # (Auto) 0.6 10^3/uL 10^3/ uL (0.2-0.9) Eos # (Auto) 0.2 10^3/uL 10^3/ uL (0.0-0.8) Baso # (Auto) 0.1 10^3/uL 10^3/ uL (0.0-0.1) Nucleated RBC % (a uto) 0 % % Nucleated RBCs # 0.0 /100WBC /100W BC Sodium 139 mmol/L mmol/L (136-145) Potassium 3.9 mmol/L mmol/L (3.5-5.1) Chloride 102 mmol/L mmol/L (98-107) Carbon Dioxide 27 mmol/L mmol/L (22-29) Anion Gap 13.9 (5-19) BUN 8 mg/dL mg/dL (6-20) Creatinine 0.6 mg/dL mg/dL (0.5-0.9) GFR Calculation 121.8 mL/min mL/m in (90-130) Glucose 103 mg/dL mg/dL (65-115) Calculated Osmolal ity 287 mOsm/kg mOsm/ kg (285-295) Calcium 8.8 mg/dL mg/dL (8.5-10.5) Total Bilirubin 0.3 mg/dL mg/dL (0.15-1.2) AST 32 U/L U/L (0-32) ALT 15 U/L U/L (0-33) Alkaline Phosphata se 98 IU/L IU/L (35-105) Total Protein 7.2 g/dL g/dL (6.6-8.7) Albumin 4.1 g/dL g/dL (3.5-5.2) Globulin 3.1 g/dL g/dL (1.3-4.6) HCG, Qual Negative (Negative) Urine Color Urine Appearance Urine pH Ur Specific Gravit y Urine Protein Urine Glucose (UA) Urine Ketones Urine Blood Urine Nitrate Urine Bilirubin Urine Urobilinogen Ur Leukocyte Prachi ase Urine RBC Urine WBC Ur Squamous Epith Cells Amorphous Sediment Urine Bacteria Urine Mucus Salicylates < 0.3 mg/dL L mg/ dL (3-10) Urine Opiates Scre en Acetaminophen < 5.0 ug/mL L ug/ mL (10-30) Ur Barbiturates Sc reen Ur Phencyclidine S crn Ur Amphetamines Sc reen U Benzodiazepines Scrn Urine Cocaine Scre en U Marijuana (THC) Screen 07/26/21 07/26/21 11:30 11:30 WBC RBC Hgb Hct MCV MCH MCHC RDW Plt Count MPV Neut % (Auto) Lymph % (Auto) [place] % (Auto) Eos % (Auto) Baso % (Auto) Neut # (Auto) Lymph # (Auto) [place] # (Auto) Eos # (Auto) Baso # (Auto) Nucleated RBC % (a uto) Nucleated RBCs # Sodium Potassium Chloride Carbon Dioxide Anion Gap BUN Creatinine GFR Calculation Glucose Calculated Osmolal ity Calcium Total Bilirubin AST ALT Alkaline Phosphata se Total Protein Albumin Globulin HCG, Qual Urine Color Amanda (Yellow) Urine Appearance Cloudy (CLEAR) Urine pH 7 (5-7) Ur Specific Gravit y 1.020 (1.005-1.030) Urine Protein Trace (Negative) Urine Glucose (UA) Norm (Normal) Urine Ketones 1+ H (Negative) Urine Blood 3+ H (Negative) Urine Nitrate Negative (Negative) Urine Bilirubin 1+ H (Negative) Urine Urobilinogen 1 mg/dL H mg/dL (Negative) Ur Leukocyte Prachi ase 2+ H (Negative) Urine RBC 5-10 /hpf H /hpf (0-2) Urine WBC Too numerous to c nt /hpf H /hpf (0-5) Ur Squamous Epith Cells 0-4 /hpf H /hpf (0-5) Amorphous Sediment 1+ /hpf /hpf Urine Bacteria 2+ /hpf H /hpf (NONE) Urine Mucus 1+ /hpf /hpf Salicylates Urine Opiates Scre en Negative ng/mL ng /mL (Negative) Acetaminophen Ur Barbiturates Sc reen Negative ng/mL ng /mL (Negative) Ur Phencyclidine S crn Negative ng/mL ng /mL (Negative) Ur Amphetamines Sc reen Positive ng/mL H ng/mL (Negative) U Benzodiazepines Scrn Negative ng/mL ng /mL (Negative) Urine Cocaine Scre en Negative ng/mL ng /mL (Negative) U Marijuana (THC) Screen Positive ng/mL H ng/mL (Negative) Imaging Data^: CT Head: Attestation: I personally reviewed and interpreted this imaging study as follows: Radiologist's impression: [address] [address] [address] Scan Report Signed Patient: Keke Mcnamara Unit #: [id number] : 1995 Age/Sex: 25 / F ADM Date: 07/26/21 Loc: ER Room/Bed: Attending Dr: Ordering Provider/Ordering MD: Vamsi Cook Date of Service: 07/26/21 Procedure(s): CT head wo con* [id number] Accession Number(s): [id number] Report Number: [id number] WS: [id number] CT HEAD NONCONTRAST HISTORY: confused/AMS TECHNIQUE: Contiguous axial imaging performed through the brain in 2.5 mm imaging. Bone and soft tissue windows. Sagittal and coronal reformats reviewed. All CT scans at [facility] use at least one of these dose optimization techniques: automated exposure control; mA and/or kV adjustment per patient size (includes targeted exams where dose is matched to clinical indication); or iterative reconstruction. DLP: 827.77 mGy.cm COMPARISON: 05/23/2020 No acute intracranial hemorrhage, midline shift or mass effect. No atrophy or prior infarcts or herniation. Ventricles: Normal size with no hydrocephalus. Paranasal sinuses: As visualized are clear. Mastoid air cells: Well pneumatized. Calvarium and scalp: Skull is intact with no soft tissue edema or swelling. CT/CT head wo con* [id number] IMPRESSION: Negative head CT. Dictated By: Annalisa Frank DO Signed By: Annalisa Frank DO Signed Date/Time: 07/26/21 1042 DD/ 1040 Discharge Plan Discharge Patient Disposition: Home Clinical Impression: Anxiety, Amphetamine abuse Condition: Stable Prescriptions: No Action aspirin 325 mg Tablet 325 mg PO PRN RF: 0 polyethylene glycol 3350 17 gram powder in packet 17 g PO BID@ RF: 0 hydroxyzine pamoate 25 mg capsule 50 mg PO BEDTIME RF: 0 multivitamin Tablet 1 tab PO DAILY RF: 0 trazodone 50 mg tablet 50 mg PO BEDTIME RF: 0 sertraline 100 mg tablet 100 mg PO DAILY RF: 0 hydrocortisone 0.25 % Cream See Rx Instructions .ROUTE .COMPLEX RF: 0 loratadine 10 mg tablet 10 mg PO DAILY RF: 0 prazosin 2 mg capsule 2 mg PO DAILY RF: 0 levothyroxine 50 mcg tablet 50 mcg PO DAILY RF: 0 olanzapine [Zyprexa] 5 mg tablet 5 mg PO QPM 30 Days Qty: 30 RF: 0 Discharge Orders: Discharge ED (Routine); Ordered 07/26/21 Ordered By: Vamsi Cook Discharge Diet: Regular Discharge Activity: Resume usual activity Patient Instructions: Methamphetamine Abuse (ED), Anxiety (ED) Activity Restrictions/Additional Instructions: Follow-up with medical provider as directed in 5 to 7 days reevaluation. Continue taking all home medications as prescribed. Return to the ER or your medical provider if condition worsens. Please read and understand discharge instructions. Thank you for choosing [facility] for your healthcare needs today. Please realize this is an emergency room and that we are providing you with a medical screening exam and this may not be complete and all inclusive of all the testing and or work up that you may need to determine your ailment or severity of your illness. It is very important that you follow up as instructed or that you return to the Emergency Department should you have concerns or if your condition changes or worsens in any way. Coding Level of Care Code ED [employer] Worker for Thalia Pendleton Exam Comprehensive
[2021-07-26 10:12] LABS: Basophils # 0.1 10^3/uL (0.0-0.1); Basophils % 1.4 %; Eosinophils # 0.2 10^3/uL (0.0-0.8); Eosinophils % 1.7 %; Hematocrit 40.2 % (37.0-47.0); Hemoglobin 13.1 g/dL (11.5-15.3); Lymphocytes # 2.3 10^3/uL (0.8-4.8); Lymphocytes % 23.1 %; Mean Corpuscular HGB Conc 32.6 g/dL (30.0-36.0); Mean Corpuscular Hemoglobin 27.2 pg (28.0-34.0); Mean Corpuscular Volume 83.4 fl (81-99); Mean Platelet Volume 8.7 fL (7.4-10.4); Monocytes # 0.6 10^3/uL (0.2-0.9); Neutrophils # 6.59 10^3/uL (1.8-7.7); Neutrophils % 67.6 %; Nucleated Red Blood Cells % 0 %; Platelet Count 561 10^3/cmm (130-400); Red Blood Count 4.82 10^6/uL (4.1-5.3); Red Cell Distribution Width 14.3 % (12.1-15.1); White Blood Count 9.8 10^3/uL (4.0-10.0)
[2021-07-26 10:20] LABS: HCG, Serum Qual Negative (Negative)
[2021-07-26 10:24] LABS: Alanine Aminotransferase 15 U/L (0-33); Albumin Level 4.1 g/dL (3.5-5.2); Alkaline Phosphatase 98 IU/L (35-105); Anion Gap 13.9 (5-19); Aspartate Amino Transferase 32 U/L (0-32); Blood Urea Nitrogen 8 mg/dL (6-20); Calcium 8.8 mg/dL (8.5-10.5); Carbon Dioxide 27 mmol/L (22-29); Chloride 102 mmol/L (98-107); Globulin 3.1 g/dL (1.3-4.6); Glomerular Filtration Rate 121.8 mL/min (90-130); Glucose 103 mg/dL (65-115); Osmolality Calculated 287 mOsm/kg (285-295); Potassium 3.9 mmol/L (3.5-5.1); Sodium 139 mmol/L (136-145); Total Bilirubin 0.3 mg/dL (0.15-1.2); Total Protein 7.2 g/dL (6.6-8.7)
[2021-07-26 10:30] LABS: Acetaminophen < 5.0 ug/mL (10-30); Salicylate < 0.3 mg/dL (3-10)
[2021-07-26] MEDS: LORazepam 2 mg/mL INJ 1 mL 1 MG IVP (11:40)
[2021-07-26 12:08] LABS: Amphetamines Screen Urine Positive (Negative); Barbiturates Screen Urine Negative (Negative); Benzodiazepines Screen Urine Negative (Negative); Cocaine Screen Urine Negative (Negative); Opiate Screen Urine Negative (Negative); PCP Screen Urine Negative (Negative); THC Screen Urine Positive (Negative)
[2021-07-26 12:20] LABS: Add Urine Microscopic? YES; Bilirubin Urine 1+ (Negative); Blood Urine 3+ (Negative); Glucose Urine UA Norm (Normal); Ketones Urine 1+ (Negative); Leukocyte Esterase Urine 2+ (Negative); Nitrate Urine Negative (Negative); Protein Urine Trace (Negative); Urine Appearance Cloudy (CLEAR); Urine Color Amber (Yellow); Urobilinogen Urine 1 mg/dL (Negative); pH Urine 7 (5-7)
[2021-07-26 12:21] LABS: Bacteria Urine 2+ /hpf; Mucus Urine 1+ /hpf; Squamous Epithelial Cell Urine 0-4 /hpf (0-5); WBC Urine TOO NUMEROUS TO CNT /hpf (0-5)
[2021-07-26 12:22] LABS: Add Urine Culture? Yes; Amorphous Sediment Urine 1+ /hpf
== END 2021-07-26 14:26 | disposition home or self-care (01) ==
PROVIDERS: Emergency Provider Physician Assistant
DX: F41.9 Anxiety disorder, unspecified (principal); F15.10 Other stimulant abuse, uncomplicated; F17.210 Nicotine dependence, cigarettes, uncomplicated
CPT/HCPCS: 70450; 80053; 80306; 80307; 81001; 84703; 85025; 87086; 96372; 99283; J2060

== ENCOUNTER 2021-07-27 16:35 | Inpatient (IN) | payer MEDICAID, SELFPAY ==
[2021-07-27 16:37] VITALS: BMI 26.4
--- NOTE | 2021-07-27 16:47 | ED_ITS ---
HPI - Psych General: Chief Complaint: Psychiatric Symptoms Stated Complaint: PSYCH EVAL Time Seen by Provider: 07/27/21 16:37 History of Present Illness: HPI Narrative: 85-year-old female who presents to the emergency room with complaints of altered mental status and erratic behavior. She evidently was at her prison officer went into the bathroom and shortly after began acting erratically which progressively worsened and then eventually EMS was called. On arrival patient is erratic lying on her body stating that she is bleeding from her rectum. Is quite obviously that she is not. She has no apparent injury she cannot or will not answer direct questions. Patient appears to be acutely intoxicated with methamphetamine. complaint: altered mental status Onset (ago): hour(s) Duration: constant History of same: Yes Relieving factors: medication Exacerbating factors: none Context: recent drug abuse Associated psychiatric symptoms: depression, racing thoughts, auditory hallucinations, visual hallucinations and delusions Associated symptoms: Reports auditory hallucinations, visual hallucinations, delusions and racing thoughts Treatments prior to arrival: none Review of Systems Const: Denies: fever(s), chills, body aches, change in appetite, fatigue or malaise ENMT: Denies: throat pain, ear or mastoid pain, nasal discharge or nasal congestion Card: Denies: chest pain, edema, dyspnea on exertion or orthopnea Resp: Denies: dyspnea, productive cough or non-productive cough GI: Denies: abdominal pain, nausea, vomiting, hematemesis, coffee ground emesis, diarrhea, constipation, bloating, hematochezia or melena : Denies: flank pain, difficulty voiding, dysuria, urinary frequency or urinary urgency Skin/Breast: Denies: rash or pruritus Psych: Reports: visual hallucinations and auditory hallucinations FORMERLY [facility], [facility]–1983 ED PFSH: Medical History (Updated 07/30/21 @ 19:04 by Abbe Parham MD) Acquired hypothyroidism Patient with longstanding history, since age 15, of hypothyroidism. She had not been taking medication since February 2019. 08/29/2019: TSH 11.2. Restarted levothyroxine at 50 mcg daily. 10/01/2019: TSH 15.3. Levothyroxine increased to 75 mcg daily. TSH still low. Increase Levothyroxine to 75 mcg -Rx Levothyroxine 75 mcg daily #30, 2 refil. 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 Has maybe one or 2 episodes of shortness of breath a week. Since childhood and states that it is aggravated by exercise. Has maybe one or 2 episodes of shortness of breath a week. Bipolar disorder Bipolar disorder, current episode depressed, severe, without psychotic features Bipolar disorder, mixed Patient has a history of bipolar disorder and PTSD. She has been on multiple medications in the past. She has also been treated with at [facility]. - Present prior to the --was taken off all her medications by Tamika Geiger at [facility] early on in the --she has not been back to [facility] and has not restarted any medication. Today she feels managed without medicine so we will continue to follow but I strongly recommended she return back to [facility] for further evaluation and management. Cannabis dependence, uncomplicated Drug use affecting in second trimester Gastroesophageal reflux during in third trimester, antepartum Hypothyroidism Insulin controlled gestational diabetes mellitus (GDM) in third trimester 09/01/2019: GCT 148 10/06/2019: Attempted to obtain three-hour GTT on multiple occasions. Patient unable to perform test. Check sugars at home and brought those to office at this visit. Pre-meals found to be elevated and consistent with GDM. A1c 10/06/2019: 5.6 Ultrasounds 1. 04/07/2019 ---> 7-4/7 WG ---> EDC 11/20/2019. 2. 07/30/2019 ---> 25-0/7 WG ---> EDC 11/12/2019. 3. 10/03/2019 ---> 34-6/7 WG ---> EDC 11/08/2019. EFW 5 lbs. 2 oz. (2318 g) 74%. SANTHOSH 18.8 cm Patient brought Sugar logs with her which were reviewed. Patient has continued to improve sugars with diet. However still higher than desired. Patient was supposed to have started 20 units of Levemir at her last visit, but wrong dose was sent in to the pharmacy and she only started 2 units daily. Based upon a sugar readings today, I am switching her to 10 units daily. -Levemir 10 units daily. -BPP with NST was 10 out of 10. -Continue weekly testing until 36 weeks at which time it is to switch to twice weekly. Intractable chronic migraine without aura and with status migrainosus Has been treated with multiple medications for headaches. Most recently treated with Imitrex by Dr. Amaro. Last visit with her was on 02/25/2019. This is a hapless mildly impaired 23-year-old with borderline personality disorder and ongoing difficulties. She has a nonfocal exam and I don't see any reason to scan her head. A letter headaches are doing better on current medication and I'm not changing anything. I took time to listen to her story and empathize. Maternal alcohol use complicating in second trimester, antepartum Mental disorder affecting in third trimester Patient has a history of bipolar disorder and PTSD. She has been on multiple medications in the past. She has also been treated with at [facility]. Patient denying depression problems at this time. She is definitely at risk for flareup of her bipolar disorder after delivery. Highly recommend that she get reestablished with [facility]. Nausea/vomiting in 09/29/2019: Started Reglan. Already taking Pepcid. Patient reporting nausea and vomiting. Was previously taking famotidine for acid reflux issues. Was started on Reglan today. Nexplanon insertion On combination antipsychotic drug therapy Post-traumatic stress disorder, chronic Psychiatric care Seizure disorder during in third trimester Thyroid disease during in third trimester UTI (urinary tract infection) Surgical History History of myringotomy History of tonsillectomy at age 10 [place] teeth extracted Family History Grandfather Hyperlipidemia Maternal Stroke maternal Diabetes maternal Grandmother Thyroid condition maternal Breast cancer great Mother Thyroid condition Unknown Patient denies medical problems Denies family history of: cervical, uterine, colon cancer, DVT/PE Family/Other Ovarian cancer paternal aunt Social History Smoking and tobacco status: current every day smoker Quit status (tobacco): considering quitting Second hand smoke exposure: Yes Smoking risk assessment/counseling performed?: No Alcohol intake: former Year of sobriety/quit date alcohol: 2019 Former alcohol use details: Drank wine during History of recent travel: No Additional social history: Poorly balanced diet Physical Exam HENMT: COMMON NORMALS: normocephalic, atraumatic and hearing grossly normal bilaterally HEAD & SCALP: normocephalic and atraumatic Neck/C-Spine: COMMON NORMALS: no JVD Resp: COMMON NORMALS: normal respiratory effort, No retractions, No use of accessory muscles and clear to auscultation bilaterally AUSCULTATION: clear to auscultation bilaterally Cardio: COMMON NORMALS: no JVD, regular rate, regular rhythm and No murmurs present (Cardio) RATE: regular rate RHYTHM: regular rhythm GI: COMMON NORMALS: Soft to palpation and No hepatosplenomegaly present AUSCULTATION: Yes normoactive bowel sounds PALPATION: Yes Soft to palpation, No Tenderness to palpation present (GI), No Guarding due to palpation present (GI) and Yes No hepatosplenomegaly present Extremity: COMMON NORMALS: normal to inspection, capillary refill normal, no clubbing, cyanosis or edema, no calf tenderness and no pedal edema Psych: COMMON NORMALS: negative for Normal thought process present APPEARANCE: Yes unkempt and Yes disheveled ATTITUDE: Yes bizarre, Yes uncooperative and Yes agitated ACTIVITY/MOTOR BEHAVIOR: Yes psychomotor agitation SPEECH: Yes incoherent THOUGHT PROCESS: abnormal THOUGHT CONTENT: Yes delusions Skin: COMMON NORMALS: no rashes or lesions noted GENERAL SKIN EXAM: no rashes or lesions noted Face to Face: Restrn/Seclusion Events leading up to initiation: Demonstrating self-destructive behavior (cutting, hitting reilly etc.) and Combative/Striking out at staff or others Evaluation of patient's immediate situation: Alert and oriented and Signs of psychological distress (Acutely psychotic secondary to methamphetamine use) Patient reaction since intervention applied: Continued attempts/displays harmful behavior Recent labs reviewed: No (No labs available at this time) Review of medications: Yes Patient's current medical/behavioral condition: No new concerns since last ROS Need for restraint or seclusion is: Continued (Patient given Ativan and Geodon due to her psychotic behaviors. This did improve her symptoms and she remained calm after the medications) Attending notified: Attending completed assessment Course Vital Signs: Vital signs: Vital Signs Temperature 98.3 F 08/01/21 06:00 Pulse Rate 63 08/01/21 06:00 Respiratory Rate 17 08/01/21 06:00 Blood Pressure 92/58 08/01/21 06:00 Pulse Oximetry 95 08/01/21 06:00 MDM - Psych MDM Narrative: Medical decision making narrative: Patient acutely psychotic. Appears to be under the influence of methamphetamines. Patient was medicated to help her anxiety. Patient be admitted for acute psychosis discussed with Dr. 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
[2021-07-27] MEDS: ziprasidone 20 mg/mL SDV 5 MG IM (16:51)
[2021-07-27] MEDS: LORazepam 2 mg/mL INJ 1 mL IM (16:51)
[2021-07-27 16:59] VITALS: PULSE 112; RESP 18; TEMP 36.6; O2SAT 98
[2021-07-27 17:56] VITALS: BP 112/72; PULSE 97; O2SAT 96
[2021-07-27 18:03] LABS: Basophils # 0.1 10^3/uL (0.0-0.1); Eosinophils # 0.2 10^3/uL (0.0-0.8); Eosinophils % 1.7 %; Hemoglobin 11.7 g/dL (11.5-15.3); Lymphocytes # 3.1 10^3/uL (0.8-4.8); Lymphocytes % 31.6 %; Mean Corpuscular HGB Conc 32.5 g/dL (30.0-36.0); Mean Corpuscular Hemoglobin 27.5 pg (28.0-34.0); Mean Corpuscular Volume 84.7 fl (81-99); Mean Platelet Volume 8.6 fL (7.4-10.4); Monocytes # 0.8 10^3/uL (0.2-0.9); Monocytes % 7.8 %; Neutrophils # 5.68 10^3/uL (1.8-7.7); Neutrophils % 57.7 %; Nucleated Red Blood Cells % 0 %; Platelet Count 474 10^3/cmm (130-400); Red Blood Count 4.25 10^6/uL (4.1-5.3); Red Cell Distribution Width 14.2 % (12.1-15.1); White Blood Count 9.9 10^3/uL (4.0-10.0)
[2021-07-27 18:19] LABS: HCG, Serum Qual Negative (Negative)
[2021-07-27 18:20] LABS: Alanine Aminotransferase 16 U/L (0-33); Albumin Level 3.7 g/dL (3.5-5.2); Alkaline Phosphatase 84 IU/L (35-105); Aspartate Amino Transferase 32 U/L (0-32); Blood Urea Nitrogen 10 mg/dL (6-20); Carbon Dioxide 25 mmol/L (22-29); Chloride 103 mmol/L (98-107); Globulin 2.9 g/dL (1.3-4.6); Glomerular Filtration Rate 121.8 mL/min (90-130); Glucose 78 mg/dL (65-115); Osmolality Calculated 286 mOsm/kg (285-295); Salicylate 0.5 mg/dL (3-10); Sodium 139 mmol/L (136-145); Total Bilirubin 0.3 mg/dL (0.15-1.2); Total Protein 6.6 g/dL (6.6-8.7)
[2021-07-27 18:30] VITALS: BP 91/59; PULSE 70; RESP 16; TEMP 36.8; O2SAT 100
[2021-07-27 18:32] LABS: Acetaminophen < 5.0 ug/mL (10-30); Anion Gap 14.3 (5-19); Potassium 3.3 mmol/L (3.5-5.1)
[2021-07-27 22:00] VITALS: RESP 16
--- NOTE | 2021-07-27 23:19 | PC.NURSE ---
atavan 2 mg IM and geodon 10mg IM ordered @17:39 in [facility].D. was not given.
--- NOTE | 2021-07-28 00:59 | PC.NURSE ---
25/F Meth Psychosis vol w/Guardian-Vamsi Hazel [phone] or [phone] PT presents to the emergency room with complaints of altered mental status and erratic behavior. She evidently was at her dog license officer supervisor went into the bathroom and shortly after began acting erratically which progressively worsened and then eventually EMS was called. On arrival patient is erratic lying on her body stating that she is bleeding from her rectum. Is quite obviously that she is not. She has no apparent injury she cannot or will not answer direct questions. Patient appears to be acutely intoxicated with methamphetamine. need UDS
[2021-07-28 06:00] VITALS: BP 85/52; PULSE 84; RESP 16; O2SAT 100
[2021-07-28] MEDS: multivitamin therapeutic Tablet 1 TAB PO (09:02)
[2021-07-28] MEDS: loratadine 10 mg Tablet PO (09:02)
[2021-07-28] MEDS: levothyroxine 50 mcg Tablet PO (09:02)
[2021-07-28] MEDS: sertraline 100 mg Tablet PO (09:02)
[2021-07-28] MEDS: prazosin 1 mg Capsule 2 MG PO (09:02)
[2021-07-28] MEDS: polyethylene glycol 3350 Pkt 17 gm PO ×2 (09:02→20:31)
[2021-07-28] MEDS: OLANZapine 5 mg ODT PO (09:02)
[2021-07-28] MEDS: haloperidol 5 mg Tablet PO (10:43)
[2021-07-28 14:00] VITALS: RESP 16; TEMP 36.4
--- NOTE | 2021-07-28 16:25 | P.HP_ITS ---
Providers/Chief Complaint Admitting Physician: Abbe Parham MD Chief Complaint: PSYCH EVAL HPI NPU History of Present Illness Keke Mcnamara is a 25 year old female with a history of PTSD, bipolar disord er, methamphetamine-induced psychosis, and alcohol abuse, who is being admitted for the seventh time to this unit in the past 3 months. UDS is positive for amphetamines and marijuana. The ED note states: HPI Narrative: 85-year-old female who presents to the emergency room with complaints of altered mental status and erratic behavior. She evidently was at her juvenile probation officer went into the bathroom and shortly after began acting erratically which progressively worsened and then eventually EMS was called. On arrival patient is erratic lying on her body stating that she is bleeding from her rectum. Is quite obviously that she is not. She has no apparent injury she cannot or will not answer direct questions. Patient appears to be acutely intoxicated with methamphetamine. Associated psychiatric symptoms: depression, racing thoughts, auditory hallucinations, visual hallucinations and delusions. I attempted to interview the patient, but she received several as needed medications to help her calm when she was quite agitated earlier. Nursing says that she was certain that there was blood coming out of the back of her head, and was screaming when no one would take her perceived needs seriously. The patient's presentation is similar to the other recent admissions. She leave s the hospital with a sensible plan to seek treatment in the community or in a secure facility. Somehow the plan goes awry and she finds her way to people who have methamphetamine. She uses methamphetamine and begins coming to the emergency room repeatedly with delusional complaints. She has been in our emergency room 3 times in the past 18 hours under the influence of methamphetamines each time with different complaints. At 10 am on 07/26 she came to the ED complaining that her whole body and face feels like Jell-O. Four hours earlier she present with complaints that her arms were shrinking. She gets admitted to the NPU; the drugs clear her system; We give her antipsychotic medication, and a structured and supportive environment; and she returns to her baseline level of functioning, which includes little to no insight into the nature of her difficulties and what would be of benefit. We are not able to obtain substance use, past psychiatric, family, and social histories. They are likely to be similar to previous admissions. Meds NPU Home Medications Medication Instructions Recorded Confirmed Last Taken Type aspirin 325 mg PO PRN 06/16/21 07/27/21 2 Weeks Ago History ~07/12/21 hydroxyzine pamoate 50 mg PO BEDTIME 06/16/21 07/27/21 2 Weeks Ago History ~07/12/21 hydrocortisone 1 applic TOPICAL TID PRN 06/27/21 07/27/21 06/27/21 History levothyroxine 50 mcg PO DAILY 06/27/21 07/27/21 2 Weeks Ago History ~07/12/21 multivitamin 1 tab PO DAILY 06/27/21 07/27/21 2 Weeks Ago History ~07/12/21 prazosin 2 mg PO BEDTIME 06/27/21 07/28/21 2 Weeks Ago History ~07/12/21 sertraline 100 mg PO DAILY 06/27/21 07/27/21 2 Weeks Ago History ~07/12/21 trazodone 50 mg PO BEDTIME 06/27/21 07/27/21 2 Weeks Ago History ~07/12/21 olanzapine [Zyprexa] 5 mg PO QPM 30 Days #30 tab 06/29/21 07/27/21 2 Weeks Ago Rx ~07/12/21 Allergies Allergy/AdvReac Type Severity Reaction Status Date / Time insect venom Allergy Hives Verified 06/27/21 11:47 latex Allergy Rash Verified 06/27/21 11:47 PFS NPU PFSH: Medical History Acquired hypothyroidism Patient with longstanding history, since age 15, of hypothyroidism. She had not been taking medication since February 2019. 08/29/2019: TSH 11.2. Restarted levothyroxine at 50 mcg daily. 10/01/2019: TSH 15.3. Levothyroxine increased to 75 mcg daily. TSH still low. Increase Levothyroxine to 75 mcg -Rx Levothyroxine 75 mcg daily #30, 2 refil. Acute hypokalemia Acute psychosis Alcohol dependence, in remission Amphetamine or stimulant drug abuse Anemia affecting in third trimester Asthma Since childhood and states that it is aggravated by exercise. Has maybe one or 2 episodes of shortness of breath a week. Since childhood and states that it is aggravated by exercise. Has maybe one or 2 episodes of shortness of breath a week. Bipolar disorder Bipolar disorder, current episode depressed, severe, without psychotic features Bipolar disorder, mixed Patient has a history of bipolar disorder and PTSD. She has been on multiple medications in the past. She has also been treated with at [facility]. - Present prior to the --was taken off all her medications by Tamika Geiger at [facility] early on in the --she has not been back to [facility] and has not restarted any medication. Today she feels managed without medicine so we will continue to follow but I strongly recommended she return back to [facility] for further evaluation and management. Cannabis dependence, uncomplicated Drug use affecting in second trimester Gastroesophageal reflux during in third trimester, antepartum Hypothyroidism Insulin controlled gestational diabetes mellitus (GDM) in third trimester 09/01/2019: GCT 148 10/06/2019: Attempted to obtain three-hour GTT on multiple occasions. Patient unable to perform test. Check sugars at home and brought those to office at this visit. Pre-meals found to be elevated and consistent with GDM. A1c 10/06/2019: 5.6 Ultrasounds 1. 04/07/2019 ---> 7-4/7 WG ---> EDC 11/20/2019. 2. 07/30/2019 ---> 25-0/7 WG ---> EDC 11/12/2019. 3. 10/03/2019 ---> 34-6/7 WG ---> EDC 11/08/2019. EFW 5 lbs. 2 oz. (2318 g) 74%. SANTHOSH 18.8 cm Patient brought Sugar logs with her which were reviewed. Patient has continued to improve sugars with diet. However still higher than desired. Patient was supposed to have started 20 units of Levemir at her last visit, but wrong dose was sent in to the pharmacy and she only started 2 units daily. Based upon a sugar readings today, I am switching her to 10 units daily. -Levemir 10 units daily. -BPP with NST was 10 out of 10. -Continue weekly testing until 36 weeks at which time it is to switch to twice weekly. Intractable chronic migraine without aura and with status migrainosus Has been treated with multiple medications for headaches. Most recently treated with Imitrex by Dr. Amaro. Last visit with her was on 02/25/2019. This is a hapless mildly impaired 23-year-old with borderline personality disorder and ongoing difficulties. She has a nonfocal exam and I don't see any reason to scan her head. A letter headaches are doing better on current medication and I'm not changing anything. I took time to listen to her story and empathize. Maternal alcohol use complicating in second trimester, antepartum Mental disorder affecting in third trimester Patient has a history of bipolar disorder and PTSD. She has been on multiple medications in the past. She has also been treated with at [facility]. Patient denying depression problems at this time. She is definitely at risk for flareup of her bipolar disorder after delivery. Highly recommend that she get reestablished with [facility]. Nausea/vomiting in 09/29/2019: Started Reglan. Already taking Pepcid. Patient reporting nausea and vomiting. Was previously taking famotidine for acid reflux issues. Was started on Reglan today. Nexplanon insertion On combination antipsychotic drug therapy Post-traumatic stress disorder, chronic Psychiatric care Seizure disorder during in third trimester Thyroid disease during in third trimester UTI (urinary tract infection) Surgical History History of myringotomy History of tonsillectomy at age 10 [place] teeth extracted Family History Grandfather Hyperlipidemia Maternal Stroke maternal Diabetes maternal Grandmother Thyroid condition maternal Breast cancer great Mother Thyroid condition Unknown Patient denies medical problems Denies family history of: cervical, uterine, colon cancer, DVT/PE Family/Other Ovarian cancer paternal aunt Social History Smoking and tobacco status: current every day smoker Quit status (tobacco): considering quitting Second hand smoke exposure: Yes Smoking risk assessment/counseling performed?: No Alcohol intake: former Year of sobriety/quit date alcohol: 2019 Former alcohol use details: Drank wine during History of recent travel: No Additional social history: Poorly balanced diet Mental Status Exam MSE Comments: This is a short, slightly overweight white female in [facility] who is lying in bed in her hospital room. She opens her eyes briefly and answers a few questions at the beginning, but then becomes increasingly harder to rouse. No abnormal movements. She has been psychotic today, with delusions of blood coming out of her head. She has had other delusions in the past 2 days. Insight and judgment are impaired, impulse control is impaired. Vitals/I&O/Wt Last Vital Signs Temp 97.5 F L 07/28/21 14:00 Pulse 84 07/28/21 06:00 Resp 16 07/28/21 14:00 BP 85/52 07/28/21 06:00 Pulse Ox 100 07/28/21 06:00 Weight last 48 hrs Weight 61.235 kg Data NPU : 07/27/21 17:55 07/27/21 17:55 A&P Assessment and plan (1) Anxiety: Status: Acute (2) Amphetamine abuse: Status: Acute (3) Drug-induced psychotic disorder: Status: Acute (4) Post-traumatic stress disorder, chronic: Status: Chronic Additional A&P Information This is a 25-year-old white female with a long history of addiction, trauma, mental health challenges and recent legal issues, who presents having been discharged from this unit and presenting once again with bizarre behavior in the emergency department with likely active drug use and UDS positive for amphetamines. 1. Continue current medication. 2. Continue every 15 minute checks for safety. 3. Encourage individual, group and milieu therapies. 4. Encourage sober living treatment after discharge at the highest level of care to which he is willing to commit. 5. We will work with her guardian for treatment planning. Involuntary Hold Information 96 Hour Hold: 96 Hour Involuntary Admission: No Attestations NPU Medical Necessity Statement*: Psychiatric hospitalization is medically necessary to prevent access to lethal means, to reevaluate medication, and to coordinate a safe discharge. Patient will be in the hospital for over 2 midnights. Likely length of stay is 3 to 5 days. Coding Level of Care Code Acute Helminthology Teacher for Thalia Pendleton Diagnoses Anxiety F41.9 Amphetamine abuse F15.10 Drug-induced psychotic disorder F19.959 Post-traumatic stress disorder, chronic F43.12
[2021-07-28] MEDS: hyDROXYzine 25 mg Capsule 50 MG PO (20:30)
[2021-07-28] MEDS: trazodone 50 mg Tablet PO (20:31)
[2021-07-28] MEDS: OLANZapine 5 mg TABLET PO (20:31)
[2021-07-28 22:00] VITALS: RESP 16
[2021-07-29 06:00] VITALS: BP 97/54; PULSE 53; RESP 16; TEMP 36.6; O2SAT 100
[2021-07-29] MEDS: multivitamin therapeutic Tablet 1 TAB PO (09:39)
[2021-07-29] MEDS: polyethylene glycol 3350 Pkt 17 gm PO ×2 (09:39→21:43)
[2021-07-29] MEDS: prazosin 1 mg Capsule 2 MG PO (09:39)
[2021-07-29] MEDS: levothyroxine 50 mcg Tablet PO (09:39)
[2021-07-29] MEDS: loratadine 10 mg Tablet PO (09:39)
[2021-07-29] MEDS: sertraline 100 mg Tablet PO (09:39)
[2021-07-29 14:00] VITALS: BP 94/60; PULSE 61; RESP 16; TEMP 36.2; O2SAT 97
--- NOTE | 2021-07-29 16:51 | PM.NPN ---
Subjective NPU Subjective: Interval history: Patient has been lethargic much of the day. She is not really able to provide much useful information, except that she says she is not hearing voices or seeing things. She denies suicidal and homicidal ideation. She denies side effects from medicine. Her medication should not be making her so sleepy. Nursing reports some delusions. Mental Status Exam MSE Comments: This is a short, slightly overweight white female in [facility] who is lying in bed in her hospital room. She opens her eyes briefly and answers a few questions at the beginning, but then becomes increasingly harder to rouse. No abnormal movements. She has been psychotic today. She has had other delusions in the past 3 days. Insight and judgment are impaired, impulse control is impaired. Vitals/I&O/Wt Last Vital Signs Temp 97.2 F L 07/29/21 14:00 Pulse 61 07/29/21 14:00 Resp 16 07/29/21 14:00 BP 94/60 07/29/21 14:00 Pulse Ox 97 07/29/21 14:00 Data NPU : 07/27/21 17:55 07/27/21 17:55 A&P Assessment and plan (1) Amphetamine abuse: Status: Inactive (2) Anxiety: Status: Acute (3) Drug-induced psychotic disorder: Status: Acute (4) Post-traumatic stress disorder, chronic: Status: Chronic (5) Cannabis dependence, uncomplicated: Status: Chronic (6) Alcohol dependence, in remission: Status: Chronic (7) Amphetamine or stimulant drug abuse: Status: Chronic Additional A&P Information This is a 25-year-old white female with a long history of addiction, trauma, mental health challenges and recent legal issues, who presents having been discharged from this unit and presenting once again with bizarre behavior in the emergency department with likely active drug use and UDS positive for amphetamines. 1. Continue current medication. 2. Continue every 15 minute checks for safety. 3. Encourage individual, group and milieu therapies. 4. Encourage sober living treatment after discharge at the highest level of care to which he is willing to commit. 5. We will work with her guardian for treatment planning. Involuntary Hold Information 96 Hour Hold: 96 Hour Involuntary Admission: No Attestations NPU Medical Necessity Statement*: Psychiatric hospitalization is medically necessary to prevent access to lethal means, to reevaluate medication, and to coordinate a safe discharge. Likely length of stay is 3 to 5 days. Coding Level of Care Code Acute Dermatology Teacher for g Fwd Diagnoses Amphetamine abuse F15.10 Anxiety F41.9 Drug-induced psychotic disorder F19.959 Post-traumatic stress disorder, chronic F43.12 Cannabis dependence, uncomplicated F12.20 Alcohol dependence, in remission F10.21 Amphetamine or stimulant drug abuse F15.10
[2021-07-29 20:40] VITALS: BP 90/53; PULSE 79; RESP 14; TEMP 36.5; O2SAT 97
[2021-07-29] MEDS: OLANZapine 5 mg TABLET PO (21:43)
[2021-07-29] MEDS: hyDROXYzine 25 mg Capsule 50 MG PO (21:43)
[2021-07-29] MEDS: trazodone 50 mg Tablet PO (21:44)
[2021-07-30 06:00] VITALS: BP 98/59; PULSE 56; RESP 16; TEMP 37; O2SAT 98
[2021-07-30] MEDS: sertraline 100 mg Tablet PO (08:51)
[2021-07-30] MEDS: prazosin 1 mg Capsule 2 MG PO (08:51)
[2021-07-30] MEDS: multivitamin therapeutic Tablet 1 TAB PO (08:51)
[2021-07-30] MEDS: loratadine 10 mg Tablet PO (08:51)
[2021-07-30] MEDS: levothyroxine 50 mcg Tablet PO (08:51)
[2021-07-30] MEDS: polyethylene glycol 3350 Pkt 17 gm PO ×2 (09:49→21:13)
[2021-07-30 14:00] VITALS: BP 88/56; PULSE 80; RESP 17; TEMP 36.3; O2SAT 97
--- NOTE | 2021-07-30 17:05 | P.PN_ITS ---
Subjective NPU Subjective: Interval history: The patient is again quite sleepy. Nursing says that she was reporting having the taste of feces in her mouth, and thinking it was caused by constipation. This is likely another somatic delusion, but we are treating her constipation nevertheless. She denies auditory visual hallucinations. She denies suicidal and homicidal ideation. She denies me dication side effects. She is not sure why she is so sleepy. Mental Status Exam MSE Comments: This is a short, slightly overweight white female in [facility] scrubs who is lying in bed in her hospital room. She is pretty lethargic today and does not really want to answer questions. No abnormal mov ements. She has been psychotic and delusional today. Insight and judgment are impaired, impulse control is impaired. Vitals/I&O/Wt Last Vital Signs Temp 97.3 F L 07/30/21 14:00 Pulse 80 07/30/21 14:00 Resp 17 07/30/21 14:00 BP 88/56 07/30/21 14:00 Pulse Ox 97 07/30/21 14:00 Data NPU : 07/27/21 17:55 07/27/21 17:55 A&P Assessment and plan (1) Anxiety: Status: Acute (2) Drug-induced psychotic disorder: Status: Acute (3) Amphetamine or stimulant drug abuse: Status: Chronic (4) Post-traumatic stress disorder, chronic: Status: Chronic (5) Cannabis dependence, uncomplicated: Status: Chronic (6) Alcohol dependence, in remission: Status: Chronic Additional A&P Information This is a 25-year-old white female with a long history of addiction, trauma, mental health challenges and recent legal issues, who presents having been discharged from this unit and presenting once again with bizarre behavior in the emergency department with likely active drug use and UDS positive for amphetamines. During other recent admissions, the patient has been lethargic but perks up after a few days. 1. Continue current medication. 2. Continue every 15 minute checks for safety. 3. Encourage individual, group and milieu therapies. 4. Encourage sober living treatment after discharge at the highest level of care to which he is willing to commit. 5. We will work with her guardian for treatment planning. Involuntary Hold Information 96 Hour Hold: 96 Hour Involuntary Admission: No Attestations NPU Medical Necessity Statement*: Psychiatric hospitalization is medically necessary to prevent access to lethal means, to reevaluate medication, and to coordinate a safe discharge. Likely length of stay is 3 to 5 days. Coding Level of Care Code Acute Electron Gun Assembler for [facility] Fwd Diagnoses Anxiety F41.9 Drug-induced psychotic disorder F19.959 Amphetamine or stimulant drug abuse F15.10 Post-traumatic stress disorder, chronic F43.12 Cannabis dependence, uncomplicated F12.20 Alcohol dependence, in remission F10.21
[2021-07-30] MEDS: OLANZapine 5 mg ODT PO (17:08)
[2021-07-30] MEDS: ondansetron 4 MG Tablet PO (17:09)
[2021-07-30] MEDS: magnesium hydroxide 30 mL UDC PO (17:09)
[2021-07-30 20:49] VITALS: BP 95/52; PULSE 60; RESP 14; TEMP 37.1; O2SAT 98
[2021-07-30] MEDS: OLANZapine 5 mg TABLET PO (21:13)
[2021-07-30] MEDS: hyDROXYzine 25 mg Capsule 50 MG PO (21:13)
[2021-07-30] MEDS: trazodone 50 mg Tablet PO (21:13)
[2021-07-31 06:00] VITALS: BP 97/58; PULSE 54; RESP 16; TEMP 36.6; O2SAT 95
[2021-07-31] MEDS: sertraline 100 mg Tablet PO (10:39)
[2021-07-31] MEDS: levothyroxine 50 mcg Tablet PO (10:39)
[2021-07-31] MEDS: polyethylene glycol 3350 Pkt 17 gm PO ×2 (10:39→20:40)
[2021-07-31] MEDS: prazosin 1 mg Capsule 2 MG PO (10:39)
[2021-07-31] MEDS: multivitamin therapeutic Tablet 1 TAB PO (10:39)
[2021-07-31] MEDS: loratadine 10 mg Tablet PO (10:40)
[2021-07-31] MEDS: hyDROXYzine 25 mg Capsule 50 MG PO ×2 (13:24→20:41)
--- NOTE | 2021-07-31 13:25 | PC.NURSE ---
PRN VISTARIL 50 MG GIVEN PO PER PT C/O STATED ANXIETY. PT RESTING IN ROOM WHEN STAFF APPROACHED, ASKED STAFF TO WAKE HER UP WHEN IT'S SNACK TIME
[2021-07-31 14:00] VITALS: BP 101/65; PULSE 74; RESP 17; TEMP 37.1; O2SAT 99
--- NOTE | 2021-07-31 15:20 | PM.NPN ---
Subjective NPU Subjective: Interval history: The patient was awake and out of bed for the first time this hospitalization when I went to see her. She says she is feeling better, pretty good. She says he does have a headache though. She also feels tired. She is having some cravings for methamphetamine. When asked her about the idea she had the other day that she was bleeding from the back of her head, she said, I am just tired. She does say she is constipated still. She denies auditory and visual hallucinations. She denies suicidal and homicidal ideation. We talked about her plans to return to live with her friend Maik. She says about their relationship, we are trying to work it out. He is about 10 to 12 years older than she is. Mental Status Exam MSE Comments: This is a short, slightly overweight white female in [facility] scrubs. I met with her in the hallway outside her door. No psychomotor agitation or retardation. Speech is at a regular rate and rhythm without pressure. No abnormal movements. Thought process is logical and goal-directed. Thought content: She denies auditory and visual hallucinations. She denies suicidal and homicidal ideation. There are no delusions noted today. Insight and judgment are limited but improving, impulse control is limited but improving. Vitals/I&O/Wt Last Vital Signs Temp 97.9 F 07/31/21 06:00 Pulse 54 L 07/31/21 06:00 Resp 16 07/31/21 06:00 BP 97/58 07/31/21 06:00 Pulse Ox 95 07/31/21 06:00 Weight last 48 hrs Weight 58.967 kg Data NPU : 07/27/21 17:55 07/27/21 17:55 A&P Assessment and plan (1) Anxiety: Status: Acute (2) Drug-induced psychotic disorder: Status: Acute (3) Amphetamine or stimulant drug abuse: Status: Chronic (4) Post-traumatic stress disorder, chronic: Status: Chronic (5) Cannabis dependence, uncomplicated: Status: Chronic (6) Alcohol dependence, in remission: Status: Chronic Additional A&P Information This is a 25-year-old white female with a long history of addiction, trauma, mental health challenges and recent legal issues, who presents having been discharged from this unit and presenting once again with bizarre behavior in the emergency department with likely active drug use and UDS positive for amphetamines. During other recent admissions, the patient has been lethargic but perks up after a few days. 1. Continue current medication. Psychosis is improving as expected after a few days of abstaining from methamphetamine use. 2. Continue every 15 minute checks for safety. 3. Encourage individual, group and milieu therapies. 4. Encourage sober living treatment after discharge at the highest level of care to which he is willing to commit. 5. We will work with her guardian for treatment planning. Involuntary Hold Information 96 Hour Hold: 96 Hour Involuntary Admission: No Attestations NPU Medical Necessity Statement*: Psychiatric hospitalization is medically necessary to prevent access to lethal means, to reevaluate medication, and to coordinate a safe discharge. Likely length of stay is 2 to 4 days. Coding Level of Care Code Acute Judicial Administrative Assistant for [facility] Diagnoses Anxiety F41.9 Drug-induced psychotic disorder F19.959 Amphetamine or stimulant drug abuse F15.10 Post-traumatic stress disorder, chronic F43.12 Cannabis dependence, uncomplicated F12.20 Alcohol dependence, in remission F10.21
[2021-07-31] MEDS: magnesium hydroxide 30 mL UDC PO (16:47)
--- NOTE | 2021-07-31 16:47 | PC.NURSE ---
PRN MILK OF MAGNESIA 30 ML GIVEN PO PER PT C/O STATED CONSTIPATION
[2021-07-31] MEDS: trazodone 50 mg Tablet PO (20:41)
[2021-07-31] MEDS: OLANZapine 5 mg TABLET PO (20:41)
[2021-07-31 21:25] VITALS: BP 97/65; PULSE 78; RESP 15; TEMP 36.9; O2SAT 97
[2021-08-01 06:00] VITALS: BP 92/58; PULSE 63; RESP 17; TEMP 36.8; O2SAT 95
[2021-08-01] MEDS: multivitamin therapeutic Tablet 1 TAB PO (09:11)
[2021-08-01] MEDS: polyethylene glycol 3350 Pkt 17 gm PO ×2 (09:11→21:29)
[2021-08-01] MEDS: sertraline 100 mg Tablet PO (09:11)
[2021-08-01] MEDS: prazosin 1 mg Capsule 2 MG PO (09:12)
[2021-08-01] MEDS: loratadine 10 mg Tablet PO (09:12)
[2021-08-01] MEDS: levothyroxine 50 mcg Tablet PO (09:12)
[2021-08-01 14:00] VITALS: BP 96/61; PULSE 75; RESP 18; TEMP 36.7; O2SAT 99
[2021-08-01] MEDS: magnesium hydroxide 30 mL UDC PO (14:18)
--- NOTE | 2021-08-01 14:18 | PC.NURSE ---
PRN MILK OF MAGNESIA 30 ML GIVEN PO PER PT C/O CONSTIPATION
[2021-08-01] MEDS: hyDROXYzine 25 mg Capsule 50 MG PO ×2 (17:07→21:29)
--- NOTE | 2021-08-01 17:08 | PC.NURSE ---
PRN VISTARIL 50 MG GIVEN PO PER PT C/O STATED ANXIETY
--- NOTE | 2021-08-01 18:07 | P.PN_ITS ---
Subjective NPU Subjective: Interval history: The patient had a short list of concerns to discuss with me when I arrived. First, she says she is very tired all of the time. She does notice that using meth helps her energy level. Second, she complains of a dime sized purple blotch on her left breast. She associates the blotch with a vein in her chest. Third, she feels that she may have a lump in her arm and decreased blood flow to her fingers, which tingle. Fourth, she feels there is some lump at the back of her neck that is out of the ordinary. I examined her fingernails which have good capillary return. I did not examine other areas, but will ask a nurse to do so. The patient says her mood is fairly down. She misses her son who has been removed from her custody and care. She says she is hearing voices, at the same level she usually does. No visual hallucinations. She denies having suicidal ideation at this point. No medication side effects. Mental Status Exam MSE Comments: This is a short, slightly overweight white female in [facility] scrubs. I met with her in her room with the door open. No psychomotor agitation or retardation. Speech is at a regular rate and rhythm without pressure. No abnormal movements. Thought process is logical and goal-directed. Thought content: She has auditory hallucinations which are chronically distressing to her. She denies visual hallucinations. She denies suicidal and homicidal ideation. Her physical concerns about tiredness, a splotch, decreased blood flow, and the lump on her neck may all represent delusional preocc upations. Insight and judgment are limited but improving, impulse control is limited but improving. Vitals/I&O/Wt Last Vital Signs Temp 98.0 F 08/01/21 14:00 Pulse 75 08/01/21 14:00 Resp 18 08/01/21 14:00 BP 96/61 08/01/21 14:00 Pulse Ox 99 08/01/21 14:00 Weight last 48 hrs Weight 58.967 kg Data NPU : 07/27/21 17:55 07/27/21 17:55 A&P Assessment and plan (1) Anxiety: Status: Acute (2) Drug-induced psychotic disorder: Status: Acute (3) Amphetamine or stimulant drug abuse: Status: Chronic (4) Post-traumatic stress disorder, chronic: Status: Chronic (5) Cannabis dependence, uncomplicated: Status: Chronic (6) Alcohol dependence, in remission: Status: Chronic Additional A&P Information This is a 25-year-old white female with a long history of addiction, trauma, mental health challenges and recent legal issues, who presents having been discharged from this unit and presenting once again with bizarre behavior in the emergency department with likely active drug use and UDS positive for amphetamines. During other recent admissions, the patient has been lethargic but perks up after a few days. 1. Continue current medication. Psychosis is improving as expected after a few days of abstaining from methamphetamine use and taking her usual medications. 2. Continue every 15 minute checks for safety. 3. Encourage individual, group and milieu therapies. 4. Encourage sober living treatment after discharge at the highest level of care to which he is willing to commit. 5. We will work with her guardian for treatment planning. Involuntary Hold Information 96 Hour Hold: 96 Hour Involuntary Admission: No Attestations NPU Medical Necessity Statement*: Psychiatric hospitalization is medically necessary to prevent access to lethal means, to reevaluate medication, and to coordinate a safe discharge. Likely length of stay is 1 to 2 days. 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
[2021-08-01] MEDS: trazodone 50 mg Tablet PO (21:29)
[2021-08-01] MEDS: OLANZapine 5 mg TABLET PO (21:29)
[2021-08-01 22:00] VITALS: BP 110/70; PULSE 88; RESP 16; TEMP 37.1; O2SAT 97
[2021-08-02 06:00] VITALS: BP 89/55; PULSE 61; RESP 18; TEMP 37.2; O2SAT 98
[2021-08-02] MEDS: sertraline 100 mg Tablet PO (09:16)
[2021-08-02] MEDS: polyethylene glycol 3350 Pkt 17 gm PO ×2 (09:16→20:41)
[2021-08-02] MEDS: levothyroxine 50 mcg Tablet PO (09:16)
[2021-08-02] MEDS: multivitamin therapeutic Tablet 1 TAB PO (09:16)
[2021-08-02] MEDS: loratadine 10 mg Tablet PO (09:16)
[2021-08-02] MEDS: prazosin 1 mg Capsule 2 MG PO (09:16)
[2021-08-02 14:00] VITALS: BP 94/54; PULSE 80; RESP 16; TEMP 36.7; O2SAT 98
--- NOTE | 2021-08-02 16:10 | PM.NPN ---
Subjective NPU Subjective: Interval history: I met with the treatment team to discuss the patient's progress. A referral was made to the [facility], but they turned her down. She was not suitable for the residential program because she might wander off. She was not suitable for their skilled program, because she did not reach that level of need. We will continue to search for suitable placement. When asked how she was doing, the patient replied, living life. She says her mood is a little bit depressed and the voices are the same. She says she is still tired and does not want to do anything. No visual hallucinations. No suicidal or homicidal ideation. No side effects from medication. She does say that it stings when I pee. Mental Status Exam MSE Comments: This is a short, slightly overweight [facility]. I met with her in the day room. She was cooperative. No psychomotor agitation or retardation. No abnormal movements. Her movements are more energetic today. Speech is at a regular rate and rhythm without pressure. Thought process is logical and goal-directed. Thought content: She has auditory hallucinations which are chronically distressing to her. She denies visual hallucinations. She denies suicidal and homicidal ideation. Her physical concerns about tiredness, a splotch, decreased blood flow, and the lump on her neck may all represent delusional preoccupations. Insight and judgment are limited but improving, impulse control is limited but improving. Vitals/I&O/Wt Last Vital Signs Temp 98.1 F 08/02/21 20:28 Pulse 80 08/02/21 20:28 Resp 16 08/02/21 20:28 BP 94/54 08/02/21 20:28 Pulse Ox 98 08/02/21 20:28 Data NPU : 08/02/21 18:47 07/27/21 17:55 A&P Assessment and plan (1) Drug-induced psychotic disorder: Resolving with restarting medication and abstinence from methamphetamine. Status: Acute (2) Amphetamine or stimulant drug abuse: Status: Chronic (3) Post-traumatic stress disorder, chronic: Status: Chronic (4) Cannabis dependence, uncomplicated: Status: Chronic (5) Alcohol dependence, in remission: Status: Chronic Additional A&P Information This is a 25-year-old white female with a long history of addiction, trauma, mental health challenges and recent legal issues, who presents having been discharged from this unit and presenting once again with bizarre behavior in the emergency department with likely active drug use and UDS positive for amphetamines. During other recent admissions, the patient has been lethargic but perks up after a few days. RECOMMENDATION and PLAN: 1. Continue current medication. Psychosis is improving as expected after a few days of abstaining from methamphetamine use and taking her usual medications. 2. Dysuria: Will obtain UA with reflex culture. 3. Continue every 15 minute checks for safety. 4. Encourage individual, group and milieu therapies. 5. Encourage sober living treatment after discharge at the highest level of care to which he is willing to commit. 6. We will work with her guardian for discharge planning. Involuntary Hold Information 96 Hour Hold: 96 Hour Involuntary Admission: No Attestations NPU Medical Necessity Statement*: Psychiatric hospitalization is medically necessary to prevent access to lethal means, to reevaluate medication, and to coordinate a safe discharge. Likely length of stay is 1 to 2 days. Coding Level of Care Code Acute Subscription Crew Leader for Thalia Pendleton Diagnoses Drug-induced psychotic disorder F19.959 Amphetamine or stimulant drug abuse F15.10 Post-traumatic stress disorder, chronic F43.12 Cannabis dependence, uncomplicated F12.20 Alcohol dependence, in remission F10.21
[2021-08-02 19:03] LABS: Basophils # 0.1 10^3/uL (0.0-0.1); Basophils % 0.9 %; Eosinophils # 0.5 10^3/uL (0.0-0.8); Eosinophils % 4.6 %; Hematocrit 35.1 % (37.0-47.0); Hemoglobin 11.3 g/dL (11.5-15.3); Lymphocytes # 3.6 10^3/uL (0.8-4.8); Lymphocytes % 36.3 %; Mean Corpuscular HGB Conc 32.2 g/dL (30.0-36.0); Mean Corpuscular Hemoglobin 27.6 pg (28.0-34.0); Mean Corpuscular Volume 85.6 fl (81-99); Monocytes # 0.7 10^3/uL (0.2-0.9); Monocytes % 7.1 %; Neutrophils # 4.97 10^3/uL (1.8-7.7); Neutrophils % 50.8 %; Nucleated Red Blood Cells % 0 %; Platelet Count 431 10^3/cmm (130-400); White Blood Count 9.8 10^3/uL (4.0-10.0)
--- NOTE | 2021-08-02 20:10 | PC.NURSE ---
Addendum entered by Kaur Jade RN 08/03/21 04:56: EMAILED LORNA HINTON WITH REQUEST TO FOLLOW UP Original Note: MOTHER CALLED REGARDING PLACEMENT MOTHER CALLED @2010 ABOUT TAKING HER DAUGHTER OUT OF [facility] TO A PLACE IN [place],AR CALLED IN HIS ARMS PT MOTHER, ANDERSON STATES, THEY ARE HOLDING A BED FOR HER AT THIS TIME. sHE STATES, i LIVE IN [place] AND THIS WOULD BE BETTER FOR HER, I CAN PICK HER UP NOW.
[2021-08-02 20:28] VITALS: BP 94/54; PULSE 80; RESP 16; TEMP 36.7; O2SAT 98
[2021-08-02] MEDS: trazodone 50 mg Tablet PO (20:38)
[2021-08-02] MEDS: hyDROXYzine 25 mg Capsule 50 MG PO (20:38)
[2021-08-02] MEDS: OLANZapine 5 mg TABLET PO (20:38)
[2021-08-02 23:12] LABS: Add Urine Microscopic? YES; Bilirubin Urine Neg (Negative); Blood Urine Neg (Negative); Glucose Urine UA Norm (Normal); Ketones Urine Negative (Negative); Leukocyte Esterase Urine 2+ (Negative); Nitrate Urine Negative (Negative); Protein Urine Neg (Negative); Sulfosalicylic Acid Urine Negative (Negative); Urine Appearance Clear (CLEAR); Urine Color Straw (Yellow); Urobilinogen Urine Norm (Negative); pH Urine 8 (5-7)
[2021-08-02 23:38] LABS: Bacteria Urine TRACE /hpf; Squamous Epithelial Cell Urine 0-4 /hpf (0-5); WBC Urine 0-4 /hpf (0-5)
[2021-08-02 23:39] LABS: Add Urine Culture? No
[2021-08-03 00:36] LABS: Amphetamines Screen Urine Negative (Negative); Barbiturates Screen Urine Negative (Negative); Benzodiazepines Screen Urine Negative (Negative); Cocaine Screen Urine Negative (Negative); Opiate Screen Urine Negative (Negative); PCP Screen Urine Negative (Negative); THC Screen Urine Negative (Negative)
[2021-08-03 06:00] VITALS: BP 112/80; PULSE 62; RESP 17; TEMP 36.3; O2SAT 96
[2021-08-03] MEDS: multivitamin therapeutic Tablet 1 TAB PO (09:38)
[2021-08-03] MEDS: prazosin 1 mg Capsule 2 MG PO (09:38)
[2021-08-03] MEDS: loratadine 10 mg Tablet PO (09:38)
[2021-08-03] MEDS: levothyroxine 50 mcg Tablet PO (09:38)
[2021-08-03] MEDS: sertraline 100 mg Tablet PO (09:38)
[2021-08-03] MEDS: polyethylene glycol 3350 Pkt 17 gm PO ×2 (09:38→21:22)
[2021-08-03] MEDS: acetaminophen 325 mg Tablet 650 MG PO (13:21)
[2021-08-03 14:00] VITALS: BP 95/63; PULSE 98; RESP 16; TEMP 36.8; O2SAT 94
--- NOTE | 2021-08-03 15:06 | PM.NPN ---
Subjective NPU Subjective: Interval history: I met with the treatment team to discuss the patient's progress. They continue to search for suitable placement. The patient says her mood is a little bit depressed and the voices are the same. She says she is still tired and does not want to do anything. No visual hallucinations. No suicidal or homicidal ideation. No side effects from medication. She understands we are looking for a suitable placement. I talked with her about how this is difficult since she is not allowed to return to some places because of her behavior there. She says she is now done with meth. Mental Status Exam MSE Comments: This is a short, slightly overweight white female in [facility]. I met with her in the day room. She was cooperative. No psychomotor agitation or retardation. No abnormal movements. Her movements are more energetic today. Speech is at a regular rate and rhythm without pressure. Thought process is logical and goal-directed. Thought content: She has auditory hallucinations which are chronically distressing to her. She denies visual hallucinations. She denies suicidal and homicidal ideation. Her physical concerns about tiredness, a splotch, decreased blood flow, and the lump on her neck may all represent delusional preoccupations. Insight and judgment are limited but improving, impulse control is limited but improving. Vitals/I&O/Wt Last Vital Signs Temp 98.2 F 08/04/21 06:00 Pulse 59 L 08/04/21 06:00 Resp 16 08/04/21 06:00 BP 99/56 08/04/21 06:00 Pulse Ox 97 08/04/21 06:00 Data NPU : 08/02/21 18:47 07/27/21 17:55 A&P Assessment and plan (1) Drug-induced psychotic disorder: Status: Acute (2) Amphetamine or stimulant drug abuse: Status: Chronic (3) Post-traumatic stress disorder, chronic: Status: Chronic (4) Cannabis dependence, uncomplicated: Status: Chronic (5) Alcohol dependence, in remission: Status: Chronic Additional A&P Information This is a 25-year-old white female with a long history of addiction, trauma, mental health challenges and recent legal issues, who presents having been discharged from this unit and presenting once again with bizarre behavior in the emergency department with likely active drug use and UDS positive for amphetamines. During other recent admissions, the patient has been lethargic but perks up after a few days. RECOMMENDATION and PLAN: 1. Continue current medication. Psychosis is improving as expected after a few days of abstaining from methamphetamine use and taking her usual medications. 2. Dysuria: UA was negative. 3. Continue every 15 minute checks for safety. 4. Encourage individual, group and milieu therapies. 5. Encourage sober living treatment after discharge at the highest level of care to which he is willing to commit. 6. We will work with her guardian for discharge planning. Involuntary Hold Information 96 Hour Hold: 96 Hour Involuntary Admission: No Attestations NPU Medical Necessity Statement*: Psychiatric hospitalization is medically necessary to prevent access to lethal means, to reevaluate medication, and to coordinate a safe discharge. Likely length of stay is 1 to 2 days. Coding Level of Care Code Acute Photoengraving Machine Operator/Tender for Thalia Pendleton Diagnoses Drug-induced psychotic disorder F19.959 Amphetamine or stimulant drug abuse F15.10 Post-traumatic stress disorder, chronic F43.12 Cannabis dependence, uncomplicated F12.20 Alcohol dependence, in remission F10.21
[2021-08-03] MEDS: nicotine 2 mg Gum BUCCAL (17:19)
[2021-08-03 20:18] VITALS: BP 106/68; PULSE 72; RESP 20; TEMP 36.8; O2SAT 100
[2021-08-03] MEDS: hyDROXYzine 25 mg Capsule 50 MG PO (21:20)
[2021-08-03] MEDS: OLANZapine 5 mg TABLET PO (21:21)
[2021-08-03] MEDS: trazodone 50 mg Tablet PO (21:21)
[2021-08-03] MEDS: OLANZapine 5 mg ODT PO (21:21)
[2021-08-03] MEDS: hydrocortisone 1% cream 28 gm 1 APPLIC TOPICAL (21:22)
--- NOTE | 2021-08-04 03:25 | PC.NURSE ---
Patient given Trazpdone 50mg PO, Visteril 50 mg PO at patient request for sleep and anxiety. Zyprexa 5 mg PO given for anxiety / agitation
[2021-08-04 06:00] VITALS: BP 99/56; PULSE 59; RESP 16; TEMP 36.8; O2SAT 97
[2021-08-04] MEDS: levothyroxine 50 mcg Tablet PO (08:23)
[2021-08-04] MEDS: multivitamin therapeutic Tablet 1 TAB PO (08:23)
[2021-08-04] MEDS: polyethylene glycol 3350 Pkt 17 gm PO ×2 (08:24→22:32)
[2021-08-04] MEDS: sertraline 100 mg Tablet PO (08:24)
[2021-08-04] MEDS: loratadine 10 mg Tablet PO (08:24)
[2021-08-04] MEDS: prazosin 1 mg Capsule 2 MG PO (08:24)
[2021-08-04 14:00] VITALS: BP 99/61; PULSE 78; RESP 18; TEMP 36.9; O2SAT 99
[2021-08-04] MEDS: OLANZapine 5 mg ODT PO ×2 (15:40→22:31)
--- NOTE | 2021-08-04 16:14 | PC.NURSE ---
prn Pt was upset and crying and yelling at another pt, because pt told her to shut up. Redirected pt and administered Zyprexa zydis 5mg for anxiety. will continue to monitor.
--- NOTE | 2021-08-04 17:22 | P.PN_ITS ---
Subjective NPU Subjective: Interval history: Keke presents today initially having a fairly good day speaking positive in her attempts to get discharge sooner rather than later. Later she did have a bit of a conflict with her neighbor on the unit who had been yelling at 1 point and then expressed some kind of attitude about Keke making any noise. Ultimately she was able to work with staff to calm herself down but she reports that she really would like to go someplace other than being here. We discussed the work the treatment team is doing to try to find her an appropriate place to continue her recovery and ongoing treatment and overall life. Mental Status Exam MSE Comments: This is a short slightly overweight white female in [facility] scrubs with limited grooming and eye contact. No abnormal movements except for one moment of extreme psychomotor agitation. Intermittently career development coordinator perative with exam in mild distress. Speech was increased rate and volume mostly. Mood described as fine, affect labile. Thought process mostly organized, thought content: Patient denied suicidal or homicidal ideation, there were no delusions reported but some paranoia and persecutory delusions seem present, she denied auditory or visual hallucinations but may have been experiencing auditory hallucinations leading to her hospitalization. Attention and concentration were limited and memory was unreliable but none were formally tested. She is alert and oriented times person and place. Insight and judgment are limited, impulse control is impaired, but improving. Vitals/I&O/Wt Last Vital Signs Temp 98.2 F 08/04/21 20:32 Pulse 72 08/04/21 20:32 Resp 17 08/04/21 20:32 BP 75/46 08/04/21 20:32 Pulse Ox 97 08/04/21 20:32 Data NPU : 08/02/21 18:47 07/27/21 17:55 A&P Additional A&P Information (1) Drug-induced psychotic disorder: (2) Amphetamine or stimulant drug abuse: (3) Post-traumatic stress disorder, chronic: (4) Cannabis dependence, uncomplicated: (5) Alcohol dependence, in remission: This is a 25-year-old white female with a long history of addiction, trauma, mental health challenges and recent legal issues, who presents having been discharged from this unit and presenting once again with bizarre behavior in the emergency department with likely active drug use and UDS positive for amphetamines. During other recent admissions, the patient has been lethargic but perks up after a few days. RECOMMENDATION and PLAN: 1. Continue current medication. 2. Dysuria: UA was negative. 3. Continue every 15 minute checks for safety. 4. Encourage individual, group and milieu therapies. 5. Encourage sober living treatment after discharge at the highest level of care to which she is willing to commit. 6. We will work with her guardian for discharge planning. Involuntary Hold Information 96 Hour Hold: 96 Hour Involuntary Admission: No Attestations NPU 2 Medical Necessity Statement*: Psychiatric hospitalization is medically necessary to prevent access to lethal means, to reevaluate medication, and to coordinate a safe discharge. Likely length of stay is 2-3 days. Coding Level of Care Code Acute Document Advisor for Thalia Pendleton
[2021-08-04 20:32] VITALS: BP 75/46; PULSE 72; RESP 17; TEMP 36.8; O2SAT 97
[2021-08-04] MEDS: OLANZapine 5 mg TABLET PO (22:32)
[2021-08-04] MEDS: hyDROXYzine 25 mg Capsule 50 MG PO (22:32)
[2021-08-04] MEDS: trazodone 50 mg Tablet PO (22:32)
--- NOTE | 2021-08-05 00:09 | PC.NURSE ---
PRN MEDIATION: PATIENT WAS GIVEN ZYPREXA 5MG PO. UPON REASSESSMENT MEDICATION WAS EFFECTIVE.
[2021-08-05 06:00] VITALS: BP 75/46; PULSE 72; RESP 17; TEMP 36.8; O2SAT 97
[2021-08-05] MEDS: loratadine 10 mg Tablet PO (09:24)
[2021-08-05] MEDS: prazosin 1 mg Capsule 2 MG PO (09:24)
[2021-08-05] MEDS: polyethylene glycol 3350 Pkt 17 gm PO ×2 (09:24→20:38)
[2021-08-05] MEDS: multivitamin therapeutic Tablet 1 TAB PO (09:24)
[2021-08-05] MEDS: levothyroxine 50 mcg Tablet PO (09:24)
[2021-08-05] MEDS: sertraline 100 mg Tablet PO (09:24)
--- NOTE | 2021-08-05 11:10 | P.PN_ITS ---
Subjective NPU Subjective: Interval history: 70 presents today reporting that she is feeling a little better than she was yesterday. We discussed the fact that she had accepted by [facility] which she was having questions about the location of that but not on the necessarily clear about what told her she could not work with the social work team to get those questions answered but she was feeling positive about having a place to go endorsing she is sorry she had gotten upset yesterday but was being happy she had options. Mental Status Exam MSE Comments: This is a short slightly overweight white female in [facility] scrubs with limited grooming and eye contact. No abnormal movements except for one moment of extreme psychomotor agitation. Intermittently cooperative with exam in mild distress. Speech was increased rate and volume mostly. Mood described as fine, affect labile. Thought process mostly organized, thought content: Patient denied suicidal or homicidal ideation, there were no delusions reported but some paranoia and persecutory delusions seem present, she denied auditory or visual hallucinations but may have been experiencing auditory hallucinations leading to her hospitalization. Attention and concentration were limited and memory was unreliable but none were formally tested. She is alert and oriented times person and place. Insight and judgment are limited, impulse control is limited, but improving. Vitals/I&O/Wt Last Vital Signs Temp 98.2 F 08/05/21 06:00 Pulse 72 08/05/21 06:00 Resp 17 08/05/21 06:00 BP 75/46 08/05/21 06:00 Pulse Ox 97 08/05/21 06:00 Data NPU : 08/02/21 18:47 07/27/21 17:55 A&P Additional A&P Information (1) Drug-induced psychotic disorder: (2) Amphetamine or stimulant drug abuse: (3) Post-traumatic stress disorder, chronic: (4) Cannabis dependence, uncomplicated: (5) Alcohol dependence, in remission: This is a 25-year-old white female with a long history of addiction, trauma, mental health challenges and recent legal issues, who presents having been discharged from this unit and presenting once again with bizarre behavior in the emergency department with likely active drug use and UDS positive for amphetamines. During other recent admissions, the patient has been lethargic but perks up after a few days. RECOMMENDATION and PLAN: 1. Continue current medication. 2. Dysuria: UA was negative. 3. Continue every 15 minute checks for safety. 4. Encourage individual, group and milieu therapies. 5. Encourage sober living treatment after discharge at the highest level of care to which she is willing to commit. 6. Likely plan for discharge to placement on Sunday. Involuntary Hold Information 96 Hour Hold: 96 Hour Involuntary Admission: No Attestations NPU Medical Necessity Statement*: Psychiatric hospitalization is medically necessary to prevent access to lethal means, to reevaluate medication, and to coordinate a safe discharge. Likely length of stay is 2-3 days. Plan for DC on Sunday morning. Coding Level of Care Code Acute Business Affairs Manager for Thalia Pendleton
[2021-08-05] MEDS: OLANZapine 5 mg ODT PO (13:30)
[2021-08-05 14:00] VITALS: BP 99/67; PULSE 84; RESP 16; TEMP 36.4; O2SAT 99
[2021-08-05] MEDS: trazodone 50 mg Tablet PO (20:38)
[2021-08-05] MEDS: hyDROXYzine 25 mg Capsule 50 MG PO (20:38)
[2021-08-05] MEDS: OLANZapine 5 mg TABLET PO (20:38)
[2021-08-05 21:00] VITALS: BP 94/54; PULSE 86; RESP 20; TEMP 36.8; O2SAT 96
[2021-08-06 06:00] VITALS: BP 96/57; PULSE 76; RESP 16; TEMP 36.6; O2SAT 98
[2021-08-06 06:46] LABS: Urine Appearance Hazy (CLEAR); Urine Color Straw (Yellow); pH Urine 6.5 (5-7)
[2021-08-06 06:47] LABS: Add Urine Culture? Yes; Bacteria Urine 1+ /hpf; Bilirubin Urine Neg (Negative); Blood Urine Neg (Negative); Glucose Urine UA Norm (Normal); Ketones Urine Negative (Negative); Leukocyte Esterase Urine 2+ (Negative); Nitrate Urine Negative (Negative); Protein Urine Neg (Negative); Specific Gravity, Urine 1.005 (1.005-1.030); Squamous Epithelial Cell Urine 0-4 /hpf (0-5); Urobilinogen Urine Norm (Negative); WBC Urine 40-55 /hpf (0-5)
--- NOTE | 2021-08-06 08:19 | P.PN_ITS ---
Subjective NPU Subjective: Interval history: Patient presents today reporting that she is doing okay. She is awaiting discharge on Sunday but is optimistic about her options. We discussed the risk benefits and alternatives of restarting trazodone and Seroquel which is been helpful in the past for sleep difficulties. And she understood and agreed to proceed as documented in this note. She is feeling positive about her circumstance moving forward and denied any significant issues. Mental Status Exam MSE Comments: This is a short slightly overweight white female in [facility] scrubs with limited grooming and eye contact. No abnormal movements. Cooperative with exam in no acute distress. Speech was normal rate and volume. Mood described as better, affect congruent. Thought process mostly organized, thought content: Patient denied suicidal or homicidal ideation, there were no delusions reported or noted, she denied auditory or visual hallucinations. Attention and concentration were limited and memory seemed more reliable but none were formally tested. She is alert and oriented times person and place. Insight and judgment are limited,, but improving impulse control is limited, but improving. Vitals/I&O/Wt Last Vital Signs Temp 97.9 F 08/06/21 06:00 Pulse 76 08/06/21 06:00 Resp 16 08/06/21 06:00 BP 96/57 08/06/21 06:00 Pulse Ox 98 08/06/21 06:00 Data NPU : 08/02/21 18:47 07/27/21 17:55 A&P Additional A&P Information (1) Drug-induced psychotic disorder: (2) Amphetamine or stimulant drug abuse: (3) Post-traumatic stress disorder, chronic: (4) Cannabis dependence, uncomplicated: (5) Alcohol dependence, in remission: This is a 25-year-old white female with a long history of addiction, trauma, me ntal health challenges and recent legal issues, who presents having been discharged from this unit and presenting once again with bizarre behavior in the emergency department with likely active drug use and UDS positive for amphetamines. During other recent admissions, the patient has been lethargic but perks up after a few days. RECOMMENDATION and PLAN: 1. Continue current medication. 2. Dysuria: Recheck UA. 3. Continue every 15 minute checks for safety. 4. Encourage individual, group and milieu therapies. 5. Encourage sober living treatment after discharge at the highest level of car e to which she is willing to commit. 6. Likely plan for discharge to placement on Sunday. Involuntary Hold Information 96 Hour Hold: 96 Hour Involuntary Admission: No Attestations NPU Medical Necessity Statement*: Psychiatric hospitalization is medically necessary to prevent access to lethal means, to reevaluate medication, and to coordinate a safe discharge. Plan for DC on Sunday morning. Coding Level of Care Code Acute Recreation Programmer for Thalia Pendleton
[2021-08-06] MEDS: levothyroxine 50 mcg Tablet PO (09:34)
[2021-08-06] MEDS: loratadine 10 mg Tablet PO (09:34)
[2021-08-06] MEDS: multivitamin therapeutic Tablet 1 TAB PO (09:34)
[2021-08-06] MEDS: prazosin 1 mg Capsule 2 MG PO (09:34)
[2021-08-06] MEDS: polyethylene glycol 3350 Pkt 17 gm PO ×2 (09:34→20:40)
[2021-08-06] MEDS: sertraline 100 mg Tablet PO (09:34)
[2021-08-06 14:00] VITALS: BP 92/61; PULSE 88; RESP 16; TEMP 36.7; O2SAT 98
[2021-08-06] MEDS: OLANZapine 5 mg ODT PO (17:58)
[2021-08-06] MEDS: acetaminophen 325 mg Tablet 650 MG PO (18:48)
[2021-08-06] MEDS: hyDROXYzine 25 mg Capsule 50 MG PO ×2 (20:39→20:40)
[2021-08-06] MEDS: OLANZapine 5 mg TABLET PO (20:40)
[2021-08-06] MEDS: trazodone 50 mg Tablet PO (20:40)
[2021-08-06 20:49] VITALS: RESP 16
[2021-08-06] MEDS: quetiapine 25 mg Tablet 50 MG PO ×2 (22:30→22:35)
[2021-08-06] MEDS: prazosin 1 mg Capsule PO (22:35)
--- NOTE | 2021-08-07 02:51 | PC.NURSE ---
PRN tylenol, haldol, Vistaril, zyprexa, and seroquel given intermittently throughout shift for anxiety, and pain. Patient tolerated well. Will continue to monitor.
[2021-08-07 06:00] VITALS: BP 92/61; PULSE 88; RESP 16; TEMP 36.7; O2SAT 98
--- NOTE | 2021-08-07 07:47 | P.PN_ITS ---
Subjective NPU Subjective: Interval history: Patient presents today continuing to complain of dysuria. We discussed the risks, benefits and alternatives of considering treating for suspected UTI and she understood and agreed proceed as documented in this note. She is excited about the prospect of having a place to go and is hopeful that everything can be worked out in the morning. Mental Status Exam MSE Comments: This is a short slightly overweight white female in [facility] scrubs with adequate grooming and eye contact. No abnormal movements. Cooperative with exam in no acute distress. Speech was normal rate and volume. Mood described as pretty good, affect congruent. Thought process mostly organized, thought content: Patient denied suicidal or homicidal ideation, there were no delusions reported or noted, she denied auditory or visual hallucinations. Attention and concentration were limited and memory seemed more reliable but none were formally tested. She is alert and oriented times person and place. Insight and judgment are limited, but improving impulse control is limited, but improving. Vitals/I&O/Wt Last Vital Signs Temp 98.0 F 08/07/21 06:00 Pulse 88 08/07/21 06:00 Resp 16 08/07/21 06:00 BP 92/61 08/07/21 06:00 Pulse Ox 98 08/07/21 06:00 Weight last 48 hrs Weight 58.967 kg Data NPU : 08/02/21 18:47 07/27/21 17:55 A&P Additional A&P Information (1) Drug-induced psychotic disorder: (2) Amphetamine or stimulant drug abuse: (3) Post-traumatic stress disorder, chronic: (4) Cannabis dependence, uncomplicated: (5) Alcohol dependence, in remission: This is a 25-year-old white female with a long history of addiction, trauma, mental health challenges and recent legal issues, who presents having been discharged from this unit and presenting once again with bizarre behavior in the emergency department with likely active drug use and UDS positive for amphetamines. During other recent admissions, the patient has been lethargic but perks up after a few days. RECOMMENDATION and PLAN: 1. Continue current medication. 2. Dysuria: Start Bactrim DS 1 tab twice daily for 7 days. 3. Continue every 15 minute checks for safety. 4. Encourage individual, group and milieu therapies. 5. Encourage sober living treatment after discharge at the highest level of care to which she is willing to commit. 6. Likely plan for discharge to placement on Sunday. Involuntary Hold Information 96 Hour Hold: 96 Hour Involuntary Admission: No Attestations NPU Medical Necessity Statement*: Psychiatric hospitalization is medically ne cessary to prevent access to lethal means, to reevaluate medication, and to coordinate a safe discharge. Plan for DC on Sunday morning. Coding Level of Care Code Acute Industrial/Organizational Psychologist for Thalia Pendleton
[2021-08-07] MEDS: multivitamin therapeutic Tablet 1 TAB PO (10:05)
[2021-08-07] MEDS: levothyroxine 50 mcg Tablet PO (10:05)
[2021-08-07] MEDS: polyethylene glycol 3350 Pkt 17 gm PO ×2 (10:05→21:55)
[2021-08-07] MEDS: sertraline 100 mg Tablet PO (10:05)
[2021-08-07] MEDS: loratadine 10 mg Tablet PO (10:05)
--- NOTE | 2021-08-07 13:00 | PC.NURSE ---
Ave ordered. First dose now. Proceed with next scheduled dose at [address] Taylor.
[2021-08-07 14:00] VITALS: BP 107/71; PULSE 109; RESP 17; TEMP 36.8; O2SAT 95
[2021-08-07] MEDS: BuSPIRONE 10 mg Tablet 15 MG PO ×2 (14:59→17:53)
[2021-08-07 20:16] VITALS: BP 98/54; PULSE 79; RESP 18; TEMP 36.4; O2SAT 98
[2021-08-07] MEDS: quetiapine 25 mg Tablet 50 MG PO ×2 (21:00→21:56)
[2021-08-07] MEDS: hyDROXYzine 25 mg Capsule 50 MG PO (21:56)
[2021-08-07] MEDS: OLANZapine 5 mg TABLET PO (21:56)
[2021-08-07] MEDS: prazosin 1 mg Capsule PO (21:56)
--- NOTE | 2021-08-08 01:25 | PC.NURSE ---
refused scheduled Trazodone 50mg PO because she stated, It is to sedating with the seroquel.
--- NOTE | 2021-08-08 04:49 | PC.NURSE ---
PM ASSESSMENT Pt reports burning with urination. Pt reports feeling overly groggy with the addition of trazodone and seroquel combination, she refused trazodone this evening. Pt denies SI/HI/AH/VH. Pt does not know how to keep appropriate boundaries of sexual nature with men. 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
[2021-08-08 06:00] VITALS: BP 90/52; PULSE 61; RESP 16; TEMP 36.7; O2SAT 98
[2021-08-08] MEDS: polyethylene glycol 3350 Pkt 17 gm PO (08:54)
[2021-08-08] MEDS: BuSPIRONE 10 mg Tablet 15 MG PO (08:54)
[2021-08-08] MEDS: sertraline 100 mg Tablet PO (08:55)
[2021-08-08] MEDS: multivitamin therapeutic Tablet 1 TAB PO (08:56)
[2021-08-08] MEDS: loratadine 10 mg Tablet PO (08:56)
[2021-08-08] MEDS: sulfamethoxazole-trimeth DS 160-800 mg Tablet 1 TAB PO (08:56)
[2021-08-08] MEDS: levothyroxine 50 mcg Tablet PO (08:56)
[2021-08-08 11:43] VITALS: BP 90/52; PULSE 61; RESP 16; TEMP 36.7; O2SAT 98
--- NOTE | 2021-08-08 11:56 | P.DS_ITS ---
Diagnoses at Discharge Discharge Diagnosis (1) Drug-induced psychotic disorder: Status: Acute (2) Amphetamine or stimulant drug abuse: Status: Chronic (3) Post-traumatic stress disorder, chronic: Status: Chronic (4) Cannabis dependence, uncomplicated: Status: Chronic (5) Alcohol dependence, in remission: Status: Chronic Reason for Visit Reason for Visit: PSYCH EVAL Brief History: History of Present Illness Keke Mcnamara is a 25 year old female with a history of PTSD, bipolar disorder, methamphetamine-induced psychosis, and alcohol abuse, who is being admitted for the seventh time to this unit in the past 3 months. UDS is positive for amphetamines and marijuana. The ED note states: HPI Narrative: 85-year-old female who presents to the emergency room with complaints of altered mental status and erratic behavior. She evidently was at her chief safety officer went into the bathroom and shortly after began acting erratically which progressively worsened and then eventually EMS was called. On arrival patient is erratic lying on her body stating that she is bleeding from her rectum. Is quite obviously that she is not. She has no apparent injury she cannot or will not answer direct questions. Patient appears to be acutely intoxicated with methamphetamine. Associated psychiatric symptoms: depression, racing thoughts, auditory hallucinations, visual hallucinations and delusions. I attempted to interview the patient, but she received several as needed medications to help her calm when she was quite agitated earlier. Nursing says that she was certain that there was blood coming out of the back of her head, and was screaming when no one would take her perceived needs seriously. The patient's presentation is similar to the other recent admissions. She leaves the hospital with a sensible plan to seek treatment in the community or in a secure facility. Somehow the plan goes awry and she finds her way to people who have methamphetamine. She uses methamphetamine and begins coming to the emergency room repeatedly with delusional complaints. She has been in our emergency room 3 times in the past 18 hours under the influence of methamphetamines each time with different complaints. At 10 am on 07/26 she came to the ED complaining that her whole body and face feels like Jell-O. Four hours earlier she present with complaints that her arms were shrinking. She gets admitted to the NPU; the drugs clear her system; We give her antipsychotic medication, and a structured and supportive environment; and she returns to her baseline level of functioning, which includes little to no insight into the nature of her difficulties and what would be of benefit. We are not able to obtain substance use, past psychiatric, family, and social histories. They are likely to be similar to previous admissions. Hospital Course Hospital Course She slowly acclimate it to the individual, group and milieu therapies provided. Guardian approved overall treatment. She was started on Seroquel at night, buSpar twice a day and a medication for her UTI and showed marked improvement. She was able to contract for safety prior to discharge.During the hospitalization, patient had routine laboratory studies which were within normal limits except for few outliers. Additionally there was a general medical evaluation which was also within normal limits and revealed no new acute processes. Discharge Summary: At the time of discharge, she denied psychosis or lethality. Mood and anxiety were well managed. Patient endorsed a plan to avoid all drugs of abuse and follow-up with the aftercare recommendations of the treatment team. Patient was evaluated and deemed to be absent credible lethality, and had achieved the maximum benefit from an inpatient hospitalization, so was discharged. Involuntary Hold Information 96 Hour Hold: 96 Hour Involuntary Admission: No Mental Status Exam MSE Comments: This is a short slightly overweight white female in [facility] scrubs with adequate grooming and eye contact. No abnormal movements. Cooperative with exam in no acute distress. Speech was normal rate and volume. Mood described as good, affect congruent. Thought process mostly organized, thought content: Patient denied suicidal or homicidal ideation, there were no delusions reported or noted, she denied auditory or visual hallucinations. Attention and concentration were limited and memory seemed more reliable but none were formally tested. She is alert and oriented times three. Insight and judgment are improving impulse control is limited, but improving. Discharge Data Vitals: Last Vital Signs Temp 98.1 F 08/08/21 11:43 Pulse 61 08/08/21 11:43 Resp 16 08/08/21 11:43 BP 90/52 08/08/21 11:43 Pulse Ox 98 08/08/21 11:43 Discharge Plan Discharge Patient Disposition: Home Condition: Stable Prescriptions: New quetiapine 25 mg Tablet 50 mg PO BEDTIME 30 Days Qty: 60 RF: 1 sulfamethoxazole-trimethoprim 800-160 mg Tablet 1 tab PO BID 7 Days Qty: 13 RF: 1 hydrocortisone 1 % Cream 1 applic topical TID PRN (Reason: Rash) 30 Days Qty: 1 RF: 1 buspirone 10 mg Tablet 15 mg PO BID 30 Days Qty: 90 RF: 1 loratadine 10 mg Tablet 10 mg PO DAILY 30 Days Qty: 30 RF: 1 Continued aspirin 325 mg Tablet 325 mg PO PRN RF: 0 multivitamin Tablet 1 tab PO DAILY 30 Days RF: 1 sertraline 100 mg tablet 100 mg PO DAILY 30 Days Qty: 30 RF: 1 Zyprexa 5 mg tablet 5 mg PO QPM 30 Days Qty: 30 RF: 1 levothyroxine 50 mcg tablet 50 mcg PO DAILY 30 Days Qty: 30 RF: 1 prazosin 2 mg capsule 2 mg PO BEDTIME 30 Days Qty: 30 RF: 1 hydroxyzine pamoate 25 mg capsule 50 mg PO BEDTIME 30 Days Qty: 60 RF: 1 Discontinued trazodone 50 mg tablet 50 mg PO BEDTIME RF: 0 hydrocortisone 0.25 % Cream 1 applic topical TID PRN (Reason: Itching) RF: 0 Discharge Orders: Discharge Order (Routine); Ordered 08/08/21 Ordered By: Dave Taylor Discharge Diet: Regular Discharge Activity: Resume usual activity Patient Instructions: Sulfamethoxazole/Trimethoprim (By mouth) (Bactrim, Bactrim DS,..., Buspirone (By mouth), Loratadine (By mouth) (Claritin, Claritin 24HR, Claritin RediTabs, Alavert), Hydrocortisone (On the skin), Quetiapine (By mouth), Anxiety (DC), Opioid Safety Discharge Attestations NPU Time Spent in Discharge Care*: greater than 30 min Specific Discharge Activities: Specific discharge activities: educating patient, discussing with family preservation caseworker/social workers/dc planners, documenting/other paperwork and evaluating patient/reviewing data Status at Discharge: Cognitive status at discharge: cognitively intact , Behavioral status at discharge: cooperative , Coding Level of Care Code Acute Chg FW DC note Diagnoses Drug-induced psychotic disorder F19.959 Amphetamine or stimulant drug abuse F15.10 Post-traumatic stress disorder, chronic F43.12 Cannabis dependence, uncomplicated F12.20 Alcohol dependence, in remission F10.21
== END 2021-08-08 12:40 | disposition home or self-care (01) | DRG 897 ==
LOC: ER 17:06 → NP 17:32
PROVIDERS: Psychiatry & Neurology Psychiatry; Admitting Provider Psychiatry & Neurology Child & Adolescent Psychiatry; Emergency Provider Family Medicine; Visit Provider Psychiatry & Neurology Child & Adolescent Psychiatry
DX: F15.159 Other stimulant abuse with stimulant-induced psychotic disorder, unspecified (principal); N39.0 Urinary tract infection, site not specified; F43.12 Post-traumatic stress disorder, chronic; F15.10 Other stimulant abuse, uncomplicated; F12.20 Cannabis dependence, uncomplicated; F10.21 Alcohol dependence, in remission; E03.9 Hypothyroidism, unspecified; F17.210 Nicotine dependence, cigarettes, uncomplicated; F41.9 Anxiety disorder, unspecified; K59.00 Constipation, unspecified
CPT/HCPCS: 36415; 80053; 80306; 80307; 81001; 84703; 85025; 87086; 96372; 97150; 97165; 99285; J2060; J3486; Q0162

== ENCOUNTER → 2021-08-08 12:45 | Outpatient (BNVA) | payer MEDICAID, SELFPAY | PROVIDERS: PCP Internal Medicine; Visit Provider Specialist | DX: R56.9 Unspecified convulsions (principal); F17.200 Nicotine dependence, unspecified, uncomplicated | CPT/HCPCS: 95816 ==

== ENCOUNTER 2023-08-17 07:18 | Inpatient (IN) | payer MEDICAID, SELFPAY ==
[2023-08-17 07:18] VITALS: BP 107/85; PULSE 136; RESP 32; TEMP 36.6; O2SAT 99; BMI 44.9
--- NOTE | 2023-08-17 07:25 | ED.C_ITS ---
HPI - Psych General: Chief Complaint: Psychiatric Symptoms Stated Complaint: sob, high hr Time Seen by Provider: 08/17/23 07:24 Source: patient Mode of arrival: ambulatory History of Present Illness: 27-year-old female who presents emergency room she is tearful answers I do not know to nearly every question we ask. I did ask her about her drinking she has been hospitalized couple of times related to substance abuse she denies any use of alcohol or substances. When I asked her if she wanted to harm herself or others she said she wanted to . The only positive answer good get out of her was that she stated her chest hurt but she could not really tell me anything else. She does not remember how she got here. She cannot answer questions about who she lives with or where she lives. She is able to tell me her first n [place] but does not tell me her last name. complaint: suicidal ideation History of same: Yes If self harm: admits thoughts of self harm Review of Systems General: Reports: ROS unobtainable due to mental status PFSH ED PFSH: Medical History Acquired hypothyroidism Patient with longstanding history, since age 15, of hypothyroidism. She had not been taking medication since February 2019. 08/29/2019: TSH 11.2. Restarted levothyroxine at 50 mcg daily. 10/01/2019: TSH 15.3. Levothyroxine increased to 75 mcg daily. TSH still low. Increase Levothyroxine to 75 mcg -Rx Levothyroxine 75 mcg daily #30, 2 refil. 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 Has maybe one or 2 episodes of shortness of breath a week. Since childhood and states that it is aggravated by exercise. Has maybe one or 2 episodes of shortness of breath a week. Bipolar disorder Bipolar disorder, current episode depressed, severe, without psychotic features Bipolar disorder, mixed Patient has a history of bipolar disorder and PTSD. She has been on multiple medications in the past. She has also been treated with at [facility]. - Present prior to the --was taken off all her medications by Tamika Geiger at [facility] early on in the --she has not been back to [facility] and has not restarted any medication. Today she feels managed without medicine so we will continue to follow but I strongly recommended she return back to [facility] for further evaluation and management. Cannabis dependence, uncomplicated Drug use affecting in second trimester Gastroesophageal reflux during in third trimester, antepartum Hypothyroidism Insulin controlled gestational diabetes mellitus (GDM) in third trimester 09/01/2019: GCT 148 10/06/2019: Attempted to obtain three-hour GTT on multiple occasions. Patient unable to perform test. Check sugars at home and brought those to office at this visit. Pre-meals found to be elevated and consistent with GDM. A1c 10/06/2019: 5.6 Ultrasounds 1. 04/07/2019 ---> 7-4/7 WG ---> EDC 11/20/2019. 2. 07/30/2019 ---> 25-0/7 WG ---> EDC 11/12/2019. 3. 10/03/2019 ---> 34-6/7 WG ---> EDC 11/08/2019. EFW 5 lbs. 2 oz. (2318 g) 74%. SANTHOSH 18.8 cm Patient brought Sugar logs with her which were reviewed. Patient has continued to improve sugars with diet. However still higher than desired. Patient was supposed to have started 20 units of Levemir at her last visit, but wrong dose was sent in to the pharmacy and she only started 2 units daily. Based upon a sugar readings today, I am switching her to 10 units daily. -Levemir 10 units daily. -BPP with NST was 10 out of 10. -Continue weekly testing until 36 weeks at which time it is to switch to twice weekly. Intractable chronic migraine without aura and with status migrainosus Has been treated with multiple medications for headaches. Most recently treated with Imitrex by Dr. Amaro. Last visit with her was on 02/25/2019. This is a hapless mildly impaired 23-year-old with borderline personality disorder and ongoing difficulties. She has a nonfocal exam and I don't see any reason to scan her head. A letter headaches are doing better on current medication and I'm not changing anything. I took time to listen to her story and empathize. Maternal alcohol use complicating in second trimester, antepartum Mental disorder affecting in third trimester Patient has a history of bipolar disorder and PTSD. She has been on multiple medications in the past. She has also been treated with at [facility]. Patient denying depression problems at this time. She is definitely at risk for flareup of her bipolar disorder after delivery. Highly recommend that she get reestablished with [facility]. Nausea/vomiting in 09/29/2019: Started Reglan. Already taking Pepcid. Patient reporting nausea and vomiting. Was previously taking famotidine for acid reflux issues. Was started on Reglan today. Nexplanon insertion On combination antipsychotic drug therapy Post-traumatic stress disorder, chronic Seizure disorder during in third trimester Thyroid disease during in third trimester UTI (urinary tract infection) Surgical History History of myringotomy History of tonsillectomy at age 10 [place] teeth extracted Family History Grandfather Hyperlipidemia Maternal Stroke maternal Diabetes maternal Grandmother Thyroid disease maternal Breast cancer great Mother Thyroid disease Unknown Patient denies medical problems Denies family history of: cervical, uterine, colon cancer, DVT/PE Family/Other Ovarian cancer paternal aunt Social History Smoking and tobacco/nicotine status: current every day tobacco/nicotine user Quit status (tobacco/nicotine): considering quitting Second hand smoke exposure: Yes Alcohol intake: former Year of sobriety/quit date alcohol: 2019 Former alcohol use details: Drank wine during Substance/Drug Use: never Additional social history: Poorly balanced diet Physical Exam Const: GENERAL APPEARANCE: comfortable NUTRITIONAL APPEARANCE: obese ORIENTATION/CONSCIOUSNESS: Yes awake HENMT: COMMON NORMALS: normocephalic, atraumatic and hearing grossly normal bilaterally HEAD & SCALP: normocephalic and atraumatic Chest: OTHER: Bruising noted on the breast medially. Resp: COMMON NORMALS: normal respiratory effort, No retractions, No use of accessory muscles and clear to auscultation bilaterally AUSCULTATION: clear to auscultation bilaterally Cardio: COMMON NORMALS: regular rate, regular rhythm and No murmurs present (Cardio) RATE: regular rate RHYTHM: regular rhythm GI: COMMON NORMALS: Soft to palpation and No hepatosplenomegaly present AUSCULTATION: Yes normoactive bowel sounds PALPATION: Yes Soft to palpation, No Tenderness to palpation present (GI), No Guarding due to palpation present (GI) and Yes No hepatosplenomegaly present Extremity: COMMON NORMALS: normal to inspection, capillary refill normal, no clubbing, cyanosis or edema, no calf tenderness and no pedal edema Skin: COMMON NORMALS: no rashes or lesions noted GENERAL SKIN EXAM: no rashes or lesions noted Course Vital Signs: Vital signs: Vital Signs Temperature 98.3 F 08/20/23 14:00 Pulse Rate 84 08/20/23 14:00 Respiratory Rate 16 08/20/23 14:00 Blood Pressure 102/68 08/20/23 14:00 Pulse Oximetry 97 08/20/23 14:00 Oxygen Delivery Me thod Room Air 08/20/23 14:00 MDM - Psych Medical Decision Making Medically cleared. Patient appears to be under the influence of methamphetamines this time. She is suicidal. Discussed Dr. Taylor will admit orders written Medical Records I reviewed the patient's medical records. Lab Data I reviewed the patient's lab results. 08/17/23 07:53 08/17/23 07:53 Laboratory Results WBC 15.81 10^3/uL (3.29-11.43) H 08/17/23 07:53 RBC 5.14 10^6/uL (3.85-5.65) 08/17/23 07:53 Hgb 14.50 g/dL (11.27-16.99) 08/17/23 07:53 Hct 42.9 % (36-47) 08/17/23 07:53 MCV 83.5 fl (85-98) L 08/17/23 07:53 MCH 28.2 pg (27-33) 08/17/23 07:53 MCHC 33.8 g/dL (30-55) 08/17/23 07:53 RDW 14.1 % (12.1-15.1) 08/17/23 07:53 Plt Count 545 10^3/cmm (157-399) H 08/17/23 07:53 MPV 8.6 fL (7.4-10.4) 08/17/23 07:53 Neut % (Auto) 70.9 % 08/17/23 07:53 Lymph % (Auto) 21.5 % 08/17/23 07:53 Person % (Auto) 5.9 % 08/17/23 07:53 Eos % (Auto) 0.6 % 08/17/23 07:53 Baso % (Auto) 0.8 % 08/17/23 07:53 Neut # (Auto) 11.20 10^3/uL (1.8-7.7) H 08/17/23 07:53 Lymph # (Auto) 3.4 10^3/uL (0.8-4.8) 08/17/23 07:53 Person # (Auto) 0.9 10^3/uL (0.2-0.9) 08/17/23 07:53 Eos # (Auto) 0.1 10^3/uL (0.0-0.8) 08/17/23 07:53 Baso # (Auto) 0.1 10^3/uL (0.0-0.1) 08/17/23 07:53 Nucleated RBC % (auto) 0 % 08/17/23 07:53 Nucleated RBCs # 0.0 /100WBC 08/17/23 07:53 Sodium 140 mmol/L (136-145) 08/17/23 07:53 Potassium 3.8 mmol/L (3.5-5.1) 08/17/23 07:53 Chloride 101 mmol/L (98-107) 08/17/23 07:53 Carbon Dioxide 25 mmol/L (22-29) 08/17/23 07:53 Anion Gap 17.8 (5-19) 08/17/23 07:53 BUN 6 mg/dL (6-20) 08/17/23 07:53 Creatinine 0.9 mg/dL (0.5-0.9) 08/17/23 07:53 GFR Calculation 75.1 mL/min (90-130) L 08/17/23 07:53 Glucose 111 mg/dL (65-115) 08/17/23 07:53 Calculated Osmolality 288 mOsm/kg (285-295) 08/17/23 07:53 Calcium 9.9 mg/dL (8.5-10.5) 08/17/23 07:53 Total Bilirubin 0.5 mg/dL (0.15-1.2) 08/17/23 07:53 AST 28 U/L (0-32) 08/17/23 07:53 ALT 29 U/L (0-33) 08/17/23 07:53 Alkaline Phosphatase 133 U/L (35-105) H 08/17/23 07:53 Total Protein 7.7 g/dL (6.6-8.7) 08/17/23 07:53 Albumin 4.3 g/dL (3.5-5.2) 08/17/23 07:53 Globulin 3.4 g/dL (1.3-4.6) 08/17/23 07:53 TSH 7.39 uIU/mL (0.27-4.20) H 08/17/23 07:53 HCG, Qual Negative (Negative) 08/17/23 07:53 Urine Color Yellow (Yellow) 08/17/23 07:51 Urine Appearance Sl hazy (CLEAR) A 08/17/23 07:51 Urine pH 6 (5-7) 08/17/23 07:51 Ur Specific [place] 1.010 (1.005-1.030) 08/17/23 07:51 Urine Protein Trace (Negative) 08/17/23 07:51 Urine Glucose (UA) Norm (Normal) 08/17/23 07:51 Urine Ketones 1+ (Negative) H 08/17/23 07:51 Urine Blood Neg (Negative) 08/17/23 07:51 Urine Nitrate Negative (Negative) 08/17/23 07:51 Urine Bilirubin 1+ (Negative) H 08/17/23 07:51 Urine Urobilinogen 1 mg/dL (Negative) H 08/17/23 07:51 Ur Leukocyte Esterase Trace (Negative) H 08/17/23 07:51 Urine RBC 0-4 /hpf (0-2) H 08/17/23 07:51 Urine WBC 0-4 /hpf (0-5) H 08/17/23 07:51 Ur Squamous Epith Cells 5-10 /hpf (0-5) H 08/17/23 07:51 Amorphous Sediment 1+ /hpf 08/17/23 07:51 Urine Bacteria Trace /hpf (NONE) 08/17/23 07:51 Urine Mucus 2+ /hpf 08/17/23 07:51 Salicylates 0.7 mg/dL (3-10) L 08/17/23 07:53 Urine Opiates Screen Negative ng/mL (Negative) 08/17/23 07:51 Acetaminophen < 5.0 ug/mL (10-30) L 08/17/23 07:53 Ur Barbiturates Screen Negative ng/mL (Negative) 08/17/23 07:51 Ur Phencyclidine Scrn Negative ng/mL (Negative) 08/17/23 07:51 Ur Amphetamines Screen Positive ng/mL (Negative) H 08/17/23 07:51 U Benzodiazepines Scrn Negative ng/mL (Negative) 08/17/23 07:51 Urine Cocaine Screen Negative ng/mL (Negative) 08/17/23 07:51 U Marijuana (THC) Screen Positive ng/mL (Negative) H 08/17/23 07:51 Ethyl Alcohol < 10 mg/dL (0-10) 08/17/23 07:53 All radiology interpretation(s) finalized by discharge Discharge Plan Discharge Patient Disposition: Admitted As Inpatient Admit Provider: Dave Taylor Clinical Impression: Suicidal ideation, Amphetamine or stimulant drug abuse Condition: Stable Coding Level of Care Code ED Commercial Drafter for Thalia Pendleton
--- NOTE | 2023-08-17 07:43 | XR_ITS ---
WS: [id number] Portable AP semiupright chest, 08/17/2023 Clinical Data: chest pain Comparison: Portable chest, 05/30/2021 Findings: No nodules, masses or effusions are seen. The heart is normal. The pulmonary vascularity is not increased. No pneumonia or pneumothorax is seen. Impression: Negative chest.
--- NOTE | 2023-08-17 07:55 | ECG_ITS ---
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 Measurements Intervals [place] Rate: 112 P: 47 DC: 119 QRS: 55 QRSD: 85 T: 3 QT: 310 QTc: 423 Interpretive Statements SINUS TACHYCARDIA WITH SHORT DC INTERVAL Compared to ECG 05/02/2021 11:37:43 T-wave abnormality no longer present Electronically Signed On 08-17-2023 8:58:57 CDT by Santos Healy M.D. [email or web address]
[2023-08-17 08:00] LABS: Basophils # 0.1 10^3/uL (0.0-0.1); Basophils % 0.8 %; Eosinophils # 0.1 10^3/uL (0.0-0.8); Eosinophils % 0.6 %; Hematocrit 42.9 % (36-47); Lymphocytes # 3.4 10^3/uL (0.8-4.8); Lymphocytes % 21.5 %; Mean Corpuscular HGB Conc 33.8 g/dL (30-55); Mean Corpuscular Hemoglobin 28.2 pg (27-33); Mean Corpuscular Volume 83.5 fl (85-98); Mean Platelet Volume 8.6 fL (7.4-10.4); Monocytes # 0.9 10^3/uL (0.2-0.9); Monocytes % 5.9 %; Neutrophils % 70.9 %; Nucleated Red Blood Cells % 0 %; Platelet Count 545 10^3/cmm (157-399); Red Blood Count 5.14 10^6/uL (3.85-5.65); Red Cell Distribution Width 14.1 % (12.1-15.1); White Blood Count 15.81 10^3/uL (3.29-11.43)
--- NOTE | 2023-08-17 08:23 | PC.PHAR ---
pt unable to verify medications-pt states she takes medications but unsure what they are and where she filled them at-called [facility]-no profile,[facility] 2019,[facility]-never filled,[facility] filled 2020,[facility] filled,[facility] till -medications that were entered in [facility] were from 08/08/2021 buspirone 15mg bid,hydrocortisone 1% cream tid prn,hydroxyzine pamoate 50mg hs,levothyroxine 50mcg daily,loratadine 10mg daily,multivitamin 1 tab daily,prazosin 2mg hs,quetiapine 50mg hs,sertraline 100mg daily,zyprexa 5mg qpm-
[2023-08-17 08:27] LABS: HCG, Serum Qual Negative (Negative)
[2023-08-17 08:31] LABS: Alanine Aminotransferase 29 U/L (0-33); Albumin Level 4.3 g/dL (3.5-5.2); Alkaline Phosphatase 133 U/L (35-105); Anion Gap 17.8 (5-19); Aspartate Amino Transferase 28 U/L (0-32); Blood Urea Nitrogen 6 mg/dL (6-20); Calcium 9.9 mg/dL (8.5-10.5); Carbon Dioxide 25 mmol/L (22-29); Chloride 101 mmol/L (98-107); Globulin 3.4 g/dL (1.3-4.6); Glomerular Filtration Rate 75.1 mL/min (90-130); Glucose 111 mg/dL (65-115); Osmolality Calculated 288 mOsm/kg (285-295); Potassium 3.8 mmol/L (3.5-5.1); Salicylate 0.7 mg/dL (3-10); Sodium 140 mmol/L (136-145); Thyroid Stimulating Hormone 7.39 uIU/mL (0.27-4.20); Total Bilirubin 0.5 mg/dL (0.15-1.2); Total Protein 7.7 g/dL (6.6-8.7)
[2023-08-17 08:35] LABS: Amphetamines Screen Urine Positive (Negative); Barbiturates Screen Urine Negative (Negative); Benzodiazepines Screen Urine Negative (Negative); Cocaine Screen Urine Negative (Negative); Opiate Screen Urine Negative (Negative); PCP Screen Urine Negative (Negative); THC Screen Urine Positive (Negative)
[2023-08-17 08:35] LABS: Acetaminophen < 5.0 ug/mL (10-30); Alcohol Level < 10 mg/dL (0-10)
[2023-08-17 08:49] LABS: Urine Appearance SL Hazy (CLEAR); Urine Color Yellow (Yellow)
[2023-08-17 08:50] LABS: Add Urine Culture? No; Add Urine Microscopic? YES; Amorphous Sediment Urine 1+ /hpf; Bacteria Urine TRACE /hpf; Bilirubin Urine 1+ (Negative); Blood Urine Neg (Negative); Glucose Urine UA Norm (Normal); Ketones Urine 1+ (Negative); Leukocyte Esterase Urine Trace (Negative); Mucus Urine 2+ /hpf; Nitrate Urine Negative (Negative); Protein Urine Trace (Negative); RBC Urine 0-4 /hpf (0-2); Urobilinogen Urine 1 mg/dL (Negative); WBC Urine 0-4 /hpf (0-5); pH Urine 6 (5-7)
[2023-08-17 09:55] VITALS: BP 116/82; PULSE 110; RESP 16; TEMP 36.9; O2SAT 97
[2023-08-17] MEDS: hyDROXYzine 25 mg Capsule 50 MG PO ×2 (10:43→18:03)
[2023-08-17] MEDS: acetaminophen 325 mg Tablet 650 MG PO ×2 (10:44→18:03)
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
[2023-08-17 11:33] LABS: Glucose Point of Care 103 mg/dL (70-110)
[2023-08-17 14:00] VITALS: BP 100/66; PULSE 109; RESP 15; TEMP 36.9; O2SAT 99
--- NOTE | 2023-08-17 14:48 | PC.NURSE ---
96 hr rights reviewed with patient with assistance of [facility] offcier Sudhakar @[phone]. Patient verbalized no questions, concerns, or needs at this time. Patient copy left @bedside with patient.
--- NOTE | 2023-08-17 17:54 | PC.NURSE ---
Patient knocked on nursing station window and stated, I don't feel good. When this RN asked her what she meant by this she said, I don't know. I then asked the patient if she was nauseous to which she continued to reply I don't know. I also asked if she was in pain anywhere, and again, she stated I don't know. Patient was advised to try to lie down for a bit to see if the problem resolved. Within 2 minutes patient was back at the counter and asked, can we do something? I don't feel good. Patient was still unable to elaborate on the issue when this RN asked further questions. Tylenol was offered due to patient saying ouch while standing, but she did not want it.
--- NOTE | 2023-08-17 18:06 | PC.NURSE ---
Patient approaches nurses' station again and asked for a pain pill. This RN administered tylenol 650mg po and patient was agreeable to take vistaril 50mg po. She then became angry because she believed it was taking this RN too long to remove the medications from their wrappers. Another patient asked her what was wrong and she replied, just shut the fuck up. Patient was verbally de-escalated, she took the medication, and then she went back to her room.
[2023-08-17 20:06] VITALS: RESP 16
[2023-08-18 06:00] VITALS: BP 97/67; PULSE 96; RESP 16; O2SAT 92
[2023-08-18] MEDS: ibuprofen 600 mg Tablet PO ×2 (08:38→16:04)
[2023-08-18] MEDS: nicotine 21 mg Patch 1 PATCH TRANSDERMA (08:38)
[2023-08-18] MEDS: hyDROXYzine 25 mg Capsule 50 MG PO ×2 (08:39→18:37)
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
[2023-08-18 13:06] VITALS: BP 104/74; PULSE 95; RESP 14; TEMP 36.8; O2SAT 100
--- NOTE | 2023-08-18 16:30 | PC.NURSE ---
Outside Pt went outside with group in enclosed courtyard
[2023-08-18 20:03] VITALS: BP 122/86; PULSE 108; RESP 16; TEMP 37; O2SAT 98
[2023-08-18] MEDS: trazodone 50 mg Tablet PO (20:09)
[2023-08-18] MEDS: haloperidol 5 mg Tablet PO (20:09)
--- NOTE | 2023-08-18 20:41 | PC.NURSE ---
During shift assessment pt stated that she has been seeing shadows everywhere. Pt stated that these shadows make here feel scared and unsafe. Pt was given 5mg Haldol PO to help with hallucinations. Behavioral monitoring continues.
[2023-08-19 06:00] VITALS: BP 95/68; PULSE 106; RESP 16; O2SAT 98
[2023-08-19] MEDS: ibuprofen 600 mg Tablet PO (06:22)
[2023-08-19] MEDS: BuSPIRONE 10 mg Tablet PO ×2 (08:22→20:03)
[2023-08-19 12:29] VITALS: BP 113/73; PULSE 84; RESP 16; TEMP 36.8; O2SAT 99
--- NOTE | 2023-08-19 14:08 | P.NPUPN_ITS ---
Subjective NPU Subjective: 27-year-old white female with a history of methamphetamine use admitted with auditory hallucinations with a history of multiple inpatient hospitalizations. She had continued to report feeling confused. She had isolated herself on the milieu. She was unable to identify what she was hearing. She had reported some difficulties with sleep. She was unable to describe any medications that she had been previously started on in the past for managing her hallucinations. Mental Status Exam MSE Comments: This is an obese, white female, in hospital scrubs, with poor grooming and adequate eye contact. Hair color is bright red/pink. No abnormal movements, except for severe psychomotor retardation. She was cooperative with exam in mild distress. Speech was diminished in rate and decreased in volume. Mood described as okay; affect was mood incongruent and flat. Thought process was concrete and superficial. Thought content: patient denied any suicidal or homicidal ideation, patient endorsed paranoia, patient denied any auditory or visual hallucinations although she did appear to be responding to internal stimuli. Attention and concentration appeared intact, and memory was somewhat unreliable, but none were formally tested. Alert and oriented times three. Insight and judgment appear limited. Impulse control is impaired. Vitals/I&O/Wt Last Vital Signs Temp 98.3 F 08/19/23 12:29 Pulse 84 08/19/23 12:29 Resp 16 08/19/23 12:29 BP 113/73 08/19/23 12:29 Pulse Ox 99 08/19/23 12:29 O2 Del Method Room Air 08/19/23 06:00 Weight last 48 hrs Weight 95.765 kg Data NPU 08/17/23 07:53 08/17/23 07:53 A&P Assessment and plan (1) Suicidal ideation: (2) Seizures: (3) Drug-induced psychotic disorder: (4) Amphetamine or stimulant drug abuse: (5) Post-traumatic stress disorder, chronic: (6) Cannabis dependence, uncomplicated: (7) Alcohol dependence, in remission: Plan This is a 27-year-old, white female, with genetic loading for mental health and addiction issues, with a history of mental health issues and substance abuse, w ho presents after testing positive for methamphetamine in the ER and having an episode of hallucinations, and reporting that she has not had her psychiatric medications for about a month. 1. Continue Buspar as prescribed and begin Abilify 5mg daily to target psychosis. 2. Encourage individual, group, and milieu therapy. 3. Continue q-15-minute checks for safety. 4. Recommend sober living treatment at the highest level of care to which the patient is willing to commit. Involuntary Hold Information 96 Hour Hold: 96 Hour Involuntary Admission: No Attestations NPU Medical Necessity Statement*: Inpatient hospitalization is medically necessary and the clinically appropriate intervention, at this time. We will monitor medications and make changes as indicated. Patient will be in the hospital for over two midnights. Likely length of stay is five to seven days. Coding Level of Care Code Acute Code for [facility] Fwd Diagnoses Suicidal ideation R45.851 Seizures R56.9 Drug-induced psychotic disorder F19.959 Amphetamine or stimulant drug abuse F15.10 Post-traumatic stress disorder, chronic F43.12 Cannabis dependence, uncomplicated F12.20 Alcohol dependence, in remission F10.21
[2023-08-19] MEDS: ARIPiprazole 10 mg Tablet 5 MG PO (14:42)
[2023-08-19 19:51] VITALS: BP 99/65; PULSE 86; RESP 16; TEMP 37.1; O2SAT 99
[2023-08-19] MEDS: trazodone 50 mg Tablet PO (20:03)
[2023-08-20 06:00] VITALS: BP 103/71; PULSE 76; RESP 16; O2SAT 95
[2023-08-20] MEDS: ARIPiprazole 10 mg Tablet 5 MG PO (08:11)
[2023-08-20] MEDS: ibuprofen 600 mg Tablet PO (08:12)
[2023-08-20] MEDS: BuSPIRONE 10 mg Tablet PO (08:12)
[2023-08-20] MEDS: acetaminophen 325 mg Tablet 650 MG PO (13:32)
[2023-08-20 14:00] VITALS: BP 102/68; PULSE 84; RESP 16; TEMP 36.8; O2SAT 97
[2023-08-20] MEDS: OLANZapine 5 mg ODT PO (17:01)
--- NOTE | 2023-08-20 17:15 | W.PM.NPUPNS ---
Subjective NPU Subjective: 27-year-old white female with a history of methamphetamine use admitted with auditory hallucinations with a history of multiple inpatient hospitalizations. The patient continued to endorse depressed mood. She reported that she had had a prior problem of having paranoia and hearing voices after the use of methamphetamine. The patient was informed of the possibility that the Abilify could prevent these future episodes of psychosis and she was agreeable to continuing this. The patient reported low energy and low motivation. Staff notes patient had isolated herself on the milieu and stated that she felt tired. She had endorsed feeling lethargic. She had minimized any hallucinations at this time. She had reported significant anxiety and stated that she had chronic problems with managing her anxiety with reports of continued PTSD related symptoms including nightmares and flashbacks. Mental Status Exam MSE Comments: This is an obese, white female, in hospital scrubs, with poor grooming and adequate eye contact. Hair color is bright red/pink. No abnormal movements, except for severe psychomotor retardation. She was cooperative with exam in mild distress. Speech was diminished in rate and decreased in volume. Mood described as okay; Her affect was mood incongruent and flat. Thought process was concrete and superficial. Thought content: patient denied any suicidal or homicidal ideation, patient endorsed paranoia, patient denied any auditory or visual hallucinations and did not appear to be responding to internal stimuli. Attention and concentration appeared intact, and memory was somewhat unreliable, but none were formally tested. Alert and oriented times three. Insight and judgment appear limited. Impulse control is impaired. Vitals/I&O/Wt Last Vital Signs Temp 98.3 F 08/20/23 14:00 Pulse 84 08/20/23 14:00 Resp 16 08/20/23 14:00 BP 102/68 08/20/23 14:00 Pulse Ox 97 08/20/23 14:00 O2 Del Method Room Air 08/20/23 14:00 Weight last 48 hrs Weight 95.765 kg Data NPU 08/17/23 07:53 08/17/23 07:53 A&P Assessment and plan (1) Suicidal ideation: (2) Seizures: (3) Drug-induced psychotic disorder: (4) Amphetamine or stimulant drug abuse: (5) Post-traumatic stress disorder, chronic: (6) Cannabis dependence, uncomplicated: (7) Alcohol dependence, in remission: Plan This is a 27-year-old, white female, with genetic loading for mental health and addiction issues, with a history of mental health issues and substance abuse, who presents after testing positive for methamphetamine in the ER and having an episode of hallucinations, and reporting that she has not had her psychiatric medications for about a month. 1. D/C buspar, trial of lexapro 10 mg daily to target depression/anxiety and continue abilify with increase to 10mg daily. 2. Encourage individual, group, and milieu therapy. 3. Continue q-15-minute checks for safety. 4. Recommend sober living treatment at the highest level of care to which the patient is willing to commit. 5. Patient has a legal guardian, Vamsi Hazel. Involuntary Hold Information 96 Hour Hold: 96 Hour Involuntary Admission: No Attestations NPU Medical Necessity Statement*: Inpatient hospitalization is medically necessary and the clinically appropriate intervention, at this time. We will monitor medications and make changes as indicated. Patient will be in the hospital for over two midnights. Likely length of stay is five to seven days. Coding Level of Care Code Acute Code for g Fwd Diagnoses Suicidal ideation R45.851 Seizures R56.9 Drug-induced psychotic disorder F19.959 Amphetamine or stimulant drug abuse F15.10 Post-traumatic stress disorder, chronic F43.12 Cannabis dependence, uncomplicated F12.20 Alcohol dependence, in remission F10.21
[2023-08-20] MEDS: ondansetron 4 MG Tablet PO (17:51)
[2023-08-20] MEDS: neomycin-poly-bacitracin oint 28 gm 1 APPLIC TOPICAL (18:00)
--- NOTE | 2023-08-20 18:00 | PC.NURSE ---
pt has three healing area on left breast and one on right. applied to each area.
[2023-08-20 20:11] VITALS: BP 119/83; PULSE 102; RESP 18; TEMP 37; O2SAT 99
[2023-08-21 06:00] VITALS: BP 88/67; PULSE 98; RESP 15; TEMP 37.3; O2SAT 98
[2023-08-21] MEDS: escitalopram 10 mg Tablet PO (08:18)
[2023-08-21] MEDS: ARIPiprazole 10 mg Tablet PO (08:18)
[2023-08-21] MEDS: ibuprofen 600 mg Tablet PO (09:05)
[2023-08-21] MEDS: neomycin-poly-bacitracin oint 28 gm 1 APPLIC TOPICAL (10:33)
[2023-08-21] MEDS: acetaminophen 325 mg Tablet 650 MG PO ×2 (11:13→16:31)
[2023-08-21 14:00] VITALS: BP 110/80; PULSE 93; RESP 16; TEMP 36.9; O2SAT 95
[2023-08-21] MEDS: ondansetron 4 MG Tablet PO (16:31)
--- NOTE | 2023-08-21 17:50 | P.NPUPN_ITS ---
Subjective NPU Subjective: 27-year-old white female with a history of methamphetamine use admitted with auditory hallucinations with a history of multiple inpatient hospitalizations. Patient was positive for amphetamines on admission. She continued to appear apathetic and unmotivated on the milieu. She had reported that everything was fine . She had spent most of the day in bed and had not attended groups sanjuanita fitzgerald. She had expressed desire to go back to her friend's home to live but was informed that the guardian would be making that decision. The patient had stated that she wanted to live close to her family but at the same time she had reported having little support from any members of her family. The patient reported that she did not remember why she was under the care of a court appointed guardian. She had continued to remain evasive regarding her current problems. She had reported significant pain issues as well. Mental Status Exam MSE Comments: This is an obese, white female, in hospital scrubs, with poor grooming and adequate eye contact. Hair color is bright red/pink. No abnormal movements, except for severe psychomotor retardation. She was minimally cooperative with exam in moderate distress. Speech was diminished in rate and decreased in volume with truncated answers repeating i don't remember throughout the interview. Mood described as okay; Her affect was mood incongruent and flat. Thought process was concrete and superficial. Thought content: patient denied any suicidal or homicidal ideation, patient was paranoia. The patient denied any auditory or visual hallucinations and did not appear to be responding to internal stimuli. Attention and concentration appeared intact, and memory was somewhat unreliable, but none were formally tested. Alert and oriented times three. Insight and judgment appear limited. Impulse control is impaired. Vitals/I&O/Wt Last Vital Signs Temp 98.4 F 08/21/23 14:00 Pulse 93 08/21/23 14:00 Resp 16 08/21/23 14:00 BP 110/80 08/21/23 14:00 Pulse Ox 95 08/21/23 14:00 O2 Del Method Room Air 08/21/23 14:00 Data NPU 08/17/23 07:53 08/17/23 07:53 A&P Assessment and plan (1) Suicidal ideation: (2) Seizures: (3) Drug-induced psychotic disorder: (4) Amphetamine or stimulant drug abuse: (5) Post-traumatic stress disorder, chronic: (6) Cannabis dependence, uncomplicated: (7) Alcohol dependence, in remission: Plan This is a 27-year-old, white female, with genetic loading for mental health and addiction issues, with a history of mental health issues and substance abuse, who presents after testing positive for methamphetamine in the ER and having an episode of hallucinations, and reporting that she has not had her psychiatric medications for about a month. 1. Continue lexapro 10 mg daily to target depression/anxiety and continue abilify with increase to 15mg daily. 2. Encourage individual, group, and milieu therapy. 3. Continue q-15-minute checks for safety. 4. Recommend sober living treatment at the highest level of care to which the patient is willing to commit. 5. Patient has a legal guardian, Vamsi Hazel and will be going to skilled nursing upon discharge Involuntary Hold Information 96 Hour Hold: 96 Hour Involuntary Admission: No Attestations NPU Medical Necessity Statement*: Inpatient hospitalization is medically necessary and the clinically appropriate intervention, at this time. We will monitor medications and make changes as indicated. Patient's likely length of stay is five to seven days. Coding Level of Care Code Acute Code for g Fwd Diagnoses Suicidal ideation R45.851 Seizures R56.9 Drug-induced psychotic disorder F19.959 Amphetamine or stimulant drug abuse F15.10 Post-traumatic stress disorder, chronic F43.12 Cannabis dependence, uncomplicated F12.20 Alcohol dependence, in remission F10.21
[2023-08-21 20:24] VITALS: BP 111/78; PULSE 114; RESP 16; TEMP 36.8; O2SAT 98
[2023-08-22 06:00] VITALS: BP 120/85; PULSE 94; RESP 16; TEMP 36.8; O2SAT 98
[2023-08-22] MEDS: escitalopram 10 mg Tablet PO (08:01)
[2023-08-22] MEDS: acetaminophen 325 mg Tablet 650 MG PO (08:01)
[2023-08-22] MEDS: ondansetron 4 MG Tablet PO ×2 (08:01→14:08)
[2023-08-22] MEDS: ARIPiprazole 10 mg Tablet 15 MG PO (08:02)
[2023-08-22] MEDS: promethazine 25 mg/mL SDV 1 mL IM (11:55)
[2023-08-22 14:00] VITALS: BP 111/83; PULSE 96; RESP 14; TEMP 36.3; O2SAT 95
--- NOTE | 2023-08-22 15:49 | P.NPUPN_ITS ---
Subjective NPU Subjective: 27-year-old white female with a history of methamphetamine use admitted with auditory hallucinations with a history of multiple inpatient hospitalizations. Patient was positive for amphetamines on admission. The patient continued to appear confused. She had reported feeling sick in her stomach and had vomited 3 times yesterday. She reported no change in her mood. She had continued to ex press frustration about not being allowed to go live with friends or family as the guardian had requested that the patient be placed in a skilled nursing. She continued to appear isolative on the milieu. She continued to struggle with completion of activities of daily living. S Mental Status Exam MSE Comments: This is an obese, white female, in hospital scrubs, with poor grooming and minimal eye contact. Hair color is bright red/pink. No abnormal movements, except for severe psychomotor retardation. She was minimally cooperative with exam in mild to moderate distress. She was hiding underneath her blanket. Speech was diminished in rate and decreased in volume with truncated answers repeating i don't know throughout the interview. Mood described as okay; Her affect was mood incongruent and flat. Thought process was concrete and superficial. Thought content: patient denied any suicidal or homicidal ideation, patient was paranoia. The patient denied any auditory or visual hallucinations and did not appear to be responding to internal stimuli. Attention and concentration appeared intact, and memory was somewhat unreliable, but none were formally tested. Alert and oriented times three. Insight and judgment appear limited. Impulse control is impaired. Vitals/I&O/Wt Last Vital Signs Temp 97.4 F L 08/22/23 14:00 Pulse 96 08/22/23 14:00 Resp 14 08/22/23 14:00 BP 111/83 08/22/23 14:00 Pulse Ox 95 08/22/23 14:00 O2 Del Method Room Air 08/22/23 06:00 Data NPU 08/17/23 07:53 08/17/23 07:53 A&P Assessment and plan (1) Suicidal ideation: (2) Seizures: (3) Drug-induced psychotic disorder: (4) Amphetamine or stimulant drug abuse: (5) Post-traumatic stress disorder, chronic: (6) Cannabis dependence, uncomplicated: (7) Alcohol dependence, in remission: (8) Depression, unspecified: Plan This is a 27-year-old, white female, with genetic loading for mental health and addiction issues, with a history of mental health issues and substance abuse, who presents after testing positive for methamphetamine in the ER and having an episode of hallucinations, and reporting that she has not had her psychiatric medications for about a month. 1. Continue lexapro 10 mg daily to target depression/anxiety and reduce abilify to 10mg (patient had reported nausea-possibly dopamine related) 2. Encourage individual, group, and milieu therapy. 3. Continue q-15-minute checks for safety. 4. Recommend sober living treatment at the highest level of care to which the patient is willing to commit. 5. Patient has a legal guardian, Vamsi Hazel and will be going to skilled nursing upon discharge Involuntary Hold Information 96 Hour Hold: 96 Hour Involuntary Admission: No Attestations NPU Medical Necessity Statement*: Inpatient hospitalization is medically necessary and the clinically appropriate intervention, at this time. We will monitor medications and make changes as indicated. Patient's likely length of stay is five to seven days. Coding Level of Care Code Acute Code for [facility] Diagnoses Suicidal ideation R45.851 Seizures R56.9 Drug-induced psychotic disorder F19.959 Amphetamine or stimulant drug abuse F15.10 Post-traumatic stress disorder, chronic F43.12 Cannabis dependence, uncomplicated F12.20 Alcohol dependence, in remission F10.21 Depression, unspecified F32.A
[2023-08-22 18:36] LABS: SARS Covid-2 Antigen Negative (Negative)
[2023-08-22 18:42] LABS: Influenza A by IFA Positive (Negative); Influenza B by IFA Negative (Negative)
--- NOTE | 2023-08-22 20:05 | PC.NURSE ---
pt ref vs resp 18
--- NOTE | 2023-08-22 20:08 | P.CONIM_ITS ---
Providers/Reason For Consult Consulting Physician/Specialty*: Psychiatry Dr. Chambers Reason for Consult*: Symptomatic influenza, nausea, vomiting Attending Physician: Lyle Chambers MD Primary Care Provider: Cale Toth DO History of Present Illness History of Present Illness Keke Mcnamara is a 27 year old female with history of asthma, seizure disorder, mood disorder, obesity, phentermine, cannabis, alcohol dependence history, currently being treated on neuropsychiatric unit due to suicidal ideation, has been feeling unwell, with chills, nausea, vomited 3 times, has not been able to keep down oral intake, short of breath, found positive for influenza. Requested by psychiatry to transfer to medical surgical floor for management of acute condition before return to NPU. Review of Systems Const: Reports: chills, body aches, fatigue and malaise; Denies: fever(s) Card: Denies: chest pain, edema, pre-syncope or dyspnea on exertion Resp: Reports: dyspnea; Denies: productive cough, change in phlegm color or hemoptysis GI: Reports: nausea and vomiting; Denies: abdominal pain, diarrhea, constipation, hematochezia or melena : Denies: flank pain, urinary frequency or hematuria Musc: Denies: back pain, joint swelling or joint redness Skin/Breast: Denies: rash or new lesions Neuro: Denies: headache(s), numbness in extremities, weakness in extremities, dizziness, confusion or seizure-like activity Medications/Allergies Home Medications Medication Instructions Recorded Confirmed Last Taken Type Unable to Assess 08/17/23 08/17/23 Unknown History Allergies Allergy/AdvReac Type Severity Reaction Status Date / Time insect venom Allergy Hives Verified 08/08/21 13:00 latex Allergy Rash Verified 08/08/21 13:00 Current Medications Generic Name Dose Route Start Last Admin Trade Name Freq PRN Reason Stop Dose Admin Acetaminophen 650 mg 08/17/23 09:55 08/22/23 08:01 Acetaminophen 325 Mg Tablet PO 650 mg Q4H PRN Administration MILD PAIN Escitalopram Oxalate 10 mg 08/21/23 09:00 08/22/23 08:01 Escitalopram 10 Mg Tablet PO 10 mg DAILY AJ Administration Haloperidol 5 mg 08/17/23 09:55 08/18/23 20:09 Haloperidol 5 Mg Tablet PO 5 mg Q4H PRN Administration AGITATION Hydroxyzine Pamoate 50 mg 08/17/23 09:55 08/18/23 18:37 Hydroxyzine 25 Mg Capsule PO 50 mg Q6H PRN Administration ANXIETY Ibuprofen 600 mg 08/17/23 09:55 08/21/23 09:05 Ibuprofen 600 Mg Tablet PO 600 mg Q6H PRN Administration MODERATE PAIN Neomycin/Polymyxin/Bacitracin 1 applic 08/20/23 18:00 08/22/23 17:20 Cxzsvgne-Kecv-Aoxvuybzhq Oint 28 Gm TOPICAL Not Given BID AJ Nicotine 1 patch 08/17/23 09:55 08/18/23 08:38 Nicotine 21 Mg Patch TRANSDERMA 1 patch DAILY PRN Administration NICOTINE WITHDRAWAL Olanzapine 5 mg 08/17/23 09:55 08/20/23 17:01 Olanzapine 5 Mg Odt PO 5 mg Q4H PRN Administration Agitation/Psychosis Ondansetron HCl 4 mg 08/17/23 09:55 08/22/23 14:08 Ondansetron 4 Mg Tablet PO 4 mg Q6H PRN Administration NAUSEA AND VOMITING Promethazine HCl 25 mg 08/22/23 11:44 08/22/23 11:55 Promethazine 25 Mg/Ml Sdv 1 Ml IM 25 mg Q6H PRN Administration NAUSEA PFSH Acute PFSH: Medical History (Updated 08/22/23 @ 20:16 by Ridge Conrad MD) Acquired hypothyroidism Patient with longstanding history, since age 15, of hypothyroidism. She had not been taking medication since February 2019. 08/29/2019: TSH 11.2. Restarted levothyroxine at 50 mcg daily. 10/01/2019: TSH 15.3. Levothyroxine increased to 75 mcg daily. TSH still low. Increase Levothyroxine to 75 mcg -Rx Levothyroxine 75 mcg daily #30, 2 refil. 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 Has maybe one or 2 episodes of shortness of breath a week. Since childhood and states that it is aggravated by exercise. Has maybe one or 2 episodes of shortness of breath a week. Bipolar disorder Bipolar disorder, current episode depressed, severe, without psychotic features Bipolar disorder, mixed Patient has a history of bipolar disorder and PTSD. She has been on multiple medications in the past. She has also been treated with at [facility]. - Present prior to the --was taken off all her medications by Tamika Geiger at [facility] early on in the --she has not been back to [facility] and has not restarted any medication. Today she feels managed without medicine so we will continue to follow but I strongly recommended she return back to [facility] for further evaluation and management. Cannabis dependence, uncomplicated Drug use affecting in second trimester Gastroesophageal reflux during in third trimester, antepartum Hypothyroidism Insulin controlled gestational diabetes mellitus (GDM) in third trimester 09/01/2019: GCT 148 10/06/2019: Attempted to obtain three-hour GTT on multiple occasions. Patient unable to perform test. Check sugars at home and brought those to office at this visit. Pre-meals found to be elevated and consistent with GDM. A1c 10/06/2019: 5.6 Ultrasounds 1. 04/07/2019 ---> 7-4/7 WG ---> EDC 11/20/2019. 2. 07/30/2019 ---> 25-0/7 WG ---> EDC 11/12/2019. 3. 10/03/2019 ---> 34-6/7 WG ---> EDC 11/08/2019. EFW 5 lbs. 2 oz. (2318 g) 74%. SANTHOSH 18.8 cm Patient brought Sugar logs with her which were reviewed. Patient has continued to improve sugars with diet. However still higher than desired. Patient was supposed to have started 20 units of Levemir at her last visit, but wrong dose was sent in to the pharmacy and she only started 2 units daily. Based upon a sugar readings today, I am switching her to 10 units daily. -Levemir 10 units daily. -BPP with NST was 10 out of 10. -Continue weekly testing until 36 weeks at which time it is to switch to twice weekly. Intractable chronic migraine without aura and with status migrainosus Has been treated with multiple medications for headaches. Most recently treated with Imitrex by Dr. Amaro. Last visit with her was on 02/25/2019. This is a hapless mildly impaired 23-year-old with borderline personality disorder and ongoing difficulties. She has a nonfocal exam and I don't see any reason to scan her head. A letter headaches are doing better on current medication and I'm not changing anything. I took time to listen to her story and empathize. Maternal alcohol use complicating in second trimester, antepartum Mental disorder affecting in third trimester Patient has a history of bipolar disorder and PTSD. She has been on multiple medications in the past. She has also been treated with at [facility]. Patient denying depression problems at this time. She is definitely at risk for flareup of her bipolar disorder after delivery. Highly recommend that she get reestablished with [facility]. Nausea/vomiting in 09/29/2019: Started Reglan. Already taking Pepcid. Patient reporting nausea and vomiting. Was previously taking famotidine for acid reflux issues. Was started on Reglan today. Nexplanon insertion On combination antipsychotic drug therapy Post-traumatic stress disorder, chronic Seizure disorder during in third trimester Thyroid disease during in third trimester UTI (urinary tract infection) Surgical History (Updated 08/22/23 @ 20:16 by Ridge Conrad MD) H/O section History of myringotomy History of tonsillectomy at age 10 [place] teeth extracted Family History Grandfather Hyperlipidemia Maternal Stroke maternal Diabetes maternal Grandmother Thyroid disease maternal Breast cancer great Mother Thyroid disease Unknown Patient denies medical problems Denies family history of: cervical, uterine, colon cancer, DVT/PE Family/Other Ovarian cancer paternal aunt Social History Smoking and tobacco/nicotine status: current every day tobacco/nicotine user Quit status (tobacco/nicotine): considering quitting Second hand smoke exposure: Yes Alcohol intake: former Year of sobriety/quit date alcohol: 2018 Former alcohol use details: Drank wine during Substance/Drug Use: never Additional social history: Poorly balanced diet Female Reproductive History: Date of last menstrual period: 06/29/23 Vitals/I&O/Wt Last Vital Signs Temp 97.4 F L 08/22/23 14:00 Pulse 96 08/22/23 14:00 Resp 14 08/22/23 14:00 BP 111/83 08/22/23 14:00 Pulse Ox 95 08/22/23 14:00 O2 Del Method Room Air 08/22/23 06:00 08/22/23 08/22/23 08/22/23 06:59 14:59 22:59 Intake Total 400 / 400 Balance 400 / 400 Physical Exam Narrative: Sleeping, wakes up to voice. Const: COMMON NORMALS: patient oriented x3 and alert GENERAL APPEARANCE: cooperative NUTRITIONAL APPEARANCE: obese ORIENTATION/CONSCIOUSNESS: Yes awake HENMT: COMMON NORMALS: oropharynx normal Neck/C-Spine: COMMON NORMALS: no JVD Resp: COMMON NORMALS: normal respiratory effort and clear to auscultation bilaterally AUSCULTATION: clear to auscultation bilaterally Cardio: COMMON NORMALS: no JVD, regular rhythm, S1 normal heart sound present, S2 normal heart sound present and No murmurs present (Cardio) RHYTHM: regular rhythm HEART SOUNDS: S1 normal heart sound present and S2 normal heart sound present GI: COMMON NORMALS: Normal to inspection, nondistended, normoactive bowel sounds present, Soft to palpation and non-tender PALPATION: Yes Soft to palpation Extremity: COMMON NORMALS: no joint enlargement and no pedal edema Neuro: COMMON NORMALS: patient oriented x3 and moves all extremities SENSORIUM/ORIENTATION: Yes alert Skin: COMMON NORMALS: no rashes or lesions noted GENERAL SKIN EXAM: no rashes or lesions noted Data 08/17/23 07:53 08/17/23 07:53 A&P Assessment and plan (1) Influenza A: Reviewed influenza, COVID study. As she is symptomatic also with underlying asthma with diagnosis of influenza A, discussed with her treatment with Tamiflu. With asthma we will give breathing treatments. Monitor vitals/oxygenation. Reassess respiratory status. Isolation for influenza. For now transferred for additional treatment of acute condition on medical surgical floor prior to return to NPU. Requested one-to-one sitter prior to transfer. Discussed with psychiatry, psychiatry note reviewed. CBC from admission reviewed, repeat CBC. (2) Nausea and vomiting: Treatment of influenza as above. Bowel rest, we will downgrade diet to clear liquids as tolerating for now. She had vomited 3 times. Has not been able to keep down food or drink. We will give gentle IV hydration with LR at this time. At risk of electrolyte normality. Reviewed CMP from admission. Check CMP. Check lipase. (3) Asthma: DuoNebs scheduled and as needed. (4) Suicidal ideation: Continue assessment and management by psychiatry. With anticipated return to n.p.o. after improvement of acute condition. Under 96-hour hold. One-to-one sitter requested. (5) Depression, unspecified: (6) Amphetamine or stimulant drug abuse: UDS on admission tested positive for amphetamines. Monitor for withdrawal. (7) Cannabis dependence, uncomplicated: (8) Alcohol dependence, in remission: (9) Post-traumatic stress disorder, chronic: (10) Seizures: (11) Drug-induced psychotic disorder: Consult Attestations Medical Necessity Statement: Continue admission for assessment management of symptomatic influenza A infection in a lady with underlying asthma, continued management of psychiatric conditions including depression with suicidal ideation. Diagnoses Influenza A J10.1 Nausea and vomiting R11.2 Asthma J45.909 Suicidal ideation R45.851 Depression, unspecified F32.A Amphetamine or stimulant drug abuse F15.10 Cannabis dependence, uncomplicated F12.20 Alcohol dependence, in remission F10.21 Post-traumatic stress disorder, chronic F43.12 Seizures R56.9 Drug-induced psychotic disorder F19.959
[2023-08-22 21:27] VITALS: BP 131/91; PULSE 58; RESP 16; TEMP 36.8; O2SAT 96
[2023-08-22] MEDS: ondansetron 2 mg/ML SDV 2 mL 4 MG IM (22:01)
[2023-08-22 23:41] VITALS: BP 140/80; PULSE 65; RESP 18; TEMP 36.8; O2SAT 97
[2023-08-22] MEDS: lactated ringers 1,000 ML 75 ML IV (23:52)
[2023-08-23] VITALS (9 sets, daily range): BP systolic 126–142; BP diastolic 76–98; PULSE 58–86; RESP 15–18; TEMP 36.9–37.1; O2SAT 94–97
[2023-08-23] MEDS: ondansetron 2 mg/ML SDV 2 mL 4 MG IVP ×5 (02:24→22:11)
[2023-08-23] MEDS: promethazine 25 mg/mL SDV 1 mL IM ×2 (03:26→19:54)
[2023-08-23] MEDS: acetaminophen 1,000 MG/100 ML PIGGYBACK 400 MG IV (03:46)
[2023-08-23 05:16] LABS: Basophils % 0.2 %; Eosinophils % 0.1 %; Hematocrit 46.7 % (36-47); Lymphocytes # 2.1 10^3/uL (0.8-4.8); Lymphocytes % 12.6 %; Mean Corpuscular HGB Conc 33.8 g/dL (30-55); Mean Corpuscular Hemoglobin 28.1 pg (27-33); Mean Corpuscular Volume 82.9 fl (85-98); Mean Platelet Volume 8.7 fL (7.4-10.4); Monocytes # 0.5 10^3/uL (0.2-0.9); Monocytes % 2.9 %; Neutrophils # 13.79 10^3/uL (1.8-7.7); Neutrophils % 83.7 %; Nucleated Red Blood Cells % 0 %; Platelet Count 539 10^3/cmm (157-399); Red Blood Count 5.63 10^6/uL (3.85-5.65); Red Cell Distribution Width 13.9 % (12.1-15.1); White Blood Count 16.48 10^3/uL (3.29-11.43)
[2023-08-23 05:41] LABS: Lipase 18 U/L (13-60)
[2023-08-23 05:42] LABS: Alanine Aminotransferase 13 U/L (0-33); Albumin Level 4.1 g/dL (3.5-5.2); Alkaline Phosphatase 105 U/L (35-105); Anion Gap 17.3 (5-19); Aspartate Amino Transferase 17 U/L (0-32); Blood Urea Nitrogen 13 mg/dL (6-20); Calcium 9.6 mg/dL (8.5-10.5); Carbon Dioxide 23 mmol/L (22-29); Chloride 98 mmol/L (98-107); Glomerular Filtration Rate 100.4 mL/min (90-130); Glucose 139 mg/dL (65-115); Osmolality Calculated 280 mOsm/kg (285-295); Potassium 4.3 mmol/L (3.5-5.1); Sodium 134 mmol/L (136-145); Total Bilirubin 0.4 mg/dL (0.15-1.2); Total Protein 7.1 g/dL (6.6-8.7)
[2023-08-23] MEDS: ipratropium-albuterol 3 mL Neb INHALATION (07:54)
[2023-08-23 12:55] LABS: Procalcitonin 0.05 ng/mL (0-0.5)
[2023-08-23 13:13] LABS: C Reactive Protein 9.9 mg/L (0.0-4.9)
[2023-08-23] MEDS: lactated ringers 1,000 ML 75 ML IV (14:14)
[2023-08-23 16:48] LABS: Add Urine Microscopic? NO; Charge for UA Resulting for Rev
--- NOTE | 2023-08-23 16:56 | PM.PN ---
Subjective Subjective: Patient tells me that she continues to have nausea, denies any fevers, no chills, she denies being , but she does remember the last time she had a menstrual period, she has 1 child who is 3 years old, she has a Nexplanon but it about a year ago, she has her gallbladder denies any right upper quadrant pain, Vitals/I&O/Wt Last Vital Signs Temp 98.6 F 08/23/23 16:00 Pulse 78 08/23/23 16:00 Resp 15 08/23/23 16:00 BP 136/82 08/23/23 16:00 Pulse Ox 96 08/23/23 16:00 O2 Del Method Room Air 08/23/23 16:00 08/23/23 08/23/23 08/23/23 06:59 14:59 22:59 Intake Total 100 / 500 1240 / 1240 Output Total 2 / 2 Balance 100 / 500 1238 / 1238 Physical Exam Const: COMMON NORMALS: no acute distress and patient oriented x3 Resp: COMMON NORMALS: normal respiratory effort, No retractions, No use of accessory muscles and clear to auscultation bilaterally AUSCULTATION: clear to auscultation bilaterally Cardio: COMMON NORMALS: regular rate, regular rhythm, S1 normal heart sound present and S2 normal heart sound present RATE: regular rate RHYTHM: regular rhythm HEART SOUNDS: S1 normal heart sound present and S2 normal heart sound present GI: COMMON NORMALS: Normal to inspection, nondistended, normoactive bowel sounds present and non-tender Extremity: COMMON NORMALS: no pedal edema Neuro: COMMON NORMALS: patient oriented x3 Data 08/23/23 05:00 08/23/23 05:00 A&P Assessment and plan (1) Influenza A: Monitor respiratory status Continue Tamiflu We will consider steroids based on clinical progress Continue DuoNeb (2) Nausea and vomiting: IV fluids Check Pro-Topher, liver function, alk phos, test (3) Asthma: DuoNebs scheduled and as needed. (4) Suicidal ideation: Continue assessment and management by psychiatry. With anticipated return to n.p.o. after improvement of acute condition. Under 96-hour hold. One-to-one sitter requested. (5) Depression, unspecified: (6) Amphetamine or stimulant drug abuse: UDS on admission tested positive for amphetamines. Monitor for withdrawal. (7) Cannabis dependence, uncomplicated: (8) Alcohol dependence, in remission: (9) Post-traumatic stress disorder, chronic: (10) Seizures: (11) Drug-induced psychotic disorder: Attestations Medical Necessity Statement*: Patient requires hospitalization for influenza A, dehydration, with asthma Diagnoses Influenza A J10.1 Nausea and vomiting R11.2 Asthma J45.909 Suicidal ideation R45.851 Depression, unspecified F32.A Amphetamine or stimulant drug abuse F15.10 Cannabis dependence, uncomplicated F12.20 Alcohol dependence, in remission F10.21 Post-traumatic stress disorder, chronic F43.12 Seizures R56.9 Drug-induced psychotic disorder F19.959
[2023-08-23 17:01] LABS: Urine Appearance Clear (CLEAR); Urine Color Straw (Yellow); pH Urine 7 (5-7)
[2023-08-23 17:02] LABS: Bilirubin Urine Neg (Negative); Blood Urine Neg (Negative); Glucose Urine UA Norm (Normal); Ketones Urine Negative (Negative); Leukocyte Esterase Urine Negative (Negative); Nitrate Urine Negative (Negative); Protein Urine Neg (Negative); Specific Gravity, Urine 1.005 (1.005-1.030); Urobilinogen Urine Norm (Negative)
--- NOTE | 2023-08-23 17:23 | W.PM.NPUPNS ---
Subjective NPU Subjective: 27-year-old white female with a history of methamphetamine use admitted with auditory hallucinations with a history of multiple inpatient hospitalizations. The patient was seen on rounds while remaining on the [facility] unit due to precautions as she is positive for influenza A. Patient continued to be somewhat guarded and had continued to state I do not know when asked any question. Patient continued to endorse frustration at not being allowed to return to her previous place of residence as she had been placed under the care of a guardian. The patient had reported having limited social supports. She had reported continued thoughts of feeling abandoned. She had minimized any nausea or vomiting today. Mental Status Exam MSE Comments: This is an obese, white female, in hospital scrubs, with poor grooming and minimal eye contact. She was covering her head and blanket upon seeing the headline writer today. Her hair color is bright red/pink. No abnormal movements, except for modereat psychomotor retardation. She was minimally cooperative with exam in mild to moderate distress. Speech was diminished in rate and decreased in volume with truncated answers repeating i don't know throughout the interview. She was quite oppositional during the interview. Mood described as not so good.; Her affect was mood congruent and irritable.. Thought process was concrete and superficial. Thought content: patient denied any suicidal or homicidal ideation, patient was paranoia. The patient denied any auditory or visual hallucinations and did not appear to be responding to internal stimuli. Attention and concentration appeared intact, and memory was somewhat unreliable, but none were formally tested. Alert and oriented times three. Insight and judgment appear limited. Impulse control is impaired. Vitals/I&O/Wt Last Vital Signs Temp 98.6 F 08/23/23 16:00 Pulse 78 08/23/23 16:00 Resp 15 08/23/23 16:00 BP 136/82 08/23/23 16:00 Pulse Ox 96 08/23/23 16:00 O2 Del Method Room Air 08/23/23 16:00 08/23/23 08/23/23 08/23/23 06:59 14:59 22:59 Intake Total 100 / 500 1240 / 1240 Output Total 2 / 2 Balance 100 / 500 1238 / 1238 Data NPU 08/23/23 05:00 08/23/23 05:00 A&P Assessment and plan (1) Suicidal ideation: (2) Seizures: (3) Drug-induced psychotic disorder: (4) Amphetamine or stimulant drug abuse: (5) Post-traumatic stress disorder, chronic: (6) Cannabis dependence, uncomplicated: (7) Alcohol dependence, in remission: (8) Depression, unspecified: Plan This is a 27-year-old, white female, with genetic loading for mental health and addiction issues, with a history of mental health issues and substance abuse, who presents after testing positive for methamphetamine in the ER and having an episode of hallucinations, and reporting that she has not had her psychiatric medications for about a month. 1. Increase lexapro to 20mg daily , continue abilify 10mg daily. 2. Encourage individual, group, and milieu therapy. 3. Continue q-15-minute checks for safety. 4. Recommend sober living treatment at the highest level of care to which the patient is willing to commit. 5. Patient has a legal guardian, Vasmi Hazel and will be going to [facility] upon discharge 6. Appreciate medicine for help, will transfer back to NPU when allowed. Involuntary Hold Information 96 Hour Hold: 96 Hour Involuntary Admission: No Attestations NPU Medical Necessity Statement*: Inpatient hospitalization is medically necessary and the clinically appropriate intervention, at this time. We will monitor medications and make changes as indicated. Patient's likely length of stay is five to seven days. Coding Level of Care Code Acute Code for [facility] Diagnoses Suicidal ideation R45.851 Seizures R56.9 Drug-induced psychotic disorder F19.959 Amphetamine or stimulant drug abuse F15.10 Post-traumatic stress disorder, chronic F43.12 Cannabis dependence, uncomplicated F12.20 Alcohol dependence, in remission F10.21 Depression, unspecified F32.A
[2023-08-23] MEDS: neomycin-poly-bacitracin oint 28 gm 1 APPLIC TOPICAL (18:03)
[2023-08-23] MEDS: acetaminophen 325 mg Tablet 650 MG PO (22:16)
[2023-08-24] MEDS: ondansetron 2 mg/ML SDV 2 mL 4 MG IVP ×4 (02:35→20:33)
[2023-08-24] MEDS: lactated ringers 1,000 ML 75 ML IV ×2 (02:43→16:10)
[2023-08-24] MEDS: promethazine 25 mg/mL SDV 1 mL IM (03:26)
[2023-08-24 03:48] VITALS: BP 107/75; PULSE 80; RESP 18; TEMP 37.2; O2SAT 97
[2023-08-24 05:29] LABS: Basophils # 0.1 10^3/uL (0.0-0.1); Basophils % 0.6 %; Eosinophils % 0.2 %; Hematocrit 45.1 % (36-47); Lymphocytes # 2.5 10^3/uL (0.8-4.8); Lymphocytes % 22.9 %; Mean Corpuscular HGB Conc 32.8 g/dL (30-55); Mean Corpuscular Hemoglobin 28.3 pg (27-33); Mean Corpuscular Volume 86.2 fl (85-98); Mean Platelet Volume 9.8 fL (7.4-10.4); Monocytes # 0.6 10^3/uL (0.2-0.9); Neutrophils % 70.8 %; Nucleated Red Blood Cells % 0 %; Platelet Count 462 10^3/cmm (157-399); Red Blood Count 5.23 10^6/uL (3.85-5.65); Red Cell Distribution Width 13.9 % (12.1-15.1); White Blood Count 11.01 10^3/uL (3.29-11.43)
[2023-08-24 05:52] LABS: Alanine Aminotransferase 10 U/L (0-33); Albumin Level 3.7 g/dL (3.5-5.2); Alkaline Phosphatase 92 U/L (35-105); Anion Gap 12.9 (5-19); Aspartate Amino Transferase 12 U/L (0-32); Blood Urea Nitrogen 6 mg/dL (6-20); Calcium 9.3 mg/dL (8.5-10.5); Carbon Dioxide 27 mmol/L (22-29); Chloride 100 mmol/L (98-107); Globulin 2.7 g/dL (1.3-4.6); Glomerular Filtration Rate 119.9 mL/min (90-130); Glucose 139 mg/dL (65-115); Osmolality Calculated 282 mOsm/kg (285-295); Potassium 3.9 mmol/L (3.5-5.1); Sodium 136 mmol/L (136-145); Total Bilirubin 0.3 mg/dL (0.15-1.2); Total Protein 6.4 g/dL (6.6-8.7)
[2023-08-24 05:53] LABS: Slide Review Slide Review Perform
[2023-08-24 07:15] VITALS: PULSE 89; RESP 18; O2SAT 97
[2023-08-24 07:45] VITALS: BP 144/108; PULSE 69; RESP 17; TEMP 37.2; O2SAT 95
--- NOTE | 2023-08-24 09:47 | US_ITS ---
WS: [id number] RIGHT UPPER QUADRANT ULTRASOUND HISTORY: ruq pain COMPARISON: 01/26/2016 Liver: 12.7 cm in length. Poorly visualized liver. Liver does not appear enlarged but is not complete ly imaged. Coarse echotexture and limited penetration. Portal Vein: Normal hepatopetal flow with monophasic waveform. Gallbladder: Normally distended gallbladder with no stones or wall thickening. CBD: 0.3 cm Pancreas: Portions of the head and tail are obscured. The body is negative. Right kidney: 9.4 cm in length. Normal size and echogenicity. No hydronephrosis or mass. Aorta and IVC: Unremarkable abdominal aorta and IVC. No ascites. IMPRESSION: 1. Normal gallbladder. 2. Technically difficult evaluation of the RIGHT upper quadrant. 3. Hepatic steatosis.
--- NOTE | 2023-08-24 09:47 | XR_ITS ---
WS: [id number] Exam: XR KUB portable [id number] Date/Time of Exam: 08/24/2023 9:58 AM Reason For Exam: n/v Comparison 07/05/2021. No sign of bowel obstruction or free air. Bowel gas pattern is unremarkable. No sign of organ enlarge ment. Regional bony structures appear normal. IMPRESSION: 1. No acute process identified.
[2023-08-24] MEDS: metoclopramide 5 mg/mL SDV 2 mL IVP ×2 (10:11→17:40)
[2023-08-24] MEDS: neomycin-poly-bacitracin oint 28 gm 1 APPLIC TOPICAL ×2 (10:12→18:11)
[2023-08-24] MEDS: ARIPiprazole 10 mg Tablet PO (10:14)
[2023-08-24] MEDS: escitalopram 10 mg Tablet 20 MG PO (10:14)
[2023-08-24] MEDS: oseltamivir phosphate 75 mg Capsule PO ×2 (10:15→18:11)
--- NOTE | 2023-08-24 11:15 | PM.PN ---
Subjective Subjective: Patient was seen this morning, she continues to complain of nausea, no fevers, no chills, short of shortness of breath Vitals/I&O/Wt Last Vital Signs Temp 98.9 F 08/24/23 07:45 Pulse 69 08/24/23 07:45 Resp 17 08/24/23 07:45 BP 144/108 08/24/23 07:45 Pulse Ox 95 08/24/23 07:45 O2 Del Method Room Air 08/24/23 07:45 08/23/23 08/24/23 08/24/23 22:59 06:59 14:59 Intake Total 936.25 / 2176.25 Balance 936.25 / 2176.25 Physical Exam Const: COMMON NORMALS: no acute distress and patient oriented x3 Resp: COMMON NORMALS: normal respiratory effort, No retractions, No use of accessory muscles and clear to auscultation bilaterally AUSCULTATION: clear to auscultation bilaterally Cardio: COMMON NORMALS: regular rate, regular rhythm, S1 normal heart sound present and S2 normal heart sound present RATE: regular rate RHYTHM: regular rhythm HEART SOUNDS: S1 normal heart sound present and S2 normal heart sound present GI: COMMON NORMALS: Normal to inspection, nondistended, normoactive bowel sounds present and non-tender OTHER: Minimal right upper quadrant pain Extremity: COMMON NORMALS: no pedal edema Neuro: COMMON NORMALS: patient oriented x3 Psych: COMMON NORMALS: mental status grossly normal Data 08/24/23 04:54 08/24/23 04:54 A&P Assessment and plan (1) Influenza A: Monitor respiratory status Continue Tamiflu We will consider steroids based on clinical progress Continue DuoNeb (2) Nausea and vomiting: IV fluids KUB ordered, right upper quadrant ultrasound (3) Asthma: DuoNebs scheduled and as needed. (4) Suicidal ideation: Continue assessment and management by psychiatry. With anticipated return to n.p.o. after improvement of acute condition. Under 96-hour hold. One-to-one sitter requested. (5) Depression, unspecified: (6) Amphetamine or stimulant drug abuse: UDS on admission tested positive for amphetamines. Monitor for withdrawal. (7) Cannabis dependence, uncomplicated: (8) Alcohol dependence, in remission: (9) Post-traumatic stress disorder, chronic: (10) Seizures: (11) Drug-induced psychotic disorder: Attestations Medical Necessity Statement*: Patient requires hospitalization due to influenza, recurrent nausea vomiting Diagnoses Influenza A J10.1 Nausea and vomiting R11.2 Asthma J45.909 Suicidal ideation R45.851 Depression, unspecified F32.A Amphetamine or stimulant drug abuse F15.10 Cannabis dependence, uncomplicated F12.20 Alcohol dependence, in remission F10.21 Post-traumatic stress disorder, chronic F43.12 Seizures R56.9 Drug-induced psychotic disorder F19.959
[2023-08-24 12:00] VITALS: BP 146/105; PULSE 79; RESP 17; TEMP 36.7; O2SAT 95
[2023-08-24 16:00] VITALS: BP 123/88; PULSE 77; RESP 17; TEMP 36.7; O2SAT 95
--- NOTE | 2023-08-24 17:18 | P.NPUPN_ITS ---
Subjective NPU Subjective: 27-year-old white female with a history of methamphetamine use admitted with auditory hallucinations with a history of multiple inpatient hospitalizations. The patient appeared excessively tired on rounds. She reported that she wished to live with her friend when leaving here. The patient continued to answer I do not know to numerous questions and reported feeling sick. Mental Status Exam MSE Comments: This is an obese, white female, in hospital scrubs, with poor grooming and minimal eye contact. She was covering her head and blanket upon seeing the process description writer today. Her hair color is bright red/pink. No abnormal movements, except for moderate psychomotor retardation. She was minimally cooperative with exam in moderate distress. Speech was diminished in rate and decreased in volume with truncated answers repeating i don't know throughout the interview. Mood described as not so good.; Her affect was flat. Thought process was concrete and superficial. Thought content: patient denied any suicidal or homicidal ideation, No overt delusions noted. There was no active paranoia. The patient denied any auditory or visual hallucinations and did not appear to be responding to internal stimuli. Attention and concentration appeared intact, and memory was somewhat unreliable, but none were formally tested. Alert and oriented times three. Insight and judgment appear limited. Impulse control is impaired. Vitals/I&O/Wt Last Vital Signs Temp 98.0 F 08/24/23 16:00 Pulse 77 08/24/23 16:00 Resp 17 08/24/23 16:00 BP 123/88 08/24/23 16:00 Pulse Ox 95 08/24/23 16:00 O2 Del Method Room Air 08/24/23 07:45 08/24/23 08/24/23 08/24/23 06:59 14:59 22:59 Intake Total 936.25 / 2176.25 1000 / 1000 Balance 936.25 / 2176.25 1000 / 1000 Data NPU 08/24/23 04:54 08/24/23 04:54 A&P Assessment and plan (1) Suicidal ideation: (2) Seizures: (3) Drug-induced psychotic disorder: (4) Amphetamine or stimulant drug abuse: (5) Post-traumatic stress disorder, chronic: (6) Cannabis dependence, uncomplicated: (7) Alcohol dependence, in remission: (8) Depression, unspecified: Plan This is a 27-year-old, white female, with genetic loading for mental health and addiction issues, with a history of mental health issues and substance abuse, who presents after testing positive for methamphetamine in the ER and having an episode of hallucinations, and reporting that she has not had her psychiatric medications for about a month. 1. Continue lexapro to 20mg daily , continue abilify 10mg daily. 2. Encourage individual, group, and milieu therapy. 3. Continue q-15-minute checks for safety. 4. Recommend sober living treatment at the highest level of care to which the patient is willing to commit. 5. Patient has a legal guardian, Vamsi Hazel and will be going to [facility] upon discharge 6. Appreciate medicine for help, will transfer back to NPU when allowed. Involuntary Hold Information 96 Hour Hold: 96 Hour Involuntary Admission: No Attestations NPU Medical Necessity Statement*: Inpatient hospitalization is medically necessary and the clinically appropriate intervention, at this time. We will monitor medications and make changes as indicated. Patient's likely length of stay is five to seven days. Coding Level of Care Code Acute Code for [facility] Diagnoses Suicidal ideation R45.851 Seizures R56.9 Drug-induced psychotic disorder F19.959 Amphetamine or stimulant drug abuse F15.10 Post-traumatic stress disorder, chronic F43.12 Cannabis dependence, uncomplicated F12.20 Alcohol dependence, in remission F10.21 Depression, unspecified F32.A
[2023-08-24] MEDS: polyethylene glycol 3350 Pkt 17 gm PO (18:11)
[2023-08-24 19:44] VITALS: BP 144/96; PULSE 73; RESP 16; TEMP 36.7; O2SAT 95
[2023-08-25] VITALS (8 sets, daily range): BP systolic 131–152; BP diastolic 88–104; PULSE 71–112; RESP 16–18; TEMP 36.6–36.9; O2SAT 95–97
--- NOTE | 2023-08-25 00:47 | PC.NURSE ---
pt bloody emesis pt called nurse in to assess 'bloody' emesis. pt had some scant brown in her emesis prior ot my arrival. pt then had some more once i arrived to room. this nurse educated that potentially from her vomiting she has some irritation between her stomach and throat even potentially her mouth.
[2023-08-25] MEDS: ondansetron 2 mg/ML SDV 2 mL 4 MG IVP ×2 (02:22→16:46)
[2023-08-25 05:17] LABS: Basophils # 0.1 10^3/uL (0.0-0.1); Basophils % 0.5 %; Eosinophils % 0.1 %; Hematocrit 46.5 % (36-47); Lymphocytes # 3.4 10^3/uL (0.8-4.8); Lymphocytes % 22.6 %; Mean Corpuscular Volume 82.3 fl (85-98); Mean Platelet Volume 8.8 fL (7.4-10.4); Monocytes # 0.8 10^3/uL (0.2-0.9); Monocytes % 5.6 %; Neutrophils # 10.51 10^3/uL (1.8-7.7); Neutrophils % 70.8 %; Nucleated Red Blood Cells % 0 %; Platelet Count 519 10^3/cmm (157-399); Red Blood Count 5.65 10^6/uL (3.85-5.65); Red Cell Distribution Width 13.6 % (12.1-15.1); White Blood Count 14.85 10^3/uL (3.29-11.43)
--- NOTE | 2023-08-25 05:25 | PC.NURSE ---
pt bp md made aware of pt blood pressures. states no further action at this time.
[2023-08-25 06:01] LABS: Alanine Aminotransferase 12 U/L (0-33); Alkaline Phosphatase 100 U/L (35-105); Anion Gap 14.9 (5-19); Aspartate Amino Transferase 17 U/L (0-32); Blood Urea Nitrogen 7 mg/dL (6-20); Calcium 9.3 mg/dL (8.5-10.5); Carbon Dioxide 27 mmol/L (22-29); Chloride 96 mmol/L (98-107); Glomerular Filtration Rate 100.4 mL/min (90-130); Glucose 121 mg/dL (65-115); Osmolality Calculated 277 mOsm/kg (285-295); Potassium 3.9 mmol/L (3.5-5.1); Sodium 134 mmol/L (136-145); Total Bilirubin 0.6 mg/dL (0.15-1.2)
[2023-08-25] MEDS: lactated ringers 1,000 ML 75 ML IV (06:07)
[2023-08-25] MEDS: metoclopramide 5 mg/mL SDV 2 mL IVP (09:41)
[2023-08-25] MEDS: promethazine 25 mg/mL SDV 1 mL IM ×2 (12:31→18:36)
--- NOTE | 2023-08-25 16:58 | P.PN_ITS ---
Subjective Subjective: Patient was seen this morning she does report recurrent nausea, vomiting, intractable, does report marijuana use, does report blood-tinged sputum in her cough and vomit, Vitals/I&O/Wt Last Vital Signs Temp 98.0 F 08/25/23 08:00 Pulse 78 08/25/23 12:00 Resp 16 08/25/23 12:00 BP 152/104 08/25/23 12:00 Pulse Ox 97 08/25/23 12:00 O2 Del Method Room Air 08/25/23 08:16 08/25/23 08/25/23 08/25/23 06:59 14:59 22:59 Intake Total 999 480 / 480 Balance 999 480 / 480 Physical Exam Const: COMMON NORMALS: no acute distress and patient oriented x3 Resp: COMMON NORMALS: normal respiratory effort, No retractions, No use of accessory muscles and clear to auscultation bilaterally AUSCULTATION: clear to auscultation bilaterally Cardio: COMMON NORMALS: regular rate, regular rhythm, S1 normal heart sound present and S2 normal heart sound present RATE: regular rate RHYTHM: regular rhythm HEART SOUNDS: S1 normal heart sound present and S2 normal heart sound present GI: COMMON NORMALS: Normal to inspection, nondistended, normoactive bowel sounds present and non-tender Extremity: COMMON NORMALS: no pedal edema Neuro: COMMON NORMALS: patient oriented x3 Psych: COMMON NORMALS: mental status grossly normal Data 08/25/23 04:49 08/25/23 04:49 A&P Assessment and plan (1) Influenza A: Monitor respiratory status Continue Tamiflu We will consider steroids based on clinical progress Continue DuoNeb (2) Nausea and vomiting: IV fluids KUB ordered, right upper quadrant ultrasound (3) Asthma: DuoNebs scheduled and as needed. (4) Suicidal ideation: Continue assessment and management by psychiatry. With anticipated return to n.p.o. after improvement of acute condition. Under 96-hour hold. One-to-one sitter requested. (5) Depression, unspecified: (6) Amphetamine or stimulant drug abuse: UDS on admission tested positive for amphetamines. Monitor for withdrawal. (7) Cannabis dependence, uncomplicated: (8) Alcohol dependence, in remission: (9) Post-traumatic stress disorder, chronic: (10) Seizures: (11) Drug-induced psychotic disorder: Plan Patient has blood-tinged vomitus and cough, possibly due to intractable nausea vomiting, possible marijuana hyperemesis syndrome, will continue nausea me dications, monitor on general medical floors, Attestations Medical Necessity Statement*: Patient requires hospitalization for intractable nausea, vomiting, blood-tinged, Diagnoses Influenza A J10.1 Nausea and vomiting R11.2 Asthma J45.909 Suicidal ideation R45.851 Depression, unspecified F32.A Amphetamine or stimulant drug abuse F15.10 Cannabis dependence, uncomplicated F12.20 Alcohol dependence, in remission F10.21 Post-traumatic stress disorder, chronic F43.12 Seizures R56.9 Drug-induced psychotic disorder F19.959
--- NOTE | 2023-08-25 17:01 | P.NPUPN_ITS ---
Subjective NPU Subjective: 27-year-old white female with a history of methamphetamine use admitted with auditory hallucinations with a history of multiple inpatient hospitalizations. The patient reported feeling tired. She had reported feeling nauseous. She had reported difficulties with falling asleep. She continued to be on one-to-one while in the [facility] bed. She continued to be somewhat guarded and disengaged in regards to answering questions regarding her current state. She reported no side effects from her medications at this time. Mental Status Exam MSE Comments: This is an obese, white female, in hospital scrubs, with poor grooming and minimal eye contact. Her hair color is bright red/pink. No abnormal involuntary motor movements, except for moderate psychomotor retardation. She was minimally cooperative with exam in moderate distress. Speech was normal in rate and normal in volume. Mood described as not good. ; Her affect was flat. Thought process was concrete and superficial. Thought content: patient denied any suicidal or homicidal ideation, No overt delusions noted. There was no active paranoia. The patient denied any auditory or visual hallucinations and did not appear to be responding to internal stimuli. Attention and concentration appeared intact, and memory was somewhat unreliable, but none were formally tested. She was alert and oriented times three. Insight and judgment appear limited. Impulse control is impaired. Vitals/I&O/Wt Last Vital Signs Temp 98.0 F 08/25/23 08:00 Pulse 78 08/25/23 12:00 Resp 16 08/25/23 12:00 BP 152/104 08/25/23 12:00 Pulse Ox 97 08/25/23 12:00 O2 Del Method Room Air 08/25/23 08:16 08/25/23 08/25/23 08/25/23 06:59 14:59 22:59 Intake Total 999 480 / 480 Balance 999 480 / 480 Data NPU 08/25/23 04:49 08/25/23 04:49 A&P Assessment and plan (1) Suicidal ideation: (2) Seizures: (3) Drug-induced psychotic disorder: (4) Amphetamine or stimulant drug abuse: (5) Post-traumatic stress disorder, chronic: (6) Cannabis dependence, uncomplicated: (7) Alcohol dependence, in remission: (8) Depression, unspecified: Plan This is a 27-year-old, white female, with genetic loading for mental health and addiction issues, with a history of mental health issues and substance abuse, who presents after testing positive for methamphetamine in the ER and having an episode of hallucinations, and reporting that she has not had her psychiatric medications for about a month. 1. Continue lexapro to 20mg daily , continue abilify 10mg daily. 2. Encourage individual, group, and milieu therapy. 3. Continue q-15-minute checks for safety. 4. Recommend sober living treatment at the highest level of care to which the patient is willing to commit. 5. Patient has a legal guardian, Vamsi Hazel and will be going to residential upon discharge 6. Appreciate medicine for help, will transfer back to NPU when allowed. There is no 96 hour hold as patient is under care of guardian. Involuntary Hold Information 96 Hour Hold: 96 Hour Involuntary Admission: No Attestations NPU Medical Necessity Statement*: Inpatient hospitalization is medically necessary and the clinically appropriate intervention, at this time. We will monitor medications and make changes as indicated. Patient's likely length of stay is five to seven days. Coding Level of Care Code Acute Code for [facility] Diagnoses Suicidal ideation R45.851 Seizures R56.9 Drug-induced psychotic disorder F19.959 Amphetamine or stimulant drug abuse F15.10 Post-traumatic stress disorder, chronic F43.12 Cannabis dependence, uncomplicated F12.20 Alcohol dependence, in remission F10.21 Depression, unspecified F32.A
[2023-08-25] MEDS: ondansetron 4 MG Tablet PO (21:16)
[2023-08-26] VITALS (7 sets, daily range): BP systolic 84–148; BP diastolic 68–98; PULSE 77–117; RESP 15–19; TEMP 36.6–37; O2SAT 95–98
[2023-08-26] MEDS: promethazine 25 mg/mL SDV 1 mL IM ×2 (00:13→05:50)
[2023-08-26] MEDS: ondansetron 4 MG Tablet PO ×2 (03:03→10:02)
[2023-08-26] MEDS: oseltamivir phosphate 75 mg Capsule PO ×2 (09:25→18:17)
[2023-08-26] MEDS: escitalopram 10 mg Tablet 20 MG PO (09:26)
[2023-08-26] MEDS: ARIPiprazole 10 mg Tablet PO (09:26)
[2023-08-26] MEDS: cloNIDine 0.1 mg Tablet PO ×2 (09:27→17:28)
[2023-08-26] MEDS: neomycin-poly-bacitracin oint 28 gm 1 APPLIC TOPICAL (09:27)
[2023-08-26] MEDS: acetaminophen 325 mg Tablet 650 MG PO ×2 (09:53→15:22)
[2023-08-26] MEDS: chlorthalidone 25 mg Tablet PO (09:53)
--- NOTE | 2023-08-26 15:31 | P.NPUPN_ITS ---
Subjective NPU Subjective: 27-year-old white female with a history of methamphetamine use admitted with auditory hallucinations with a history of multiple inpatient hospitalizations. the patient continued to report that she was having nausea and vomiting although she did not appear in any significant distress. She reported that she continued to feel terrible . Mental Status Exam MSE Comments: This is an obese, white female, in hospital scrubs, with poor grooming and minimal eye contact. Her hair color is bright red/pink. No abnormal involuntary motor movements, except for mild psychomotor retardation. She was minimally cooperative with exam and appeared in no acute distress. Speech was normal in rate and normal in volume. Mood described as not good. ; Her affect was restricted. Thought process was concrete and superficial. Thought content: patient denied any suicidal or homicidal ideation, No overt delusions noted. There was no active paranoia. The patient denied any auditory or visua l hallucinations and did not appear to be responding to internal stimuli. Attention and concentration appeared intact, and memory was somewhat unreliable, but none were formally tested. She was alert and oriented times three. Insight and judgment appear limited. Impulse control is impaired. Vitals/I&O/Wt Last Vital Signs Temp 97.9 F 08/26/23 12:17 Pulse 89 08/26/23 12:17 Resp 15 08/26/23 12:17 BP 109/75 08/26/23 12:17 Pulse Ox 96 08/26/23 12:17 O2 Del Method Room Air 08/26/23 12:17 08/26/23 08/26/23 08/26/23 06:59 14:59 22:59 Intake Total 480 / 480 Balance 480 / 480 Weight last 48 hrs Weight 91.852 kg Data NPU 08/25/23 04:49 08/25/23 04:49 A&P Assessment and plan (1) Suicidal ideation: (2) Seizures: (3) Drug-induced psychotic disorder: (4) Amphetamine or stimulant drug abuse: (5) Post-traumatic stress disorder, chronic: (6) Cannabis dependence, uncomplicated: (7) Alcohol dependence, in remission: (8) Depression, unspecified: Plan This is a 27-year-old, white female, with genetic loading for mental health and addiction issues, with a history of mental health issues and substance abuse, who presents after testing positive for methamphetamine in the ER and having an episode of hallucinations, and reporting that she has not had her psychiatric medications for about a month. 1. Continue lexapro to 20mg daily , continue abilify 10mg daily. 2. Encourage individual, group, and milieu therapy. 3. Continue q-15-minute checks for safety. 4. Recommend sober living treatment at the highest level of care to which the patient is willing to commit. 5. Patient has a legal guardian, Vamsi Hazel and will be going to jail upon discharge 6. Appreciate medicine for help, awaiting transfer. Involuntary Hold Information 96 Hour Hold: 96 Hour Involuntary Admission: No Attestations NPU Medical Necessity Statement*: Inpatient hospitalization is medically necessary and the clinically appropriate intervention at this time. We will monitor medications and make changes as indicated. Patient's likely length of stay is five to seven days. Coding Level of Care Code Acute Code for [facility] Fwd Diagnoses Suicidal ideation R45.851 Seizures R56.9 Drug-induced psychotic disorder F19.959 Amphetamine or stimulant drug abuse F15.10 Post-traumatic stress disorder, chronic F43.12 Cannabis dependence, uncomplicated F12.20 Alcohol dependence, in remission F10.21 Depression, unspecified F32.A
[2023-08-26 16:48] LABS: Glucose Point of Care 147 mg/dL (70-110)
[2023-08-26] MEDS: ibuprofen 600 mg Tablet PO (20:23)
[2023-08-26] MEDS: trazodone 50 mg Tablet PO ×2 (20:24→23:19)
[2023-08-27 06:00] VITALS: BP 92/63; PULSE 82; RESP 16; O2SAT 97
[2023-08-27 08:00] VITALS: PULSE 82; RESP 16; O2SAT 97
[2023-08-27] MEDS: escitalopram 10 mg Tablet 20 MG PO (08:40)
[2023-08-27] MEDS: chlorthalidone 25 mg Tablet PO (08:40)
[2023-08-27] MEDS: ARIPiprazole 10 mg Tablet PO (08:40)
[2023-08-27] MEDS: oseltamivir phosphate 75 mg Capsule PO ×2 (08:42→17:21)
[2023-08-27] MEDS: neomycin-poly-bacitracin oint 28 gm 1 APPLIC TOPICAL ×2 (08:43→17:21)
[2023-08-27] MEDS: ondansetron 4 MG Tablet PO (08:57)
[2023-08-27 08:58] VITALS: BP 95/58
[2023-08-27 11:47] LABS: SARS Covid-2 Antigen Negative (Negative)
[2023-08-27 13:48] VITALS: BP 110/90; PULSE 134; RESP 16; TEMP 36.9; O2SAT 98
[2023-08-27] MEDS: OLANZapine 5 mg ODT PO (14:44)
--- NOTE | 2023-08-27 16:17 | P.NPUPN_ITS ---
Subjective NPU Subjective: 27-year-old white female with a history of methamphetamine use admitted with auditory hallucinations with a history of multiple inpatient hospitalizations. The patient had transferred back to the unit and stated that she was feeling better. She denied any hallucinations at this time. She had expressed frustration with not being able to go back to live with her boyfriend. The patient had made request for the a new guardian stating that her guardian did not appear to share her best interest. The patient had admitted to having failed to maintain her sobriety while residing with her boyfriend. She reports that she had been stable in a previous [place] [facility] known as the [facility] for 3 years but she reports that she had left that place because she did not wish to be there any longer. Mental Status Exam MSE Comments: This is an obese, white female, in hospital scrubs, with improved grooming and good eye contact. Her hair color is bright red/pink. No abnormal involuntary motor movements, except for mild psychomotor retardation. She was cooperative with exam and appeared in no acute distress. Speech was normal in rate and normal in volume. Mood described as better. ; Her affect was brighter. Thought process was linear, logical and goal directed. Thought content: patient denied any suicidal or homicidal ideation, No overt delusions noted. There was no active paranoia. The patient denied any auditory or visual hallucinations and did not appear to be responding to internal stimuli. Attention and concentration appeared intact, and memory was somewhat unreliable, but none were formally tested. She was alert and oriented times three. Insight and judgment appear limited. Impulse control is impaired. Vitals/I&O/Wt Last Vital Signs Temp 98.4 F 08/27/23 13:48 Pulse 134 H 08/27/23 13:48 Resp 16 08/27/23 13:48 BP 110/90 08/27/23 13:48 Pulse Ox 98 08/27/23 13:48 O2 Del Method Room Air 08/27/23 13:48 Weight last 48 hrs Weight 91.852 kg Data NPU 08/25/23 04:49 08/25/23 04:49 A&P Assessment and plan (1) Suicidal ideation: (2) Seizures: (3) Drug-induced psychotic disorder: (4) Amphetamine or stimulant drug abuse: (5) Post-traumatic stress disorder, chronic: (6) Cannabis dependence, uncomplicated: (7) Alcohol dependence, in remission: (8) Depression, unspecified: Plan This is a 27-year-old, white female, with genetic loading for mental health and addiction issues, with a history of mental health issues and substance abuse, who presents after testing positive for methamphetamine in the ER and having an episode of hallucinations, and reporting that she has not had her psychiatric me dications for about a month. 1. Continue lexapro to 20mg daily , continue abilify 10mg daily. 2. Encourage individual, group, and milieu therapy. 3. Continue q-15-minute checks for safety. 4. Recommend sober living treatment at the highest level of care to which the patient is willing to commit. 5. Patient has a legal guardian, Vamsi Hazel and [place] [facility] Involuntary Hold Information 96 Hour Hold: 96 Hour Involuntary Admission: No Attestations NPU Medical Necessity Statement*: Inpatient hospitalization is medically necessary and the clinically appropriate intervention at this time. We will monitor medications and make changes as indicated. Patient's likely length of stay is 1-2 days. Coding Level of Care Code Acute Code for [facility] Fwd Diagnoses Suicidal ideation R45.851 Seizures R56.9 Drug-induced psychotic disorder F19.959 Amphetamine or stimulant drug abuse F15.10 Post-traumatic stress disorder, chronic F43.12 Cannabis dependence, uncomplicated F12.20 Alcohol dependence, in remission F10.21 Depression, unspecified F32.A
[2023-08-27] MEDS: lactulose oral liq 20 gm/30 mL UDC PO ×3 (16:57→20:03)
[2023-08-27 18:20] VITALS: BP 110/80
[2023-08-27] MEDS: cloNIDine 0.1 mg Tablet PO (18:20)
[2023-08-27 21:03] VITALS: BP 90/61; PULSE 74; RESP 18; TEMP 36.6; O2SAT 96
[2023-08-28 06:00] VITALS: BP 92/73; PULSE 84; RESP 16; TEMP 37; O2SAT 96
[2023-08-28] MEDS: escitalopram 10 mg Tablet 20 MG PO (08:38)
[2023-08-28] MEDS: lactulose oral liq 20 gm/30 mL UDC PO ×2 (08:39→11:09)
[2023-08-28] MEDS: chlorthalidone 25 mg Tablet PO (08:39)
[2023-08-28] MEDS: ARIPiprazole 10 mg Tablet PO (08:39)
[2023-08-28 08:48] VITALS: BP 120/86
[2023-08-28] MEDS: cloNIDine 0.1 mg Tablet PO ×2 (08:48→18:11)
[2023-08-28] MEDS: nicotine 21 mg Patch 1 PATCH TRANSDERMA (11:09)
[2023-08-28] MEDS: hyDROXYzine 25 mg Capsule 50 MG PO (12:20)
[2023-08-28 14:00] VITALS: BP 106/67; PULSE 95; RESP 16; TEMP 36.6; O2SAT 96
[2023-08-28] MEDS: ibuprofen 600 mg Tablet PO (15:09)
--- NOTE | 2023-08-28 16:51 | P.NPUPN_ITS ---
Subjective NPU Subjective: 27-year-old white female with a history of methamphetamine use admitted with auditory hallucinations with a history of multiple inpatient hospitalizations. The patient denied any hallucinations at this time. She had reported that she had plan to write a letter to her guardianship asking that he reconsider her placement. She reported no side effects from her medication other than complai flaco of nightmares with her trazodone. She reported adequate energy and reported that her mood was better. Mental Status Exam MSE Comments: This is an obese, white female, in hospital scrubs, with improved grooming and good eye contact. Her hair color is bright red/pink. No abnormal involuntary motor movements, except for mild psychomotor retardation. She was cooperative with exam and appeared in no acute distress. Speech was normal in rate and normal in volume. Mood described as good ; Her affect was brighter. Thought process was linear, logical and goal directed. Thought content: patient denied any suicidal or homicidal ideation, No overt delusions noted. There was no active paranoia. The patient denied any auditory or visual hallucinations and did not appear to be responding to internal stimuli. Attention and concentration appeared intact, and memory was somewhat unreliable, but none were formally tested. She was alert and oriented times three. Insight and judgment appear limited. Impulse control is impaired. Vitals/I&O/Wt Last Vital Signs Temp 98 F 08/28/23 14:00 Pulse 95 08/28/23 14:00 Resp 16 08/28/23 14:00 BP 106/67 08/28/23 14:00 Pulse Ox 96 08/28/23 14:00 O2 Del Method Room Air 08/28/23 14:00 Data NPU 08/25/23 04:49 08/25/23 04:49 A&P Assessment and plan (1) Suicidal ideation: (2) Seizures: (3) Drug-induced psychotic disorder: (4) Amphetamine or stimulant drug abuse: (5) Post-traumatic stress disorder, chronic: (6) Cannabis dependence, uncomplicated: (7) Alcohol dependence, in remission: (8) Depression, unspecified: Plan This is a 27-year-old, white female, with genetic loading for mental health and addiction issues, with a history of mental health issues and substance abuse, who presents after testing positive for methamphetamine in the ER and having an episode of hallucinations, and reporting that she has not had her psychiatric medications for about a month. 1. Continue lexapro to 20mg daily , continue abilify 10mg daily. Add Doxepin 25mg at night for insomnia. 2. Encourage individual, group, and milieu therapy. 3. Continue q-15-minute checks for safety. 4. Recommend sober living treatment at the highest level of care to which the patient is willing to commit. 5. Patient has a legal guardian, Vamsi Hazel and patient likely to be placed in [facility] living [facility]. Involuntary Hold Information 96 Hour Hold: 96 Hour Involuntary Admission: No Attestations NPU Medical Necessity Statement*: Inpatient hospitalization is medically necessary and the clinically appropriate intervention at this time. We will monitor medications and make changes as indicated. Patient's likely length of stay is 1-2 days. Coding Level of Care Code Acute Code for [facility] Fwd Diagnoses Suicidal ideation R45.851 Seizures R56.9 Drug-induced psychotic disorder F19.959 Amphetamine or stimulant drug abuse F15.10 Post-traumatic stress disorder, chronic F43.12 Cannabis dependence, uncomplicated F12.20 Alcohol dependence, in remission F10.21 Depression, unspecified F32.A
[2023-08-28 18:11] VITALS: BP 120/84
[2023-08-28] MEDS: doxepin 25 mg Capsule PO (20:20)
[2023-08-28 21:25] VITALS: BP 89/66; PULSE 95; RESP 16; TEMP 36.8; O2SAT 99
[2023-08-29 06:00] VITALS: BP 90/60; PULSE 75; RESP 16; O2SAT 96
[2023-08-29] MEDS: chlorthalidone 25 mg Tablet PO (08:28)
[2023-08-29] MEDS: ARIPiprazole 10 mg Tablet PO (08:28)
[2023-08-29] MEDS: escitalopram 10 mg Tablet 20 MG PO (08:28)
[2023-08-29] MEDS: nicotine 2 mg Gum BUCCAL (08:29)
[2023-08-29] MEDS: nicotine 21 mg Patch 1 PATCH TRANSDERMA (08:54)
[2023-08-29 09:42] VITALS: BP 103/73
[2023-08-29] MEDS: ondansetron 4 MG Tablet PO (10:47)
[2023-08-29 14:00] VITALS: BP 119/85; PULSE 93; RESP 17; TEMP 36.9; O2SAT 98
--- NOTE | 2023-08-29 14:11 | P.NPUPN_ITS ---
Subjective NPU Subjective: 27-year-old white female with a history of methamphetamine use admitted with auditory hallucinations with a history of multiple inpatient hospitalizations. The patient reported no thoughts of hurting herself or others at this time. She had made a list requesting to her guardian the ability to live with her boyfriend. Patient had understood that she would likely be going to a unlocked facility ([facility]) in the near future. She reported no side effects from her medication. She had denied hearing or seeing things. She had been better able to engage in self-care. She reported feeling less fatigued having recovered from influenza A. She had reported improved sleep with the doxepin. Mental Status Exam MSE Comments: This is an obese, white female, in hospital scrubs, with improved grooming and good eye contact. Her hair color is bright red/pink. No abnormal involuntary motor movements, except for mild psychomotor retardation. She was cooperative with exam and appeared in no acute distress. Speech was normal in rate and normal in volume. Mood described as better ; Her affect was brighter. Thought process was linear, logical and goal directed. Thought content: paresh kenney denied any suicidal or homicidal ideation, No overt delusions noted. There was no active paranoia. The patient denied any auditory or visual hallucinations and did not appear to be responding to internal stimuli. Attention and concentration appeared intact, and memory was somewhat unreliable, but none were formally tested. She was alert and oriented times three. Insight was improving and judgment appear limited. Impulse control is guarded Vitals/I&O/Wt Last Vital Signs Temp 98.3 F 08/28/23 21:25 Pulse 75 08/29/23 06:00 Resp 16 08/29/23 06:00 BP 103/73 08/29/23 09:42 Pulse Ox 96 08/29/23 06:00 O2 Del Method Room Air 08/28/23 14:00 Data NPU 08/25/23 04:49 08/25/23 04:49 A&P Assessment and plan (1) Suicidal ideation: (2) Seizures: (3) Drug-induced psychotic disorder: (4) Amphetamine or stimulant drug abuse: (5) Post-traumatic stress disorder, chronic: (6) Cannabis dependence, uncomplicated: (7) Alcohol dependence, in remission: (8) Depression, unspecified: Plan This is a 27-year-old, white female, with genetic loading for mental health and addiction issues, with a history of mental health issues and substance abuse, who presents after testing positive for methamphetamine in the ER and having an episode of hallucinations, and reporting that she has not had her psychiatric medications for about a month. 1. Continue lexapro to 20mg daily , continue abilify 10mg daily. Continue Doxepin 25mg at night for insomnia. 2. Encourage individual, group, and milieu therapy. 3. Continue q-15-minute checks for safety. 4. Recommend sober living treatment at the highest level of care to which the patient is willing to commit. 5. Patient has a legal guardian, Vamsi Hazel and patient likely to be placed in [facility] living on 08/30/23. [address] ordered transportation of patient directlly to [facility]. Involuntary Hold Information 96 Hour Hold: 96 Hour Involuntary Admission: No Attestations NPU Medical Necessity Statement*: Inpatient hospitalization is medically necessary and the clinically appropriate intervention at this time. We will monitor medications and make changes as indicated. Patient's likely length of stay is 1-2 days. Coding Level of Care Code Acute Code for [facility] Fwd Diagnoses Suicidal ideation R45.851 Seizures R56.9 Drug-induced psychotic disorder F19.959 Amphetamine or stimulant drug abuse F15.10 Post-traumatic stress disorder, chronic F43.12 Cannabis dependence, uncomplicated F12.20 Alcohol dependence, in remission F10.21 Depression, unspecified F32.A
[2023-08-29] MEDS: hyDROXYzine 25 mg Capsule 50 MG PO ×2 (14:51→22:55)
[2023-08-29 17:28] VITALS: BP 119/85
[2023-08-29] MEDS: cloNIDine 0.1 mg Tablet PO (17:28)
[2023-08-29] MEDS: ibuprofen 600 mg Tablet PO (17:29)
[2023-08-29 19:35] VITALS: BP 130/78; PULSE 67; RESP 20; TEMP 36.7; O2SAT 98
[2023-08-29] MEDS: doxepin 25 mg Capsule PO (19:42)
[2023-08-30 06:00] VITALS: BP 123/65; PULSE 84; RESP 19; TEMP 36.3; O2SAT 98
[2023-08-30 08:00] VITALS: PULSE 84; RESP 18; O2SAT 98
[2023-08-30] MEDS: chlorthalidone 25 mg Tablet PO (08:23)
[2023-08-30] MEDS: ARIPiprazole 10 mg Tablet PO (08:23)
[2023-08-30] MEDS: nicotine 21 mg Patch 1 PATCH TRANSDERMA (08:24)
[2023-08-30] MEDS: escitalopram 10 mg Tablet 20 MG PO (08:24)
[2023-08-30] MEDS: ondansetron 4 MG Tablet PO (08:24)
[2023-08-30] MEDS: hyDROXYzine 25 mg Capsule 50 MG PO (11:12)
[2023-08-30 14:00] VITALS: BP 118/85; PULSE 96; RESP 18; TEMP 36.4; O2SAT 97
[2023-08-30] MEDS: nicotine 4 mg lozenge MUCOUS MEM (15:27)
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
[2023-08-30 15:33] VITALS: BP 118/85; PULSE 96; RESP 18; TEMP 36.4; O2SAT 97
[2023-08-30] MEDS: LORazepam 2 mg Tablet PO (16:55)
--- NOTE | 2023-08-30 16:55 | PC.NURSE ---
Per request from Guardian and Dr. Taylor pt was administered 2mg PO Ativan before her ride to the facility.
== END 2023-08-30 16:55 | disposition home or self-care (01) | DRG 897 ==
LOC: ER 09:05 → NP 09:15 → MEDSURG 08-22 21:11 → NP 08-30 15:03 → MS 2A 10-12 15:41
PROVIDERS: Family Medicine; Internal Medicine; Admitting Provider Psychiatry & Neurology Psychiatry; Emergency Provider Family Medicine; PCP Internal Medicine; Visit Provider Psychiatry & Neurology Psychiatry
DX: F19.151 Other psychoactive substance abuse with psychoactive substance-induced psychotic disorder with hallucinations (principal); F10.21 Alcohol dependence, in remission; F19.150 Other psychoactive substance abuse with psychoactive substance-induced psychotic disorder with delusions; E03.9 Hypothyroidism, unspecified; G40.909 Epilepsy, unspecified, not intractable, without status epilepticus; F32.A Depression, unspecified; J45.909 Unspecified asthma, uncomplicated; F12.20 Cannabis dependence, uncomplicated; F43.12 Post-traumatic stress disorder, chronic; F17.210 Nicotine dependence, cigarettes, uncomplicated; E66.9 Obesity, unspecified; Z68.39 Body mass index [BMI] 39.0-39.9, adult; J10.1 Influenza due to other identified influenza virus with other respiratory manifestations; F15.10 Other stimulant abuse, uncomplicated; Z81.8 Family history of other mental and behavioral disorders
CPT/HCPCS: 36415; 36416; 71045; 74018; 76705; 80053; 80306; 80307; 81001; 81003; 82962; 83690; 84145; 84443; 84702; 84703; 85025; 86140; 87426; 87804; 93005; 96372; 97150; 97165; 99285; J0131; J2405; J2550; J2765; J7120; Q0162